=== PATIENT | female | born 1940 | race Caucasian/White ===

== ENCOUNTER 2016-11-18 19:15 | Inpatient (IN) | payer MEDICARE, BC ==
[2016-11-18 19:50] LABS: Glucose,Whole Blood 179 mg/dL (75-99)
--- NOTE | 2016-11-18 20:02 | ED ---
Neuro HPI - General Chief Complaint: Neuro Symptoms/Deficit Stated Complaint: Arm numbness/face Time Seen by Provider: 11/18/16 19:34 Source: patient, family Mode of arrival: EMS Limitations: no limitations - History of Present Illness Is the patient presenting with stroke symptoms?: Yes Initial Comments: 76-year-old female onset of tingling in the left arm about 6:15 this evening. She states that there is some weakness no loss of speech no visual changes no blurry vision no double vision no headache. No syncope. No nausea vomiting. Has a history diabetes no hypertension. 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 - Related Data Home Medications: Home Medications Medication Instructions Recorded Confirmed Aspirin EC [Ecotrin Low Dose] 81 mg PO DAILY 11/18/16 11/18/16 Gemfibrozil [Lopid] 600 mg PO AC-BID 11/18/16 11/18/16 Multivitamins, Thera [Multivitamin] 1 tab PO DAILY 11/18/16 11/18/16 glipiZIDE XL [Glucotrol Xl] 10 mg PO BID 11/18/16 11/18/16 metFORMIN HCL [metFORMIN HCL ER] 1,000 mg PO BID 11/18/16 11/18/16 Allergies/Adverse Reactions: Allergies Allergy/AdvReac Type Severity Reaction Status Date / Time cortisone AdvReac HIGH SUGAR Verified 11/18/16 19:49 LEVELS Review of Systems ROS Statement: Those systems with pertinent positive or pertinent negative responses have been documented in the HPI. ROS Other: All systems not noted in ROS Statement are negative. Constitutional: Denies: fever ENT: Denies: ear pain Respiratory: Denies: cough Cardiovascular: Denies: chest pain Gastrointestinal: Denies: abdominal pain, nausea, vomiting Genitourinary: Denies: urgency, frequency Skin: Denies: rash Neurological: Denies: headache Psychiatric: Denies: anxiety, depression General Exam Limitations: no limitations General appearance: alert, in no apparent distress Head exam: Present: atraumatic Eye exam: Present: PERRL, EOMI ENT exam: Present: normal oropharynx, mucous membranes moist, TM's normal bilaterally Neck exam: Present: normal inspection Respiratory exam: Present: normal lung sounds bilaterally Cardiovascular Exam: Present: regular rate, normal heart sounds GI/Abdominal exam: Present: soft. Absent: tenderness Neurological exam: Present: alert, oriented X3, CN II-XII intact (Good fine motor motion of the left hand very minimal weakness very minimal left wrist some mild weakness in the left leg but she also has had knee surgery no sensory deficit detected.) Psychiatric exam: Present: normal affect, normal mood Skin exam: Present: warm, dry Stroke MDM - Lab Data Result diagrams: 11/19/16 05:46 11/19/16 05:46 Lab Results 11/18/16 11/18/16 11/18/16 Range/Units 19:42 19:45 19:45 WBC 5.2 (3.8-10.6) k/uL RBC 4.66 (3.80-5.40) m/uL Hgb 13.9 (11.4-16.0) gm/dL Hct 40.0 (34.0-46.0) % MCV 85.9 (80.0-100.0) fL MCH 29.8 (25.0-35.0) pg MCHC 34.7 (31.0-37.0) g/dL RDW 12.9 (11.5-15.5) % Plt Count 283 (150-450) k/uL Neutrophils % 50 % Lymphocytes % 38 % Monocytes % 7 % Eosinophils % 1 % Basophils % 1 % Neutrophils # 2.6 (1.3-7.7) k/uL Lymphocytes # 1.9 (1.0-4.8) k/uL Monocytes # 0.3 (0-1.0) k/uL Eosinophils # 0.1 (0-0.7) k/uL Basophils # 0.0 (0-0.2) k/uL PT (9.0-12.0) sec INR (<1.1) APTT (22.0-30.0) sec Sodium (137-145) mmol/L Potassium (3.5-5.1) mmol/L Chloride (98-107) mmol/L Carbon Dioxide (22-30) mmol/L Anion Gap mmol/L BUN (7-17) mg/dL Creatinine (0.52-1.04) mg/dL Est GFR (MDRD) Af Amer (>60 ml/min/1.73 sqM) Est GFR (MDRD) Non-Af (>60 ml/min/1.73 sqM) Glucose (74-99) mg/dL POC Glucose (mg/dL) 179 H (75-99) mg/dL POC Glu Partition Setter ID Leann V[place] Calcium (8.4-10.2) mg/dL Total Bilirubin (0.2-1.3) mg/dL AST (14-36) U/L ALT (9-52) U/L Alkaline Phosphatase (38-126) U/L Total Creatine Kinase 24 L (30-135) U/L CK-MB (CK-2) 0.7 (0.0-2.4) ng/mL CK-MB (CK-2) Rel Index 2.9 Troponin I <0.012 (0.000-0.034) ng/mL Total Protein (6.3-8.2) g/dL Albumin (3.5-5.0) g/dL 11/18/16 11/18/16 Range/Units 19:45 19:45 WBC (3.8-10.6) k/uL RBC (3.80-5.40) m/uL Hgb (11.4-16.0) gm/dL Hct (34.0-46.0) % MCV (80.0-100.0) fL MCH (25.0-35.0) pg MCHC (31.0-37.0) g/dL RDW (11.5-15.5) % Plt Count (150-450) k/uL Neutrophils % % Lymphocytes % % Monocytes % % Eosinophils % % Basophils % % Neutrophils # (1.3-7.7) k/uL Lymphocytes # (1.0-4.8) k/uL Monocytes # (0-1.0) k/uL Eosinophils # (0-0.7) k/uL Basophils # (0-0.2) k/uL PT 10.5 (9.0-12.0) sec INR 1.0 (<1.1) APTT 24.1 (22.0-30.0) sec Sodium 141 (137-145) mmol/L Potassium 4.9 (3.5-5.1) mmol/L Chloride 103 (98-107) mmol/L Carbon Dioxide 24 (22-30) mmol/L Anion Gap 14 mmol/L BUN 16 (7-17) mg/dL Creatinine 0.74 (0.52-1.04) mg/dL Est GFR (MDRD) Af Amer >60 (>60 ml/min/1.73 sqM) Est GFR (MDRD) Non-Af >60 (>60 ml/min/1.73 sqM) Glucose 189 H (74-99) mg/dL POC Glucose (mg/dL) (75-99) mg/dL POC Glu Partition Setter ID Calcium 10.1 (8.4-10.2) mg/dL Total Bilirubin 0.6 (0.2-1.3) mg/dL AST 26 (14-36) U/L ALT 25 (9-52) U/L Alkaline Phosphatase 90 (38-126) U/L Total Creatine Kinase (30-135) U/L CK-MB (CK-2) (0.0-2.4) ng/mL CK-MB (CK-2) Rel Index Troponin I (0.000-0.034) ng/mL Total Protein 7.5 (6.3-8.2) g/dL Albumin 4.4 (3.5-5.0) g/dL - NIH Stroke Scale 1a. Level of Consciousness: (0) alert 1b. LOC Questions: (0) answers correctly 1c. LOC Commands: (0) performs tasks correctly 2. Best Gaze: (0) normal 3. Visual: (0) no visual loss 4. Facial Palsy: (0) normal symmetrical movement 5a. Motor Arm Left: (1) drift 5b. Motor Arm Right: (0) no drift 6a. Motor Leg Left: (1) drift 6b. Motor Leg Right: (0) no drift 7. Limb Ataxia: (0) absent 8. Sensory: (0) normal 9. Best Language: (0) no aphasia 10. Dysarthria: (0) normal 11. Extinction/Inattention: (0) no abnormality Past Medical History Past Medical History: Diabetes Mellitus Additional Past Medical History / Comment(s): Arthritis History of Any Multi-Drug Resistant Organisms: None Reported Past Surgical History: Appendectomy, Cholecystectomy Additional Past Surgical History / Comment(s): ovairan, back surgery, spinal, kidney surgery Past Psychological History: No Psychological Hx Reported Smoking Status: Never smoker Past Alcohol Use History: None Reported Past Drug Use History: None Reported - Past Family History Father Additional Family Medical History / Comment(s): father of aneurysm Mother Family Medical History: Cancer Additional Family Medical History / Comment(s): Mother of colon cancer Course Vital Signs 11/18/16 11/18/16 11/18/16 19:19 19:51 20:06 Temperature 99.2 F Pulse Rate 96 82 84 Respiratory 18 18 18 Rate Blood Pressure 183/77 157/85 147/76 O2 Sat by Pulse 99 95 96 Oximetry - Reevaluation(s) Reevaluation #1: 11/18/16 20:28 ECG 11/18/2016 1936 and treated rate 87 bpm, WA interval 184 ms, QRS duration 88 ms, QT interval 372 ms normal sinus rhythm possible left atrial enlargement borderline ECG Reevaluation #2: 11/18/16 21:23 Nursing spoke to the stroke specialist right after the computed tomography scan her scale was not high enough to consider tPA she has pretty good fine motor more movements and seems to be getting better her drift his last the weakness in her left leg is partially attributed to previous surgery. Aspirin was given. Patient will be admitted to Dr. Keane Reevaluation #3: 11/18/16 21:30 Chest x-ray cardiomegaly mild atelectasis age-related changes on the CT the brain Reevaluation #4: 11/18/16 21:[address] Keane, patient will be admitted for carotids and monitoring. Critical Care Time Critical Care Time: Yes Total Critical Care Time: 30 Disposition Clinical Impression: Cerebrovascular accident, Hypertension Disposition: ADMITTED IP TO THIS [facility] Condition: Fair Time of Disposition: 21:40 Decision Date: 11/18/16 Decision Time: 21:40
[2016-11-18 20:05] LABS: Basophils % (A) 1 %; CH 29.7; CHCM 34.8; Eosinophils # (A) 0.1 k/uL (0-0.7); Eosinophils % (A) 1 %; HDW 2.53; HGB 13.9 gm/dL (11.4-16.0); Luc # (Auto) 0.19; Luc % (Auto) 4; Lymphocytes # (A) 1.9 k/uL (1.0-4.8); Lymphocytes % (A) 38 %; MCH 29.8 pg (25.0-35.0); MCHC 34.7 g/dL (31.0-37.0); MCV 85.9 fL (80.0-100.0); Mean Platelet Volume 7.8; Monocytes # (A) 0.3 k/uL (0-1.0); Monocytes % (A) 7 %; Neutrophils # (A) 2.6 k/uL (1.3-7.7); Neutrophils % (A) 50 %; RBC 4.66 m/uL (3.80-5.40); RDW 12.9 % (11.5-15.5); WBC 5.2 k/uL (3.8-10.6); WBC (Perox) 5.05
--- NOTE | 2016-11-18 20:10 | CT ---
EXAMINATION TYPE: CT brain wo con for TPA DATE OF EXAM: 11/18/2016 8:00 PM COMPARISON: NONE HISTORY: 76-year-old female complains of left arm numbness. TECHNIQUE: Examination was done in axial plane without intravenous contrast. Coronal and sagittal r econstructions performed. CT DLP: 742.7 mGycm Automated exposure control for dose reduction was used. FINDINGS: There is no evidence of acute intracranial hemorrhage, acute ischemic changes, mass, mass-effect, or extra-axial fluid collection. There is no effacement of cerebral sulci or basal subarachnoid cister ns. There is no hydrocephalus. There is no midline shift. Weller-white matter distinction is preserv ed. There is mild generalized supratentorial volume loss and mild confluent periventricular and deep whit e matter hypodensities. Paranasal sinuses and mastoid air cells are well pneumatized. Orbits lobes are intact. IMPRESSION: No acute intracranial abnormality seen. Mild atrophy and changes of chronic small vessel ischemic dis ease.
[2016-11-18 20:15] LABS: ALT 25 U/L (9-52); AST 26 U/L (14-36); Alkaline Phosphatase 90 U/L (38-126); Anion Gap 14 mmol/L; Blood Urea Nitrogen 16 mg/dL (7-17); Calcium 10.1 mg/dL (8.4-10.2); Carbon Dioxide 24 mmol/L (22-30); Chloride 103 mmol/L (98-107); Glucose 189 mg/dL (74-99); Non-African American GFR(MDRD) >60 (>60 ml/min/1.73 sqM); Potassium 4.9 mmol/L (3.5-5.1); Sodium 141 mmol/L (137-145); Total Bilirubin 0.6 mg/dL (0.2-1.3); Total Protein 7.5 g/dL (6.3-8.2)
[2016-11-18 20:18] LABS: Partial Thromboplastin Time 24.1 sec (22.0-30.0); Prothrombin Time 10.5 sec (9.0-12.0)
--- NOTE | 2016-11-18 20:43 | XR ---
EXAMINATION TYPE: XR chest 2V DATE OF EXAM: 11/18/2016 8:30 PM COMPARISON: 07/25/2016 HISTORY: 76 year-old female altered mental status TECHNIQUE: Frontal and lateral views FINDINGS: The heart is borderline enlarged. Aorta and pulmonary vasculature within normal limits. Mild intersti tial prominence likely chronic senescent change. There is some focal patchy posterior basilar opacity on the lateral view. Plate and screw fixation along the visualized left humerus. Full-thickness rota tor cuff tear is suspected on both sides. IMPRESSION: 1. Borderline cardiomegaly. 2. Some patchy posterior basilar atelectasis or early infiltrate on the lateral view.
[2016-11-18 20:56] LABS: Creatine Kinase 24 U/L (30-135)
[2016-11-18] MEDS ORDERED: ASPIRIN 81 MG CHEW PO STA (20:58)
[2016-11-18] MEDS ORDERED: SODIUM CHLORIDE 0.9% 1,000 ML IV STA (20:58)
[2016-11-18 21:09] LABS: Creatine Kinase MB 0.7 ng/mL (0.0-2.4); Troponin I <0.012 ng/mL (0.000-0.034)
[2016-11-18] MEDS ORDERED: NALOXONE 0.4 MG/ML 1 ML VIAL IV PRN (21:41)
[2016-11-18] MEDS: SODIUM CHLORIDE 0.9% 1,000 ML IV SCH (22:44)
[2016-11-18] MEDS ORDERED: GEMFIBROZIL 600 MG TAB PO ONE (23:03)
[2016-11-18] MEDS ORDERED: glipiZIDE 10 MG TAB PO ONE (23:04)
[2016-11-18] MEDS ORDERED: metFORMIN 500 MG TAB PO ONE (23:04)
[2016-11-18 23:16] LABS: Glucose,Whole Blood 140 mg/dL (75-99)
--- NOTE | 2016-11-19 00:39 | US ---
EXAM: US Duplex Bilateral Extracranial Arteries. CLINICAL HISTORY: Reason: Pain TECHNIQUE: Real-time ultrasound scan of the bilateral carotid and vertebral arteries, 2-D gregory scale, with color Doppler flow and spectral waveform analysis. COMPARISON: No relevant prior studies available. FINDINGS: Right common carotid artery: Unremarkable. No occlusion or significant stenosis. Right internal carotid artery: Moderate intimal thickening/atherosclerotic plaquing in the proximal right internal carotid artery (carotid bulb) without significant elevation of peak systolic velocity to suggest hemodynamically significant stenosis. Right external carotid artery: Unremarkable. No occlusion or significant stenosis. Right vertebral artery: Antegrade flow in the right vertebral artery. Right ICA/CCA ratio: Unremarkable. Within normal limits. Left common carotid artery: Moderate focal irregular atherosclerotic plaquing in the mid left common carotid artery on a background of mild intimal thickening. No significant elevation of peak systolic velocity. No hemodynamically significant stenosis evident by ultrasound. Left internal carotid artery: Moderate intimal thickening/atherosclerotic plaquing in the proximal left internal carotid artery (carotid bulb) without significant elevation of peak systolic velocity to suggest hemodynamically significant stenosis. Left external carotid artery: Unremarkable. No occlusion or significant stenosis. Left vertebral artery: Antegrade flow in the left vertebral artery. Left ICA/CCA ratio: Unremarkable. Within normal limits. CAROTID STENOSIS REFERENCE USING SRU CRITERIA: Mild - <50% stenosis. ICA PSV is less than 125 cm/second and plaque or intimal thickening is visible. Moderate - 50-69% stenosis. ICA PSV is 125 to 230 cm/second and plaque is visible. Severe - 70-94% stenosis. ICA PSV is more than 230 cm/second and visible plaque with lumen narrowing is seen. Near occlusion - 95-99% stenosis. ICA PSV is variable and significant plaque with luminal narrowing is seen. Occluded - 100% stenosis. No flow identified. IMPRESSION: 1. Moderate focal irregular atherosclerotic plaquing in the mid left common carotid artery without hemodynamically significant stenosis evident by ultrasound. 2. Moderate atherosclerotic plaquing in the proximal internal carotid arteries bilaterally (carotid bulbs) without hemodynamically significant internal carotid artery stenosis evident by ultrasound. 3. Antegrade flow in the vertebral arteries. Critical Value Communications 11/19/16 00:42 Verify Receipt with Nurse Verified receipt with THELMA Cerrato @ [id number]
[2016-11-19 02:07] VITALS: RESP 16
[2016-11-19 03:08] LABS: Glucose,Whole Blood 141 mg/dL (75-99)
[2016-11-19 05:13] LABS: Appearance,Urine Clear (Clear); Bilirubin,Urine Negative (Negative); Glucose,Urine (UA) Trace (Negative); Ketones,Urine Negative (Negative); Leukocyte Esterase,Urine Small (Negative); Nitrite,Urine Negative (Negative); PH, Urine 5.5 (5.0-8.0); Particle Count 480; Protein,Urine Negative (Negative); RBC,Urine <1 /hpf (0-5); Specific Gravity,Urine 1.012 (1.001-1.035); Squamous Epithelial Cell,Urine <1 /hpf (0-4); UA Billing (MACRO vs. MICRO) MICRO; Urobilinogen,Urine <2.0 mg/dL (<2.0); WBC,Urine 2 /hpf (0-5)
[2016-11-19 05:53] LABS: Glucose,Whole Blood 117 mg/dL (75-99)
[2016-11-19 06:19] LABS: Basophils # (A) 0.1 k/uL (0-0.2); Basophils % (A) 2 %; CH 29.7; CHCM 33.9; Eosinophils # (A) 0.1 k/uL (0-0.7); Eosinophils % (A) 2 %; HCT 38.3 % (34.0-46.0); HDW 2.49; HGB 12.9 gm/dL (11.4-16.0); Luc # (Auto) 0.28; Luc % (Auto) 4; Lymphocytes # (A) 2.5 k/uL (1.0-4.8); Lymphocytes % (A) 39 %; MCH 29.7 pg (25.0-35.0); MCHC 33.7 g/dL (31.0-37.0); Mean Platelet Volume 7.9; Monocytes # (A) 0.4 k/uL (0-1.0); Monocytes % (A) 7 %; Neutrophils % (A) 46 %; RBC 4.35 m/uL (3.80-5.40); RDW 13.1 % (11.5-15.5); WBC 6.4 k/uL (3.8-10.6); WBC (Perox) 6.36
[2016-11-19 06:27] LABS: Anion Gap 12 mmol/L; Blood Urea Nitrogen 15 mg/dL (7-17); Calcium 9.5 mg/dL (8.4-10.2); Carbon Dioxide 24 mmol/L (22-30); Chloride 106 mmol/L (98-107); Glucose 115 mg/dL (74-99); Non-African American GFR(MDRD) >60 (>60 ml/min/1.73 sqM); Potassium 4.2 mmol/L (3.5-5.1); Sodium 142 mmol/L (137-145)
[2016-11-19] MEDS: GEMFIBROZIL 600 MG TAB PO SCH ×2 (07:22→16:36)
[2016-11-19] MEDS: glipiZIDE 10 MG TAB PO SCH ×2 (07:22→22:15)
[2016-11-19] MEDS: metFORMIN 500 MG TAB PO SCH ×2 (07:22→22:02)
[2016-11-19] MEDS: ASPIRIN 81 MG CHEW PO SCH (08:51)
[2016-11-19] MEDS: MULTIVITAMINS, THERA 1 EACH TAB PO SCH (08:51)
[2016-11-19 12:24] LABS: Glucose,Whole Blood 189 mg/dL (75-99)
[2016-11-19] MEDS ORDERED: RX INFO: IV CONTRAST WAS GIVEN 1 EACH MISC MISCELLANE PRN (15:55)
[2016-11-19] MEDS: ENOXAPARIN 40 MG/0.4 ML SYRINGE SQ SCH (16:36)
--- NOTE | 2016-11-19 17:06 | P.CNPUL ---
History of Present Illness Consult date: 11/19/16 Chief complaint: CVA History of present illness: This is a 76-year-old female patient who presented to the burst department because of an acute onset weakness and numbness in her left upper and left lower extremity. The patient had no facial weakness. No change in vision. No change in her speech. No headaches. No syncope. No nausea vomiting or abdominal pain. Symptoms started around 6:15 PM and the patient was in the burst department at around 1-1/2 hours following the onset of symptoms. The patient was seen in the emergency department and the patient had a CAT scan of the head that showed no acute intracranial abnormalities. She had mild atrophy and changes of chronic small vessel disease. Subsequently her symptoms improved and the numbness and the tingling resolved and the weakness also improved. Based on that the patient was admitted to the hospital under the diagnosis of TIA. The patient was admitted under the hospitalist group and I'm seeing this patient based on the affected the patient's primary care physician is Dr. Myers. She is doing well. She has no specific complaints. No atrial fibrillation. Carotid Dopplers will be done. Echocardiogram is pending. No previous history of CVA. No hypertension. She is known to have diabetes. She suffered from a bout of diarrhea approximately a week ago from which she recovered. She has been otherwise in a good state of health. Review of Systems Full review of system was done and the positive findings are almost above in history of present illness Past Medical History Past Medical History: Diabetes Mellitus Additional Past Medical History / Comment(s): Diabetes mellitus, Arthritis History of Any Multi-Drug Resistant Organisms: None Reported Past Surgical History: Appendectomy, Cholecystectomy Additional Past Surgical History / Comment(s): ovairan distal resection, left arm ORIF, cholecystectomy, appendectomy, multiple bilateral knee surgeries, adenoidectomy, tonsillectomy, carpal tunnel release, back surgery Past Anesthesia/Blood Transfusion Reactions: No Reported Reaction Past Psychological History: No Psychological Hx Reported Smoking Status: Never smoker Past Alcohol Use History: None Reported Past Drug Use History: None Reported - Past Family History Father Additional Family Medical History / Comment(s): father of aneurysm Mother Family Medical History: Cancer Additional Family Medical History / Comment(s): Mother of colon cancer Medications and Allergies Home Medications Medication Instructions Recorded Confirmed Type Aspirin EC [Ecotrin Low Dose] 81 mg PO DAILY 11/18/16 11/18/16 History Gemfibrozil [Lopid] 600 mg PO AC-BID 11/18/16 11/18/16 History Multivitamins, Thera [Multivitamin] 1 tab PO DAILY 11/18/16 11/18/16 History glipiZIDE XL [Glucotrol Xl] 10 mg PO BID 11/18/16 11/18/16 History metFORMIN HCL [metFORMIN HCL ER] 1,000 mg PO BID 11/18/16 11/18/16 History Allergies Allergy/AdvReac Type Severity Reaction Status Date / Time cortisone AdvReac HIGH SUGAR Verified 11/18/16 19:49 LEVELS Physical Exam Vitals: Vital Signs Temp Pulse Pulse Resp BP BP Pulse Ox 11/19/16 11:29 98.2 F 69 16 110/55 96 11/19/16 08:00 97.8 F 81 16 115/62 96 11/19/16 04:00 80 16 137/62 97 11/19/16 00:00 99.0 F 68 16 163/72 97 11/18/16 22:05 97.0 F L 81 18 173/77 98 Intake and Output 11/19/16 11/19/16 11/19/16 06:59 14:59 22:59 Intake Total 120 212 Output Total 200 Balance -80 212 Intake: IV 120 212 Sodium Chloride 0.9% 1, 120 212 000 ml @ 20 mls/hr IV . Q24H [facility] Rx#:[id number] Output: Urine 200 Other: Voiding Method Toilet Toilet Diaper # Voids 1 Weight 81.4 kg The patient appeared well nourished and normally developed. Vital signs as documented. Head exam is unremarkable. No scleral icterus or corneal arcus noted. Neck is without jugular venous distension, thyromegaly, or carotid bruits. Carotid upstrokes are brisk bilaterally. Lungs are clear to auscultation and percussion. Cardiac exam reveals the PMI to be normally sized and situated. Rhythm is regular. First and second heart sounds normal. No murmurs, rubs or gallops. Abdominal exam reveals normal bowel sounds, no masses , no organomegaly and no aortic enlargement. Extremities are nonedematous and both femoral and pedal pulses are normal. Neurologically, the patient is awake and alert and she is following commands and answering questions appropriately. No facial asymmetry. Left side is noted to be slightly weaker compared to the right however the patient tells me that this is unusual for her and she states that she is back to her baseline. Results - Laboratory Findings CBC and BMP: 11/19/16 05:46 11/19/16 05:46 PT/INR, D-dimer PT 10.5 sec (9.0-12.0) 11/18/16 19:45 INR 1.0 (<1.1) 11/18/16 19:45 Abnormal lab findings: Abnormal Labs 11/18/16 11/19/16 11/19/16 22:55 03:07 04:25 Glucose POC Glucose (mg/dL) 140 H 141 H Urine Glucose (UA) Trace H Ur Leukocyte Esterase Small H 11/19/16 11/19/16 11/19/16 05:46 05:46 11:50 Glucose 115 H POC Glucose (mg/dL) 117 H 189 H Urine Glucose (UA) Ur Leukocyte Esterase - Diagnostic Findings Chest x-ray: image reviewed Assessment and Plan Plan: Assessment 1 acute CVA versus TIA. The patient had numbness and tingling and weakness in the left side of the body which pretty much is improved and the patient seems to be back to her baseline. CAT scan of the brain has been negative. Workup is in progress 2 diabetes mellitus 3 osteoarthritis Plan Workup for CVA/TIA. This will include echocardiogram, Doppler of the carotids, repeat CAT scan of the brain within the next 24 hours, lipid profile, type control of risk factors including blood pressure and diabetes mellitus, neurology consultation, will continue to follow.
[2016-11-19 17:10] LABS: Glucose,Whole Blood 143 mg/dL (75-99)
--- NOTE | 2016-11-19 17:23 | HP ---
DATE OF ADMISSION: 11/18/2016 PRESENTING COMPLAINT: Left-sided numbness. HISTORY OF PRESENTING COMPLAINT: This is a pleasant 76 -year-old patient of Dr. Myers who chronic medical history includes diabetes mellitus, type II, osteoarthritis, hypercholesterolemia. The patient presented with suddenly left arm and left leg numbness, tingling, feeling heavy and also felt dizzy and no headache. No double vision. No change in speech. Has been close to 24 hours. Some improvement but still feeling a bit numb, admitted for the same. No prior history of stroke. REVIEW OF SYSTEMS: CONSTITUTIONAL: None. HEENT: None. RESPIRATORY: None. CARDIOVASCULAR: None. GASTROINTESTINAL: None. GENITOURINARY: None. MUSCULOSKELETAL: Pain in the joints. Dermatologic: None. HEMATOLOGIC: None. LYMPHATIC: None. PSYCHIATRY: None. NEUROLOGICAL: As above. PAST MEDICAL HISTORY: Diabetes type 2, osteoarthritis, increased cholesterol. PAST SURGICAL HISTORY: Appendectomy, cholecystectomy, back surgery, spinal surgery, kidney surgery. SOCIAL HISTORY: No smoking. No alcohol. Lives by herself. Is a . FAMILY HISTORY: Father of an aneurysm. Home medications: 1. Metformin 1000 mg b.i.d. 2. Glucotrol XL 10 mg b.i.d. 3. Multivitamin 1 tablet p.o. daily. 4. Lopid 600 mg p.o. b.i.d. 5. Aspirin 81 mg daily. ALLERGIES TO CORTISONE CAUSING HIGH SUGARS. On examination vital signs on presentation: Temperature 99.2, pulse 96, respiration 18, blood pressure 183/77, pulse ox 99% on room air. Repeat blood pressure was 157/85. GENERAL APPEARANCE: Average build, sitting up on a distress. EYES: Pupils equal. Conjunctivae normal. HEENT: Oral cavity normal. NECK: JVD not raised. Mass not palpable. RESPIRATORY: Effort normal. Lungs are clear. CARDIOVASCULAR: First and second sounds normal. No edema. ABDOMEN: Soft, nontender. Liver and spleen not palpable. LYMPHATIC: No lymph nodes palpable in neck or axillae. PSYCHIATRY: Alert and oriented x3. Mood and affect normal. NEUROLOGICAL: Pupils equal. Cranial appears grossly intact. Power on the left side is 4/5. Sensation is decreased. Cranial nerves grossly intact. INVESTIGATIONS: White count 5.2, hemoglobin 9.9. Potassium 4.9. BUN and creatinine are normal. CT scan of the brain nil acute. Carotid Doppler did not show any critical stenosis. ASSESSMENT: 1. Acute stroke in a right-handed patient, in the right middle cerebral artery, likely ischemic. 2. Diabetes mellitus Type 2 on oral hypoglycemics. 3. Primary osteoarthritis in multiple joints, bilateral. 4. Hypercholesterolemia. PLAN: Patient will continue on aspirin. Home medication are resumed. Consult PT, OT. Will order 2D echocardiogram and repeat a CT scan in 24 hours. Care was discussed with the patient. Will also obtain lipid profile.
[2016-11-19 20:37] LABS: Glucose,Whole Blood 205 mg/dL (75-99)
[2016-11-20 04:19] LABS: Glucose,Whole Blood 186 mg/dL (75-99)
[2016-11-20] MEDS: SODIUM CHLORIDE 0.9% 1,000 ML IV SCH (05:49)
[2016-11-20 06:43] LABS: Glucose,Whole Blood 103 mg/dL (75-99)
[2016-11-20] MEDS: GEMFIBROZIL 600 MG TAB PO SCH (08:16)
[2016-11-20] MEDS: ASPIRIN 81 MG CHEW PO SCH (08:16)
[2016-11-20] MEDS: ENOXAPARIN 40 MG/0.4 ML SYRINGE SQ SCH (08:16)
[2016-11-20] MEDS: glipiZIDE 10 MG TAB PO SCH (08:16)
[2016-11-20 09:15] LABS: Cholesterol 157 mg/dL (<200); HDL Cholesterol 43 mg/dL (40-60); Triglycerides 73 mg/dL (<150)
--- NOTE | 2016-11-20 10:42 | ECHOF ---
Referral Reason:cva-r/o thrombus MEASUREMENTS -------- HEIGHT: 165.1 cm WEIGHT: 82.1 kg BP: RVIDd: 3.7 cm (< 3.3) IVSd: 1.3 cm (0.6 - 1.1) LVIDd: 4.0 cm (3.9 - 5.3) LVPWd: 1.1 cm (0.6 - 1.1) IVSs: 1.2 cm LVIDs: 2.6 cm LVPWs: 1.3 cm LA Diam: 3.9 cm (2.7 - 3.8) LAESV Index (A-L): 42.35 ml/m Ao Diam: 2.9 cm (2.0 - 3.7) AV Cusp: 0.8 cm (1.5 - 2.6) LA Diam: 4.9 cm (2.7 - 3.8) MV EXCURSION: 13.189 mm (> 18.000) MV EF SLOPE: 17 mm/s (70 - 150) EPSS: 0.7 cm MV E Arsalan: 1.22 m/s MV DecT: 409 ms MV A Arsalan: 1.81 m/s MV E/A Ratio: 0.68 AV maxP.93 mmHg AV meanP.61 mmHg RAP: 5.00 mmHg RVSP: 21.93 mmHg FINDINGS -------- Sinus rhythm. This was a technically adequate study. There is mild concentric left ventricular hypertrophy. Overall left ventricular systolic function is low-normal with, an EF between 50 - 55 %. The right ventricle is normal in size. LA is severely dilated >40 ml/m2 The right atrial size is normal. There is mild aortic stenosis present. Peak/mean gradient across the Aortic Valve is 16.93mmHg / 7.61mmHg. The mitral valve leaflets are moderately thickened. Moderate mitral annular calcification present. The peak and mean MV gradients are 18.31mmHg 7.72mmHg as measured by doppler. MV is Stenotic with decrease opening Mild tricuspid regurgitation present. There is no evidence of pulmonary hypertension. The right ventricular systolic pressure, as measured by Doppler, is 21.93mmHg. Trace/mild (physiologic) pulmonic regurgitation. The aortic root size is normal. There is a small, generalized pericardial effusion present. CONCLUSIONS -------- 1. There is mild concentric left ventricular hypertrophy. 2. Mild tricuspid regurgitation present. 3. There is no evidence of pulmonary hypertension. 4. The right ventricular systolic pressure, as measured by Doppler, is 21.93mmHg. 5. Trace/mild (physiologic) pulmonic regurgitation. 6. The aortic root size is normal. 7. There is a small, generalized pericardial effusion present. 8. Overall left ventricular systolic function is low-normal with, an EF between 50 - 55 %. 9. LA is severely dilated >40 ml/m2 10. There is mild aortic stenosis present. 11. Peak/mean gradient across the Aortic Valve is 16.93mmHg / 7.61mmHg. 12. The mitral valve leaflets are moderately thickened. 13. Moderate mitral annular calcification present. 14. The peak and mean MV gradients are 18.31mmHg 7.72mmHg as measured by doppler. 15. MV is Stenotic with decrease opening JOURNAL ENTRY AUDIT CLERK: Jane Ramirez RDCS
[2016-11-20 11:33] LABS: Glucose,Whole Blood 153 mg/dL (75-99)
[2016-11-20] MEDS: MULTIVITAMINS, THERA 1 EACH TAB PO SCH (12:13)
--- NOTE | 2016-11-20 12:22 | CT ---
EXAMINATION TYPE: CT angio head neck DATE OF EXAM: 11/20/2016 7:45 AM COMPARISON: NONE HISTORY: Lt side weakness CT DLP: 229.5 mGycm Automated exposure control for dose reduction was used. TECHNIQUE: Performed with IV Contrast, patient injected with 65 mL of Omnipaque 350. . FINDINGS: CTA neck: Atheromatous plaque is at the bilateral carotid bifurcations. Significant flow-limiting lili nosis is not evident. Internal and external carotid arteries appear unremarkable. Common carotid crys scar appear unremarkable there is a normal three-vessel arch CTA [place]: Internal carotid arteries bifurcate normally into A1 and M1 segments. A2 segmen ts appear normal. The anterior communicating artery is patent. The right posterior communicating crys ry is patent. Left posterior communicating arteries not clearly evident. Vertebral basilar system ge[place] ears normal. Posterior cerebral vasculature is normal. Middle cerebral artery branches appear normal. No aneurysmal dilatation is evident. IMPRESSION: 1. NO SIGNIFICANT FLOW-LIMITING STENOSIS INTERNAL CAROTID ARTERIES. 2. NORMAL [place]
--- NOTE | 2016-11-20 16:09 | P.PN ---
Subjective Principal diagnosis: Acute TIA This is a 76-year-old female patient who presented to the burst department because of an acute onset weakness and numbness in her left upper and left lower extremity. The patient had no facial weakness. No change in vision. No change in her speech. No headaches. No syncope. No nausea vomiting or abdominal pain. Symptoms started around 6:15 PM and the patient was in the burst department at around 1-1/2 hours following the onset of symptoms. The patient was seen in the emergency department and the patient had a CAT scan of the head that showed no acute intracranial abnormalities. She had mild atrophy and changes of chronic small vessel disease. Subsequently her symptoms improved and the numbness and the tingling resolved and the weakness also improved. Based on that the patient was admitted to the hospital under the diagnosis of TIA. The patient was admitted under the hospitalist group and I'm seeing this patient based on the affected the patient's primary care physician is Dr. Myers. She is doing well. She has no specific complaints. No atrial fibrillation. Carotid Dopplers will be done. Echocardiogram is pending. No previous history of CVA. No hypertension. She is known to have diabetes. She suffered from a bout of diarrhea approximately a week ago from which she recovered. She has been otherwise in a good state of health. Patient was reevaluated today on 11/20/2015, seems to be doing very well, she has no active neurological symptoms at present. Echocardiogram report was reviewed. Relatively unremarkable. CT angiogram of the brain was also noted basically normal. Carotid Doppler showed no evidence of hemodynamically significant internal carotid disease. Objective - Vital Signs Vital signs: Vital Signs Temp 97.3 F L 11/20/16 07:00 Pulse 62 11/20/16 07:00 Resp 16 11/20/16 07:00 BP 127/63 11/20/16 07:00 Pulse Ox 97 11/20/16 07:00 Intake & Output 11/19/16 11/20/16 11/20/16 18:59 06:59 18:59 Intake Total 322 120 Output Total 450 Balance -128 120 Weight 82.5 kg Intake: IV 322 120 Sodium Chloride 0.9% 1, 322 120 000 ml @ 20 mls/hr IV . Q24H NING Rx#:[id number] Output: Urine 450 Other: Voiding Method Toilet Toilet Toilet Diaper Diaper Diaper # Voids 1 # Bowel Movements 0 - Exam Physical Exam: Revealed a 76-year-old in no distress HEENT:[Neck is supple.] [No neck masses.] [No thyromegaly.] [No JVD.] Chest: [Clear throughout, no crackles, no rhonchi, no wheezes.] Cardiac Exam: [Normal S1 and S2, no S3 gallop, no murmur.] Abdomen: [Soft, nontender, no megaly, no rebound, no guarding, normal bowel sounds.] Extremities: [No clubbing, no edema, no cyanosis.] Neurological Exam: [No focal neurologic deficit.] - Labs CBC & Chem 7: 11/19/16 05:46 11/19/16 05:46 Labs: Abnormal Lab Results - Last 24 Hours (Table) 11/19/16 11/19/16 11/20/16 Range/Units 16:50 20:31 06:42 POC Glucose (mg/dL) 143 H 205 H 103 H (75-99) mg/dL 11/20/16 Range/Units 11:32 POC Glucose (mg/dL) 153 H (75-99) mg/dL Assessment and Plan Plan: Impression: Acute TIA, symptoms have resolved, and workup is nondiagnostic. Multiple comorbidities including diabetes, osteoarthritis, Recommendation: Consider discharge planning if cleared by neurology on consultation. And outpatient follow-up. Patient is now on aspirin and Lovenox. Time with Patient: Less than 30
[2016-11-20 16:20] VITALS: BP 146/67; PULSE 68; TEMP 98.2
--- NOTE | 2016-11-21 08:19 | DS ---
DATE OF ADMISSION: 11/18/2016 DATE OF DISCHARGE: 11/20/2016 FINAL DIAGNOSES: 1. Acute stroke in right-handed patient in the right middle cerebral artery territory likely ischemic. 2. Diabetes mellitus type 2, on oral hypoglycemic. 3. Primary osteoarthritis multiple joints, bilateral. 4. Hypercholesterolemia. HOSPITAL COURSE: This very pleasant lady presented with left arm numbness, weakness, tingling, dizzy. Symptoms greatly improved by the time of discharge. There was some residual left. The patient's CT scan of the brain showed chronic changes. Carotid Doppler did not show any critical stenosis. CT angiogram brain did not show any critical stenosis. The 2-D echocardiogram showed preserved LV function. No thrombus was reported. Patient was seen by Dr. Myers who is also the patient's family doctor. ( ) discussed the care in detailed with the patient. On examination, mild left arm weakness, power 1/5 . Care was discussed with the patient and she is keen to return home and manage fine. DISCHARGE MEDICATIONS: 1. Lopid 600 mg p.o. b.i.d. 2. Multivitamin 1 tablet p.o. daily. 3. Glucotrol XL 10 mg p.o. b.i.d. 4. Metformin ER 1000 mg p.o. b.i.d. 5. Aspirin 81 mg b.i.d. The patient's LDL came back to be 99. Discharge planning more than 35 minutes. Care was also discussed with the patient's family doctor, Dr. Myers.
== END 2016-11-20 16:53 | disposition home health service (06) | DRG 66 ==
LOC: EC 19:15 → 6SEL 21:41 → 4MS4W 11-19 18:13
PROVIDERS: ADMIT Hospitalist; ATTEND Hospitalist
DX: I63.9 Cerebral infarction, unspecified (principal); E11.9 Type 2 diabetes mellitus without complications; I10 Essential (primary) hypertension; E78.00 Pure hypercholesterolemia, unspecified; I73.9 Peripheral vascular disease, unspecified; M19.91 Primary osteoarthritis, unspecified site; Z79.82 Long term (current) use of aspirin; Z79.84 Long term (current) use of oral hypoglycemic drugs; Z79.899 Other long term (current) drug therapy
CPT/HCPCS: 36415; 70450; 70496; 70498; 71020; 80048; 80053; 80061; 81001; 82550; 82553; 84484; 85025; 85610; 85730; 93005; 93306; 93880; 96360; 99291

== ENCOUNTER → 2017-03-09 | Outpatient (CLI) | payer MEDICARE, BC ==
[2017-03-09 08:51] LABS: Blood Urea Nitrogen 23 mg/dL (7-17); Non-African American GFR(MDRD) >60 (>60 ml/min/1.73 sqM)
--- NOTE | 2017-03-09 09:52 | CT ---
EXAMINATION TYPE: CT chest w con DATE OF EXAM: 03/09/2017 COMPARISON: NONE HISTORY: Lung Mass CT DLP: 359.8 mGycm Automated exposure control for dose reduction was used. CONTRAST: CT scan of the chest is performed with IV Contrast, patient injected with 100 mL of Omnipaque 300. FINDINGS: LUNGS: 4 mm left lower lobe pulmonary nodule at the lung base.. There is no pleural effusion or pne umothorax seen. The tracheobronchial tree is patent. Linear changes are most typical scar or atelect asis. MEDIASTINUM: The heart is enlarged. Small amount of pericardial fluid is seen. No pathologic adenopat hy. OTHER: 4 mm solid-appearing breast nodule on the right. Correlate with mammogram. Hypertrophic archer e of the spine with degenerative disc disease. Surgical change involving the left shoulder. IMPRESSION: 1. There is a 4 mm lower lobe pulmonary nodule. Six-month follow-up is recommended to confirm stabili ty. 2. There is a 4 mm right breast nodule. Recommend mammogram. 3. Cardiomegaly with small pericardial effusion.
== END | disposition home or self-care (01) ==
LOC: RADCTMAIN 08:01
PROVIDERS: ATTEND Internal Medicine
DX: R91.8 Other nonspecific abnormal finding of lung field (principal); N63 Unspecified lump in breast; Z88.8 Allergy status to other drugs, medicaments and biological substances; Z88.5 Allergy status to narcotic agent
CPT/HCPCS: 82565; 84520; 71260; 36415; Q9967

== ENCOUNTER → 2017-03-20 | Outpatient (CLI) | payer MEDICARE, BC ==
--- NOTE | 2017-03-21 07:09 | MM ---
Reason for exam: clinical finding. Last mammogram was performed 2 years and 6 months ago. History: Patient is postmenopausal. Benign stereotactic core biopsy of the right breast, September 04, 2003. Benign stereotactic core biopsy of the right breast, September 04, 2003. Physical Findings: Nurse did not find any significant physical abnormalities on exam. MG 3D Diag Mammo W/Cad CHRISTAL Bilateral CC and MLO view(s) were taken. ML, CC with magnification, and ML with magnification view(s) were taken of the right breast. Prior study comparison: September 28, 2014, bilateral MG screening mammo w CAD. June 13, 2013, bilateral digital screening mammo w/CAD. December 14, 2011, bilateral digital screening mammo w/CAD. There are scattered fibroglandular densities. Previous mammotome biopsy within the right breast x2. There is chronic nodularity in the right breast. New grouped calcifications upper outer quadrant of the right breast posterior to middle depth, one group seems more anterior. The posterior two groups can be sampled via a CC approach. These results were verbally communicated with the patient and result sheet given to the patient on 03/20/17. ASSESSMENT: Suspicious, BI-RAD 4 RECOMMENDATION: Surgical consultation and stereotactic core biopsy of the right breast. (x [address] Myers with mammographic findings and has scheduled an appointment for the patient for 03/30/17 at 11:[address] Fairchild. PRELIMINARY REPORT CALLED AND FAXED TO DR. FAIRCHILD ON 03/21/17 AT 300/TMP. [facility]
== END | disposition home or self-care (01) ==
LOC: RADMAMWWP 13:53
PROVIDERS: ATTEND Internal Medicine
DX: N63 Unspecified lump in breast (principal)
CPT/HCPCS: G0204; G0279

== ENCOUNTER → 2017-04-12 | Day surgery (SDC) | payer MEDICARE, BC ==
[2017-04-12 07:27] VITALS: RESP 16; TEMP 97.9; BMI 29.1
[2017-04-12 09:42] VITALS: BP 125/79; PULSE 76
--- NOTE | 2017-04-12 13:31 | MM ---
Stereotactic core biopsy of 2 sites right breast. HISTORY: Microcalcifications. The calcifications in question within the right breast at 2 sites were targeted by the undersigned. The examination was performed by the surgeon. Specimen radiographs demonstrates numerous calcificati ons within the specimens submitted. Post procedural mammogram demonstrates appropriate deployment of radiopaque clip marker. The patient tolerated the procedure well and left the department in stable condition. Pathology results are pending. IMPRESSION: Successful stereotactic core biopsy 2 sites right breast with pathology results pending.
--- NOTE | 2017-04-12 22:30 | PCN ---
Meka Mcguire is a 76-year-old white female who presented for breast examination. On breast examination, bilateral examination of the breasts did not reveal any dominant masses or nodules of concern in either breast or in the axillae. She underwent a mammogram on 03/20/17 which revealed chronic nodularity in the right breast, new grouped calcifications in the upper outer quadrant of the right breast posterior to the mid depth, one group slightly more anterior. It was felt that the two groups could be sampled via CC approach. No lesions of concern were noted in the left breast, and these mammograms were reviewed. The patient was taken to the stereotactic core unit, and in the right breast the area of microcalcifications which was posterolateral was approached initially. Using a CC superior approach, the area was targeted. The breast was prepped using Betadine. Lidocaine 1% was used to anesthetize the skin. An 8 gauge vacuum -assisted mammotome needle was used to obtain the specimens. Multiple specimens were obtained. Radiograph of the specimens revealed that the area of calcifications had been sampled, and following this a mammo roxane 3008 was placed. Pre-fire and post-fire films were obtained prior to obtaining the sample. Following this, the patient was re-positioned on the Lo-rad stereo table and the anteromedial group of calcifications was targeted. The skin was prepped using Betadine. Lidocaine 1% was used to anesthetize the area of skin. An 8 gauge mammotome vacuum-assisted device needle was utilized and driven to the correct targets. Pre-fire films were obtained as were post-fire films. Multiple core biopsies were obtained. Several scattered calcifications were noted in the specimen; however, the sampling was somewhat limited. The patient had had some minimal bleeding during the biopsy, and therefore after review of the specimen radiographs with Radiology, it was felt that adequate sampling had been performed. Additionally it was felt that the second area was largely reflective of the first area which had been sampled, and that secondary to the bleeding that we had encountered, we would be safest to terminate the procedure at this point. A mammo roxane [id number] was placed. Radiographs revealed that the markers were in the correct locations. Specimens were sent to Pathology and the patient is to follow up with Dr. Weiner within the week. Please note: At the termination of the procedure, no bleeding of concern was encountered. KELSEY
== END ==
LOC: RADMAMWWP 06:51
PROVIDERS: ATTEND Surgery
DX: D24.1 Benign neoplasm of right breast (principal); R92.8 Other abnormal and inconclusive findings on diagnostic imaging of breast; N60.31 Fibrosclerosis of right breast; N64.89 Other specified disorders of breast; N60.91 Unspecified benign mammary dysplasia of right breast
CPT/HCPCS: 88305; 19081; 19082; A4648; J2001

== ENCOUNTER → 2017-10-10 | Outpatient (CLI) | payer MEDICARE, BC ==
[2017-10-10 12:14] LABS: ALT 29 U/L (9-52); AST 24 U/L (14-36); Albumin 4.8 g/dL (3.5-5.0); Alkaline Phosphatase 92 U/L (38-126); Anion Gap 15 mmol/L; Blood Urea Nitrogen 25 mg/dL (7-17); Calcium 11.1 mg/dL (8.4-10.2); Carbon Dioxide 25 mmol/L (22-30); Chloride 104 mmol/L (98-107); Cholesterol 215 mg/dL (<200); Glucose 188 mg/dL (74-99); HDL Cholesterol 63 mg/dL (40-60); LDL Cholesterol,Calculated 138 mg/dL (0-99); Sodium 144 mmol/L (137-145); Total Bilirubin 0.5 mg/dL (0.2-1.3); Total Protein 8.1 g/dL (6.3-8.2); Triglycerides 70 mg/dL (<150)
[2017-10-10 12:29] LABS: T4, Free (Free Thyroxine) 1.62 ng/dL (0.78-2.19)
[2017-10-10 12:36] LABS: Basophils # (A) 0.1 k/uL (0-0.2); Basophils % (A) 1 %; Eosinophils # (A) 0.1 k/uL (0-0.7); Eosinophils % (A) 1 %; HCT 42.6 % (34.0-46.0); HGB 13.8 gm/dL (11.4-16.0); Lymphocytes # (A) 2.2 k/uL (1.0-4.8); Lymphocytes % (A) 30 %; MCH 28.6 pg (25.0-35.0); MCHC 32.4 g/dL (31.0-37.0); MCV 88.3 fL (80.0-100.0); Mean Platelet Volume 8.1; Monocytes # (A) 0.4 k/uL (0-1.0); Monocytes % (A) 6 %; Neutrophils # (A) 4.4 k/uL (1.3-7.7); Neutrophils % (A) 60 %; Platelet Count 333 k/uL (150-450); RBC 4.83 m/uL (3.80-5.40); RDW 14.4 % (11.5-15.5); WBC 7.3 k/uL (3.8-10.6)
[2017-10-10 18:45] LABS: Hemoglobin A1C 7.8 % (4.0-6.0)
== END | disposition home or self-care (01) ==
LOC: LABWHC1 11:09
PROVIDERS: ATTEND Internal Medicine
DX: E78.5 Hyperlipidemia, unspecified (principal); I10 Essential (primary) hypertension; E11.37X1 Type 2 diabetes mellitus with diabetic macular edema, resolved following treatment, right eye
CPT/HCPCS: 36415; 80053; 80061; 83036; 84439; 84443; 85025; 99214

== ENCOUNTER → 2018-01-22 | Outpatient (CLI) | payer MEDICARE, BC ==
[2018-01-22 17:22] LABS: Basophils % (A) 1 %; Eosinophils # (A) 0.1 k/uL (0-0.7); Eosinophils % (A) 2 %; HCT 38.3 % (34.0-46.0); HGB 12.7 gm/dL (11.4-16.0); Lymphocytes # (A) 1.4 k/uL (1.0-4.8); Lymphocytes % (A) 27 %; MCHC 33.2 g/dL (31.0-37.0); MCV 87.3 fL (80.0-100.0); Mean Platelet Volume 7.1; Monocytes # (A) 0.3 k/uL (0-1.0); Monocytes % (A) 6 %; Neutrophils # (A) 3.2 k/uL (1.3-7.7); Neutrophils % (A) 62 %; Platelet Count 289 k/uL (150-450); RBC 4.38 m/uL (3.80-5.40); RDW 13.2 % (11.5-15.5); WBC 5.2 k/uL (3.8-10.6)
[2018-01-22 17:35] LABS: ALT 18 U/L (9-52); AST 24 U/L (14-36); Albumin 4.5 g/dL (3.5-5.0); Alkaline Phosphatase 74 U/L (38-126); Anion Gap 16 mmol/L; Blood Urea Nitrogen 28 mg/dL (7-17); Carbon Dioxide 24 mmol/L (22-30); Chloride 102 mmol/L (98-107); Glucose 260 mg/dL (74-99); Potassium 4.7 mmol/L (3.5-5.1); Sodium 142 mmol/L (137-145); Total Bilirubin 0.5 mg/dL (0.2-1.3)
== END | disposition home or self-care (01) ==
LOC: LABWHC1 16:41
PROVIDERS: ATTEND Internal Medicine
DX: E11.9 Type 2 diabetes mellitus without complications (principal); I10 Essential (primary) hypertension; R19.4 Change in bowel habit
CPT/HCPCS: 36415; 80053; 85025

== ENCOUNTER → 2018-02-25 | Outpatient (CLI) | payer MEDICARE, BC ==
[2018-02-25 11:11] LABS: Albumin 4.5 g/dL (3.5-5.0); Calcium 10.9 mg/dL (8.4-10.2); Potassium 4.7 mmol/L (3.5-5.1); Total Bilirubin 0.4 mg/dL (0.2-1.3); Total Protein 7.4 g/dL (6.3-8.2)
[2018-02-25 19:54] LABS: Hemoglobin A1C 7.5 % (4.0-6.0)
== END | disposition home or self-care (01) ==
LOC: LABWHC1 10:00
PROVIDERS: ATTEND Internal Medicine Endocrinology, Diabetes & Metabolism
DX: E11.65 Type 2 diabetes mellitus with hyperglycemia (principal)
CPT/HCPCS: 36415; 80053; 80061; 82043; 82570; 83036; 84443

== ENCOUNTER 2018-03-06 17:56 | Observation (INO) | payer MEDICARE, BC ==
--- NOTE | 2018-03-06 18:15 | ED ---
General Adult HPI - General Chief complaint: Chest Pain Stated complaint: chest pain/pressure Time Seen by Provider: 03/06/18 18:03 Source: patient, RN notes reviewed, old records reviewed Mode of arrival: wheelchair Limitations: no limitations - History of Present Illness Initial comments: This is a 77-year-old female the ER for evaluation of chest pain. Patient has history of diabetes high cholesterol. Patient presents for anterior chest pain. No shortness of breath. Patient states she's had with anterior chest pain for quite some time is positive cardiac observation, patient states her anxiety states that she cannot have cannot wait any further to get a cardiac appointment. She feels that something may be wrong, she is concerned for heart concerned for her health. She admits to severe anterior chest pain heaviness. - Related Data Home Medications Medication Instructions Recorded Confirmed Gemfibrozil [Lopid] 600 mg PO AC-BID 11/18/16 03/06/18 Multivitamins, Thera [Multivitamin 1 tab PO DAILY 11/18/16 03/06/18 (formulary)] glipiZIDE XL [Glucotrol XL] 10 mg PO BID 11/18/16 03/06/18 metFORMIN HCL [metFORMIN HCL ER] 1,000 mg PO BID 11/18/16 03/06/18 Omeprazole 20 mg PO DAILY 03/06/18 03/06/18 sitaGLIPtin [Januvia] 50 mg PO Q48H 03/06/18 03/06/18 Previous Rx's Medication Instructions Recorded Aspirin EC [Ecotrin Low Dose] 81 mg PO BID #0 11/20/16 Allergies Allergy/AdvReac Type Severity Reaction Status Date / Time cortisone AdvReac HIGH SUGAR Verified 03/06/18 18:37 LEVELS Review of Systems ROS Statement: Those systems with pertinent positive or pertinent negative responses have been documented in the HPI. ROS Other: All systems not noted in ROS Statement are negative. Past Medical History Past Medical History: Diabetes Mellitus, Hyperlipidemia Additional Past Medical History / Comment(s): Diabetes mellitus, Arthritis History of Any Multi-Drug Resistant Organisms: None Reported Past Surgical History: Appendectomy, Cholecystectomy Additional Past Surgical History / Comment(s): ovairan distal resection, left arm ORIF, cholecystectomy, appendectomy, multiple bilateral knee surgeries, adenoidectomy, tonsillectomy, carpal tunnel release, back surgery Past Anesthesia/Blood Transfusion Reactions: Postoperative Nausea & Vomiting ( PONV) Past Psychological History: No Psychological Hx Reported Smoking Status: Never smoker Past Alcohol Use History: None Reported Past Drug Use History: None Reported - Past Family History Father Additional Family Medical History / Comment(s): father of aneurysm Mother Family Medical History: Cancer Additional Family Medical History / Comment(s): Mother of colon cancer General Exam Limitations: no limitations Course Vital Signs 03/06/18 03/06/18 03/06/18 17:59 18:33 19:02 Temperature 98.7 F Pulse Rate 91 67 Pulse Rate [ 75 Date Night Sitter ] Respiratory 16 18 Rate Blood Pressure 154/74 147/74 O2 Sat by Pulse 99 98 Oximetry - Reevaluation(s) Reevaluation #1: 03/06/18 19:09 Patient does have continued chest pain EKG Findings - EKG Comments: EKG Findings:: EKG shows normal sinus rhythm rate of 85, MI 188 QRS 102, QTc 447 Medical Decision Making - Medical Decision Making 77 female the ER for evaluation, positive chest pain. Concern for heart, concern for esophagus or esophageal cancer. Patient be admitted for cardiac observation. - Lab Data Result diagrams: 03/06/18 16:20 Lab Results 03/06/18 Range/Units 16:20 WBC 5.6 (3.8-10.6) k/uL RBC 4.34 (3.80-5.40) m/uL Hgb 12.6 (11.4-16.0) gm/dL Hct 37.9 (34.0-46.0) % MCV 87.3 (80.0-100.0) fL MCH 29.1 (25.0-35.0) pg MCHC 33.3 (31.0-37.0) g/dL RDW 13.4 (11.5-15.5) % Plt Count 307 (150-450) k/uL Neutrophils % 59 % Lymphocytes % 28 % Monocytes % 7 % Eosinophils % 2 % Basophils % 1 % Neutrophils # 3.3 (1.3-7.7) k/uL Lymphocytes # 1.6 (1.0-4.8) k/uL Monocytes # 0.4 (0-1.0) k/uL Eosinophils # 0.1 (0-0.7) k/uL Basophils # 0.0 (0-0.2) k/uL - Radiology Data Radiology results: report reviewed (Chest x-rays negative for acute disease), image reviewed Critical Care Time Critical Care Time: Yes Total Critical Care Time: 31 Disposition Clinical Impression: Chest pain Disposition: ADMITTED IP TO THIS HOSP Condition: Undetermined Instructions: Chest Pain (ED) Is patient prescribed a controlled substance at d/c from ED?: No Referrals: Amarilys Myers MD [Primary Care Provider] - 1-2 days
[2018-03-06 18:43] LABS: Basophils % (A) 1 %; Eosinophils # (A) 0.1 k/uL (0-0.7); Eosinophils % (A) 2 %; HCT 37.9 % (34.0-46.0); HGB 12.6 gm/dL (11.4-16.0); Lymphocytes # (A) 1.6 k/uL (1.0-4.8); Lymphocytes % (A) 28 %; MCH 29.1 pg (25.0-35.0); MCHC 33.3 g/dL (31.0-37.0); MCV 87.3 fL (80.0-100.0); Mean Platelet Volume 7.1; Monocytes # (A) 0.4 k/uL (0-1.0); Monocytes % (A) 7 %; Neutrophils # (A) 3.3 k/uL (1.3-7.7); Neutrophils % (A) 59 %; Platelet Count 307 k/uL (150-450); RBC 4.34 m/uL (3.80-5.40); RDW 13.4 % (11.5-15.5); WBC 5.6 k/uL (3.8-10.6)
[2018-03-06 18:56] LABS: ALT 28 U/L (9-52); AST 25 U/L (14-36); Albumin 4.5 g/dL (3.5-5.0); Alkaline Phosphatase 65 U/L (38-126); Anion Gap 12 mmol/L; Blood Urea Nitrogen 24 mg/dL (7-17); Calcium 10.2 mg/dL (8.4-10.2); Carbon Dioxide 25 mmol/L (22-30); Chloride 106 mmol/L (98-107); Glucose 123 mg/dL (74-99); Magnesium 1.8 mg/dL (1.6-2.3); Potassium 4.3 mmol/L (3.5-5.1); Sodium 143 mmol/L (137-145); Total Bilirubin 0.5 mg/dL (0.2-1.3); Total Protein 7.1 g/dL (6.3-8.2)
[2018-03-06 19:00] LABS: Creatine Kinase 42 U/L (30-135)
--- NOTE | 2018-03-06 19:02 | XR ---
EXAMINATION TYPE: XR chest 2V DATE OF EXAM: 03/06/2018 COMPARISON: 01/29/2018 HISTORY: Chest pressure TECHNIQUE: Frontal and lateral views of the chest are obtained. FINDINGS: Heart and mediastinum are normal. Lungs are clear. There is eventration of the left diaphr agm. There are chest leads. Costophrenic angles are clear. IMPRESSION: No active cardiopulmonary disease. No change. Normal heart.
[2018-03-06] MEDS ORDERED: HEPARIN SODIUM,PORCINE 5,000 UNIT/ML 1 ML VIAL IV ONE (19:09)
[2018-03-06] MEDS ORDERED: HEPARIN SODIUM,PORCINE 5,000 UNIT/ML 1 ML VIAL IV PRN (19:09)
[2018-03-06] MEDS ORDERED: NITROGLYCERIN SL TABS 0.4 MG TAB SUBLINGUAL PRN (19:09)
[2018-03-06] MEDS ORDERED: ASPIRIN 81 MG PO STA (19:09)
[2018-03-06 19:13] LABS: Creatine Kinase MB 0.9 ng/mL (0.0-2.4); Troponin I <0.012 ng/mL (0.000-0.034)
[2018-03-06 19:14] LABS: INR 1.1 (<1.2); Partial Thromboplastin Time 24.7 sec (22.0-30.0); Prothrombin Time 10.5 sec (9.0-12.0)
[2018-03-06] MEDS ORDERED: HEPARIN SODIUM,PORCINE/D5W PMX 25,000 UNIT in DEXTROSE/WATER 1 500ML.BAG IV SCH (19:15)
[2018-03-06] MEDS ORDERED: METOPROLOL TARTRATE 25 MG TAB PO SCH (21:00)
[2018-03-06 21:34] LABS: Glucose,Whole Blood 87 mg/dL (75-99)
[2018-03-06 22:53] LABS: Creatine Kinase 46 U/L (30-135)
[2018-03-06 23:05] LABS: Creatine Kinase MB 0.8 ng/mL (0.0-2.4); Troponin I <0.012 ng/mL (0.000-0.034)
[2018-03-07 03:18] LABS: Cholesterol 181 mg/dL (<200); HDL Cholesterol 54 mg/dL (40-60); LDL Cholesterol,Calculated 107 mg/dL (0-99); Triglycerides 98 mg/dL (<150)
[2018-03-07 03:22] LABS: Creatine Kinase 37 U/L (30-135)
[2018-03-07 03:35] LABS: Creatine Kinase MB 0.8 ng/mL (0.0-2.4); Troponin I <0.012 ng/mL (0.000-0.034)
[2018-03-07 07:44] LABS: Glucose,Whole Blood 148 mg/dL (75-99)
[2018-03-07] MEDS ORDERED: ASPIRIN 81 MG PO SCH ×2 (09:00→11:15)
[2018-03-07] MEDS ORDERED: ASPIRIN 325 MG TAB PO SCH (09:00)
[2018-03-07] MEDS ORDERED: ATORVASTATIN 80 MG TAB PO SCH (09:00)
[2018-03-07] MEDS ORDERED: REGADENOSON 0.4 MG/5 ML SYRINGE IV ONE (11:01)
[2018-03-07] MEDS ORDERED: AMINOPHYLLINE 500 MG/20 ML VIAL IV PRN (11:01)
[2018-03-07] MEDS ORDERED: PANTOPRAZOLE 40 MG TABLET PO SCH (11:15)
[2018-03-07] MEDS ORDERED: glipiZIDE 5 MG TAB PO SCH (11:15)
[2018-03-07] MEDS ORDERED: GEMFIBROZIL 600 MG TAB PO SCH (11:15)
[2018-03-07] MEDS ORDERED: glipiZIDE 10 MG TAB PO SCH (11:22)
[2018-03-07 11:36] LABS: Hemoglobin A1C 7.7 % (4.0-6.0)
--- NOTE | 2018-03-07 11:42 | P.CRDCN ---
History of Present Illness History of present illness: Mrs. Mcguire is a pleasant 77-year-old female past medical history significant for diabetes mellitus, dyslipidemia and prior history of CVA. She denies history of coronary artery disease and is never seen a complaint coordinator for any reason. We've been asked to see her in consultation for complaints of chest pain. She states for the previous 2 months she has felt a burning sensation in the midsternal region going from her throat to the epigastric area. She feels a full sensation in the throat at times and seems Associates frequently belching and continued a lymphocytic flavor in her mouth. The pain does not radiate to the arms or back. She denies associated shortness of breath , nausea, vomiting, diaphoresis, palpitations or dizziness. The symptoms have been intermittent over the previous 2 months and she's tried adjusting her diet to see if this helps at she doesn't seem to see any correlation. At the time of my exam she is currently chest pain-free. EKG reveals sinus mechanism with no acute ST or T-wave abnormalities. Chest x-ray is negative for an acute cardiopulmonary process. Laboratory data reviewed, hemoglobin 12.6, platelets 307, sodium 143, potassium 4.3, magnesium 1.8, creatinine 0.7, cardiac enzymes negative 3, LDL 107, HDL 54 , total cholesterol 181. Current daily medications include aspirin 81 mg twice a day, Lopid 600 mg twice a day, omeprazole 20 mg daily, Glucotrol, metformin and Januvia. Most recent echocardiogram reveals preserved left ventricular systolic function with ejection fraction 50-55%, mild concentric LVH, severely dilated left atrium , mild aortic stenosis with a mean gradient of 7.61 mmHg and moderate right atrial thickening with a mean gradient of 7.72 mmHg. Review of Systems At the time of my exam: CONSTITUTIONAL: Denies fever. Denies chills. EYES: Denies blurred vision. Denies vision changes. Denies eye pain. EARS, NOSE, MOUTH & THROAT: Denies headache. Denies sore throat. Denies ear pain. CARDIOVASCULAR: Denies chest pain. Denies shortness of breath. Denies orthopnea. Denies PND. Denies palpitations. RESPIRATORY: Denies cough. GASTROINTESTINAL: Denies abdominal pain. Denies diarrhea. Denies constipation. Denies nausea. Denies vomiting. MUSCULOSKELETAL: Denies myalgias. INTEGUMENTARY: Denies pruitis. Denies rash. NEUROLOGIC: Denies numbness. Denies tingling. Denies weakness. PSYCHIATRIC: Denies anxiety. Denies depression. ENDOCRINE: Denies fatigue. Denies weight change. Denies polydipsia. Denies polyurina. GENITOURINARY: Denies burning, hematuria or urgency with micturation. HEMATOLOGIC: Denies history of anemia. Denies bleeding. Past Medical History Past Medical History: Cancer, Diabetes Mellitus, GERD/Reflux, Hyperlipidemia Additional Past Medical History / Comment(s): rt side dominant, past cva affected lt arm-p stated no weakness left from that. past fall brole lt arm(sx) , Arthritis , 2 strokes lt eye, skin cancer near lt eye - pt stated its melanoma due for sx in march, hemorrhoids History of Any Multi-Drug Resistant Organisms: None Reported Past Surgical History: Adenoidectomy, Appendectomy, Back Surgery, Cholecystectomy, Tonsillectomy Additional Past Surgical History / Comment(s): ovairan distal resection, left arm ORIF-has plae/screws, cholecystectomy, appendectomy, multiple bilateral knee surgeries 5 on rt side and 5 on lt side., lt carpal tunnel release, back surgery, rt breast bx-neg,cataracts. Past Anesthesia/Blood Transfusion Reactions: Postoperative Nausea & Vomiting ( PONV) Smoking Status: Never smoker - Past Family History Father Additional Family Medical History / Comment(s): father of aneurysm Mother Family Medical History: Cancer Additional Family Medical History / Comment(s): Mother of colon cancer Medications and Allergies Home Medications Medication Instructions Recorded Confirmed Type Gemfibrozil [Lopid] 600 mg PO AC-BID 11/18/16 03/06/18 History Multivitamins, Thera [Multivitamin 1 tab PO DAILY 11/18/16 03/06/18 History (formulary)] glipiZIDE XL [Glucotrol XL] 10 mg PO BID 11/18/16 03/06/18 History metFORMIN HCL [metFORMIN HCL ER] 1,000 mg PO BID 11/18/16 03/06/18 History Aspirin EC [Ecotrin Low Dose] 81 mg PO BID #0 11/20/16 03/06/18 Rx Omeprazole 20 mg PO DAILY 03/06/18 03/06/18 History sitaGLIPtin [Januvia] 50 mg PO Q48H 03/06/18 03/06/18 History Allergies Allergy/AdvReac Type Severity Reaction Status Date / Time cortisone AdvReac HIGH SUGAR Verified 03/06/18 21:48 LEVELS Physical Exam Vitals: Vital Signs Temp Pulse Pulse Pulse Resp BP BP 03/07/18 07:40 97.4 F L 64 18 126/61 03/07/18 04:00 56 L 16 03/07/18 03:50 98.2 F 66 16 111/52 03/07/18 00:00 62 16 03/06/18 23:42 98.8 F 67 16 119/58 03/06/18 20:30 74 16 03/06/18 20:00 98.2 F 78 18 164/72 03/06/18 19:53 98.9 F 64 18 139/84 03/06/18 19:02 67 18 147/74 03/06/18 18:33 75 03/06/18 17:59 98.7 F 91 16 154/74 Pulse Ox 03/07/18 07:40 97 03/07/18 04:00 03/07/18 03:50 97 03/07/18 00:00 03/06/18 23:42 97 03/06/18 20:30 03/06/18 20:00 99 03/06/18 19:53 100 03/06/18 19:02 98 03/06/18 18:33 03/06/18 17:59 99 Intake and Output 03/06/18 03/07/18 03/07/18 22:59 06:59 14:59 Intake Total 619 495.71 Balance 619 495.71 Intake: IV 60 332 0.9 NS @ KVO 60 160 Heparin Sodium,Porcine/ 172 D5w Pmx 25,000 unit In Dextrose/Water 1 500ml. bag @ 12 UNITS/KG/HR 19. 26 mls/hr IV .Q24H NING Rx #:[id number] Intake, IV Titration 59 163.71 Amount Heparin Sodium,Porcine/ 59 163.71 D5w Pmx 25,000 unit In Dextrose/Water 1 500ml. bag @ 12 UNITS/KG/HR 19. 26 mls/hr IV .Q24H NING Rx #:[id number] Oral 500 Other: Voiding Method Toilet Toilet Toilet # Voids 2 1 Weight 81 kg Blood pressure 126/61 heart rate 64 afebrile maintaining oxygen saturation on room air GENERAL: This is a 77-year-old female in no apparent distress at the time of my examination. HEENT: Head is atraumatic, normocephalic. Pupils are equal, round. Sclerae anicteric. Conjunctivae are clear. Mucous membranes of the mouth are moist. Neck is supple. There is no jugular venous distention. No carotid bruit is heard. LUNGS: Clear to auscultation no wheezes, rales or rhonchi. No chest wall tenderness is noted on palpation or with deep breathing. HEART: Regular rate and rhythm with systolic murmur, no rubs or gallops. S1 and S2 heard. ABDOMEN: Soft, nontender. Bowel sounds are heard. No organomegaly noted. EXTREMITIES: No evidence of peripheral edema and no calf tenderness noted. VASCULAR: Radial and dorsalis pedis pulses palpated, no evidence of clubbing. NEUROLOGIC: Patient is awake, alert and oriented x3. Results 03/06/18 16:20 03/06/18 16:20 Cardiac Enzymes 03/06/18 03/06/18 03/06/18 Range/Units 16:20 16:20 21:53 AST 25 (14-36) U/L CK-MB (CK-2) 0.9 0.8 (0.0-2.4) ng/mL Troponin I <0.012 <0.012 (0.000-0.034) ng/mL 03/07/18 Range/Units 02:29 AST (14-36) U/L CK-MB (CK-2) 0.8 (0.0-2.4) ng/mL Troponin I <0.012 (0.000-0.034) ng/mL Coagulation 03/06/18 03/07/18 Range/Units 16:20 02:29 PT 10.5 (9.0-12.0) sec APTT 24.7 39.8 H (22.0-30.0) sec Lipids 03/07/18 Range/Units 02:29 Triglycerides 98 (<150) mg/dL Cholesterol 181 (<200) mg/dL HDL Cholesterol 54 (40-60) mg/dL CBC 03/06/18 Range/Units 16:20 WBC 5.6 (3.8-10.6) k/uL RBC 4.34 (3.80-5.40) m/uL Hgb 12.6 (11.4-16.0) gm/dL Hct 37.9 (34.0-46.0) % Plt Count 307 (150-450) k/uL Comprehensive Metabolic Panel 03/06/18 Range/Units 16:20 Sodium 143 (137-145) mmol/L Potassium 4.3 (3.5-5.1) mmol/L Chloride 106 (98-107) mmol/L Carbon Dioxide 25 (22-30) mmol/L BUN 24 H (7-17) mg/dL Creatinine 0.70 (0.52-1.04) mg/dL Glucose 123 H (74-99) mg/dL Calcium 10.2 (8.4-10.2) mg/dL AST 25 (14-36) U/L ALT 28 (9-52) U/L Alkaline Phosphatase 65 (38-126) U/L Total Protein 7.1 (6.3-8.2) g/dL Albumin 4.5 (3.5-5.0) g/dL Current Medications Generic Name Dose Route Start Last Admin Trade Name Freq PRN Reason Stop Dose Admin Aminophylline 100 mg 03/07/18 11:01 Aminophylline IV 04/06/18 11:02 ONCE PRN Patient Response Aspirin 81 mg 03/07/18 11:15 Aspirin PO BID COUNTS INCLUDE 234 BEDS AT THE [facility] Atorvastatin Calcium 80 mg 03/07/18 09:00 Lipitor PO DAILY COUNTS INCLUDE 234 BEDS AT THE [facility] Gemfibrozil 600 mg 03/07/18 11:15 Lopid PO AC-BID COUNTS INCLUDE 234 BEDS AT THE [facility] Glipizide 10 mg 03/07/18 11:22 Glucotrol PO BID COUNTS INCLUDE 234 BEDS AT THE [facility] Heparin Sodium (Porcine) 0 unit 03/06/18 19:09 Heparin IV Q6HR PRN Low PTT Protocol Linagliptin 5 mg 03/07/18 12:00 Tradjenta PO Q48H COUNTS INCLUDE 234 BEDS AT THE [facility] Metformin HCl 1,000 mg 03/07/18 11:15 Glucophage PO AC-BID COUNTS INCLUDE 234 BEDS AT THE [facility] Nitroglycerin 0.4 mg 03/06/18 19:09 Nitrostat SUBLINGUAL Q5M PRN Chest Pain Pantoprazole Sodium 40 mg 03/07/18 11:15 Protonix PO AC-BRKFST COUNTS INCLUDE 234 BEDS AT THE [facility] Intake and Output 03/06/18 03/07/1818 22:59 06:59 14:59 Intake Total 619 495.71 Balance 619 495.71 Intake: IV 60 332 0.9 NS @ KVO 60 160 Heparin Sodium,Porcine/ 172 D5w Pmx 25,000 unit In Dextrose/Water 1 500ml. bag @ 12 UNITS/KG/HR 19. 26 mls/hr IV .Q24H NING Rx #:[id number] Intake, IV Titration 59 163.71 Amount Heparin Sodium,Porcine/ 59 163.71 D5w Pmx 25,000 unit In Dextrose/Water 1 500ml. bag @ 12 UNITS/KG/HR 19. 26 mls/hr IV .Q24H NING Rx #:[id number] Oral 500 Other: Voiding Method Toilet Toilet Toilet # Voids 2 1 Weight 81 kg 03/06/18 16:20 03/06/18 16:20 Assessment and Plan Assessment: ASSESSMENT 1. Chest pain, atypical. An acute coronary event has been ruled out with no EKG evidence of ischemia and negative cardiac enzymes. 2. Dyslipidemia 3. Diabetes mellitus 4. History of CVA 5. Aortic stenosis, non-rheumatic 6. Mitral stenosis, non-rheumatic 7. Moderate atherosclerotic carotid artery disease PLAN Obtain 2-D echocardiogram and Doppler study to assess cardiac structure and function. Perform Lexiscan stress test to assess for stress-induced reversible cardiac ischemia. Cholesterol is not well controlled on lopid. Change to atorvastatin 40 mg daily. If stress test is negative she is stable from a cardiac perspective to follow up with Dr. Gabriel as an outpatient. Thank you kindly for this consultation. Nurse Practitioner note has been reviewed, I agree with a documented findings and plan of care. Patient was seen and examined.
[2018-03-07] MEDS ORDERED: LINAGLIPTIN 5 MG TABLET PO SCH (12:00)
[2018-03-07 14:05] LABS: Glucose,Whole Blood 136 mg/dL (75-99)
--- NOTE | 2018-03-07 14:08 | NM ---
EXAMINATION TYPE: NM stress lexiscan cardiolite DATE OF EXAM: 03/07/2018 COMPARISON: NONE HISTORY: Chest pain TECHNIQUE: After the intravenous administration of 10.3 mCi Tc 99m Sestamibi - Cardiolite resting SP ECT images acquired 55 minutes post injection. The patient received 0.4mg Lexiscan, 26.7 mCi Tc 99m Sestamibi - Stress images obtained [address] injection FINDINGS: Review of stress and rest SPECT images demonstrates no distinct perfusion abnormality. Gated analysi s shows normal wall motion with an estimated left ventricular ejection fraction of 79 %. TID is dilat ed at 0.81. IMPRESSION: 1. No scintigraphic evidence for reversible ischemia. 2. Estimated left ventricular ejection fraction of 79%.
--- NOTE | 2018-03-07 14:46 | P.STRESS ---
- Stress Test Note Stress Test Results/Findings: Exam Performed: NM stress lexiscan cardiolite Exam Date: 03/07/18 Reason for Exam: CHEST PAIN Height: 5 ft 5 in Weight: 80.739 kg Protocol: LEXISCAN Stage: NA Duration of Exercise: NA Resting Heart Rate: 62 Resting Blood Pressure: 149/76 Maximum Achieved Heart Rate: 88 Maximum Achieved Blood Pressure: 149/76 85% PMHR: NA 100% PMHR: NA METS: NA Technologist Comment: Stress Test Results/Findings: This is a 77-year-old female with history of diabetes, previous CVA and hypercholesterolemia who was admitted to the hospital with complaints of chest pain. Stress data: Baseline EKG showed sinus rhythm with normal VT interval and QRS duration. Blood pressure at rest is 149/76 with pulse rate of 72. EKGs taken during and after the Lexiscan infusion did not reveal any changes to suggest ischemia. Final impression: #1. Negative Lexiscan stress test #2. Report on the nectar images to be given by the radiologist.
[2018-03-07] MEDS: metFORMIN 500 MG TAB PO SCH ×2 (15:45→19:02)
--- NOTE | 2018-03-07 16:01 | ECHOF ---
Referral Reason:cp, murmur MEASUREMENTS -------- HEIGHT: 165.1 cm WEIGHT: 80.7 kg BP: RVIDd: 3.4 cm (< 3.3) IVSd: 1.1 cm (0.6 - 1.1) LVIDd: 3.2 cm (3.9 - 5.3) LVPWd: 1.4 cm (0.6 - 1.1) IVSs: 1.5 cm LVIDs: 1.5 cm LVPWs: 1.9 cm LAESV Index (A-L): 39.49 ml/m Ao Diam: 2.9 cm (2.0 - 3.7) AV Cusp: 1.5 cm (1.5 - 2.6) LA Diam: 3.7 cm (2.7 - 3.8) MV EXCURSION: 11.800 mm (> 18.000) MV EF SLOPE: 24 mm/s (70 - 150) EPSS: 0.3 cm MV E Arsalan: 1.78 m/s MV DecT: 453 ms MV A Arsalan: 1.60 m/s MV E/A Ratio: 1.11 AR PHT: 198 ms RAP: 5.00 mmHg RVSP: 41.26 mmHg FINDINGS -------- Sinus rhythm. This was a technically good study. The left ventricular size is normal. There is mild concentric left ventricular hypertrophy. Overa ll left ventricular systolic function is normal with, an EF between 55 - 60 %. There is paradoxical /dysynergic septal motion consistent with right ventricular volume overload and/or elevated right faheem tricular end-diastolic pressure. The right ventricle is mildly enlarged. LA is moderately dilated 34-39 ml/m2 The right atrium is normal in size. Aortic valve is trileaflet and is mildly thickened. Trace amount of aortic regurgitation. The mitral valve leaflets are mildly thickened. Mild mitral regurgitation is present. The peak a nd mean MV gradients are 18.60mmHg 8.85mmHg as measured by doppler. Moderate mitral stenosis. Mild tricuspid regurgitation present. There is mild pulmonary hypertension. The right ventricular systolic pressure, as measured by Doppler, is 41.26mmHg. Trace/mild (physiologic) pulmonic regurgitation. The aortic root size is normal. Normal inferior vena cava with normal inspiratory collapse consistent with estimated right atrial pre ssure of 5 mmHg. There is a small, generalized pericardial effusion present. CONCLUSIONS -------- 1. Sinus rhythm. 2. This was a technically good study. 3. The left ventricular size is normal. 4. There is mild concentric left ventricular hypertrophy. 5. Overall left ventricular systolic function is normal with, an EF between 55 - 60 %. 6. There is paradoxical/dysynergic septal motion consistent with right ventricular volume overload an d/or elevated right ventricular end-diastolic pressure. 7. The right ventricle is mildly enlarged. 8. LA is moderately dilated 34-39 ml/m2 9. The right atrium is normal in size. 10. Aortic valve is trileaflet and is mildly thickened. 11. Trace amount of aortic regurgitation. 12. The mitral valve leaflets are mildly thickened. 13. Mild mitral regurgitation is present. 14. The peak and mean MV gradients are 18.60mmHg 8.85mmHg as measured by doppler. 15. Moderate mitral stenosis. 16. Mild tricuspid regurgitation present. 17. There is mild pulmonary hypertension. 18. The right ventricular systolic pressure, as measured by Doppler, is 41.26mmHg. 19. Trace/mild (physiologic) pulmonic regurgitation. 20. The aortic root size is normal. 21. Normal inferior vena cava with normal inspiratory collapse consistent with estimated right atrial pressure of 5 mmHg. 22. There is a small, generalized pericardial effusion present. POWDER SHOVELER: Smita Kennedy RDCS
--- NOTE | 2018-03-07 16:42 | HP ---
HISTORY AND PHYSICAL DATE OF ADMISSION: 03/06/18. DATE OF SERVICE: 03/07/18. PRESENT COMPLAINT: Chest pressure. HISTORY OF PRESENTING COMPLAINT: A very pleasant 77-year-old patient who follows with Dr. Myers. Chronic stable medical conditions include diabetes, osteoarthritis, hyperlipidemia, and urine incontinence. The patient does get reflux symptoms and of late has been noting some more reflux symptoms have been coming on, sometimes with actually activity and she feels like a water brash in the throat and comes off and on, questionable if any shortness of breath. No dizziness. No lightheadedness. No perspiration. Denies any prior cardiac history. Because of concern that this was the heart, because she read an article that heartburn can be a manifestation of heart disease, she decided to come in and admitted for the same. The pressure does not radiate to the neck or arm. REVIEW OF SYSTEMS: CONSTITUTIONAL: None. HEENT: None. RESPIRATORY: None. CARDIOVASCULAR: As above. GASTROINTESTINAL: Severe heartburn. GENITOURINARY: Has got urinary incontinence, wears pads. MUSCULOSKELETAL: Arthritic pain in many joints. DERMATOLOGICAL, HEMATOLOGIC, LYMPHATICS: None. PSYCHIATRY: None. NEUROLOGICAL: None. PAST MEDICAL HISTORY: Diabetes, GERD, hyperlipidemia, stroke with no residual, arthritis, 2 strokes in the left eye, skin cancer in the left eye, melanoma, hemorrhoids. PAST SURGICAL HISTORY: Adenoidectomy, appendectomy, back surgery, cholecystectomy, tonsillectomy, left arm ORIF, cholecystectomy, multiple bilateral knee surgeries, 5 on the right side and 5 the left side. Left carpal tunnel release, back surgery, right breast biopsy negative. SOCIAL HISTORY: No smoking, no alcohol. Uses a cane, is a , lives by herself. FAMILY HISTORY: Father of an aneurysm. HOME MEDICATIONS: 1. Januvia 50 mg q.48 hours. 2. Metformin 1000 mg p.o. b.i.d. 3. Glucotrol XL 10 mg b.i.d. 4. Omeprazole 20 mg p.o. daily. 5. Multivitamin 1 tablet p.o. daily. 6. Lopid 600 mg p.o. a.c. b.i.d. 7. Aspirin 81 mg p.o. b.i.d. ALLERGIES: To CORTISONE not true, causes hyperglycemia. PHYSICAL EXAMINATION: VITAL SIGNS: On presentation; temperature 98.7, pulse 91, respirations 16, blood pressure 150/74, pulse ox 99% on room air. GENERAL APPEARANCE: Average build, lying in bed, comfortable. EYES: Pupils equal. Conjunctivae normal. HEENT: External appearance of nose and ears normal. Oral cavity normal. NECK: JVD not raised. Mass not palpable. RESPIRATORY: Effort normal, lungs are clear. CARDIOVASCULAR: First and second sounds are normal. No edema. ABDOMEN: Soft, nontender. Liver and spleen not palpable. LYMPHATIC: No lymph node palpable in neck or axillae. PSYCHIATRY: Alert and oriented x3. Mood and affect normal. NEUROLOGICAL: Pupils equal. Cranial nerves grossly intact. Power and sensation grossly intact. MUSCULOSKELETAL: Evidence of osteoarthritis especially in the hands. INVESTIGATIONS: White count 5.6, hemoglobin 12.6, potassium 4.3, BUN 24, creatinine 0.70, troponin x3 negative. Chest x-ray, nil acute. EKG: Normal sinus rhythm. 2D echo, EF 55-60%, moderate mitral stenosis. ASSESSMENT: 1. This is a patient who has got significant amount of heartburn with water brash, some chest pressure, most likely from esophageal spasm. Could be from underlying coronary artery disease with some risk factors present. Need to rule out the same. 2. Diabetes mellitus type 2 on oral hypoglycemic. 3. Primary osteoarthritis multiple joints bilateral. 4. Hyperlipidemia. 5. Significant gastroesophageal reflux disease. 6. Chronic urinary stress incontinence, wears pads. PLAN: Cardiology was consulted who ordered a stress test. Home medications resumed.Accu- Cheks will be followed. If stress test is negative, will put the patient on different PPIs. Will also do a D-dimer. Care was discussed with the patient. MMODL / IJN: [id number] /
[2018-03-07 17:17] LABS: Glucose,Whole Blood 240 mg/dL (75-99)
--- NOTE | 2018-03-07 18:42 | CT ---
EXAMINATION TYPE: CT angio chest DATE OF EXAM: 03/07/2018 6:13 PM COMPARISON: NONE HISTORY: Elevated blood work. No complaints at time of scan CT DLP: 362.7 mGycm Automated exposure control for dose reduction was used. CONTRAST: CTA scan of the thorax is performed with IV Contrast, patient injected with 75 mL of Isovue 370, pulm onary embolism protocol. There are 3-D post processed images.. FINDINGS: The lungs are clear of consolidation. There is no pleural effusion. There is mild linear density at t he left lung base. Thoracic aorta is atheromatous. There is normal contrast opacification of the pulm onary arteries. I see no filling defect. There is calcified tracheal cartilage. There is no evidence of thoracic aortic aneurysm or dissection. There is small pericardial effusion. The bony thorax appea rs intact. IMPRESSION: SMALL PERICARDIAL EFFUSION. NO EVIDENCE OF PULMONARY EMBOLISM. MILD ATHEROSCLEROTIC VASCULAR DISEASE. Minimal scarring or subsegmental atelectasis at the left lung base.
[2018-03-07 19:12] VITALS: BP 148/72; PULSE 67; RESP 15; TEMP 98.7
[2018-03-07] MEDS ORDERED: ATORVASTATIN 40 MG TAB PO SCH (21:00)
--- NOTE | 2018-03-08 07:18 | DS ---
DISCHARGE SUMMARY DATE OF ADMISSION: March 06, 2018 DATE OF DISCHARGE: March 07, 2018 FINAL DIAGNOSES: 1. Chest pain from severe gastroesophageal reflux disease with possible esophageal spasm. 2. Diabetes mellitus type 2 on oral hypoglycemic. 3. Primary osteoarthritis multiple joints bilateral. 4. Hyperlipidemia. 5. Significant gastroesophageal reflux disease. 6. Chronic urinary stress incontinence wears pads. HOSPITAL COURSE: This patient presented with uncontrolled GERD symptoms and some chest pressure. The patient did undergo a nuclear stress test that was negative. A 2D echocardiogram that was unremarkable and a chest CTA was ruled out. The patient will see Dr. Amrit Vincent as an outpatient for an EGD. The patient's Prilosec can be changed to Protonix. PHYSICAL EXAMINATION: LUNGS: Slightly decreased breath sounds. CARDIOVASCULAR: 1st and 2nd sounds normal consult. DISCHARGE MEDICATIONS: 1. Lopid 600 mg b.i.d. 2. Multivitamin 1 tablet p.o. daily. 3. Glucotrol XL 10 mg p.o. b.i.d. 4. Metformin 1000 mg p.o. b.i.d. 5. Aspirin 81 mg p.o. daily. 6. Januvia 50 mg p.o. every 48 hours. 7. Protonix 40 mg a day. FOLLOWUP: Follow up with Dr. Myers in 2-[address] Amrit Vincent in one week with a view to endoscopy, Dr. Gabriel on March 19, 2018. CONSULTATIONS: Dr. Gabriel. Copy to Dr. Myers. MMERNESTO / DEVINN: [id number] /
--- NOTE | 2018-03-13 10:56 | EST ---
Stress Test Results/Findings: Exam Performed: NM stress lexiscan cardiolite Exam Date: 03/07/18 Reason for Exam: CHEST PAIN Height: 5 ft 5 in Weight: 80.739 kg Protocol: LEXISCAN Stage: NA Duration of Exercise: NA Resting Heart Rate: 62 Resting Blood Pressure: 149/76 Maximum Achieved Heart Rate: 88 Maximum Achieved Blood Pressure: 149/76 85% PMHR: NA 100% PMHR: NA METS: NA Technologist Comment: Stress Test Results/Findings: This is a 77-year-old female with history of diabetes, previous CVA and hypercholesterolemia who was admitted to the hospital with complaints of chest pain. Stress data: Baseline EKG showed sinus rhythm with normal IL interval and QRS duration. Blood pressure at rest is 149/76 with pulse rate of 72. EKGs taken during and after the Lexiscan infusion did not reveal any changes to suggest ischemia. Final impression: #1. Negative Lexiscan stress test #2. Report on the nectar images to be given by the radiologist. KELSEY
== END 2018-03-07 19:55 | disposition home or self-care (01) ==
LOC: EC 17:56 → 3OBS 19:08
PROVIDERS: ADMIT Hospitalist; ATTEND Hospitalist
DX: K21.9 Gastro-esophageal reflux disease without esophagitis (principal); E11.9 Type 2 diabetes mellitus without complications; Z79.84 Long term (current) use of oral hypoglycemic drugs; E78.5 Hyperlipidemia, unspecified; N39.3 Stress incontinence (female) (male); I35.0 Nonrheumatic aortic (valve) stenosis; I34.2 Nonrheumatic mitral (valve) stenosis; I65.29 Occlusion and stenosis of unspecified carotid artery; M19.041 Primary osteoarthritis, right hand; M19.042 Primary osteoarthritis, left hand; Z86.73 Personal history of transient ischemic attack (TIA), and cerebral infarction without residual deficits; Z85.840 Personal history of malignant neoplasm of eye; Z85.820 Personal history of malignant melanoma of skin; Z90.49 Acquired absence of other specified parts of digestive tract; Z79.899 Other long term (current) drug therapy; Z79.82 Long term (current) use of aspirin; Z88.8 Allergy status to other drugs, medicaments and biological substances; Z80.0 Family history of malignant neoplasm of digestive organs
CPT/HCPCS: 99291; 96376 ×2; 96365 ×2; 96366 ×2; 36415; 93005; 93017; 93306; 85379; 83880; 80061; 80053; 82550 ×2; 82553 ×2; 83735; 84484 ×2; 85025; 85610; 85730 ×2; 83036; 71046; 71275; 78452; G0378 ×2; A9500; J1644 ×2; J2785; Q9967

== ENCOUNTER 2018-05-08 10:53 | Day surgery (SDC) | payer MEDICARE, BC ==
[2018-05-06 12:13] VITALS: BMI 28.9
[~2018-05-08 10:53] MED LIST: LACTATED RINGERS 1,000 ML IV SCH; LIDOCAINE 1% 20 ML VIAL (10MG/ML) FOR IV START INTRADERMA PRN
[2018-05-08 11:36] VITALS: TEMP 98
[2018-05-08 11:40] LABS: Glucose,Whole Blood 87 mg/dL (75-99)
[2018-05-08] MEDS ORDERED: PROPOFOL 10 MG/ML 20 ML VIAL IV ONE (12:21)
[2018-05-08] MEDS ORDERED: LIDOCAINE 1% INJ 10MG/ML (20 ML MDV) ONE (12:21)
--- NOTE | 2018-05-08 12:38 | P.PCN ---
Date of Procedure: 05/08/18 Procedure(s) Performed: Brief history: Patient is a pleasant 77-year-old white female, scheduled for an elective upper endoscopy as well as flexible sigmoid scope is part of evaluation of GERD and intermittent rectal bleeding for the last 2 months duration. She had a colonoscopy in September 2015 and was noted to have small internal hemorrhoids and mild rectal prolapse. Because of the persistent rectal bleeding she is scheduled for a sigmoid scope in today. Procedure performed: Esophagogastroduodenoscopy with biopsy Flexible sigmoidoscopy with biopsy Preoperative diagnosis: GERD Intermittent rectal bleeding Anesthesia: MAC Procedure: After informed consent was obtained from the patient was brought into the endoscopy unit and IV sedation was administered by anesthesia under continuous monitoring. Initially upper endoscopy was done. The Olympus GF 160 video endoscope was inserted inserted into the mouth and esophagus intubated without any difficulty and was gradually advanced into the stomach and duodenum and carefully examined. The bulb and second part of the duodenum appeared normal. The scope was then withdrawn into the stomach adequately insufflated with air and upon careful examination the antrum had mild gastritis and biopsies were done from this area. The body, cardia and fundus appeared normal. The scope was then withdrawn into the esophagus. The GE junction was located at 40 cm to the incisors. It appeared regular with no erythema erosions or ulcerations. Rest of the esophagus appeared normal. Patient tolerated the procedure well. At this time the patient continued to remain sedation. Initial digital rectal examination was normal. Olympus CF 160 video colonoscope was then inserted into the rectum and gradually advanced to the sigmoid colon and because of the poor prep the scope couldn't be advanced any further.Careful examination was performed as the scope was gradually being withdrawn. because of theigmoid colon and rectum appeared normal. Retroflexion was performed in the rectum andthere was a polypoid appearing mucosa just proximal to the dentate line consistent with rectal prolapse. The mucosa appeared very friable and oozing and biopsies were done from this area. Also small internal hemorrhoids were noted. Patient tolerated the procedure well. Impression: 1. Upper endoscopy revealed mild gastritis. No evidence of esophagitis or Lam's esophagus. 2. Flexible sigmoidoscopy revealed rectal prolapse with friable mucosa and small internal hemorrhoids Recommendations: Findings of this examination were discussed with the patient as well as her family. She was advised to follow with the biopsy results. She will continue with Protonix 40 mg daily and follow antireflux measures. She'll be seen in the office in 2 weeks.
[2018-05-08 12:59] LABS: Glucose,Whole Blood 87 mg/dL (75-99)
[2018-05-08 13:27] VITALS: BP 122/59; PULSE 76; RESP 20
== END 2018-05-08 13:59 | disposition home or self-care (01) ==
LOC: ORWHC2ENDO 10:53
PROVIDERS: ATTEND Internal Medicine Gastroenterology
DX: K29.70 Gastritis, unspecified, without bleeding (principal); K21.9 Gastro-esophageal reflux disease without esophagitis; K62.5 Hemorrhage of anus and rectum; K64.8 Other hemorrhoids; K62.3 Rectal prolapse; E11.9 Type 2 diabetes mellitus without complications; Z88.5 Allergy status to narcotic agent; Z79.82 Long term (current) use of aspirin; Z86.73 Personal history of transient ischemic attack (TIA), and cerebral infarction without residual deficits; Z79.84 Long term (current) use of oral hypoglycemic drugs; Z79.899 Other long term (current) drug therapy
CPT/HCPCS: 88305; 43239; 45331; J2001; J2704

== ENCOUNTER → 2018-07-24 | Outpatient (CLI) | payer MEDICARE, BC ==
[2018-07-24 18:59] LABS: Albumin 4.5 g/dL (3.80-4.90); Albumin/Globulin Ratio 2.14 (1.20-2.10); Anion Gap 8.3 mmol/L (4.00-12.00); Calcium 9.8 mg/dL (8.7-10.3); Carbon Dioxide 26.7 mmol/L (21.6-31.8); Globulin 2.1 g/dL (2.1-3.7); LDL Cholesterol,Calculated 105.2 mg/dL (0.0-131.0); Potassium 4.8 mmol/L (3.5-5.5); Total Bilirubin 0.3 mg/dL (0.3-1.2); Total Protein 6.6 g/dL (6.2-8.2); VLDL Calculation 12.8 mg/dL (5.00-40.00)
[2018-07-24 22:27] LABS: Hemoglobin A1C 8.2 % (4.0-6.0)
== END | disposition home or self-care (01) ==
LOC: LABWHC1 11:25
PROVIDERS: ATTEND Internal Medicine Endocrinology, Diabetes & Metabolism
DX: E83.52 Hypercalcemia (principal); E11.65 Type 2 diabetes mellitus with hyperglycemia
CPT/HCPCS: 36415; 80053; 80061; 82043; 82570; 83036; 83970

== ENCOUNTER 2019-01-27 10:21 | Emergency (ER) | payer MEDICARE, BC ==
[2019-01-27 10:29] VITALS: TEMP 98.4
[2019-01-27] MEDS ORDERED: HYDROcodone/APAP 5-325MG 1 EACH TAB PO STA (10:52)
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
--- NOTE | 2019-01-27 12:15 | XR ---
EXAMINATION TYPE: XR pelvis AP view DATE OF EXAM: 01/27/2019 CLINICAL HISTORY: Pain after fall injury. TECHNIQUE: A single AP view of the pelvis is obtained. COMPARISON: None. FINDINGS: There is no acute fracture/dislocation evident in the pelvis. The sacroiliac joints appea r symmetric and unremarkable. Frsw-jp-[id number] symmetric axial joint space loss both hips is present . Pubic symphysis is intact. Overlying horizontal sutures are noted. Bilateral pelvic phleboliths are present. IMPRESSION: There is no acute fracture or dislocation in the pelvis.
--- NOTE | 2019-01-27 12:17 | XR ---
EXAMINATION TYPE: XR lumbar spine 2 or 3V DATE OF EXAM: 01/27/2019 CLINICAL HISTORY: Pain after fall injury. TECHNIQUE: Frontal and lateral images of the lumbar spine are obtained. COMPARISON: None FINDINGS: There are 5 lumbar type vertebral bodies identified. There is levoconvex scoliosis centere d at L4 level on frontal view. There is straightening of spine on lateral view. Vertebral body height s are maintained. There is moderate to advanced disc space narrowing L2-L3 through the L5-S1 levels m ost prominent L3-L4 and L4-L5 levels where there is vacuum disc phenomenon and endplate sclerosis. Th ere is mild to moderate multilevel anterior and lateral spurring. Overlying vascular calcification is present. Facet arthropathy lower lumbar spine is seen. IMPRESSION: No acute fracture or dislocation is seen in the lumbar spine.
--- NOTE | 2019-01-27 12:24 | XR ---
EXAMINATION TYPE: XR ribs RT w pa chest xray DATE OF EXAM: 01/27/2019 CLINICAL HISTORY: Chest and right-sided rib pain after fall injury. TECHNIQUE: Single frontal view of the chest is obtained. A frontal and oblique images of the right-si ded ribs are acquired. COMPARISON: Chest x-ray March 06, 2018. CTA chest March 07, 2018. FINDINGS: There is eventration of portion of left hemidiaphragm redemonstrated. There is persistent l ateral left basilar linear scarring or atelectasis. There is no new suspicious focal air space opacit y, pleural effusion, or pneumothorax seen. The cardiac silhouette size remains within normal limits. Surgical change to left shoulder is partially imaged. High riding right humeral head suggests chroni c rotator cuff tear similar to prior. Dedicated images of the right-sided ribs show demineralization. There is no acute displaced rib fract ures seen bilaterally. Overlying soft tissue is unremarkable. IMPRESSION: 1. Chronic parenchymal changes without acute pulmonary process. 2. No acute displaced right-sided rib fractures are evident.
[2019-01-27 12:45] LABS: Appearance,Urine Clear (Clear); Bilirubin,Urine Negative (Negative); Blood,Urine Negative (Negative); Color,Urine Yellow; Glucose,Urine (UA) Trace (Negative); Ketones,Urine Negative (Negative); Leukocyte Esterase,Urine Small (Negative); Mucus,Urine Rare /hpf; Nitrite,Urine Negative (Negative); Protein,Urine Negative (Negative); RBC,Urine 1 /hpf (0-5); Specific Gravity,Urine 1.019 (1.001-1.035); Squamous Epithelial Cell,Urine 1 /hpf (0-4); Urobilinogen,Urine <2.0 mg/dL (<2.0); WBC,Urine 3 /hpf (0-5)
[2019-01-27 13:03] VITALS: BP 135/70; PULSE 97; RESP 19
== END 2019-01-27 13:03 | disposition home or self-care (01) ==
LOC: EC 10:21
DX: S20.211A Contusion of right front wall of thorax, initial encounter (principal); E11.9 Type 2 diabetes mellitus without complications; E78.5 Hyperlipidemia, unspecified; Z85.828 Personal history of other malignant neoplasm of skin; Z79.84 Long term (current) use of oral hypoglycemic drugs; Z79.899 Other long term (current) drug therapy; Z88.5 Allergy status to narcotic agent; Z88.8 Allergy status to other drugs, medicaments and biological substances; Z85.820 Personal history of malignant melanoma of skin; Z86.73 Personal history of transient ischemic attack (TIA), and cerebral infarction without residual deficits; W01.0XXA Fall on same level from slipping, tripping and stumbling without subsequent striking against object, initial encounter; Y92.008 Other place in unspecified non-institutional (private) residence as the place of occurrence of the external cause; Y93.01 Activity, walking, marching and hiking
CPT/HCPCS: 72100; 72170; 81001; 99284

== ENCOUNTER 2019-02-06 22:59 | Inpatient (IN) | payer MEDICARE, BC ==
[2019-02-06 23:44] LABS: Glucose,Whole Blood 256 mg/dL (75-99)
[2019-02-06] MEDS ORDERED: HYDROmorphone 0.5 MG/0.5 ML SYRINGE IVP STA (23:46)
[2019-02-06] MEDS ORDERED: ONDANSETRON 4 MG/2 ML VIAL IVP STA (23:46)
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
[2019-02-07 00:37] LABS: Basophils # (A) 0.1 k/uL (0-0.2); Basophils % (A) 1 %; Eosinophils # (A) 0.1 k/uL (0-0.7); Eosinophils % (A) 1 %; HCT 38.9 % (34.0-46.0); HGB 12.8 gm/dL (11.4-16.0); Lymphocytes # (A) 2.3 k/uL (1.0-4.8); Lymphocytes % (A) 27 %; MCH 28.7 pg (25.0-35.0); MCHC 32.8 g/dL (31.0-37.0); MCV 87.6 fL (80.0-100.0); Mean Platelet Volume 7.5; Monocytes # (A) 0.4 k/uL (0-1.0); Monocytes % (A) 5 %; Neutrophils # (A) 5.6 k/uL (1.3-7.7); Neutrophils % (A) 65 %; Platelet Count 296 k/uL (150-450); RBC 4.44 m/uL (3.80-5.40); RDW 13.8 % (11.5-15.5); WBC 8.7 k/uL (3.8-10.6)
[2019-02-07 00:50] LABS: Albumin 4.9 g/dL (3.5-5.0); Calcium 10.8 mg/dL (8.4-10.2); Potassium 4.5 mmol/L (3.5-5.1); Total Bilirubin 0.4 mg/dL (0.2-1.3); Total Protein 7.7 g/dL (6.3-8.2)
[2019-02-07] MEDS ORDERED: LABETALOL SYRINGE 5 MG/ML IVP STA (00:54)
[2019-02-07] MEDS ORDERED: SODIUM CHLORIDE 0.9% 1,000 ML IV ONE (01:15)
--- NOTE | 2019-02-07 01:51 | CT ---
EXAM: CT Chest Without And With Intravenous Contrast CLINICAL HISTORY: Pain, r/o dissection TECHNIQUE: Axial computed tomography images of the chest without and with intravenous contrast during the arterial phase of enhancement. CTDI is 0. 142, 0.142, 12.8, 4, 4 x 22, 9.6 mGy and DLP is 1153.6 mGy-cm. This CT exam was performed using one or more of the following dose reduction techniques: automated exposure control, adjustment of the mA and/or kV according to patient size, and/or use of iterative reconstruction technique. COMPARISON: 03/07/2018 FINDINGS: Artifacts: Motion. Limitations: Lung apices are excluded from the [id number]. Pulmonary arteries: No central pulmonary embolus. Aorta: Aortic atherosclerosis. No thoracic aortic aneurysm or dissection. Calcification of the coronary arteries and mitral and aortic annuli. Lungs: See above. Pleural space: Unremarkable. No significant effusion. No pneumothorax. Heart: Small pericardial effusion. Mediastinum: Small hiatal hernia. Bones/joints: No acute fracture. Soft tissues: Small fat-containing left Bochdalek hernia. Lymph nodes: Unremarkable. No enlarged lymph nodes. IMPRESSION: No thoracic aortic aneurysm or dissection. No central pulmonary embolus. Small pericardial effusion. No acute osseous abnormality. Degenerative changes of the spine. EXAM: CT Abdomen Without And With Intravenous Contrast CLINICAL HISTORY: Pain, r/o dissection TECHNIQUE: Axial computed tomography images of the abdomen without and with intravenous contrast during the arterial phase of enhancement. CTDI is 0. 142, 0.142, 12.8, 4, 4 x 22, 9.6 mGy and DLP is 1153.6 mGy-cm. This CT exam was performed using one or more of the following dose reduction techniques: automated exposure control, adjustment of the mA and/or kV according to patient size, and/or use of iterative reconstruction technique. COMPARISON: No relevant prior studies available. FINDINGS: Aorta: Aortic atherosclerosis. No abdominal aortic aneurysm. No dissection. Celiac trunk and mesenteric arteries: No acute findings. No occlusion or significant stenosis. Renal arteries: No acute findings. No occlusion or significant stenosis. Lung bases: Unremarkable. No mass. No consolidation. Liver: Unremarkable. No mass. Gallbladder and bile ducts: Gallbladder is absent. No ductal dilation. Pancreas: Unremarkable. No ductal dilation. Spleen: Unremarkable. Adrenals: Unremarkable. Kidneys and ureters: Unremarkable. No obstructing stones. No hydronephrosis. No solid mass. Stomach and bowel: Mildly dilated fluid-filled loops of small bowel are concerning for a small bowel obstruction. Focally narrowed fecalized segment of small bowel in the pelvis with mild mesenteric edema likely represents a transition point. Colonic diverticulosis without focal inflammatory change. Intraperitoneal space: No free fluid or free air. Bones/joints: No acute osseous abnormality. Scoliosis and degenerative changes of the spine. Soft tissues: Tiny fat-containing periumbilical hernia. Lymph nodes: Unremarkable. No enlarged lymph nodes. IMPRESSION: Small bowel obstruction with a transition point in the pelvis. No free fluid or free air.
[2019-02-07] MEDS ORDERED: NALOXONE 0.4 MG/ML 1 ML VIAL IV PRN (02:06)
[2019-02-07 02:13] LABS: Appearance,Urine Clear (Clear); Bilirubin,Urine Negative (Negative); Blood,Urine Negative (Negative); Color,Urine Light Yellow; Glucose,Urine (UA) 4+ (Negative); Ketones,Urine Negative (Negative); Leukocyte Esterase,Urine Negative (Negative); Nitrite,Urine Negative (Negative); Protein,Urine Negative (Negative); Specific Gravity,Urine 1.033 (1.001-1.035); Urobilinogen,Urine <2.0 mg/dL (<2.0)
[2019-02-07] MEDS ORDERED: HYDROmorphone 0.5 MG/0.5 ML SYRINGE IVP STA (02:20)
--- NOTE | 2019-02-07 03:23 | XR ---
EXAM: XR Chest, 1 View CLINICAL HISTORY: NG placement TECHNIQUE: Frontal view of the chest. COMPARISON: 01/27/2019 FINDINGS: Lungs: Stable bilateral pulmonary hyperinflation and interstitial prominence. No consolidation. Pleural space: Unremarkable. No pneumothorax. Heart: Stable cardiomediastinal silhouette. Mediastinum: See above. Bones/joints: No acute osseous abnormality. Tubes, lines and devices: Esophagogastric tube traverses the diaphragm and extends off the [id number]. IMPRESSION: Esophagogastric tube traverses the diaphragm and extends off the field- of-view.
[2019-02-07] MEDS: MORPHINE SULFATE 4 MG/ML SYRINGE IV PRN ×2 (04:28→09:50)
[2019-02-07] MEDS: SODIUM CHLORIDE 0.9% 1,000 ML IV SCH ×2 (04:44→19:53)
[2019-02-07 06:50] LABS: Glucose,Whole Blood 278 mg/dL (75-99)
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
[2019-02-07 11:13] LABS: Glucose,Whole Blood 243 mg/dL (75-99)
[2019-02-07] MEDS ORDERED: PANTOPRAZOLE 40 MG TABLET PO SCH (12:15)
[2019-02-07] MEDS: INSULIN ASPART (NovoLOG) 100 UNIT/ML VIAL SQ SCH ×3 (12:39→20:34)
[2019-02-07] MEDS: ASPIRIN 81 MG PO SCH (14:40)
[2019-02-07] MEDS: FENOFIBRATE 160 MG TAB PO SCH (14:40)
[2019-02-07] MEDS: metFORMIN 500 MG TAB PO SCH ×2 (14:41→20:27)
[2019-02-07] MEDS: glipiZIDE 10 MG TAB PO SCH ×2 (14:41→20:26)
[2019-02-07] MEDS: LINAGLIPTIN 5 MG TABLET PO SCH (14:41)
[2019-02-07] MEDS: MULTIVITAMINS, THERA 1 EACH TAB PO SCH (14:41)
--- NOTE | 2019-02-07 14:46 | XR ---
EXAMINATION TYPE: XR chest 1V portable DATE OF EXAM: 02/07/2019 COMPARISON: 02/07/2019 HISTORY: Enteric tube placement TECHNIQUE: Single frontal view of the chest is obtained. FINDINGS: Enteric tube extends beyond the gastroesophageal junction and coils within the expected as pect of the gastric fundus. The distal tip is oriented cranially and laterally. No focal consolidatio n, pleural effusion or pneumothorax is seen within the chest. Minimal left basilar linear subsegmenta l atelectasis is seen. Cardia mediastinal silhouette is mildly enlarged. Retrocardiac density appears decreased from the prior and may also represent atelectasis. Surgical fixation traverses an old frac ture deformity of the left humerus. IMPRESSION: Left basilar atelectasis appears somewhat improved from the prior. Enteric tube as descr ibed above.
[2019-02-07] MEDS: PANTOPRAZOLE 40 MG/10 ML VIAL IVP SCH (14:54)
[2019-02-07] MEDS: KETOROLAC 30 MG/ML 1 ML VIAL IVP PRN ×2 (14:56→20:31)
[2019-02-07 17:10] LABS: Glucose,Whole Blood 162 mg/dL (75-99)
[2019-02-07] MEDS: HYDROmorphone 0.5 MG/0.5 ML SYRINGE IVP PRN ×2 (17:17→23:19)
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
--- NOTE | 2019-02-07 20:08 | HP ---
HISTORY AND PHYSICAL ADDENDUM (CONTINUATION) TO HISTORY AND PHYSICAL: REVIEW OF SYSTEMS: CONSTITUTIONAL: None. HEENT: Decreased hearing. RESPIRATORY: None. CARDIOVASCULAR: None. GASTROINTESTINAL: As above. GENITOURINARY: None. MUSCULOSKELETAL: Arthritic pain in the joints. DERMATOLOGICAL: None. HEMATOLOGICAL: None. LYMPHATICS: None. PSYCHIATRY: Slightly forgetful. NEUROLOGICAL: None. PAST MEDICAL HISTORY: As above. HOME MEDICATIONS: 1. Lipitor 10 mg a day. 2. Januvia 50 mg every 48 hours. 3. Metformin 1000 mg p.o. b.i.d. 4. Glucotrol XL 10 mg b.i.d. 5. Protonix 40 mg p.o. daily. 6. Multivitamin 1 tablet p.o. daily. 7. Lopid 600 mg b.i.d. 8. Aspirin 81 mg p.o. daily. ALLERGIES: CODEINE and CORTISONE. PHYSICAL EXAMINATION: VITAL SIGNS ON PRESENTATION: Temperature 97.6, pulse 61, respiration 20, blood pressure 121/43, pulse 98% on room air. GENERAL APPEARANCE: Average build. Sitting up. Tired-appearing. EYES: Pupils equal. Conjunctivae normal. HEENT: External appearance of nose and ears normal. NG tube in place. Oral cavity dry. NECK: JVD not raised. Mass not palpable. RESPIRATORY: Effort normal. LUNGS: Fair air entry. CARDIOVASCULAR: First and second sounds normal. No edema. ABDOMEN: Soft. Minimal tenderness. Bowel sounds are hyperactive. Liver and spleen not palpable. LYMPHATIC: No lymph node palpable in neck or axillae. PSYCHIATRY: Alert and oriented x3. Mood and affect normal. NEUROLOGICAL: Pupils equal. Cranial nerves grossly intact. Power and sensation grossly intact. MUSCULOSKELETAL: Evidence of osteoarthritis, especially in the hands. INVESTIGATIONS: White count 8.7, hemoglobin 12.8, potassium 4.5, BUN 29, creatinine 0.81. Lactic acid 2.5. EKG tracing, personally reviewed by me, shows a poor baseline; otherwise appears to be sinus rhythm. Chest x-ray film, personally reviewed by me, shows a bit underpenetrated portable film; nothing unremarkable. ASSESSMENT: 1. Acute small-bowel obstruction with NG tube in place. 2. Diabetes mellitus, type 2, on oral hypoglycemic. 3. Hyperlipidemia. 4. Primary osteoarthritis. 5. Gastroesophageal reflux disease. PLAN: NG tube is in place. Accu-Cheks will be followed. Given IV fluids. Care was discussed with the patient. Questions were answered. MMODL / IJN: [id number] /
[2019-02-07] MEDS: ATORVASTATIN 10 MG TAB PO SCH (20:26)
[2019-02-07] MEDS: LACTATED RINGERS 1,000 ML IV SCH (20:33)
[2019-02-07 20:35] LABS: Glucose,Whole Blood 152 mg/dL (75-99)
[2019-02-08] MEDS: KETOROLAC 30 MG/ML 1 ML VIAL IVP PRN (02:31)
[2019-02-08] MEDS: LACTATED RINGERS 1,000 ML IV SCH ×3 (02:33→13:02)
[2019-02-08 04:25] LABS: Glucose,Whole Blood 146 mg/dL (75-99)
[2019-02-08] MEDS: HYDROmorphone 0.5 MG/0.5 ML SYRINGE IVP PRN ×4 (04:48→18:02)
[2019-02-08 07:01] LABS: Glucose,Whole Blood 160 mg/dL (75-99)
[2019-02-08] MEDS: FENOFIBRATE 160 MG TAB PO SCH (07:15)
[2019-02-08] MEDS: glipiZIDE 10 MG TAB PO SCH ×2 (07:15→20:40)
[2019-02-08] MEDS: metFORMIN 500 MG TAB PO SCH ×2 (07:15→20:40)
[2019-02-08] MEDS: ASPIRIN 81 MG PO SCH (07:15)
[2019-02-08] MEDS: PANTOPRAZOLE 40 MG/10 ML VIAL IVP SCH (07:24)
[2019-02-08] MEDS: INSULIN ASPART (NovoLOG) 100 UNIT/ML VIAL SQ SCH ×4 (07:25→20:41)
[2019-02-08 09:08] LABS: Basophils % (A) 0 %; Eosinophils # (A) 0.1 k/uL (0-0.7); Eosinophils % (A) 1 %; HCT 36.4 % (34.0-46.0); HGB 11.7 gm/dL (11.4-16.0); Lymphocytes % (A) 10 %; MCH 28.6 pg (25.0-35.0); MCHC 32.2 g/dL (31.0-37.0); Mean Platelet Volume 7.1; Monocytes # (A) 0.5 k/uL (0-1.0); Monocytes % (A) 5 %; Neutrophils # (A) 8.3 k/uL (1.3-7.7); Neutrophils % (A) 83 %; Platelet Count 275 k/uL (150-450); RBC 4.09 m/uL (3.80-5.40); RDW 13.7 % (11.5-15.5)
[2019-02-08 09:13] LABS: Anion Gap 8 mmol/L; Blood Urea Nitrogen 22 mg/dL (7-17); Calcium 9.8 mg/dL (8.4-10.2); Carbon Dioxide 25 mmol/L (22-30); Chloride 109 mmol/L (98-107); Glucose 149 mg/dL (74-99); Potassium 4.3 mmol/L (3.5-5.1); Sodium 142 mmol/L (137-145)
[2019-02-08] MEDS: MULTIVITAMINS, THERA 1 EACH TAB PO SCH (09:59)
[2019-02-08 11:46] LABS: Glucose,Whole Blood 161 mg/dL (75-99)
--- NOTE | 2019-02-08 14:42 | P.PN ---
Subjective Progress Note Date: 02/08/19 Principal diagnosis: Small bowel obstruction Patient feels better today. She did pass a small amount of flatus. Nasogastric tube remains in place. White blood cell count normal. She is afebrile with stable vitals. She was up in the chair earlier today. Objective - Vital Signs Vital signs: Vital Signs Temp 98.5 F 02/08/19 07:10 Pulse 79 02/08/19 07:10 Resp 14 02/08/19 07:10 BP 112/61 02/08/19 07:10 Pulse Ox 95 02/08/19 07:10 Intake & Output 02/07/19 02/08/19 02/08/19 18:59 06:59 18:59 Intake Total 700 300 875 Output Total 300 275 Balance 700 0 600 Intake: Intake, IV Titration 700 300 875 Amount Lactated Ringers 1,000 ml 875 @ 125 mls/hr IV .Q8H [facility] Rx#:[id number] Sodium Chloride 0.9% 1, 700 300 000 ml @ 100 mls/hr IV . Q10H [facility] Rx#:[id number] Output: Gastric Drainage 75 Urine 300 200 Other: Voiding Method Bedpan # Voids 2 1 - Exam Abdomen: Soft, mild distention, mild left-sided tenderness - Labs CBC & Chem 7: 02/08/19 07:48 02/08/19 07:48 Labs: Abnormal Lab Results - Last 24 Hours (Table) 02/07/19 02/07/19 02/08/19 Range/Units 17:08 20:33 04:23 Neutrophils # (1.3-7.7) k/uL Chloride (98-107) mmol/L BUN (7-17) mg/dL Glucose (74-99) mg/dL POC Glucose (mg/dL) 162 H 152 H 146 H (75-99) mg/dL 02/08/19 02/08/19 02/08/19 Range/Units 06:59 07:48 07:48 Neutrophils # 8.3 H (1.3-7.7) k/uL Chloride 109 H (98-107) mmol/L BUN 22 H (7-17) mg/dL Glucose 149 H (74-99) mg/dL POC Glucose (mg/dL) 160 H (75-99) mg/dL 02/08/19 Range/Units 11:45 Neutrophils # (1.3-7.7) k/uL Chloride (98-107) mmol/L BUN (7-17) mg/dL Glucose (74-99) mg/dL POC Glucose (mg/dL) 161 H (75-99) mg/dL Assessment and Plan (1) Small bowel obstruction Narrative/Plan: Keep nasogastric tube to suction. We'll check abdominal x-rays tomorrow. Recheck CBC tomorrow as well. Current Visit: Yes Status: Acute Code(s): K56.609 - UNSP INTESTNL OBST, UNSP TO PARTIAL VERSUS COMPLETE OBST SNOMED Code(s): 902061242
--- NOTE | 2019-02-08 15:39 | PN ---
PROGRESS NOTE DATE OF SERVICE: February 08, 2019. PRESENTING COMPLAINT: Small bowel obstruction. INTERVAL HISTORY: Patient admitted with small-bowel obstruction. Has NG tube in place. Has not passed any flatus. Still having some abdominal pain, less distended. No nausea or vomiting. REVIEW OF SYSTEMS: Done for constitutional, cardiovascular, GI, pulmonary; relevant findings as above. CURRENT MEDICATIONS: Reviewed. PHYSICAL EXAMINATION: VITAL SIGNS: Temperature 98.5, pulse 79, respirations 14, blood pressure 112/61, pulse ox 95% on room air. GENERAL APPEARANCE: Lying in bed, tired-appearing. EYES: Pupils equal. Conjunctivae normal. HEENT: External appearance of nose and ears normal. Oral cavity dry. NG tube in place. NECK: JVD not raised. Mass not palpable. RESPIRATORY: Effort normal. LUNGS: Fair air entry. CARDIOVASCULAR: 1st and 2nd sounds normal. No edema. ABDOMEN: Less distended. Some tenderness. Hyperactive bowel sounds. Liver and spleen not palpable. PSYCHIATRY: Alert and oriented x3. Mood and affect normal. INVESTIGATIONS: White count 10, potassium 4.3, BUN 22, creatinine 0.73. ASSESSMENT: 1. Acute small-bowel obstruction with NG tube in place. 2. Diabetes mellitus Type 2, on oral hypoglycemics. 3. Hyperlipidemia. 4. Primary osteoarthritis. 5. Gastroesophageal reflux disease. PLAN: Continue current medication and treatment plan. We will repeat abdominal x-ray in the morning. Follow up with surgery. MMODL / IJN: [id number] /
[2019-02-08 17:13] LABS: Glucose,Whole Blood 158 mg/dL (75-99)
[2019-02-08] MEDS: ATORVASTATIN 10 MG TAB PO SCH (20:40)
[2019-02-08 20:47] LABS: Glucose,Whole Blood 175 mg/dL (75-99)
[2019-02-08] MEDS: ONDANSETRON 4 MG/2 ML VIAL IVP PRN (23:06)
[2019-02-09] MEDS: HYDROmorphone 0.5 MG/0.5 ML SYRINGE IVP PRN ×5 (00:14→20:21)
[2019-02-09] MEDS: LACTATED RINGERS 1,000 ML IV SCH ×3 (03:02→14:50)
[2019-02-09 07:01] LABS: Glucose,Whole Blood 145 mg/dL (75-99)
[2019-02-09] MEDS: metFORMIN 500 MG TAB PO SCH ×2 (07:17→20:18)
[2019-02-09] MEDS: ASPIRIN 81 MG PO SCH (07:17)
[2019-02-09] MEDS: LINAGLIPTIN 5 MG TABLET PO SCH (07:17)
[2019-02-09] MEDS: INSULIN ASPART (NovoLOG) 100 UNIT/ML VIAL SQ SCH ×4 (07:17→20:18)
[2019-02-09] MEDS: glipiZIDE 10 MG TAB PO SCH ×2 (07:17→20:18)
[2019-02-09] MEDS: FENOFIBRATE 160 MG TAB PO SCH (07:17)
[2019-02-09] MEDS: MULTIVITAMINS, THERA 1 EACH TAB PO SCH (07:17)
--- NOTE | 2019-02-09 07:56 | XR ---
EXAMINATION TYPE: XR abdomen 2V , 3 VIEWS DATE OF EXAM ORDERED: 02/09/2019 HISTORY: Follow-up bowel obstruction. COMPARISON: None. FINDINGS: An NG tube is present and its tip is coiled in the stomach. The lung bases are clear. Within the abdomen, the abdominal gas pattern is within normal limits. There is no evidence of obstru ction or free air. Numerous air-fluid levels are present. There are phleboliths within the pelvis. Th ere are surgical sutures present in the pelvis. There are degenerative changes in the lumbar spine. IMPRESSION: FINDINGS MOST CONSISTENT WITH MILD ILEUS.
[2019-02-09 08:26] LABS: Basophils % (A) 0 %; Eosinophils # (A) 0.1 k/uL (0-0.7); Eosinophils % (A) 1 %; HGB 12.1 gm/dL (11.4-16.0); Lymphocytes % (A) 11 %; MCH 28.6 pg (25.0-35.0); MCHC 32.8 g/dL (31.0-37.0); MCV 87.2 fL (80.0-100.0); Mean Platelet Volume 7.6; Monocytes # (A) 0.6 k/uL (0-1.0); Monocytes % (A) 6 %; Neutrophils # (A) 7.9 k/uL (1.3-7.7); Neutrophils % (A) 81 %; Platelet Count 278 k/uL (150-450); RBC 4.25 m/uL (3.80-5.40); RDW 13.9 % (11.5-15.5); WBC 9.7 k/uL (3.8-10.6)
[2019-02-09 08:44] LABS: Anion Gap 8 mmol/L; Blood Urea Nitrogen 19 mg/dL (7-17); Calcium 9.2 mg/dL (8.4-10.2); Carbon Dioxide 27 mmol/L (22-30); Chloride 108 mmol/L (98-107); Glucose 139 mg/dL (74-99); Sodium 143 mmol/L (137-145)
[2019-02-09] MEDS: PANTOPRAZOLE 40 MG/10 ML VIAL IVP SCH (09:18)
[2019-02-09] MEDS: ONDANSETRON 4 MG/2 ML VIAL IVP PRN ×3 (09:21→20:21)
--- NOTE | 2019-02-09 09:37 | P.PN ---
Subjective Progress Note Date: 02/09/19 Principal diagnosis: Small bowel obstruction Patient doing well. X-rays today show mild ileus. She denies any flatus or bowel movement. Mild crampy pain. T-max 99.3. White blood cell count 9.7. Objective - Vital Signs Vital signs: Vital Signs Temp 99.2 F 02/09/19 07:02 Pulse 84 02/09/19 07:02 Resp 15 02/09/19 07:48 BP 135/67 02/09/19 07:02 Pulse Ox 91 L 02/09/19 07:02 Intake & Output 02/08/19 02/09/19 02/09/19 18:59 06:59 18:59 Intake Total 875 Output Total 275 Balance 600 Intake: Intake, IV Titration 875 Amount Lactated Ringers 1,000 ml 875 @ 125 mls/hr IV .Q8H [facility] Rx#:[id number] Output: Gastric Drainage 75 Urine 200 Other: Voiding Method Bedpan Bedpan # Voids 1 3 - Exam Abdomen: Soft, mild distention, mild tenderness, no rebound or guarding - Labs CBC & Chem 7: 02/09/19 07:34 02/09/19 07:34 Labs: Abnormal Lab Results - Last 24 Hours (Table) 02/08/19 02/08/19 02/08/19 Range/Units 11:45 17:01 20:35 Neutrophils # (1.3-7.7) k/uL Chloride (98-107) mmol/L BUN (7-17) mg/dL Glucose (74-99) mg/dL POC Glucose (mg/dL) 161 H 158 H 175 H (75-99) mg/dL 02/09/19 02/09/19 02/09/19 Range/Units 06:49 07:34 07:34 Neutrophils # 7.9 H (1.3-7.7) k/uL Chloride 108 H (98-107) mmol/L BUN 19 H (7-17) mg/dL Glucose 139 H (74-99) mg/dL POC Glucose (mg/dL) 145 H (75-99) mg/dL Assessment and Plan (1) Small bowel obstruction Narrative/Plan: Continue nasogastric tube suction. We'll order flatplate for tomorrow morning. Ambulate. Current Visit: Yes Status: Acute Code(s): K56.609 - UNSP INTESTNL OBST, UNSP TO PARTIAL VERSUS COMPLETE OBST SNOMED Code(s): 508889508
[2019-02-09 11:59] LABS: Glucose,Whole Blood 150 mg/dL (75-99)
[2019-02-09 17:02] LABS: Glucose,Whole Blood 151 mg/dL (75-99)
[2019-02-09] MEDS: ATORVASTATIN 10 MG TAB PO SCH (20:18)
[2019-02-09 20:28] LABS: Glucose,Whole Blood 132 mg/dL (75-99)
--- NOTE | 2019-02-09 22:20 | PN ---
PROGRESS NOTE DATE OF SERVICE: February 09, 2019. PRESENTING COMPLAINT: Small bowel obstruction. INTERVAL HISTORY: Patient admitted with small-bowel obstruction. NG tube in place. No flatus today. Still having some abdominal pain. Seen by surgery later today. Continue with NG tube. Slight nausea. REVIEW OF SYSTEMS: Done for constitutional, cardiovascular, GI, pulmonary and relevant findings as above. CURRENT MEDICATIONS: Reviewed and include IV fluids. PHYSICAL EXAMINATION: VITAL SIGNS: On examination, temperature 99.1, pulse 80, respiration 16, blood pressure 125/57, pulse ox 92 percent on room air. GENERAL APPEARANCE: Lying in bed, tired-appearing. EYES: Pupils equal. Conjunctivae normal. NECK: JVD not raised. Mass not palpable. ENT: NG tube in place. RESPIRATORY: Effort normal. LUNGS are clear. CARDIOVASCULAR: First and second sounds normal. No edema. ABDOMEN: Soft. Some tenderness. Liver and spleen not palpable. Bowel sounds are present. PSYCHIATRY: Alert and oriented times three. Mood and affect normal. INVESTIGATIONS: White count 9.7, hemoglobin 12.1, potassium 4.0, BUN 19, creatinine 0.66. Accu-Cheks are noted. Abdominal x-ray shows some ileus. ASSESSMENT: 1. Acute small-bowel obstruction NG tube in place, slow to respond. 2. Diabetes mellitus type 2 on oral hypoglycemics. 3. Hyperlipidemia. 4. Primary osteoarthritis. 5. Gastroesophageal reflux disease. PLAN: Continue current medication and treatment plan. Continue with IV fluids. Follow with surgery. Care was discussed with the patient. MMODL / IJN: [id number] /
[2019-02-10] MEDS: HYDROmorphone 0.5 MG/0.5 ML SYRINGE IVP PRN (01:59)
[2019-02-10] MEDS: LACTATED RINGERS 1,000 ML IV SCH ×4 (03:56→17:51)
[2019-02-10 07:29] LABS: Glucose,Whole Blood 132 mg/dL (75-99)
[2019-02-10 08:38] LABS: Anion Gap 11 mmol/L; Blood Urea Nitrogen 19 mg/dL (7-17); Calcium 9.3 mg/dL (8.4-10.2); Carbon Dioxide 25 mmol/L (22-30); Chloride 107 mmol/L (98-107); Glucose 125 mg/dL (74-99); Potassium 3.8 mmol/L (3.5-5.1); Sodium 143 mmol/L (137-145)
[2019-02-10] MEDS: INSULIN ASPART (NovoLOG) 100 UNIT/ML VIAL SQ SCH ×4 (08:48→20:52)
--- NOTE | 2019-02-10 08:53 | XR ---
EXAMINATION TYPE: XR abdomen 2V DATE OF EXAM: 02/10/2019 COMPARISON: 02/09/2019 INDICATION: Follow-up bowel obstruction TECHNIQUE: Single view abdomen frontal upright view. Additional supine views were obtained. FINDINGS: Small bowel gas is present through the abdomen. Colonic bowel gas is present which may be slightly in creased from comparison. In the upright projection there are dilated small bowel loops with air-fluid levels in the upper abdomen. Differential air-fluid levels are not identified. No free air is presen t. Nasogastric tube is in the left upper quadrant of the abdomen. Psoas margins are normal. No organomegaly is present. IMPRESSION: 1. Findings could be related to some partial small bowel obstruction. Dilatation of small bowel loops in the upper abdomen may be slightly greater than previous although there is increased colonic bowel gas as well. No clear progression towards improvement over worsening. CT abdomen pelvis could be per formed.
[2019-02-10] MEDS: metFORMIN 500 MG TAB PO SCH ×2 (09:04→20:52)
[2019-02-10] MEDS: ASPIRIN 81 MG PO SCH (09:04)
[2019-02-10] MEDS: FENOFIBRATE 160 MG TAB PO SCH (09:04)
[2019-02-10] MEDS: glipiZIDE 10 MG TAB PO SCH ×2 (09:04→20:52)
[2019-02-10] MEDS: PANTOPRAZOLE 40 MG/10 ML VIAL IVP SCH (09:14)
[2019-02-10] MEDS: IOPAMIDOL-300 CONTRAST 30 ML VIAL (ORAL USE) PO PRN ×2 (10:15→11:35)
[2019-02-10 11:58] LABS: Glucose,Whole Blood 129 mg/dL (75-99)
[2019-02-10] MEDS: MULTIVITAMINS, THERA 1 EACH TAB PO SCH (12:00)
--- NOTE | 2019-02-10 12:08 | P.PN ---
Progress Note - Text Progress Note Date: 02/10/19 The patient still has complaints of crampy abdominal pain. She had approximately 80 mL output through her NG tube last night. She states she feels miserable. On exam her vital signs are stable. Her abdomen is soft. There is mild tenderness throughout. There is no rebound or guarding. Small bowel obstruction. Patient will undergo repeat CAT scan with oral contrast to evaluate if the obstruction has resolved.
--- NOTE | 2019-02-10 13:34 | CT ---
EXAMINATION TYPE: CT abdomen pelvis wo con DATE OF EXAM: 02/10/2019 COMPARISON: 02/07/2019 CTA. INDICATION: small bowel obstruction DLP: 754.8 mGycm, Automated exposure control for dose reduction was used. CONTRAST: 0 mL of Isovue 300. Study performed with Oral Contrast TECHNIQUE: Axial images were obtained from above the diaphragm to the pubic rami in the axial plane a t 5 mm thick sections. Reconstructed images are reviewed on the computer in the coronal plane. FINDINGS: Limited CT sections are obtained the lung bases. Some mild infiltrate at the left base may be relate d atelectasis. Mild pneumonia is not entirely excluded atelectasis is favored given the interval marcum ge from 02/07/2019. Coronary artery calcification is noted. CT ABDOMEN: There is a small amount of ascites adjacent to the liver. Some minimal ascites is adjacen t to the spleen. Some fluid is within the paracolic gutter on the left and right. There is a small am ount of fluid within the pelvis. Liver and spleen without contrast appear normal without masses or cysts. Reflux into the distal esoph mayra is noted. There is dilated small bowel loops containing contrast. Contrast extends to the proximal ileum. Small bowel loops remain dilated and fluid-filled. A zone of transition appears to be within the mid pelvi s. Exact etiology is not identified. There are some inflammatory changes within the mesentery within the more anterior abdomen and an decompressed small bowel loops are present distally. Pancreas: Normal Adrenal glands: The adrenal glands are normal. Gallbladder: Not identified. Kidneys: No masses are evident. No hydronephrosis is present. No cysts are present. No renal stone s are evident. Aorta: Vascular calcification is within the aorta. No suspicious enlarged lymphadenopathy is evident . Inferior vena cava: Normal. CT PELVIS: There is soft tissue thickening along the left aspect of the distal rectum. This appears t o be approximately 2.3 cm in thickness. There is some thickening within the soft tissues adjacent to the anal rectal region. Underlying mass should be considered. Workup for rectal or anal cancer is rec ommended. This appears to be away from the suspected small bowel obstruction. Colonic obstruction is not identified. Appendix: Not identified. No suspicious inflammatory changes or dilated tubular structures are eviden t. Urinary bladder: Normal. Genitourinary structures: Uterus appears normal. Adnexal regions are unremarkable. Osseous structures: No suspicious lytic or sclerotic lesions. Sacroiliac joint degenerative changes a nd facet changes are present within the lower lumbar spine. IMPRESSIONS: 1. High-grade small bowel obstruction with a zone of transition within the mid pelvis. Distal small bowel loops are decompressed 2. Ascites. 3. Soft tissue thickening along the left aspect of the rectum. Evaluate for rectal or anal cancer. 4. Left basilar atelectasis and/or pneumonia. 5. Mild reflux distal esophagus A Red level critical message alert has been initiated for Jose Keane MD via the [employer] Critical Results System on 02/10/2019 1:30 PM. This message alert has been sent to Jose Keane MD via the preferences provided by the clinician for the receipt of Radiology Critical Findings. Message ID [id number].
[2019-02-10] MEDS: MORPHINE SULFATE 4 MG/ML SYRINGE IV PRN (14:06)
[2019-02-10] MEDS ORDERED: LIDOCAINE 1% 20 ML VIAL (10MG/ML) FOR IV START INTRADERMA ONE (16:35)
[2019-02-10 16:36] LABS: Glucose,Whole Blood 119 mg/dL (75-99)
[2019-02-10] MEDS ORDERED: ONDANSETRON 4 MG/2 ML VIAL IVP ONE ×2 (17:08→19:36)
[2019-02-10] MEDS ORDERED: DEXAMETHASONE SOD PHOS (MDV) 100 MG/10 ML VIAL IV ONE (17:09)
[2019-02-10] MEDS ORDERED: HEPARIN SODIUM,PORCINE 5,000 UNIT/ML 1 ML VIAL SQ ONE (17:11)
[2019-02-10] MEDS ORDERED: ceFAZolin 1,000 MG VIAL ONE (17:48)
[2019-02-10] MEDS ORDERED: NEOSTIGMINE 1 MG/ML 10 ML VIAL ONE (17:48)
[2019-02-10] MEDS ORDERED: fentaNYL (PF) 50 MCG/ML 2 ML AMP ONE (17:48)
[2019-02-10] MEDS ORDERED: PROPOFOL 10 MG/ML 20 ML VIAL IV ONE (17:48)
[2019-02-10] MEDS ORDERED: GLYCOPYRROLATE 0.2 MG/ML 2 ML VIAL ONE (17:48)
[2019-02-10] MEDS ORDERED: LIDOCAINE 1% INJ 10MG/ML (20 ML MDV) ONE (17:48)
[2019-02-10] MEDS ORDERED: ROCURONIUM BROMIDE 10 MG/ML 10 ML VIAL IV ONE (17:48)
[2019-02-10] MEDS ORDERED: SUCCINYLCHOLINE CHLORIDE 100 MG/5 ML SYR IV ONE (17:48)
[2019-02-10 17:52] LABS: Glucose,Whole Blood 107 mg/dL (75-99)
[2019-02-10] MEDS ORDERED: SODIUM CHLORIDE 0.9% 100 ML with ceFAZolin 2,000 MG IV ONE ×2 (18:10)
[2019-02-10] MEDS ORDERED: LACTATED RINGERS 1,000 ML IV ONE (18:50)
[2019-02-10] MEDS ORDERED: HYDROmorphone 1 MG/ML 1 ML SYRINGE IM PRN (18:57)
--- NOTE | 2019-02-10 19:01 | P.OP ---
Date of Procedure: 02/10/19 Preoperative Diagnosis: Small bowel obstruction Postoperative Diagnosis: Small bowel obstruction secondary to adhesions Procedure(s) Performed: Exploratory laparotomy Lysis of adhesions Partial omentectomy Small bowel resection Anesthesia: FRANSISCO Surgeon: Smooth Sanders Estimated Blood Loss (ml): 50 Pathology: other (Omentum, small bowel) Condition: stable Disposition: PACU Description of Procedure: Patient's placed on the operating table in the supine position. She received general anesthesia. Her head was prepped and draped usual sterile fashion. Patient had multiple laparotomy scars. The area was entered through midline. There were extensive adhesions. Approximate 20 minutes of operative time used to lyse adhesions down or the abdomen. The omentum was dissected off the abdominal wall. A portion of omentum was transected and sent to pathology. The small bowel was followed down the pelvis and in the right lower quadrant there was an adhesive band. This was lysed. The small bowel was then brought up into the wound. The small bowel to be be ischemic. Eighth small section of small bowel was resected. The bowel appeared to be ischemic. The area was transected proximally distally with a GI stapler and then using the Enseal device the mesentery the bowel was divided. A [id number] functional end-to-end staple anastomosis created between the proximal and distal small bowel. A 3-0 GI silk suture was used as a lock stitch. The window in the mesentery was closed with 3-0 GI silk suture. The abdomen was irrigated. There is no other obstruction seen. The fascia closed with looped #1 PDS suture. Skin was closed rowena. Sterile Prevenadressing was applied.. Patient top she will was sent to recovery in stable condition.
[2019-02-10 19:23] LABS: Glucose,Whole Blood 105 mg/dL (75-99)
[2019-02-10] MEDS ORDERED: HYDROmorphone 1 MG/ML 1 ML SYRINGE IVP ONE ×5 (19:36→20:15)
[2019-02-10] MEDS ORDERED: KETOROLAC 30 MG/ML 1 ML VIAL IVP ONE (19:50)
[2019-02-10 20:48] LABS: Glucose,Whole Blood 121 mg/dL (75-99)
[2019-02-10] MEDS: ATORVASTATIN 10 MG TAB PO SCH (20:52)
--- NOTE | 2019-02-11 00:02 | PN ---
PROGRESS NOTE DATE OF SERVICE: 02/10/2019. PRESENT COMPLAINT: Small bowel obstruction. INTERVAL HISTORY: I saw this patient earlier today, who presented with small bowel obstruction. Remains to have an NG tube in place. Continues to have abdominal pain. No flatus. CT scan results were called to me, still showing persistent small-bowel obstruction and questionable mass in the rectal area. I did speak to Natacha MONTOYA from Dr. Sanders's team, that the patient will probably need surgery and if not will also need a possible supplemental nutrition. Will let Dr. Sanders make that decision. REVIEW OF SYSTEMS: Done for constitutional, cardiovascular, GI, pulmonary; relevant findings as above. CURRENT MEDICATIONS: Reviewed, include IV fluids. PHYSICAL EXAMINATION: Temperature 98.3, pulse 89, respirations 16, blood pressure 132/76, pulse ox 96% on 2L. GENERAL APPEARANCE: Lying in bed, tired-appearing. EYES: Pupils equal. Conjunctivae normal. NECK: JVD unable to assess. Mass not palpable. ENT: NG tube in place. Oral cavity dry. NECK: JVD unable to assess. Mass not palpable. Respiratory effort normal. LUNGS: Clear. CARDIOVASCULAR: 1st and 2nd heart sounds normal. No edema. ABDOMEN: Tender. Liver and spleen not palpable. Bowel sounds are hyperactive. PSYCHIATRY: Alert and oriented x3. Mood and affect normal. INVESTIGATIONS: Accu-Cheks noted. Potassium 3.8, BUN 19, creatinine 0.68. CT scan of the abdomen, results showing small bowel obstruction, questionable mass in the rectal anal canal area. ASSESSMENT: 1. Acute small-bowel obstruction persisting, not improving/getting worse. 2. Diabetes mellitus type 2 on oral hypoglycemics. 3. Hyperlipidemia. 4. Primary osteoarthritis. 5. GERD. 6. Questionable rectal/anal mass. PLAN: Discussed with Natacha from General Surgery. She will convey to Dr. Sanders and he will decide about the patient going in for surgery or not. Supplemental nutrition to be started depending on what clinical course he takes. Continue current medication and treatment plan. Prognosis guarded. MMODL / IJN: [id number] /
[2019-02-11] MEDS: HYDROmorphone 0.5 MG/0.5 ML SYRINGE IVP PRN ×3 (02:25→14:40)
[2019-02-11] MEDS: LACTATED RINGERS 1,000 ML IV SCH ×3 (05:33→20:38)
[2019-02-11] MEDS: INSULIN ASPART (NovoLOG) 100 UNIT/ML VIAL SQ SCH ×3 (07:17→17:28)
[2019-02-11] MEDS: ASPIRIN 81 MG PO SCH (07:18)
[2019-02-11] MEDS: glipiZIDE 10 MG TAB PO SCH ×2 (07:19→20:46)
[2019-02-11] MEDS: FENOFIBRATE 160 MG TAB PO SCH (07:19)
[2019-02-11] MEDS: metFORMIN 500 MG TAB PO SCH ×2 (07:19→20:46)
[2019-02-11 07:32] LABS: Glucose,Whole Blood 89 mg/dL (75-99)
[2019-02-11] MEDS: PANTOPRAZOLE 40 MG/10 ML VIAL IVP SCH (07:33)
[2019-02-11 07:36] LABS: Basophils % (A) 0 %; Eosinophils % (A) 0 %; HCT 36.2 % (34.0-46.0); HGB 12.1 gm/dL (11.4-16.0); Lymphocytes # (A) 0.8 k/uL (1.0-4.8); Lymphocytes % (A) 9 %; MCH 29.4 pg (25.0-35.0); MCHC 33.6 g/dL (31.0-37.0); MCV 87.7 fL (80.0-100.0); Mean Platelet Volume 7.7; Monocytes # (A) 0.5 k/uL (0-1.0); Monocytes % (A) 5 %; Neutrophils # (A) 7.4 k/uL (1.3-7.7); Neutrophils % (A) 84 %; Platelet Count 240 k/uL (150-450); RBC 4.13 m/uL (3.80-5.40); RDW 13.8 % (11.5-15.5); WBC 8.8 k/uL (3.8-10.6)
[2019-02-11 07:56] LABS: Anion Gap 9 mmol/L; Blood Urea Nitrogen 18 mg/dL (7-17); Calcium 8.6 mg/dL (8.4-10.2); Carbon Dioxide 25 mmol/L (22-30); Chloride 107 mmol/L (98-107); Glucose 83 mg/dL (74-99); Potassium 3.5 mmol/L (3.5-5.1); Sodium 141 mmol/L (137-145)
[2019-02-11] MEDS ORDERED: Potassium Replacement Protocol 1 EACH MISC MISCELLANE PRN (09:24)
[2019-02-11] MEDS ORDERED: Magnesium Replacement Protocol 1 EACH MISC MISCELLANE PRN (10:24)
[2019-02-11] MEDS ORDERED: LACTATED RINGERS 1,000 ML IV ONE (10:30)
[2019-02-11] MEDS: diphenhydrAMINE 50 MG/ML 1 ML VIAL IVP PRN ×2 (11:26→21:12)
[2019-02-11] MEDS ORDERED: MVI, ADULT NO.4 WITH VIT K 10 ML, TRACE (CONC-1ML/DOSE) 1 ML in AMINO ACID 4.25%-D10W+L... IV ONE ×3 (12:00)
[2019-02-11] MEDS ORDERED: MVI, ADULT NO.4 WITH VIT K 10 ML, TRACE (CONC-1ML/DOSE) 1 ML in AMINO ACID 4.25%-D10W+L... IV SCH ×3 (12:00)
[2019-02-11 12:01] LABS: Glucose,Whole Blood 94 mg/dL (75-99)
--- NOTE | 2019-02-11 12:35 | P.PN ---
Subjective Progress Note Date: 02/11/19 CHIEF COMPLAINT: SBO HISTORY OF PRESENT ILLNESS: 78-year-old female who underwent exploratory laparotomy, lysis of adhesions, partial omentectomy, and small bowel resection on 02/10/2019. POD #1. Patient examined at the bedside. Pain is tolerable at this time. Denies passing flatus. Denies BM. NG to LIS. Tolerating ice chips. Temperature 100.2 this AM. BP 89/58. Heartrate 80s. WBC 8.8. Hemoglobin 12.1 PHYSICAL EXAM: VITAL SIGNS: Reviewed. GENERAL: Well-developed in no acute distress. HEENT: NG to LIS. No sclera icterus. Extraocular movements grossly intact. Moist buccal mucosa. Head is atraumatic, normocephalic. ABDOMEN: Soft. Dressing to midline incision clean dry intact. PREVENA system noted. Very hypoactive bowel sounds. NEUROLOGIC: Alert and oriented x2 . Cranial nerves II through XII grossly intact. ASSESSMENT: 1. Small bowel obstruction, status post exploratory laparotomy, lysis of adhesions, partial omentectomy, and small bowel resection PLAN: 1. Continue NG to LIS 2. Nothing by mouth except ice chips and popsicles. PPN has been ordered. 3. Continue IV fluids. 1 liter LR bolus due to hypotension 4. Reglan 10mg IV q6 hours 5. Incentive spirometry 6. Activity as tolerated. Consult PT/OT as nursing reports patient is a 2 person assist to get OOB Nurse practitioner note has been reviewed by physician. Signing provider agrees with the documented findings, assessment, and plan of care. Objective - Vital Signs Vital signs: Vital Signs Temp 100.2 F H 02/11/19 07:00 Pulse 89 02/11/19 07:00 Resp 15 02/11/19 07:00 BP 89/58 02/11/19 07:00 Pulse Ox 92 L 02/11/19 07:00 Intake & Output 02/10/19 02/11/19 02/11/19 18:59 06:59 18:59 Intake Total 2150 1000 250 Output Total 525 505 350 Balance 1625 495 -100 Weight 79.379 kg Intake: IV 1000 0 Intake, IV Titration 1000 Amount Lactated Ringers 1,000 ml 1000 @ 125 mls/hr IV .Q8H [facility] Rx#:[id number] Oral 1150 250 Output: Gastric Drainage 400 150 300 Drainage 50 Abdomen 50 Urine 100 355 Estimated Blood Loss 25 Other: Voiding Method Indwelling Catheter # Voids 3 - Labs CBC & Chem 7: 02/11/19 06:41 02/11/19 06:41 Labs: Abnormal Lab Results - Last 24 Hours (Table) 02/10/19 02/10/19 02/10/19 Range/Units 16:33 17:47 19:20 Lymphocytes # (1.0-4.8) k/uL BUN (7-17) mg/dL POC Glucose (mg/dL) 119 H 107 H 105 H (75-99) mg/dL 02/10/19 02/11/19 02/11/19 Range/Units 20:37 06:41 06:41 Lymphocytes # 0.8 L (1.0-4.8) k/uL BUN 18 H (7-17) mg/dL POC Glucose (mg/dL) 121 H (75-99) mg/dL
[2019-02-11] MEDS: LINAGLIPTIN 5 MG TABLET PO SCH (12:53)
[2019-02-11] MEDS: MULTIVITAMINS, THERA 1 EACH TAB PO SCH (12:54)
[2019-02-11] MEDS: POTASSIUM CHLORIDE 10 MEQ in WATER FOR INJECTION 1 100ML.BAG IVPB SCH ×4 (13:09→17:12)
[2019-02-11] MEDS: FAT EMULSION 20% 250 ML IV SCH (13:56)
[2019-02-11] MEDS: METOCLOPRAMIDE 5 MG/ML 2 ML VIAL IVP SCH ×2 (14:34→18:25)
[2019-02-11 17:09] LABS: Glucose,Whole Blood 129 mg/dL (75-99)
[2019-02-11] MEDS: MAGNESIUM SULFATE-D5W PMX 1 GM in DEXTROSE/WATER 1 100ML.BAG IVPB SCH ×2 (18:24→22:35)
[2019-02-11] MEDS: HEPARIN SODIUM,PORCINE 5,000 UNIT/ML 1 ML VIAL SQ SCH (18:25)
[2019-02-11] MEDS: ATORVASTATIN 10 MG TAB PO SCH (20:46)
[2019-02-11] MEDS ORDERED: MAGNESIUM SULFATE-D5W PMX 1 GM in DEXTROSE/WATER 1 100ML.BAG IVPB ONE (22:08)
[2019-02-12] MEDS: HEPARIN SODIUM,PORCINE 5,000 UNIT/ML 1 ML VIAL SQ SCH ×3 (00:13→18:28)
[2019-02-12] MEDS: METOCLOPRAMIDE 5 MG/ML 2 ML VIAL IVP SCH ×4 (00:15→19:30)
[2019-02-12] MEDS: HYDROmorphone 0.5 MG/0.5 ML SYRINGE IVP PRN ×2 (00:23→06:15)
[2019-02-12 00:44] LABS: Glucose,Whole Blood 214 mg/dL (75-99)
[2019-02-12] MEDS: INSULIN ASPART (NovoLOG) 100 UNIT/ML VIAL SQ SCH ×4 (01:08→18:34)
[2019-02-12] MEDS: POTASSIUM CHLORIDE 10 MEQ in WATER FOR INJECTION 1 100ML.BAG IVPB SCH ×4 (01:45→18:22)
[2019-02-12] MEDS: LACTATED RINGERS 1,000 ML IV SCH ×3 (03:30→21:32)
[2019-02-12] MEDS: diphenhydrAMINE 50 MG/ML 1 ML VIAL IVP PRN ×2 (04:55→13:14)
[2019-02-12 06:07] LABS: Glucose,Whole Blood 215 mg/dL (75-99)
--- NOTE | 2019-02-12 06:16 | PN ---
PROGRESS NOTE DATE OF SERVICE: 02/11/2019 PRESENTING COMPLAINT: Abdominal surgery. INTERVAL HISTORY: This patient with small-bowel obstruction did undergo bowel surgery for partial small- bowel resection and lysis of adhesions. The patient has an NG tube in place. Has got a wound VAC on the abdomen. flatus. NG tube remains in place. REVIEW OF SYSTEMS: Done for constitutional, cardiovascular, GI, pulmonary; relevant findings as above. CURRENT MEDICATIONS: Current medications are reviewed. PHYSICAL EXAMINATION: On examination, temperature 98.9, pulse 95, respiration 16, blood pressure 98/59, pulse ox 97% on 2 L. GENERAL APPEARANCE: Lying in bed, awake, tired. EYES: Pupils equal. Conjunctivae normal. NECK: JVD not raised. Mass not palpable. RESPIRATORY: Effort normal. LUNGS: Diminished breath sounds. HENT: NG tube in place. CARDIOVASCULAR: First and second sounds normal. No edema. ABDOMEN: Bowel sounds absent. Wound VAC in place. Liver and spleen not palpable. PSYCHIATRY: Alert and oriented x3. Mood and affect normal. INVESTIGATIONS: White count 8.8, hemoglobin 12.1, potassium 3.5. ASSESSMENT: 1. Small-bowel obstruction followed by partial small-bowel obstruction and surgery and lysis. 2. Diabetes mellitus type 2 on oral hypoglycemic. 3. Hyperlipidemia. 4. Primary osteoarthritis. 5. Gastroesophageal reflux disease. 6. Questionable rectal/anal mass. PLAN: Continue current medication and treatment plan. TPN lipids to be restarted if okay with Dr. Sanders. Discussed with the patient and family at the bedside. Hold off oral glycemics for right now. MMODL / IJN: [id number] /
[2019-02-12 07:08] LABS: Glucose,Whole Blood 223 mg/dL (75-99)
[2019-02-12] MEDS: 1: MVI, ADULT NO.4 WITH VIT K 10 ML, TRACE (CONC-1ML/DOSE) 1 ML in AMINO ACID 4.25%-D10W IV SCH ×6 (07:09→19:29)
[2019-02-12 07:38] LABS: Albumin 2.3 g/dL (3.5-5.0); Anion Gap 5 mmol/L; Blood Urea Nitrogen 19 mg/dL (7-17); Calcium 8.2 mg/dL (8.4-10.2); Carbon Dioxide 26 mmol/L (22-30); Chloride 106 mmol/L (98-107); Glucose 211 mg/dL (74-99); Magnesium 2.1 mg/dL (1.6-2.3); Phosphorus 1.7 mg/dL (2.5-4.5); Potassium 3.8 mmol/L (3.5-5.1); Sodium 137 mmol/L (137-145); Triglycerides 147 mg/dL (<150)
[2019-02-12] MEDS: HYDROmorphone 1 MG/ML 1 ML SYRINGE IVP PRN ×3 (10:16→18:28)
[2019-02-12] MEDS: PANTOPRAZOLE 40 MG/10 ML VIAL IVP SCH (10:16)
[2019-02-12 10:44] LABS: Glucose,Whole Blood 233 mg/dL (75-99)
--- NOTE | 2019-02-12 11:15 | P.PN ---
Subjective Progress Note Date: 02/12/19 CHIEF COMPLAINT: SBO HISTORY OF PRESENT ILLNESS: 78-year-old female who underwent exploratory laparotomy, lysis of adhesions, partial omentectomy, and small bowel resection on 02/10/2019. POD #2. Patient examined at the bedside. Pain is tolerable at this time. Denies passing flatus. Denies BM. NG to LIS. Tolerating ice chips. Vital signs stable. PHYSICAL EXAM: VITAL SIGNS: Reviewed. GENERAL: Well-developed in no acute distress. HEENT: NG to LIS. No sclera icterus. Extraocular movements grossly intact. Moist buccal mucosa. Head is atraumatic, normocephalic. ABDOMEN: Soft. Dressing to midline incision clean dry intact. PREVENA system noted. Hypoactive bowel sounds. NEUROLOGIC: Alert and oriented x2 . Cranial nerves II through XII grossly intact. ASSESSMENT: 1. Small bowel obstruction, status post exploratory laparotomy, lysis of adhesions, partial omentectomy, and small bowel resection PLAN: 1. Continue NG to LIS 2. Nothing by mouth except ice chips and popsicles. 3. Continue PPN 4. Continue Reglan 10mg IV q6 hours 5. Incentive spirometry 6. Activity as tolerated. PT/OT on consult 7. Await pathology results Nurse practitioner note has been reviewed by physician. Signing provider agrees with the documented findings, assessment, and plan of care. Objective - Vital Signs Vital signs: Vital Signs Temp 99.3 F 02/12/19 07:24 Pulse 86 02/12/19 10:36 Resp 16 02/12/19 07:40 BP 101/61 02/12/19 10:36 Pulse Ox 99 02/12/19 10:36 Intake & Output 02/11/19 02/12/19 02/12/19 18:59 06:59 18:59 Intake Total 2449 599.167 250 Output Total 550 700 Balance 1899 -100.833 250 Weight 79.379 kg Intake: Intake, IV Titration 1699 599.167 Amount Lactated Ringers 1,000 ml 500 @ 125 mls/hr IV .[facility]H [facility] Rx#:[id number] Lactated Ringers 1,000 ml 999 @ 999 mls/hr IV .Q1H1M [facility] Rx#:[id number] Mvi, Adult No.4 with Vit 599.167 K 10 ml Trace (Conc-1Ml/ Dose) 1 ml In Amino Acid 4.25%-D10w+Lytes*E* 1,000 ml @ 50 mls/hr IV . [id number] [facility] Rx#:[id number] Potassium Chloride 10 meq 200 In Water For Injection 1 100ml.bag @ 100 mls/hr IVPB Q1HR [facility] Rx#: [id number] Oral 750 250 Output: Gastric Drainage 500 Drainage 50 Abdomen 50 Urine 700 Other: Voiding Method Indwelling Catheter Indwelling Catheter Indwelling Catheter # Voids 2 - Labs CBC & Chem 7: 02/11/19 06:41 02/12/19 06:55 Labs: Abnormal Lab Results - Last 24 Hours (Table) 02/11/19 02/12/19 02/12/19 Range/Units 16:42 00:33 05:55 BUN (7-17) mg/dL Glucose (74-99) mg/dL POC Glucose (mg/dL) 129 H 214 H 215 H (75-99) mg/dL Calcium (8.4-10.2) mg/dL Phosphorus (2.5-4.5) mg/dL Albumin (3.5-5.0) g/dL 02/12/19 02/12/19 02/12/19 Range/Units 06:51 06:55 10:32 BUN 19 H (7-17) mg/dL Glucose 211 H (74-99) mg/dL POC Glucose (mg/dL) 223 H 233 H (75-99) mg/dL Calcium 8.2 L (8.4-10.2) mg/dL Phosphorus 1.7 L (2.5-4.5) mg/dL Albumin 2.3 L (3.5-5.0) g/dL
[2019-02-12 12:23] LABS: Glucose,Whole Blood 241 mg/dL (75-99)
[2019-02-12] MEDS: metFORMIN 500 MG TAB PO SCH ×2 (12:54→20:59)
[2019-02-12] MEDS: MULTIVITAMINS, THERA 1 EACH TAB PO SCH (12:57)
[2019-02-12] MEDS: FAT EMULSION 20% 250 ML IV SCH (13:01)
[2019-02-12] MEDS: POTASSIUM PHOSPHATE 10 MMOL in SODIUM CHLORIDE 0.9% 250 ML IV SCH ×2 (15:25→19:30)
[2019-02-12] MEDS: FENOFIBRATE 160 MG TAB PO SCH (15:49)
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
[2019-02-12] MEDS: ASPIRIN 300 MG SUPP RECTAL SCH ×2 (17:25→18:17)
[2019-02-12] MEDS: ASPIRIN 81 MG PO SCH (18:21)
[2019-02-12 18:32] LABS: Glucose,Whole Blood 232 mg/dL (75-99)
[2019-02-12] MEDS: ATORVASTATIN 10 MG TAB PO SCH (20:59)
[2019-02-12 23:58] LABS: Glucose,Whole Blood 243 mg/dL (75-99)
[2019-02-13] MEDS: INSULIN DETEMIR (LEVEMIR) 100 UNIT/ML SYR SQ SCH ×2 (00:16→20:58)
[2019-02-13] MEDS: HEPARIN SODIUM,PORCINE 5,000 UNIT/ML 1 ML VIAL SQ SCH ×4 (01:54→23:29)
[2019-02-13] MEDS: METOCLOPRAMIDE 5 MG/ML 2 ML VIAL IVP SCH ×5 (01:57→23:29)
[2019-02-13 02:03] LABS: Glucose,Whole Blood 237 mg/dL (75-99)
[2019-02-13] MEDS: INSULIN ASPART (NovoLOG) 100 UNIT/ML VIAL SQ SCH ×5 (02:14→23:31)
[2019-02-13 03:15] LABS: Glucose,Whole Blood 220 mg/dL (75-99)
[2019-02-13] MEDS: LACTATED RINGERS 1,000 ML IV SCH ×3 (04:46→22:55)
[2019-02-13 06:15] LABS: Glucose,Whole Blood 191 mg/dL (75-99)
[2019-02-13] MEDS: HYDROmorphone 1 MG/ML 1 ML SYRINGE IVP PRN ×3 (07:18→20:52)
[2019-02-13] MEDS: FENOFIBRATE 160 MG TAB PO SCH (07:36)
[2019-02-13] MEDS: metFORMIN 500 MG TAB PO SCH ×2 (07:36→20:51)
[2019-02-13] MEDS: PANTOPRAZOLE 40 MG/10 ML VIAL IVP SCH (07:41)
[2019-02-13 08:12] LABS: Anion Gap 3 mmol/L; Blood Urea Nitrogen 18 mg/dL (7-17); Calcium 8.1 mg/dL (8.4-10.2); Carbon Dioxide 29 mmol/L (22-30); Chloride 104 mmol/L (98-107); Glucose 192 mg/dL (74-99); Magnesium 1.9 mg/dL (1.6-2.3); Phosphorus 2.5 mg/dL (2.5-4.5); Potassium 3.8 mmol/L (3.5-5.1); Sodium 136 mmol/L (137-145)
[2019-02-13 08:17] LABS: Basophils % (A) 0 %; Eosinophils # (A) 0.3 k/uL (0-0.7); Eosinophils % (A) 4 %; HGB 10.4 gm/dL (11.4-16.0); Lymphocytes # (A) 0.9 k/uL (1.0-4.8); Lymphocytes % (A) 15 %; MCH 29.7 pg (25.0-35.0); MCHC 33.5 g/dL (31.0-37.0); MCV 88.5 fL (80.0-100.0); Mean Platelet Volume 8.2; Monocytes # (A) 0.3 k/uL (0-1.0); Monocytes % (A) 6 %; Neutrophils # (A) 4.4 k/uL (1.3-7.7); Neutrophils % (A) 73 %; Platelet Count 196 k/uL (150-450); RDW 13.4 % (11.5-15.5)
--- NOTE | 2019-02-13 08:33 | PN ---
PROGRESS NOTE DATE OF SERVICE: 02/12/2019 PRESENTING COMPLAINT: Double vision. INTERVAL HISTORY: The patient has small bowel obstruction, status post bowel surgery for partial small- bowel of resection. Remains to have an NG tube in place. Has not passed any flatus. Patient earlier today did complain of double vision and neurology consult was ordered. I also ordered neuro checks and rectal aspirin. The patient has not passed any flatus. NG tube remains in place. REVIEW OF SYSTEMS: Done for constitutional, cardiovascular, GI, pulmonary; relevant findings as above. Denies any headaches. No other new focal weakness. CURRENT MEDICATIONS: Current medications are reviewed that include TPN lipids. PHYSICAL EXAMINATION: On examination, temperature 99.3, pulse 89, respiration 16, blood pressure 109/65, pulse ox 95% on 3 L. GENERAL APPEARANCE: Lying in bed, tired appearing. EYES: Pupils equal. Conjunctivae normal. NECK: JVD unable to assess. Mass not palpable. RESPIRATORY: Effort normal. LUNGS: Decreased breath sounds. ENT: NG tube in place. CARDIOVASCULAR: First and second sounds normal. No edema. ABDOMEN: Tender. Wound VAC in place. Liver and spleen not palpable. PSYCHIATRY: Alert and oriented x3. Mood and affect normal. NEUROLOGICAL: Pupils equal. No facial asymmetry. Moving all 4 limbs. INVESTIGATIONS: Potassium 3.8. Accu-Cheks are noted. ASSESSMENT: 1. Small-bowel obstruction followed by partial small-bowel and lysis. 2. Diabetes mellitus type 2 on oral hypoglycemic. 3. Hyperlipidemia. 4. Primary osteoarthritis. 5. Gastroesophageal reflux disease. 6. Questionable rectal anal mass. 7. Possibly transient ischemic attack. PLAN: Consultation made to Neurology. Neuro checks were done. Patient's symptoms doing better. Rectal aspirin was added. Other medication and treatment plan is to continue. Because of hyperglycemia, will add the Levemir. MMODL / IJN: [id number] /
[2019-02-13] MEDS ORDERED: ASPIRIN 600 MG SUPP RECTAL SCH (09:00)
[2019-02-13] MEDS: 1: MVI, ADULT NO.4 WITH VIT K 10 ML, TRACE (CONC-1ML/DOSE) 1 ML in AMINO ACID 4.25%-D10W IV SCH ×9 (09:40→23:38)
--- NOTE | 2019-02-13 10:17 | ECHOF ---
Referral Reason:TIA MEASUREMENTS -------- HEIGHT: 165.1 cm WEIGHT: 79.4 kg BP: 134/67 RVIDd: 3.4 cm (< 3.3) IVSd: 1.2 cm (0.6 - 1.1) LVIDd: 3.2 cm (3.9 - 5.3) LVPWd: 1.4 cm (0.6 - 1.1) IVSs: 1.7 cm LVIDs: 2.3 cm LVPWs: 1.6 cm LA Diam: 3.8 cm (2.7 - 3.8) LAESV Index (A-L): 35.69 ml/m Ao Diam: 3.0 cm (2.0 - 3.7) AV Cusp: 1.3 cm (1.5 - 2.6) MV EXCURSION: 6.247 mm (> 18.000) MV EF SLOPE: 26 mm/s (70 - 150) EPSS: 1.0 cm MV E Arsalan: 2.03 m/s MV DecT: 485 ms MV A Arsalan: 2.43 m/s MV E/A Ratio: 0.83 AV maxP.69 mmHg AV meanP.83 mmHg RAP: 5.00 mmHg RVSP: 47.71 mmHg FINDINGS -------- Sinus rhythm. This was a technically adequate study. The left ventricular size is normal. There is moderate concentric left ventricular hypertrophy. O verall left ventricular systolic function is normal with, an EF between 60 - 65 %. The right ventricle is mildly enlarged. LA is moderately dilated 34-39 ml/m2 The right atrium is normal in size. Contrast study was performed with 2 iv injections of 8 ccs of agitated normal saline, at rest, and wi th cough. Interatrial and interventricular septum intact. There is mild aortic valve sclerosis. There is mild aortic stenosis present. Peak/mean gradient a cross the Aortic Valve is 18.69mmHg / 11.83mmHg. The mitral valve leaflets are severely thickened. Severe mitral annular calcification present. Mi ld mitral regurgitation is present. The peak and mean MV gradients are 22.60mmHg 11.05mmHg as guerrero ured by doppler. Arjswgqc-hl-ytsdow mitral stenosis. Mild tricuspid regurgitation present. There is mild to moderate pulmonary hypertension. The right ventricular systolic pressure, as measured by Doppler, is 47.71mmHg. Trace/mild (physiologic) pulmonic regurgitation. The aortic root size is normal. Normal inferior vena cava with normal inspiratory collapse consistent with estimated right atrial pre ssure of 5 mmHg. There is a moderate, generalized pericardial effusion present. CONCLUSIONS -------- 1. Sinus rhythm. 2. This was a technically adequate study. 3. The left ventricular size is normal. 4. There is moderate concentric left ventricular hypertrophy. 5. Overall left ventricular systolic function is normal with, an EF between 60 - 65 %. 6. The right ventricle is mildly enlarged. 7. LA is moderately dilated 34-39 ml/m2 8. The right atrium is normal in size. 9. Contrast study was performed with 2 iv injections of 8 ccs of agitated normal saline, at rest, and with cough. 10. Interatrial and interventricular septum intact. 11. There is mild aortic valve sclerosis. 12. There is mild aortic stenosis present. 13. Peak/mean gradient across the Aortic Valve is 18.69mmHg / 11.83mmHg. 14. The mitral valve leaflets are severely thickened. 15. Severe mitral annular calcification present. 16. Mild mitral regurgitation is present. 17. The peak and mean MV gradients are 22.60mmHg 11.05mmHg as measured by doppler. 18. Wichubpw-qe-oojbbd mitral stenosis. 19. Mild tricuspid regurgitation present. 20. There is mild to moderate pulmonary hypertension. 21. The right ventricular systolic pressure, as measured by Doppler, is 47.71mmHg. 22. Trace/mild (physiologic) pulmonic regurgitation. 23. The aortic root size is normal. 24. Normal inferior vena cava with normal inspiratory collapse consistent with estimated right atrial pressure of 5 mmHg. 25. There is a moderate, generalized pericardial effusion present. PILLAR WORKER: Jennifer Tomas RDCS
[2019-02-13 11:51] LABS: Glucose,Whole Blood 172 mg/dL (75-99)
[2019-02-13] MEDS: POTASSIUM CHLORIDE 10 MEQ in WATER FOR INJECTION 1 100ML.BAG IVPB SCH ×2 (12:09→13:49)
[2019-02-13] MEDS: FAT EMULSION 20% 250 ML IV SCH (12:09)
--- NOTE | 2019-02-13 12:09 | P.PN ---
Subjective Progress Note Date: 02/13/19 Patient says she had another episode of diplopia today lasting for a couple minutes. Overall she had 3 episodes of transient diplopia. No other focal neurological symptoms. Patient has been started on aspirin 300 mg rectally. NG tube is out. Objective - Vital Signs Vital signs: Vital Signs Temp 98.7 F 02/13/19 07:00 Pulse 79 02/13/19 07:00 Resp 16 02/13/19 07:00 BP 107/61 02/13/19 07:00 Pulse Ox 96 02/13/19 07:00 Intake & Output 02/12/19 02/13/19 02/13/19 18:59 06:59 18:59 Intake Total 850 1000 Output Total 700 500 Balance 150 500 Weight 78.5 kg Intake: IV 600 Amino Acid 4.25%-D10w+ 600 Lytes*E* 1,000 ml @ 75 mls/hr IV .BY DURATION NING Rx#:[id number] Intake, IV Titration 1000 Amount Amino Acid 4.25%-D10w+ 1000 Lytes*E* 1,000 ml @ 75 mls/hr IV .BY DURATION NING Rx#:[id number] Oral 250 Output: Urine 700 500 Other: Voiding Method Indwelling Catheter Indwelling Catheter Indwelling Catheter - Exam Mental status is normal. Speech and language functions, cranial nerves and strength normal. - Labs CBC & Chem 7: 02/13/19 07:24 02/13/19 07:24 Labs: Abnormal Lab Results - Last 24 Hours (Table) 02/12/19 02/12/19 02/12/19 Range/Units 12:03 18:21 23:46 RBC (3.80-5.40) m/uL Hgb (11.4-16.0) gm/dL Hct (34.0-46.0) % Lymphocytes # (1.0-4.8) k/uL Sodium (137-145) mmol/L BUN (7-17) mg/dL Creatinine (0.52-1.04) mg/dL Glucose (74-99) mg/dL POC Glucose (mg/dL) 241 H 232 H 243 H (75-99) mg/dL Calcium (8.4-10.2) mg/dL 02/13/19 02/13/19 02/13/19 Range/Units 01:50 03:02 06:03 RBC (3.80-5.40) m/uL Hgb (11.4-16.0) gm/dL Hct (34.0-46.0) % Lymphocytes # (1.0-4.8) k/uL Sodium (137-145) mmol/L BUN (7-17) mg/dL Creatinine (0.52-1.04) mg/dL Glucose (74-99) mg/dL POC Glucose (mg/dL) 237 H 220 H 191 H (75-99) mg/dL Calcium (8.4-10.2) mg/dL 02/13/19 02/13/19 02/13/19 Range/Units 07:24 07:24 11:49 RBC 3.50 L (3.80-5.40) m/uL Hgb 10.4 L (11.4-16.0) gm/dL Hct 31.0 L (34.0-46.0) % Lymphocytes # 0.9 L (1.0-4.8) k/uL Sodium 136 L (137-145) mmol/L BUN 18 H (7-17) mg/dL Creatinine 0.48 L (0.52-1.04) mg/dL Glucose 192 H (74-99) mg/dL POC Glucose (mg/dL) 172 H (75-99) mg/dL Calcium 8.1 L (8.4-10.2) mg/dL Assessment and Plan Assessment: * Recurrent episodes of diplopia lasting for a couple minutes. Patient had 3 such episodes. Exact cause uncertain, possible TIA. Rule out myasthenia. * History of CVA in the past. * Diabetes, not well controlled. * Small bowel obstruction, status post exploratory laparotomy, lysis of adhesions, partial omentectomy and small bowel resection. * Obesity Plan: * Patient currently on aspirin 300 mg rectally. If able to take by mouth, would switch to aspirin 325 mg daily, if no medical/surgical contraindications. * Patient had a normal CTA of head and neck performed late 2016. No need to repeat. * 2-D echo showed ejection fraction 60-65%. Left atrium moderately dilated. Moderate to severe mitral stenosis. Mild aortic stenosis. Bubble study showed no evidence of interatrial or interventricular septal defect. Consider cardiology, if diplopia keeps on recurring despite switching to oral aspirin. * We will check acetylcholine receptor antibodies also. * We will follow patient clinically.
--- NOTE | 2019-02-13 12:23 | P.PN ---
Subjective Progress Note Date: 02/13/19 CHIEF COMPLAINT: SBO HISTORY OF PRESENT ILLNESS: 78-year-old female who underwent exploratory laparotomy, lysis of adhesions, partial omentectomy, and small bowel resection on 02/10/2019. POD #3. Patient examined at the bedside. Patient states her pain is better controlled today. Continue to LIS with minimal output. Patient reports passing flatus this morning. Pathology negative for malignancy. PHYSICAL EXAM: VITAL SIGNS: Reviewed. GENERAL: Well-developed in no acute distress. HEENT: NG to LIS. No sclera icterus. Extraocular movements grossly intact. Moist buccal mucosa. Head is atraumatic, normocephalic. ABDOMEN: Soft. Dressing to midline incision clean dry intact. PREVENA system noted. Positive bowel sounds. NEUROLOGIC: Alert and oriented x2 . Cranial nerves II through XII grossly intact. ASSESSMENT: 1. Small bowel obstruction, status post exploratory laparotomy, lysis of adhesions, partial omentectomy, and small bowel resection PLAN: 1. Discontinue NG tube 2. Begin clear liquid diet 3. Continue PPN until PO intake improves 4. Incentive spirometry 5. Activity as tolerated. PT/OT on consult Nurse practitioner note has been reviewed by physician. Signing provider agrees with the documented findings, assessment, and plan of care. Objective - Vital Signs Vital signs: Vital Signs Temp 98.7 F 02/13/19 07:00 Pulse 79 02/13/19 07:00 Resp 16 02/13/19 07:00 BP 107/61 02/13/19 07:00 Pulse Ox 96 02/13/19 07:00 Intake & Output 02/12/19 02/13/19 02/13/19 18:59 06:59 18:59 Intake Total 850 1000 Output Total 700 500 Balance 150 500 Weight 78.5 kg Intake: IV 600 Amino Acid 4.25%-D10w+ 600 Lytes*E* 1,000 ml @ 75 mls/hr IV .BY DURATION NING Rx#:[id number] Intake, IV Titration 1000 Amount Amino Acid 4.25%-D10w+ 1000 Lytes*E* 1,000 ml @ 75 mls/hr IV .BY DURATION NING Rx#:[id number] Oral 250 Output: Urine 700 500 Other: Voiding Method Indwelling Catheter Indwelling Catheter Indwelling Catheter - Labs CBC & Chem 7: 02/13/19 07:24 02/13/19 07:24 Labs: Abnormal Lab Results - Last 24 Hours (Table) 02/12/19 02/12/19 02/12/19 Range/Units 12:03 18:21 23:46 RBC (3.80-5.40) m/uL Hgb (11.4-16.0) gm/dL Hct (34.0-46.0) % Lymphocytes # (1.0-4.8) k/uL Sodium (137-145) mmol/L BUN (7-17) mg/dL Creatinine (0.52-1.04) mg/dL Glucose (74-99) mg/dL POC Glucose (mg/dL) 241 H 232 H 243 H (75-99) mg/dL Calcium (8.4-10.2) mg/dL 02/13/19 02/13/19 02/13/19 Range/Units 01:50 03:02 06:03 RBC (3.80-5.40) m/uL Hgb (11.4-16.0) gm/dL Hct (34.0-46.0) % Lymphocytes # (1.0-4.8) k/uL Sodium (137-145) mmol/L BUN (7-17) mg/dL Creatinine (0.52-1.04) mg/dL Glucose (74-99) mg/dL POC Glucose (mg/dL) 237 H 220 H 191 H (75-99) mg/dL Calcium (8.4-10.2) mg/dL 02/13/19 02/13/19 02/13/19 Range/Units 07:24 07:24 11:49 RBC 3.50 L (3.80-5.40) m/uL Hgb 10.4 L (11.4-16.0) gm/dL Hct 31.0 L (34.0-46.0) % Lymphocytes # 0.9 L (1.0-4.8) k/uL Sodium 136 L (137-145) mmol/L BUN 18 H (7-17) mg/dL Creatinine 0.48 L (0.52-1.04) mg/dL Glucose 192 H (74-99) mg/dL POC Glucose (mg/dL) 172 H (75-99) mg/dL Calcium 8.1 L (8.4-10.2) mg/dL
[2019-02-13] MEDS: MULTIVITAMINS, THERA 1 EACH TAB PO SCH (12:35)
[2019-02-13] MEDS: LINAGLIPTIN 5 MG TABLET PO SCH (12:36)
[2019-02-13] MEDS: MAGNESIUM SULFATE-D5W PMX 1 GM in DEXTROSE/WATER 1 100ML.BAG IVPB SCH ×2 (13:49→14:54)
[2019-02-13 20:29] LABS: Glucose,Whole Blood 226 mg/dL (75-99)
[2019-02-13] MEDS: ATORVASTATIN 10 MG TAB PO SCH (20:51)
[2019-02-13 23:39] LABS: Glucose,Whole Blood 245 mg/dL (75-99)
[2019-02-14] MEDS: ONDANSETRON 4 MG/2 ML VIAL IVP PRN (01:35)
[2019-02-14] MEDS: HYDROmorphone 1 MG/ML 1 ML SYRINGE IVP PRN ×3 (02:28→20:32)
[2019-02-14] MEDS: LACTATED RINGERS 1,000 ML IV SCH ×2 (04:10→19:27)
[2019-02-14 05:51] LABS: Glucose,Whole Blood 204 mg/dL (75-99)
[2019-02-14] MEDS: INSULIN ASPART (NovoLOG) 100 UNIT/ML VIAL SQ SCH ×3 (05:59→17:48)
[2019-02-14] MEDS: METOCLOPRAMIDE 5 MG/ML 2 ML VIAL IVP SCH ×3 (06:16→16:54)
--- NOTE | 2019-02-14 06:36 | PN ---
PROGRESS NOTE DATE OF SERVICE: 02/13/2019 PRESENTING COMPLAINT: Tired. INTERVAL HISTORY: This patient presented with small bowel obstruction status post bowel surgery for partial small-bowel resection. NG tube was taken out this morning. Has passed some flatus. Has a abdominal wall wound VAC. Patient also has some double vision, felt to be more peripheral. Neurology is working up the same. Otherwise, patient overall looks much better. REVIEW OF SYSTEMS: Done for constitutional, cardiovascular, GI, pulmonary; relevant findings as above. CURRENT MEDICATIONS: Current medications are reviewed that include TPN lipids. PHYSICAL EXAMINATION: On examination, temperature 98.7, pulse 79, respiration 16, blood pressure 107/61, pulse ox 96% on 3 L. GENERAL APPEARANCE: Sitting up, looking better. EYES: Pupils equal. Conjunctivae normal. NECK: JVD unable to assess. Mass not palpable. RESPIRATORY: Effort normal. LUNGS: Decreased breath sounds. CARDIOVASCULAR: First and second sounds normal. No edema. ABDOMEN: Some tenderness. Bowel sounds are sluggish. Wound VAC in place. Liver and spleen not palpable. PSYCHIATRY: Alert and oriented x3. Mood and affect normal. NEUROLOGICAL: Cranial nerves intact. INVESTIGATIONS: White count 16, hemoglobin 10.4. Potassium 3.8. BUN 18, creatinine 0.48. Accu-Cheks are noted. A 2-D echocardiogram showed moderate concentric left ventricular hypertrophy EF 60% to 65% otherwise some moderate generalized pericardial effusion. ASSESSMENT: 1. Small-bowel obstruction followed by partial small-bowel resection secondary to adhesions intraabdominal. 2. Diabetes mellitus type 2 on oral hypoglycemic. 3. Hyperlipidemia. 4. Primary osteoarthritis. 5. Gastroesophageal reflux disease. 6. Questionable rectal anal mass. 7. Intermittent double vision, most likely this is peripheral cause for which patient will need an outpatient ophthalmological workup. In the meantime, Neurology, Dr. Galvan is completing a workup. PLAN: I spoke to Dr. Sanders. Dr. Sanders will accept the patient to his service as a primary. Otherwise patient is coming along fine. The patient is on TPN lipids. The patient started on clear liquids today. MMODL / IJN: [id number] /
[2019-02-14 07:10] LABS: Glucose,Whole Blood 180 mg/dL (75-99)
[2019-02-14 07:38] LABS: Basophils % (A) 0 %; Eosinophils # (A) 0.2 k/uL (0-0.7); Eosinophils % (A) 3 %; HCT 31.4 % (34.0-46.0); HGB 10.2 gm/dL (11.4-16.0); Lymphocytes # (A) 0.8 k/uL (1.0-4.8); Lymphocytes % (A) 12 %; MCH 28.1 pg (25.0-35.0); MCHC 32.3 g/dL (31.0-37.0); MCV 86.9 fL (80.0-100.0); Mean Platelet Volume 7.3; Monocytes # (A) 0.5 k/uL (0-1.0); Monocytes % (A) 7 %; Neutrophils # (A) 4.9 k/uL (1.3-7.7); Neutrophils % (A) 75 %; Platelet Count 229 k/uL (150-450); RBC 3.62 m/uL (3.80-5.40); RDW 13.3 % (11.5-15.5); WBC 6.5 k/uL (3.8-10.6)
[2019-02-14] MEDS: FENOFIBRATE 160 MG TAB PO SCH (08:01)
[2019-02-14] MEDS: ASPIRIN 81 MG PO SCH (08:01)
[2019-02-14] MEDS: metFORMIN 500 MG TAB PO SCH ×2 (08:01→20:31)
[2019-02-14] MEDS: PANTOPRAZOLE 40 MG/10 ML VIAL IVP SCH (08:02)
[2019-02-14 08:05] LABS: Albumin 2.4 g/dL (3.5-5.0); Anion Gap 5 mmol/L; Blood Urea Nitrogen 15 mg/dL (7-17); Calcium 8.2 mg/dL (8.4-10.2); Carbon Dioxide 30 mmol/L (22-30); Chloride 100 mmol/L (98-107); Glucose 159 mg/dL (74-99); Magnesium 1.9 mg/dL (1.6-2.3); Phosphorus 2.7 mg/dL (2.5-4.5); Potassium 3.9 mmol/L (3.5-5.1); Sodium 135 mmol/L (137-145)
[2019-02-14] MEDS: HEPARIN SODIUM,PORCINE 5,000 UNIT/ML 1 ML VIAL SQ SCH ×2 (08:05→16:54)
--- NOTE | 2019-02-14 10:00 | P.PN ---
Subjective Progress Note Date: 02/14/19 Patient says she had a couple more episodes of diplopia, lasted for just a few seconds. It happened when she was looking at the door and it happened for a few seconds. Overall she has had about 5 episodes of diplopia. No other focal neurological symptoms. Patient is on aspirin 81 mg daily. NG tube is out. Objective - Vital Signs Vital signs: Vital Signs Temp 99.9 F H 02/14/19 07:00 Pulse 95 02/14/19 07:00 Resp 12 02/14/19 07:00 BP 125/62 02/14/19 07:00 Pulse Ox 94 L 02/14/19 07:00 Intake & Output 02/13/19 02/14/19 02/14/19 18:59 06:59 18:59 Intake Total 1731 200 850 Output Total 1000 900 Balance 731 -700 850 Weight 78.5 kg 77.5 kg Intake: IV 150 750 Amino Acid 4.25%-D10w+ 150 750 Lytes*E* 1,000 ml @ 75 mls/hr IV .BY DURATION NING Rx#:[id number] Intake, IV Titration 1011 Amount Mvi, Adult No.4 with Vit 1011 K 10 ml Trace (Conc-1Ml/ Dose) 1 ml In Amino Acid 4.25%-D10w+Lytes*E* 1,000 ml @ 75 mls/hr IV .BY DURATION NING Rx#: [id number] Oral 720 50 100 Output: Urine 1000 900 Other: Voiding Method Indwelling Catheter # Voids 3 - Exam Mental status is normal. Speech and language functions, cranial nerves and stre ngth normal. Patient gets double vision on looking to the left side, and sometimes looking upwards. No nystagmus. It is an overlapping images. No obvious extraocular muscles weakness noted objectively. - Labs CBC & Chem 7: 02/14/19 06:55 02/14/19 06:55 Labs: Abnormal Lab Results - Last 24 Hours (Table) 02/13/19 02/13/19 02/13/19 Range/Units 11:49 20:27 23:27 RBC (3.80-5.40) m/uL Hgb (11.4-16.0) gm/dL Hct (34.0-46.0) % Lymphocytes # (1.0-4.8) k/uL Sodium (137-145) mmol/L Creatinine (0.52-1.04) mg/dL Glucose (74-99) mg/dL POC Glucose (mg/dL) 172 H 226 H 245 H (75-99) mg/dL Calcium (8.4-10.2) mg/dL Albumin (3.5-5.0) g/dL 02/14/19 02/14/19 02/14/19 Range/Units 05:49 06:55 06:55 RBC 3.62 L (3.80-5.40) m/uL Hgb 10.2 L (11.4-16.0) gm/dL Hct 31.4 L (34.0-46.0) % Lymphocytes # 0.8 L (1.0-4.8) k/uL Sodium 135 L (137-145) mmol/L Creatinine 0.45 L (0.52-1.04) mg/dL Glucose 159 H (74-99) mg/dL POC Glucose (mg/dL) 204 H (75-99) mg/dL Calcium 8.2 L (8.4-10.2) mg/dL Albumin 2.4 L (3.5-5.0) g/dL 02/14/19 Range/Units 06:56 RBC (3.80-5.40) m/uL Hgb (11.4-16.0) gm/dL Hct (34.0-46.0) % Lymphocytes # (1.0-4.8) k/uL Sodium (137-145) mmol/L Creatinine (0.52-1.04) mg/dL Glucose (74-99) mg/dL POC Glucose (mg/dL) 180 H (75-99) mg/dL Calcium (8.4-10.2) mg/dL Albumin (3.5-5.0) g/dL Assessment and Plan Assessment: * Recurrent episodes of diplopia lasting for a couple minutes. Patient had 5 such episodes. Events appear more peripheral in nature. TIAs appears unlikely, due to lack of other focal neurological symptoms. Rule out myasthenia gravis. * History of CVA in the past. * Diabetes, not well controlled. * Small bowel obstruction, status post exploratory laparotomy, lysis of adhesions, partial omentectomy and small bowel resection. * Obesity Plan: * Ophthalmology consult for fluctuating, intermittent diplopia. * Continue aspirin 81 mg daily. * Patient had a normal CTA of head and neck performed late 2016. No need to repeat. * 2-D echo showed ejection fraction 60-65%. Left atrium moderately dilated. Moderate to severe mitral stenosis. Mild aortic stenosis. Bubble study showed no evidence of interatrial or interventricular septal defect. No atrial fibrillation. * Await acetylcholine receptor antibodies also. * We will follow patient clinically.
--- NOTE | 2019-02-14 11:11 | P.PN ---
Progress Note - Text Progress Note Date: 02/14/19 The patient resting comfortably in her bed. She has had limited activity. She's had some flatus. On exam her vital signs are stable. Her abdomen soft. Incision site is clean dry tach. Status post lysis of adhesion. Patient bowel function has been slow to return. She'll continue on her liquid diet. She'll be observed closely.
[2019-02-14] MEDS ORDERED: POTASSIUM CHLORIDE 10 MEQ in WATER FOR INJECTION 1 100ML.BAG IVPB SCH (11:30)
[2019-02-14 11:42] LABS: Glucose,Whole Blood 179 mg/dL (75-99)
[2019-02-14] MEDS: 1: MVI, ADULT NO.4 WITH VIT K 10 ML, TRACE (CONC-1ML/DOSE) 1 ML in AMINO ACID 4.25%-D10W IV SCH ×3 (12:08)
[2019-02-14] MEDS: FAT EMULSION 20% 250 ML IV SCH (12:08)
[2019-02-14] MEDS: MULTIVITAMINS, THERA 1 EACH TAB PO SCH (12:09)
[2019-02-14] MEDS: MAGNESIUM SULFATE-D5W PMX 1 GM in DEXTROSE/WATER 1 100ML.BAG IVPB SCH ×2 (12:09→16:54)
[2019-02-14 17:45] LABS: Glucose,Whole Blood 170 mg/dL (75-99)
[2019-02-14] MEDS: ATORVASTATIN 10 MG TAB PO SCH (20:31)
[2019-02-14] MEDS: INSULIN DETEMIR (LEVEMIR) 100 UNIT/ML SYR SQ SCH (20:31)
--- NOTE | 2019-02-14 22:55 | PN ---
PROGRESS NOTE DATE OF SERVICE: 02/14/2019. PRESENTING COMPLAINT: Tired. INTERVAL HISTORY: Patient is status post small bowel obstruction, status post bowel surgery with partial small-bowel resection. The patient is on clear liquids. Has passed some more flatus. Also seen by Neurology for double vision, felt to be more of a peripheral issue. No other neurological symptoms. Otherwise, patient is feeling much better. Sitting up in a chair. REVIEW OF SYSTEMS: Done for constitutional, cardiovascular, GI, pulmonary; relevant findings as above. CURRENT MEDICATIONS: Current medications are reviewed. PHYSICAL EXAMINATION: Temperature 97.5, pulse 90, respirations 16, blood pressure 124/70, pulse ox 100 percent on 3 L. GENERAL APPEARANCE: Sitting up in a chair, comfortable. EYES: Pupils equal. Conjunctivae normal. NECK: JVD not raised. Mass not palpable. Respiratory effort normal. LUNGS: Decreased breath sounds. CARDIOVASCULAR: 1st and 2nd sounds normal. No edema. ABDOMEN: Minimal tenderness. Bowel sounds are present. Wound VAC in place. PSYCHIATRY: Alert, oriented x3. Mood and affect normal. NEUROLOGICAL: Cranial nerves intact. No other focal findings. INVESTIGATIONS: White count 6.5, hemoglobin 10.2, potassium 3.9. BUN and creatinine normal Accu-Cheks are noted. ASSESSMENT: 1. Small-bowel obstruction followed by partial small-bowel resection secondary to adhesions. 2. Diabetes mellitus type 2 on oral hypoglycemic. 3. Hyperlipidemia. 4. Primary osteoarthritis. 5. Gastroesophageal reflux disease. 6. Questionable rectal/anal mass. 7. Intermittent double vision, most likely peripheral. No clinical evidence of TIA otherwise. Doubt a central cause. Being worked up by Dr. Anthony. PLAN: Continue current medication and treatment plan. Supportive care. The patient has been getting TPN and lipids. Diet is being advanced per Surgery. MMODL / IJN: [id number] /
[2019-02-15] MEDS: INSULIN ASPART (NovoLOG) 100 UNIT/ML VIAL SQ SCH ×4 (00:29→18:04)
[2019-02-15 00:31] LABS: Glucose,Whole Blood 98 mg/dL (75-99)
[2019-02-15] MEDS: METOCLOPRAMIDE 5 MG/ML 2 ML VIAL IVP SCH ×4 (00:34→18:07)
[2019-02-15] MEDS: HEPARIN SODIUM,PORCINE 5,000 UNIT/ML 1 ML VIAL SQ SCH ×3 (00:34→18:07)
[2019-02-15] MEDS: LACTATED RINGERS 1,000 ML IV SCH ×3 (01:01→19:00)
[2019-02-15 03:46] LABS: Glucose,Whole Blood 104 mg/dL (75-99)
[2019-02-15] MEDS: HYDROmorphone 1 MG/ML 1 ML SYRINGE IVP PRN ×2 (04:46→21:03)
[2019-02-15 05:54] LABS: Glucose,Whole Blood 107 mg/dL (75-99)
[2019-02-15 07:00] LABS: Basophils % (A) 0 %; Eosinophils # (A) 0.2 k/uL (0-0.7); Eosinophils % (A) 3 %; HCT 30.8 % (34.0-46.0); Lymphocytes # (A) 1.1 k/uL (1.0-4.8); Lymphocytes % (A) 17 %; MCH 28.5 pg (25.0-35.0); MCHC 32.6 g/dL (31.0-37.0); MCV 87.3 fL (80.0-100.0); Mean Platelet Volume 8.4; Monocytes # (A) 0.5 k/uL (0-1.0); Monocytes % (A) 7 %; Neutrophils # (A) 4.9 k/uL (1.3-7.7); Neutrophils % (A) 72 %; Platelet Count 227 k/uL (150-450); RBC 3.53 m/uL (3.80-5.40); RDW 14.2 % (11.5-15.5); WBC 6.8 k/uL (3.8-10.6)
[2019-02-15 07:13] LABS: Anion Gap 3 mmol/L; Blood Urea Nitrogen 10 mg/dL (7-17); Calcium 8.2 mg/dL (8.4-10.2); Carbon Dioxide 31 mmol/L (22-30); Chloride 101 mmol/L (98-107); Glucose 104 mg/dL (74-99); Magnesium 1.9 mg/dL (1.6-2.3); Phosphorus 2.8 mg/dL (2.5-4.5); Sodium 135 mmol/L (137-145)
[2019-02-15] MEDS: PANTOPRAZOLE 40 MG/10 ML VIAL IVP SCH (07:24)
[2019-02-15] MEDS: metFORMIN 500 MG TAB PO SCH ×2 (07:24→21:03)
[2019-02-15] MEDS: ASPIRIN 81 MG PO SCH (07:24)
[2019-02-15] MEDS: FENOFIBRATE 160 MG TAB PO SCH (07:24)
[2019-02-15] MEDS: MULTIVITAMINS, THERA 1 EACH TAB PO SCH (07:24)
--- NOTE | 2019-02-15 11:27 | P.PN ---
Progress Note - Text Progress Note Date: 02/15/19 The patient feels better. She's had several bowel movements. On exam her vital signs are stable. Her abdomen soft. Incision site is clean dry intact. Patient will have her [place] cath removed today. We will advance her diet.
[2019-02-15] MEDS: diphenhydrAMINE 50 MG/ML 1 ML VIAL IVP PRN (11:39)
[2019-02-15] MEDS: LINAGLIPTIN 5 MG TABLET PO SCH (11:40)
[2019-02-15] MEDS: FAT EMULSION 20% 250 ML IV SCH (11:40)
[2019-02-15 11:59] LABS: Glucose,Whole Blood 101 mg/dL (75-99)
[2019-02-15] MEDS: 1: MVI, ADULT NO.4 WITH VIT K 10 ML, TRACE (CONC-1ML/DOSE) 1 ML in AMINO ACID 4.25%-D10W IV SCH ×3 (14:49)
[2019-02-15 18:26] LABS: Glucose,Whole Blood 145 mg/dL (75-99)
--- NOTE | 2019-02-15 19:26 | P.PN ---
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 abd looks soft , pt is on clear diet and she is making small bowel movement. she does not look in distress , pt had low grade fever yesterday , however she is with no leukocytosis and not on antibiotic. pt is on tachypneic , we will order chest xray . she is for one more day of TPN as per surgery team . glucose is controlled , , wiseman catheter was discontinued by pr imray team we will order bladder scan . Review of Systems, except what is mentioned above CONSTITUTIONAL: negative. RESPIRATORY: Negative. CARDIOVASCULAR: Negative. GASTROINTESTINAL: Negative. GENITOURINARY: Negative. INTEGUMENT/BREAST: Negative. MUSCULOSKELETAL: Negative. NEUROLOGICAL: Negative. medications: tylenol 650 mg, aspirin 8 mg, lipitor 10 mg, dilaudid 0.5 mg, levemir 14 Units, novolog insulin sliding scale, ringer lactate on 125 ml/hr, linoglipitin 5mg, metformin 1000 mg, reglan 10 mg, multivitamin tab , and pronotix 40 mg Objective - Vital Signs Vital signs: Vital Signs Temp 98.4 F 02/15/19 14:41 Pulse 78 02/15/19 14:41 Resp 16 02/15/19 14:41 BP 133/79 02/15/19 14:41 Pulse Ox 99 02/15/19 14:41 Intake & Output 02/14/19 02/15/19 02/15/19 18:59 06:59 18:59 Intake Total 950 1000 100 Output Total 700 1900 800 Balance 250 -900 -700 Weight 77.5 kg Intake: IV 750 Amino Acid 4.25%-D10w+ 750 Lytes*E* 1,000 ml @ 75 mls/hr IV .BY DURATION NING Rx#:[id number] Intake, IV Titration 100 1000 Amount Amino Acid 4.25%-D10w+ 1000 Lytes*E* 1,000 ml @ 75 mls/hr IV .BY DURATION NING Rx#:[id number] Magnesium Sulfate-D5w Pmx 100 1 gm In Dextrose/Water 1 100ml.bag @ 100 mls/hr IVPB Q1H [facility] Rx#: [id number] Oral 100 100 Output: Urine 700 1900 800 Uretheral (Wiseman) 800 Other: Voiding Method Indwelling Catheter Indwelling Catheter Indwelling Catheter # Voids 2 # Bowel Movements 1 - Exam GENERAL: The patient is alert and oriented x3, not in any acute distress. Well developed, well nourished. HEENT: Pupils are round and equally reacting to light. EOMI. No scleral icterus. No conjunctival pallor. Normocephalic, atraumatic. No pharyngeal erythema. No th yromegaly. CARDIOVASCULAR: S1 and S2 present. No murmurs, rubs, or gallops. PULMONARY: Chest is clear to auscultation, no wheezing or crackles. -ABDOMEN: Soft, nontender,wound is healing wound vac is in place. MUSCULOSKELETAL: No joint swelling or deformity. EXTREMITIES: No cyanosis, clubbing, or pedal edema. NEUROLOGICAL: Gross neurological examination did not reveal any focal deficits. SKIN: No rashes. - Labs CBC & Chem 7: 02/15/19 06:19 02/15/19 06:19 Labs: Abnormal Lab Results - Last 24 Hours (Table) 02/15/19 02/15/19 02/15/19 Range/Units 03:44 05:52 06:19 RBC (3.80-5.40) m/uL Hgb (11.4-16.0) gm/dL Hct (34.0-46.0) % Sodium 135 L (137-145) mmol/L Carbon Dioxide 31 H (22-30) mmol/L Creatinine 0.47 L (0.52-1.04) mg/dL Glucose 104 H (74-99) mg/dL POC Glucose (mg/dL) 104 H 107 H (75-99) mg/dL Calcium 8.2 L (8.4-10.2) mg/dL 02/15/19 02/15/19 02/15/19 Range/Units 06:19 11:33 17:55 RBC 3.53 L (3.80-5.40) m/uL Hgb 10.0 L (11.4-16.0) gm/dL Hct 30.8 L (34.0-46.0) % Sodium (137-145) mmol/L Carbon Dioxide (22-30) mmol/L Creatinine (0.52-1.04) mg/dL Glucose (74-99) mg/dL POC Glucose (mg/dL) 101 H 145 H (75-99) mg/dL Calcium (8.4-10.2) mg/dL Assessment and Plan Assessment: small bowel obstruction secondary to adhesion , she is status post exploratory laparatomy and lysis adhesion , and partial omentectomy low grade fever , could be reactive. rule out infection Diabetes Mellitus Hyperlipidemia Plan: this is a pleasant 78 yo F who presents with bowel obstruction ,s/p exploratory laboratory and lysis adhesion , she is tolerating diet well and passing bowel movement , we will do cxr for pt with tachypnea and low grade fever. continue with pain management and DVT Px as per surgical team. Labs and medication were reviewed.. Continue same treatment. Continue with symptomatic treatment. Resume home medication. Monitor lytes and vitals. DVT and GI prophylaxis. Further recommendations of the clinical course of the patient prognosis is guarded
--- NOTE | 2019-02-15 19:32 | XR ---
EXAMINATION TYPE: XR chest 1V DATE OF EXAM: 02/15/2019 COMPARISON: Prior chest x-ray 02/07/2019 HISTORY: Fever TECHNIQUE: Single frontal view of the chest is obtained. FINDINGS: Retrocardiac density is present, the left hemidiaphragm is obscured. Patient is rotated. H eart size is likely stable. Postop change noted to the left femur. Patchy basilar density also presen t on the right. No pneumothorax. Arthropathy noted in the right shoulder. IMPRESSION: Probable basilar atelectasis, correlate to exclude pneumonia. Rotated exam. Recommend fo llow-up PA and lateral chest x-ray.
[2019-02-15 20:00] LABS: Glucose,Whole Blood 177 mg/dL (75-99)
[2019-02-15] MEDS: ATORVASTATIN 10 MG TAB PO SCH (21:03)
[2019-02-15] MEDS: INSULIN DETEMIR (LEVEMIR) 100 UNIT/ML SYR SQ SCH (21:04)
[2019-02-15 23:58] LABS: Glucose,Whole Blood 189 mg/dL (75-99)
[2019-02-16] MEDS: INSULIN ASPART (NovoLOG) 100 UNIT/ML VIAL SQ SCH ×5 (00:14→23:58)
[2019-02-16] MEDS: HEPARIN SODIUM,PORCINE 5,000 UNIT/ML 1 ML VIAL SQ SCH ×4 (00:14→23:52)
[2019-02-16] MEDS: METOCLOPRAMIDE 5 MG/ML 2 ML VIAL IVP SCH ×5 (00:15→23:52)
[2019-02-16] MEDS: 1: MVI, ADULT NO.4 WITH VIT K 10 ML, TRACE (CONC-1ML/DOSE) 1 ML in AMINO ACID 4.25%-D10W IV SCH ×6 (00:47→17:22)
[2019-02-16] MEDS: LACTATED RINGERS 1,000 ML IV SCH ×3 (02:58→17:23)
[2019-02-16] MEDS: HYDROmorphone 1 MG/ML 1 ML SYRINGE IVP PRN ×3 (05:21→21:14)
[2019-02-16 05:27] LABS: Glucose,Whole Blood 92 mg/dL (75-99)
[2019-02-16 06:47] LABS: Basophils % (A) 0 %; Eosinophils # (A) 0.2 k/uL (0-0.7); Eosinophils % (A) 3 %; HCT 31.3 % (34.0-46.0); HGB 10.1 gm/dL (11.4-16.0); Lymphocytes # (A) 1.2 k/uL (1.0-4.8); Lymphocytes % (A) 17 %; MCH 28.3 pg (25.0-35.0); MCHC 32.1 g/dL (31.0-37.0); MCV 88.3 fL (80.0-100.0); Mean Platelet Volume 7.9; Monocytes # (A) 0.6 k/uL (0-1.0); Monocytes % (A) 9 %; Neutrophils # (A) 4.6 k/uL (1.3-7.7); Neutrophils % (A) 69 %; Platelet Count 263 k/uL (150-450); RBC 3.55 m/uL (3.80-5.40); RDW 13.7 % (11.5-15.5); WBC 6.7 k/uL (3.8-10.6)
[2019-02-16 07:01] LABS: Anion Gap 2 mmol/L; Blood Urea Nitrogen 12 mg/dL (7-17); Calcium 8.1 mg/dL (8.4-10.2); Carbon Dioxide 34 mmol/L (22-30); Chloride 102 mmol/L (98-107); Glucose 98 mg/dL (74-99); Magnesium 1.8 mg/dL (1.6-2.3); Phosphorus 3.1 mg/dL (2.5-4.5); Sodium 138 mmol/L (137-145)
[2019-02-16] MEDS: FENOFIBRATE 160 MG TAB PO SCH (07:16)
[2019-02-16] MEDS: PANTOPRAZOLE 40 MG/10 ML VIAL IVP SCH (07:16)
[2019-02-16] MEDS: ASPIRIN 81 MG PO SCH (07:17)
[2019-02-16] MEDS: metFORMIN 500 MG TAB PO SCH ×2 (07:17→20:14)
[2019-02-16] MEDS: MAGNESIUM SULFATE-D5W PMX 1 GM in DEXTROSE/WATER 1 100ML.BAG IVPB SCH ×2 (09:03→10:38)
--- NOTE | 2019-02-16 10:08 | P.PN ---
Progress Note - Text Progress Note Date: 02/16/19 The patient's resting comfortably in her bed. She has had some flatus. On exam her vital signs are stable. Her abdomen soft. Incision site is clean dry tach. Status post small bowel resection for small bowel obstruction. Patient's TPN will stop today. We will advance her diet slowly.
[2019-02-16 12:00] LABS: Glucose,Whole Blood 149 mg/dL (75-99)
[2019-02-16] MEDS: FAT EMULSION 20% 250 ML IV SCH (12:10)
[2019-02-16] MEDS: MULTIVITAMINS, THERA 1 EACH TAB PO SCH (12:24)
[2019-02-16 18:10] LABS: Glucose,Whole Blood 152 mg/dL (75-99)
--- NOTE | 2019-02-16 18:12 | P.PN ---
Subjective Progress Note Date: 02/16/19 Patient says the frequency of diplopia is improving. She had only one episode yesterday, but none today. Denies any new focal symptoms. Patient at present appears sick, complaining abdominal pain. Patient is on aspirin 81 mg daily. Objective - Vital Signs Vital signs: Vital Signs Temp 97.8 F 02/16/19 13:54 Pulse 99 02/16/19 13:54 Resp 12 02/16/19 13:54 BP 119/68 02/16/19 13:54 Pulse Ox 91 L 02/16/19 13:54 Intake & Output 02/15/19 02/16/19 02/16/19 18:59 06:59 18:59 Intake Total 100 850 200 Output Total 800 Balance -700 850 200 Weight 78.2 kg Intake: IV 750 Amino Acid 4.25%-D10w+ 750 Lytes*E* 1,000 ml @ 75 mls/hr IV .BY DURATION NING Rx#:[id number] Oral 100 100 200 Output: Urine 800 Uretheral ([place]) 800 Other: Voiding Method Indwelling Catheter Indwelling Catheter # Voids 2 1 3 - Exam Mental status is normal. Speech and language functions, cranial nerves and strength normal. Patient not feeling well, did not want to be examined. - Labs CBC & Chem 7: 02/16/19 06:04 02/16/19 06:04 Labs: Abnormal Lab Results - Last 24 Hours (Table) 02/15/19 02/15/19 02/15/19 Range/Units 17:55 19:58 23:47 RBC (3.80-5.40) m/uL Hgb (11.4-16.0) gm/dL Hct (34.0-46.0) % Carbon Dioxide (22-30) mmol/L Creatinine (0.52-1.04) mg/dL POC Glucose (mg/dL) 145 H 177 H 189 H (75-99) mg/dL Calcium (8.4-10.2) mg/dL 02/16/19 02/16/19 02/16/19 Range/Units 06:04 06:04 11:59 RBC 3.55 L (3.80-5.40) m/uL Hgb 10.1 L (11.4-16.0) gm/dL Hct 31.3 L (34.0-46.0) % Carbon Dioxide 34 H (22-30) mmol/L Creatinine 0.49 L (0.52-1.04) mg/dL POC Glucose (mg/dL) 149 H (75-99) mg/dL Calcium 8.1 L (8.4-10.2) mg/dL Assessment and Plan Assessment: * Recurrent episodes of diplopia lasting for a couple minutes. Patient had 6-7 such episodes. Events appear more peripheral in nature. TIAs appears unlikely, due to lack of other focal neurological symptoms. Acetylcholine receptor antibodies negative, therefore myasthenia gravis appears less likely. * History of CVA in the past. * Diabetes, not well controlled. * Small bowel obstruction, status post exploratory laparotomy, lysis of adhesions, partial omentectomy and small bowel resection. * Obesity Plan: * Ophthalmology consult for fluctuating, intermittent diplopia. * Continue aspirin 81 mg daily and statins. * Patient had a normal CTA of head and neck performed late 2016. No need to repeat. * 2-D echo showed ejection fraction 60-65%. Left atrium moderately dilated. Moderate to severe mitral stenosis. Mild aortic stenosis. Bubble study showed no evidence of interatrial or interventricular septal defect. No atrial fibrillation. * Acetylcholine Receptor antibodies negative. * We will follow patient clinically.
[2019-02-16 20:02] LABS: Glucose,Whole Blood 192 mg/dL (75-99)
[2019-02-16] MEDS: ATORVASTATIN 10 MG TAB PO SCH (20:14)
[2019-02-16] MEDS: INSULIN DETEMIR (LEVEMIR) 100 UNIT/ML SYR SQ SCH (20:14)
[2019-02-16 23:52] LABS: Glucose,Whole Blood 132 mg/dL (75-99)
--- NOTE | 2019-02-17 00:20 | P.PN ---
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 abd looks soft , pt is on clear diet and she is making small bowel movement. she does not look in distress , pt had low grade fever yesterday , however she is with no leukocytosis and not on antibiotic. pt is on tachypneic , we will order chest xray . she is for one more day of TPN as per surgery team . glucose is controlled , , wiseman catheter was discontinued by pr imray team we will order bladder scan . 02/16/2019 she is status post exploratory laparatomy and lysis adhesion for SBP, post op day #7 pt is feeling a little better , her abd pain is controlled, she has some resp symptoms and dyspnea , suspicious for aspiration , pt was started on antibiotic and ordered swallow evaluation, however her breathing feels better today , vitals looks stable and her blood pressure is improved, pt is on TPN and started diet , we will dc iv fluids and keep monitoring for now . Echo: moderate to sever mitral stenosis, repeat chest xray tomorrow , and check bladder scan . neurology team input is noted , they recommend ophthalmology evaluation. Review of Systems, except what is mentioned above CONSTITUTIONAL: negative. RESPIRATORY: Negative. CARDIOVASCULAR: Negative. GASTROINTESTINAL: Negative. GENITOURINARY: Negative. INTEGUMENT/BREAST: Negative. MUSCULOSKELETAL: Negative. NEUROLOGICAL: Negative. medications: tylenol 650 mg, aspirin 8 mg, lipitor 10 mg, dilaudid 0.5 mg, levemir 14 Units, novolog insulin sliding scale, linoglipitin 5mg, metformin 1000 mg, reglan 10 mg, multivitamin tab , and pronotix 40 mg Objective - Vital Signs Vital signs: Vital Signs Temp 98.6 F 02/16/19 21:09 Pulse 98 02/16/19 21:09 Resp 17 02/16/19 21:09 BP 125/74 02/16/19 21:09 Pulse Ox 97 02/16/19 21:09 Intake & Output 05/26/19 05/26/19 05/27/19 06:59 18:59 06:59 Intake Total 850 200 Balance 850 200 Weight 78.2 kg Intake: IV 750 Amino Acid 4.25%-D10w+ 750 Lytes*E* 1,000 ml @ 75 mls/hr IV .BY DURATION NING Rx#:[id number] Oral 100 200 Other: Voiding Method Indwelling Catheter # Voids 1 3 2 - Exam GENERAL: The patient is alert and oriented x3, not in any acute distress. Well developed, well nourished. HEENT: Pupils are round and equally reacting to light. EOMI. No scleral icterus. No conjunctival pallor. Normocephalic, atraumatic. No pharyngeal erythema. No thyromegaly. CARDIOVASCULAR: S1 and S2 present. No murmurs, rubs, or gallops. PULMONARY: Chest is clear to auscultation, no wheezing or crackles. -ABDOMEN: Soft, nontender,wound is healing wound vac is in place. MUSCULOSKELETAL: No joint swelling or deformity. EXTREMITIES: No cyanosis, clubbing, or pedal edema. NEUROLOGICAL: Gross neurological examination did not reveal any focal deficits. SKIN: No rashes. - Labs CBC & Chem 7: 02/16/19 06:04 02/16/19 06:04 Labs: Abnormal Lab Results - Last 24 Hours (Table) 02/16/19 02/16/19 02/16/19 Range/Units 06:04 06:04 11:59 RBC 3.55 L (3.80-5.40) m/uL Hgb 10.1 L (11.4-16.0) gm/dL Hct 31.3 L (34.0-46.0) % Carbon Dioxide 34 H (22-30) mmol/L Creatinine 0.49 L (0.52-1.04) mg/dL POC Glucose (mg/dL) 149 H (75-99) mg/dL Calcium 8.1 L (8.4-10.2) mg/dL 02/16/19 02/16/19 02/16/19 Range/Units 17:44 20:01 23:37 RBC (3.80-5.40) m/uL Hgb (11.4-16.0) gm/dL Hct (34.0-46.0) % Carbon Dioxide (22-30) mmol/L Creatinine (0.52-1.04) mg/dL POC Glucose (mg/dL) 152 H 192 H 132 H (75-99) mg/dL Calcium (8.4-10.2) mg/dL Assessment and Plan Assessment: small bowel obstruction secondary to adhesion , she is status post exploratory laparatomy and lysis adhesion , and partial omentectomy low grade fever , could be reactive. rule out infection diplopia Diabetes Mellitus Hyperlipidemia Plan: this is a pleasant 78 yo F who presents with bowel obstruction ,s/p exploratory laboratory and lysis adhesion , she is tolerating diet well and passing bowel movement , we will do cxr for pt with tachypnea and low grade fever. continue with pain management and DVT Px as per surgical team. Labs and medication were reviewed.. Continue same treatment. Continue with symptomatic treatment. Resume home medication. Monitor lytes and vitals. DVT and GI prophylaxis. Further recommendations of the clinical course of the patient prognosis is guarded
[2019-02-17] MEDS: 1: MVI, ADULT NO.4 WITH VIT K 10 ML, TRACE (CONC-1ML/DOSE) 1 ML in AMINO ACID 4.25%-D10W IV SCH ×6 (00:47→20:15)
[2019-02-17 05:21] LABS: Glucose,Whole Blood 58 mg/dL (75-99)
[2019-02-17] MEDS: METOCLOPRAMIDE 5 MG/ML 2 ML VIAL IVP SCH ×4 (05:41→23:24)
[2019-02-17] MEDS: INSULIN ASPART (NovoLOG) 100 UNIT/ML VIAL SQ SCH ×3 (05:42→17:32)
[2019-02-17 06:05] LABS: Glucose,Whole Blood 46 mg/dL (75-99)
[2019-02-17 06:05] LABS: Glucose,Whole Blood 51 mg/dL (75-99)
[2019-02-17] MEDS ORDERED: DEXTROSE 50% SYRINGE 50 ML IVP ONE (06:11)
[2019-02-17 06:20] LABS: Glucose,Whole Blood 49 mg/dL (75-99)
[2019-02-17 06:36] LABS: Glucose,Whole Blood 86 mg/dL (75-99)
[2019-02-17] MEDS: metFORMIN 500 MG TAB PO SCH (06:52)
[2019-02-17 06:59] LABS: Glucose,Whole Blood 85 mg/dL (75-99)
[2019-02-17] MEDS: PANTOPRAZOLE 40 MG/10 ML VIAL IVP SCH (07:07)
[2019-02-17] MEDS: FENOFIBRATE 160 MG TAB PO SCH (07:08)
[2019-02-17] MEDS: ASPIRIN 81 MG PO SCH (07:08)
[2019-02-17] MEDS: HEPARIN SODIUM,PORCINE 5,000 UNIT/ML 1 ML VIAL SQ SCH ×3 (07:08→23:24)
[2019-02-17 07:48] LABS: Anion Gap 4 mmol/L; Blood Urea Nitrogen 8 mg/dL (7-17); Calcium 8.7 mg/dL (8.4-10.2); Carbon Dioxide 36 mmol/L (22-30); Chloride 100 mmol/L (98-107); Glucose 97 mg/dL (74-99); Phosphorus 3.2 mg/dL (2.5-4.5); Potassium 4.1 mmol/L (3.5-5.1); Sodium 140 mmol/L (137-145)
--- NOTE | 2019-02-17 10:20 | XR ---
EXAMINATION TYPE: XR chest 1V DATE OF EXAM: 02/17/2019 COMPARISON: 02/15/2019 INDICATION: Follow-up small bowel obstruction TECHNIQUE: Single frontal view of the chest is obtained. FINDINGS: The heart size is upper limits of normal. The pulmonary vasculature is normal. There is improved aeration of the left base. Old left shoulder repair is evident. Chronic Rotator cuff tears present on the right. IMPRESSION: 1. Improving left lower lobe infiltrate.
--- NOTE | 2019-02-17 10:38 | P.PN ---
Progress Note - Text Progress Note Date: 02/17/19 The patient is sitting at the edge of the bed with physical therapy. She has some incisional pain. She's had some flatus and small bowel movement. On exam her vital signs are stable. Her abdomen soft. Status post small bowel resection for small bowel obstruction. Patient will have her diet advanced.
[2019-02-17 11:56] LABS: Glucose,Whole Blood 121 mg/dL (75-99)
[2019-02-17] MEDS: LINAGLIPTIN 5 MG TABLET PO SCH (12:27)
[2019-02-17] MEDS: MULTIVITAMINS, THERA 1 EACH TAB PO SCH (12:27)
[2019-02-17] MEDS: HYDROmorphone 1 MG/ML 1 ML SYRINGE IVP PRN (13:51)
[2019-02-17] MEDS: ONDANSETRON 4 MG/2 ML VIAL IVP PRN (13:52)
[2019-02-17 14:28] VITALS: BMI 28.6
--- NOTE | 2019-02-17 15:14 | P.PN ---
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 abd looks soft , pt is on clear diet and she is making small bowel movement. she does not look in distress , pt had low grade fever yesterday , however she is with no leukocytosis and not on antibiotic. pt is on tachypneic , we will order chest xray . she is for one more day of TPN as per surgery team . glucose is controlled , , wiseman catheter was discontinued by pr imray team we will order bladder scan . 02/16/2019 she is status post exploratory laparatomy and lysis adhesion for SBP, post op day #7 pt is feeling a little better , her abd pain is controlled, she has some resp symptoms and dyspnea , suspicious for aspiration , pt was started on antibiotic and ordered swallow evaluation, however her breathing feels better today , vitals looks stable and her blood pressure is improved, pt is on TPN and started diet , we will dc iv fluids and keep monitoring for now . Echo: moderate to sever mitral stenosis, repeat chest xray tomorrow , and check bladder scan . neurology team input is noted , they recommend ophthalmology evaluation. 02/17/2019 patient today he is alert awake with no chest pain or dyspnea however she still feeling nausea with with. Her sugar was on the low side even after we lowered the dose of metformin. We are going to discontinue metformin for now. Patient is hemodynamically stable. She rates her abdominal pain as 5-6/10 which is little better compared to yesterday. She has little bit bowel movement yesterday, patient with no breathing problems however she says she can't be off as well. Patient is on TPN. BMP is unremarkable. Repeat chest x-ray: Showing improving left lower lobe infiltrate, we will continue with ceftriaxone currently. I think the patient is improving gradually. Discussed with the staff to check her bladder scan. Review of Systems, except what is mentioned above CONSTITUTIONAL: negative. RESPIRATORY: Negative. CARDIOVASCULAR: Negative. GASTROINTESTINAL: Negative. GENITOURINARY: Negative. INTEGUMENT/BREAST: Negative. MUSCULOSKELETAL: Negative. NEUROLOGICAL: Negative. medications: tylenol 650 mg, aspirin 8 mg, lipitor 10 mg, dilaudid 0.5 mg, levemir 14 Units, novolog insulin sliding scale, linoglipitin 5mg, metformin 1000 mg, reglan 10 mg, multivitamin tab , and pronotix 40 mg Objective - Vital Signs Vital signs: Vital Signs Temp 98.3 F 02/17/19 07:00 Pulse 102 H 02/17/19 07:00 Resp 18 02/17/19 07:00 BP 120/71 02/17/19 07:00 Pulse Ox 99 02/17/19 07:00 Intake & Output 02/16/19 02/17/19 02/17/19 18:59 06:59 18:59 Intake Total 200 300 360 Balance 200 300 360 Weight 78 kg 78 kg Intake: Intake, IV Titration 200 Amount Sodium Chloride 0.9% 100 200 ml @ 0 mls/hr IV .STK-MED ONE with ceFAZolin 2,000 mg Rx#:[id number] Oral 200 100 360 Other: Voiding Method Indwelling Catheter Indwelling Catheter # Voids 3 1 3 - Exam GENERAL: The patient is alert and oriented x3, not in any acute distress. Well developed, well nourished. HEENT: Pupils are round and equally reacting to light. EOMI. No scleral icterus. No conjunctival pallor. Normocephalic, atraumatic. No pharyngeal erythema. No thyromegaly. CARDIOVASCULAR: S1 and S2 present. No murmurs, rubs, or gallops. PULMONARY: Chest is clear to auscultation, no wheezing or crackles. -ABDOMEN: Soft, nontender,wound is healing wound vac is in place. MUSCULOSKELETAL: No joint swelling or deformity. EXTREMITIES: No cyanosis, clubbing, or pedal edema. NEUROLOGICAL: Gross neurological examination did not reveal any focal deficits. SKIN: No rashes. - Labs CBC & Chem 7: 02/16/19 06:04 02/17/19 06:50 Labs: Abnormal Lab Results - Last 24 Hours (Table) 02/16/19 02/16/19 02/16/19 Range/Units 17:44 20:01 23:37 Carbon Dioxide (22-30) mmol/L POC Glucose (mg/dL) 152 H 192 H 132 H (75-99) mg/dL 02/17/19 02/17/19 02/17/19 Range/Units 05:19 05:36 05:52 Carbon Dioxide (22-30) mmol/L POC Glucose (mg/dL) 58 L 51 L 46 L (75-99) mg/dL 02/17/19 02/17/19 02/17/19 Range/Units 06:09 06:50 11:40 Carbon Dioxide 36 H (22-30) mmol/L POC Glucose (mg/dL) 49 L 121 H (75-99) mg/dL Assessment and Plan Assessment: small bowel obstruction secondary to adhesion , she is status post exploratory laparatomy and lysis adhesion , and partial omentectomy low grade fever , could be reactive. rule out infection diplopia Diabetes Mellitus Hyperlipidemia Plan: this is a pleasant 78 yo F who presents with bowel obstruction ,s/p exploratory laboratory and lysis adhesion , she is tolerating diet well and passing bowel movement , we will do cxr for pt with tachypnea and low grade fever. continue with pain management and DVT Px as per surgical team. Labs and medication were reviewed.. Continue same treatment. Continue with symptomatic treatment. Resume home medication. Monitor lytes and vitals. DVT and GI prophylaxis. Further recommendations of the clinical course of the patient prognosis is guarded
--- NOTE | 2019-02-17 16:56 | P.PN ---
Subjective Progress Note Date: 02/17/19 Patient says the frequency of diplopia is improving. She has not had any episodes of diplopia since yesterday. Patient laying in the recliner appears somewhat sick. Patient is on aspirin 81 mg daily. Objective - Vital Signs Vital signs: Vital Signs Temp 98.6 F 02/17/19 15:43 Pulse 94 02/17/19 15:43 Resp 15 02/17/19 15:43 BP 122/71 02/17/19 15:43 Pulse Ox 94 L 02/17/19 15:43 Intake & Output 02/16/19 02/17/19 02/17/19 18:59 06:59 18:59 Intake Total 200 300 360 Balance 200 300 360 Weight 78 kg 78 kg Intake: Intake, IV Titration 200 Amount Sodium Chloride 0.9% 100 200 ml @ 0 mls/hr IV .STK-MED ONE with ceFAZolin 2,000 mg Rx#:[id number] Oral 200 100 360 Other: Voiding Method Indwelling Catheter Indwelling Catheter # Voids 3 1 3 - Exam Mental status is normal. Speech and language functions, cranial nerves and strength normal. - Labs CBC & Chem 7: 02/16/19 06:04 02/17/19 06:50 Labs: Abnormal Lab Results - Last 24 Hours (Table) 02/16/19 02/16/19 02/16/19 Range/Units 17:44 20:01 23:37 Carbon Dioxide (22-30) mmol/L POC Glucose (mg/dL) 152 H 192 H 132 H (75-99) mg/dL 02/17/19 02/17/19 02/17/19 Range/Units 05: 05:36 05:52 Carbon Dioxide (22-30) mmol/L POC Glucose (mg/dL) 58 L 51 L 46 L (75-99) mg/dL 02/17/19 02/17/19 02/17/19 Range/Units 06:09 06:50 11:40 Carbon Dioxide 36 H (22-30) mmol/L POC Glucose (mg/dL) 49 L 121 H (75-99) mg/dL Assessment and Plan Assessment: * Recurrent episodes of diplopia lasting for a couple minutes. Patient had 6-7 such episodes. Events appear more peripheral in nature. TIAs appears unlikely, due to lack of other focal neurological symptoms. However the constantino nts have decreased since being started on aspirin. Acetylcholine receptor antibodies negative, therefore myasthenia gravis appears less likely. * History of CVA in the past. * Diabetes, not well controlled. * Small bowel obstruction, status post exploratory laparotomy, lysis of adhesions, partial omentectomy and small bowel resection. * Obesity Plan: * Await Ophthalmology consult for fluctuating, intermittent diplopia. * Continue aspirin 81 mg daily and statins. * Patient had a normal CTA of head and neck performed late 2016. No need to repeat. * 2-D echo showed ejection fraction 60-65%. Left atrium moderately dilated. Moderate to severe mitral stenosis. Mild aortic stenosis. Bubble study showed no evidence of interatrial or interventricular septal defect. No atrial fibrillation. * Acetylcholine Receptor antibodies negative. * We will follow patient clinically.
[2019-02-17 17:16] LABS: Glucose,Whole Blood 168 mg/dL (75-99)
[2019-02-17 20:15] LABS: Glucose,Whole Blood 214 mg/dL (75-99)
[2019-02-17] MEDS: INSULIN DETEMIR (LEVEMIR) 100 UNIT/ML SYR SQ SCH (20:38)
[2019-02-17] MEDS: ATORVASTATIN 10 MG TAB PO SCH (20:38)
[2019-02-17 23:28] LABS: Glucose,Whole Blood 193 mg/dL (75-99)
[2019-02-18] MEDS: INSULIN ASPART (NovoLOG) 100 UNIT/ML VIAL SQ SCH ×5 (00:39→20:35)
[2019-02-18 00:48] LABS: Glucose,Whole Blood 149 mg/dL (75-99)
[2019-02-18] MEDS: METOCLOPRAMIDE 5 MG/ML 2 ML VIAL IVP SCH ×4 (05:39→22:58)
[2019-02-18 05:41] LABS: Glucose,Whole Blood 109 mg/dL (75-99)
[2019-02-18 08:12] LABS: Anion Gap 4 mmol/L; Blood Urea Nitrogen 6 mg/dL (7-17); Calcium 8.5 mg/dL (8.4-10.2); Carbon Dioxide 31 mmol/L (22-30); Chloride 104 mmol/L (98-107); Glucose 68 mg/dL (74-99); Magnesium 1.9 mg/dL (1.6-2.3); Potassium 4.4 mmol/L (3.5-5.1); Sodium 139 mmol/L (137-145)
[2019-02-18 08:21] LABS: Basophils % (A) 0 %; Eosinophils # (A) 0.2 k/uL (0-0.7); Eosinophils % (A) 3 %; HCT 33.6 % (34.0-46.0); HGB 10.8 gm/dL (11.4-16.0); Lymphocytes # (A) 1.8 k/uL (1.0-4.8); Lymphocytes % (A) 20 %; MCH 28.8 pg (25.0-35.0); MCHC 32.3 g/dL (31.0-37.0); MCV 89.4 fL (80.0-100.0); Mean Platelet Volume 7.7; Monocytes # (A) 0.6 k/uL (0-1.0); Monocytes % (A) 6 %; Neutrophils # (A) 6.3 k/uL (1.3-7.7); Neutrophils % (A) 69 %; Platelet Count 389 k/uL (150-450); RBC 3.75 m/uL (3.80-5.40); RDW 13.8 % (11.5-15.5); WBC 9.1 k/uL (3.8-10.6)
[2019-02-18] MEDS ORDERED: ACETAMINOPHEN TAB 325 MG TAB PO PRN (09:08)
[2019-02-18] MEDS ORDERED: ARTIFICIAL TEARS-HYPROMELLOSE DROPS 15 ML BTL BOTH EYES PRN (09:53)
--- NOTE | 2019-02-18 11:46 | P.PN ---
Subjective Progress Note Date: 02/18/19 CHIEF COMPLAINT: SBO HISTORY OF PRESENT ILLNESS: 78-year-old female who underwent exploratory laparotomy, lysis of adhesions, partial omentectomy, and small bowel resection on 02/10/2019. Patient examined at the bedside. Pain tolerable. Tolerating diet. Denies nausea or vomiting. Passing flatus and having BMs. PHYSICAL EXAM: VITAL SIGNS: Reviewed. GENERAL: Well-developed in no acute distress. HEENT: NG to LIS. No sclera icterus. Extraocular movements grossly intact. Moist buccal mucosa. Head is atraumatic, normocephalic. ABDOMEN: Soft. Nondistended. PREVENA system noted. Positive bowel sounds. NEUROLOGIC: Alert and oriented. Cranial nerves II through XII grossly intact. ASSESSMENT: 1. Small bowel obstruction, status post exploratory laparotomy, lysis of adhesions, partial omentectomy, and small bowel resection PLAN: 1. Continue current diet 2. Activity as tolerated. PT/OT 3. Incentive spirometry 4. Optifoam dressing ordered. Will DC Prevena today 5. Possible discharge this afternoon to [facility] Nurse practitioner note has been reviewed by physician. Signing provider agrees with the documented findings, assessment, and plan of care. Objective - Vital Signs Vital signs: Vital Signs Temp 97.8 F 02/18/19 07:00 Pulse 98 02/18/19 07:00 Resp 16 02/18/19 07:00 BP 152/64 02/18/19 07:00 Pulse Ox 90 L 02/18/19 07:00 Intake & Output 02/17/19 02/18/19 02/18/19 18:59 06:59 18:59 Intake Total 540 440 480 Output Total 23 Balance 540 440 457 Weight 78 kg 76 kg Intake: Oral 540 440 480 Output: Post Void Residual 23 Other: Voiding Method Indwelling Catheter # Voids 3 1 # Bowel Movements 1 - Labs CBC & Chem 7: 02/18/19 07:08 02/18/19 07:08 Labs: Abnormal Lab Results - Last 24 Hours (Table) 02/17/19 02/17/19 02/17/19 Range/Units 11:40 17:13 20:03 RBC (3.80-5.40) m/uL Hgb (11.4-16.0) gm/dL Hct (34.0-46.0) % Carbon Dioxide (22-30) mmol/L BUN (7-17) mg/dL Glucose (74-99) mg/dL POC Glucose (mg/dL) 121 H 168 H 214 H (75-99) mg/dL 02/17/19 02/18/19 02/18/19 Range/Units 23:17 00:36 05:29 RBC (3.80-5.40) m/uL Hgb (11.4-16.0) gm/dL Hct (34.0-46.0) % Carbon Dioxide (22-30) mmol/L BUN (7-17) mg/dL Glucose (74-99) mg/dL POC Glucose (mg/dL) 193 H 149 H 109 H (75-99) mg/dL 02/18/19 02/18/19 Range/Units 07:08 07:08 RBC 3.75 L (3.80-5.40) m/uL Hgb 10.8 L (11.4-16.0) gm/dL Hct 33.6 L (34.0-46.0) % Carbon Dioxide 31 H (22-30) mmol/L BUN 6 L (7-17) mg/dL Glucose 68 L (74-99) mg/dL POC Glucose (mg/dL) (75-99) mg/dL
[2019-02-18] MEDS: HEPARIN SODIUM,PORCINE 5,000 UNIT/ML 1 ML VIAL SQ SCH ×3 (12:08→22:58)
[2019-02-18] MEDS: 1: MVI, ADULT NO.4 WITH VIT K 10 ML, TRACE (CONC-1ML/DOSE) 1 ML in AMINO ACID 4.25%-D10W IV SCH ×3 (12:09)
[2019-02-18] MEDS: ASPIRIN 81 MG PO SCH (12:09)
[2019-02-18] MEDS: FENOFIBRATE 160 MG TAB PO SCH (12:09)
[2019-02-18] MEDS: PANTOPRAZOLE 40 MG/10 ML VIAL IVP SCH (12:24)
[2019-02-18] MEDS: MULTIVITAMINS, THERA 1 EACH TAB PO SCH (12:24)
--- NOTE | 2019-02-18 13:21 | P.DS ---
Providers Date of admission: 02/07/19 02:06 Expected date of discharge: 02/18/19 Attending physician: Smooth Sanders Consults: 02/12/19 10:42 Consult Physician Routine Consulting Provider: Marina Galvan Consult Reason/Comments: double vision Do you want consulting provider notified?: Yes 02/14/19 10:33 Consult Physician Routine Consulting Provider: Jose Keane Consult Reason/Comments: Medical Management Do you want consulting provider notified?: Already Contacted 02/16/19 18:12 Consult Physician Routine Consulting Provider: Harlan Garcia Consult Reason/Comments: Recurrent episodes of diplopia, negative acetylcholine receptor antibodies Do you want consulting provider notified?: Yes Primary care physician: [facility] Hospital Course: 78-year-old female who presented to the ER with a chief complaint of abdominal pain. patient was found to have small bowel obstruction. Patient underwent exploratory laparotomy, lysis of adhesions, partial omentectomy, and small bowel resection on 02/10/2019. Patient is doing well postoperatively and is stable for discharge to [facility]. Please see EMR for further hospital course details. Discharge Diagnosis: 1. Small bowel obstruction, status post exploratory laparotomy, lysis of adhesions, partial omentectomy, and small bowel resection Nurse practitioner note has been reviewed by physician. Signing provider agrees with the documented findings, assessment, and plan of care. Patient Condition at Discharge: Stable Plan - Discharge Summary Discharge Rx Participant: No New Discharge Prescriptions: New Cefuroxime Axetil [Ceftin] 500 mg PO BID #10 tab No Action glipiZIDE XL [Glucotrol XL] 10 mg PO BID Multivitamins, Thera [Multivitamin (formulary)] 1 tab PO DAILY Gemfibrozil [Lopid] 600 mg PO AC-BID sitaGLIPtin [Januvia] 50 mg PO Q48H Pantoprazole Sodium [Protonix] 40 mg PO DAILY #30 tablet. Atorvastatin [Lipitor] 10 mg PO DAILY metFORMIN HCL 1,000 mg PO BID Aspirin EC [Ecotrin Low Dose] 81 mg PO DAILY Discharge Medication List Gemfibrozil [Lopid] 600 mg PO AC-BID 11/18/16 [History] Multivitamins, Thera [Multivitamin (formulary)] 1 tab PO DAILY 11/18/16 [History] glipiZIDE XL [Glucotrol XL] 10 mg PO BID 11/18/16 [History] sitaGLIPtin [Januvia] 50 mg PO Q48H 03/06/18 [History] Pantoprazole Sodium [Protonix] 40 mg PO DAILY #30 tablet. 03/07/18 [Rx] Atorvastatin [Lipitor] 10 mg PO DAILY 05/06/18 [History] metFORMIN HCL 1,000 mg PO BID 01/27/19 [History] Aspirin EC [Ecotrin Low Dose] 81 mg PO DAILY 02/07/19 [History] Cefuroxime Axetil [Ceftin] 500 mg PO BID #10 tab 02/18/19 [Rx] Follow up Appointment(s)/Referral(s): Amarilys Myers MD [Primary Care Provider] - 1-2 days Smooth Sanders MD [STAFF PHYSICIAN] - 1 Week Activity/Diet/Wound Care/Special Instructions: Medicine team to complete med rec for ECF Tylenol PRN for pain No lifting over 10 pounds You may shower. No soaking or tub baths Activity as tolerated
--- NOTE | 2019-02-18 16:18 | P.PN ---
Subjective it consultant hospitalist covering for this is a pleasant 78 yo F with past medical history of hyperlipideima , Diabetes Mellitus, and melanoma, presents with signs and symptoms of small bowel obstruction secondary to adhesion , she is status post exploratory laparatomy and lysis adhesion , and partial omentectomy , her wound is clean and healing , wound vac is in place. abd looks soft , pt is on clear diet and she is making small bowel movement. she does not look in distress , pt had low grade fever yesterday , however she is with no leukocytosis and not on antibiotic. pt is on tachypneic , we will order chest xray . she is for one more day of TPN as per surgery team . glucose is controlled , , wiseman catheter was discontinued by pr imray team we will order bladder scan . 02/16/2019 she is status post exploratory laparatomy and lysis adhesion for SBP, post op day #7 pt is feeling a little better , her abd pain is controlled, she has some resp symptoms and dyspnea , suspicious for aspiration , pt was started on antibiotic and ordered swallow evaluation, however her breathing feels better today , vitals looks stable and her blood pressure is improved, pt is on TPN and started diet , we will dc iv fluids and keep monitoring for now . Echo: moderate to sever mitral stenosis, repeat chest xray tomorrow , and check bladder scan . neurology team input is noted , they recommend ophthalmology evaluation. 02/17/2019 patient today he is alert awake with no chest pain or dyspnea however she still feeling nausea with with. Her sugar was on the low side even after we lowered the dose of metformin. We are going to discontinue metformin for now. Patient is hemodynamically stable. She rates her abdominal pain as 5-6/10 which is little better compared to yesterday. She has little bit bowel movement yesterday, patient with no breathing problems however she says she can't be off as well. Patient is on TPN. BMP is unremarkable. Repeat chest x-ray: Showing improving left lower lobe infiltrate, we will continue with ceftriaxone currently. I think the patient is improving gradually. Discussed with the staff to check her bladder scan. pt is awake and alert ,she is improving generally , she is having regular diet , tolerating that well , no nausea or vomiting, she still has tolerated residual pain at the surgical site witch is expected, but improving, she states she has two loose bowel movements. she has bladder scan which showed about 23 ml of urine , pt is able to void, pt passed swallow evaluation today, pt states she feels better , no cough or dyspnea , no chest pain , repeat chest xray showed improving aeration, her sugar was low and levemir dose was lowered from 14 down to 4 at HS, was informed about the consult and he is coming to see her today as per staff. labs and vitals are stable. d/w staff Review of Systems, except what is mentioned above CONSTITUTIONAL: negative. RESPIRATORY: Negative. CARDIOVASCULAR: Negative. GASTROINTESTINAL: Negative. GENITOURINARY: Negative. INTEGUMENT/BREAST: Negative. MUSCULOSKELETAL: Negative. NEUROLOGICAL: Negative. medications: tylenol 650 mg, aspirin 8 mg, lipitor 10 mg, dilaudid 0.5 mg, levemir 14 Units, novolog insulin sliding scale, linoglipitin 5mg, metformin 1000 mg, reglan 10 mg, multivitamin tab , and pronotix 40 mg Objective - Vital Signs Vital signs: Vital Signs Temp 98.2 F 02/18/19 15:00 Pulse 104 H 02/18/19 15:00 Resp 16 02/18/19 15:00 BP 155/74 02/18/19 15:00 Pulse Ox 93 L 02/18/19 15:00 Intake & Output 02/17/19 02/18/19 02/18/19 18:59 06:59 18:59 Intake Total 540 440 720 Output Total 23 Balance 540 440 697 Weight 78 kg 76 kg Intake: Oral 540 440 720 Output: Post Void Residual 23 Other: Voiding Method Indwelling Catheter # Voids 3 1 # Bowel Movements 1 - Exam GENERAL: The patient is alert and oriented x3, not in any acute distress. Well developed, well nourished. HEENT: Pupils are round and equally reacting to light. EOMI. No scleral icterus. No conjunctival pallor. Normocephalic, atraumatic. No pharyngeal erythema. No thyromegaly. CARDIOVASCULAR: S1 and S2 present. No murmurs, rubs, or gallops. PULMONARY: Chest is clear to auscultation, no wheezing or crackles. -ABDOMEN: Soft, nontender,wound is healing wound vac is in place. MUSCULOSKELETAL: No joint swelling or deformity. EXTREMITIES: No cyanosis, clubbing, or pedal edema. NEUROLOGICAL: Gross neurological examination did not reveal any focal deficits. SKIN: No rashes. - Labs CBC & Chem 7: 02/18/19 07:08 02/18/19 07:08 Labs: Abnormal Lab Results - Last 24 Hours (Table) 02/17/19 02/17/19 02/17/19 Range/Units 17:13 20:03 23:17 RBC (3.80-5.40) m/uL Hgb (11.4-16.0) gm/dL Hct (34.0-46.0) % Carbon Dioxide (22-30) mmol/L BUN (7-17) mg/dL Glucose (74-99) mg/dL POC Glucose (mg/dL) 168 H 214 H 193 H (75-99) mg/dL 02/18/19 02/18/19 02/18/19 Range/Units 00:36 05:29 07:08 RBC (3.80-5.40) m/uL Hgb (11.4-16.0) gm/dL Hct (34.0-46.0) % Carbon Dioxide 31 H (22-30) mmol/L BUN 6 L (7-17) mg/dL Glucose 68 L (74-99) mg/dL POC Glucose (mg/dL) 149 H 109 H (75-99) mg/dL 02/18/19 Range/Units 07:08 RBC 3.75 L (3.80-5.40) m/uL Hgb 10.8 L (11.4-16.0) gm/dL Hct 33.6 L (34.0-46.0) % Carbon Dioxide (22-30) mmol/L BUN (7-17) mg/dL Glucose (74-99) mg/dL POC Glucose (mg/dL) (75-99) mg/dL Assessment and Plan Assessment: small bowel obstruction secondary to adhesion , she is status post exploratory laparatomy and lysis adhesion , and partial omentectomy low grade fever , could be reactive. rule out infection diplopia Diabetes Mellitus Hyperlipidemia Plan: this is a pleasant 78 yo F who presents with bowel obstruction ,s/p exploratory laboratory and lysis adhesion , she is tolerating diet well and passing bowel movement , we will do cxr for pt with tachypnea and low grade fever. continue with pain management and DVT Px as per surgical team. Labs and medication were reviewed.. Continue same treatment. Continue with symptomatic treatment. Resume home medication. Monitor lytes and vitals. DVT and GI prophylaxis. Further recommendations of the clinical course of the patient prognosis is guarded
[2019-02-18 16:53] LABS: Glucose,Whole Blood 253 mg/dL (75-99)
--- NOTE | 2019-02-18 19:24 | P.PN ---
Subjective Progress Note Date: 02/18/19 Patient says she has not had any episodes of diplopia for last 48 hours. Patient laying in the recliner appears better than yesterday. Patient complains of light bothering her eyes, and some eye pain. Patient does have history of melanoma in her left eye. Patient is on aspirin 81 mg daily. Objective - Vital Signs Vital signs: Vital Signs Temp 98.2 F 02/18/19 15:00 Pulse 104 H 02/18/19 15:00 Resp 16 02/18/19 15:00 BP 155/74 02/18/19 15:00 Pulse Ox 93 L 02/18/19 15:00 Intake & Output 02/18/19 02/18/19 02/19/19 06:59 18:59 06:59 Intake Total 440 960 Output Total 25 Balance 440 935 Weight 76 kg Intake: Oral 440 960 Output: Post Void Residual 23 Stool 2 Other: # Voids 1 15 # Bowel Movements 1 - Exam Mental status is normal. Speech and language functions, cranial nerves and strength normal. He shouldn't get slight double vision intermittent, only with right far lateral vision, within 1 image was on top of another. However when rechecked, it was gone. Otherwise patient does not have any double vision. - Labs CBC & Chem 7: 02/18/19 07:08 02/18/19 07:08 Labs: Abnormal Lab Results - Last 24 Hours (Table) 02/17/19 02/17/19 02/18/19 Range/Units 20:03 23:17 00:36 RBC (3.80-5.40) m/uL Hgb (11.4-16.0) gm/dL Hct (34.0-46.0) % Carbon Dioxide (22-30) mmol/L BUN (7-17) mg/dL Glucose (74-99) mg/dL POC Glucose (mg/dL) 214 H 193 H 149 H (75-99) mg/dL 02/18/19 02/18/19 02/18/19 Range/Units 05:29 07:08 07:08 RBC 3.75 L (3.80-5.40) m/uL Hgb 10.8 L (11.4-16.0) gm/dL Hct 33.6 L (34.0-46.0) % Carbon Dioxide 31 H (22-30) mmol/L BUN 6 L (7-17) mg/dL Glucose 68 L (74-99) mg/dL POC Glucose (mg/dL) 109 H (75-99) mg/dL 02/18/19 Range/Units 16:31 RBC (3.80-5.40) m/uL Hgb (11.4-16.0) gm/dL Hct (34.0-46.0) % Carbon Dioxide (22-30) mmol/L BUN (7-17) mg/dL Glucose (74-99) mg/dL POC Glucose (mg/dL) 253 H (75-99) mg/dL Assessment and Plan Assessment: * Recurrent episodes of diplopia lasting for a couple minutes. Patient had 6-7 such episodes. Events appear more peripheral in nature. TIAs appears unlikely, due to lack of other focal neurological symptoms. However the events have decreased since being started on aspirin. Acetylcholine receptor antibodies negative, therefore myasthenia gravis appears less likely. * History of CVA in the past. * Diabetes, not well controlled. * Small bowel obstruction, status post exploratory laparotomy, lysis of adhesions, partial omentectomy and small bowel resection. * Obesity Plan: * Await Ophthalmology consult for fluctuating, intermittent diplopia. This can be performed as an outpatient. * Continue aspirin 81 mg daily and statins. * Patient had a normal CTA of head and neck performed late 2016. No need to repeat. * 2-D echo showed ejection fraction 60-65%. Left atrium moderately dilated. Moderate to severe mitral stenosis. Mild aortic stenosis. Bubble study showed no evidence of interatrial or interventricular septal defect. No atrial fibrillation. * Acetylcholine Receptor antibodies negative. * Patient neurologically clear for discharge. * Will sign off.
[2019-02-18 20:11] LABS: Glucose,Whole Blood 259 mg/dL (75-99)
[2019-02-18] MEDS ORDERED: INSULIN DETEMIR (LEVEMIR) 100 UNIT/ML SYR SQ SCH (21:00)
[2019-02-18] MEDS: ATORVASTATIN 10 MG TAB PO SCH (21:07)
[2019-02-18] MEDS: MAGNESIUM SULFATE-D5W PMX 1 GM in DEXTROSE/WATER 1 100ML.BAG IVPB SCH ×2 (21:09→22:58)
[2019-02-19] MEDS: diphenhydrAMINE 50 MG/ML 1 ML VIAL IVP PRN (01:47)
[2019-02-19] MEDS: METOCLOPRAMIDE 5 MG/ML 2 ML VIAL IVP SCH ×2 (06:07→11:57)
[2019-02-19 07:04] LABS: Glucose,Whole Blood 121 mg/dL (75-99)
[2019-02-19] MEDS: INSULIN ASPART (NovoLOG) 100 UNIT/ML VIAL SQ SCH ×2 (07:09→11:58)
[2019-02-19] MEDS: HEPARIN SODIUM,PORCINE 5,000 UNIT/ML 1 ML VIAL SQ SCH (07:30)
[2019-02-19] MEDS ORDERED: PANTOPRAZOLE 40 MG TABLET PO SCH (07:30)
[2019-02-19] MEDS: FENOFIBRATE 160 MG TAB PO SCH (07:30)
[2019-02-19] MEDS: ASPIRIN 81 MG PO SCH (07:30)
[2019-02-19] MEDS ORDERED: metFORMIN 500 MG TAB PO SCH (07:30)
[2019-02-19 09:10] VITALS: BP 130/75; PULSE 90; RESP 16; TEMP 98.8
[2019-02-19 09:47] LABS: Magnesium 2.2 mg/dL (1.6-2.3); Potassium 4.1 mmol/L (3.5-5.1)
[2019-02-19] MEDS: MULTIVITAMINS, THERA 1 EACH TAB PO SCH (11:57)
[2019-02-19] MEDS: LINAGLIPTIN 5 MG TABLET PO SCH (11:57)
[2019-02-19 12:01] LABS: Glucose,Whole Blood 190 mg/dL (75-99)
--- NOTE | 2019-02-19 14:17 | P.PN ---
Subjective consumer insights intern hospitalist covering for this is a pleasant 78 yo F with past medical history of hyperlipideima , Diabetes Mellitus, and melanoma, presents with signs and symptoms of small bowel obstruction secondary to adhesion , she is status post exploratory laparatomy and lysis adhesion , and partial omentectomy , her wound is clean and healing , wound vac is in place. abd looks soft , pt is on clear diet and she is making small bowel movement. she does not look in distress , pt had low grade fever yesterday , however she is with no leukocytosis and not on antibiotic. pt is on tachypneic , we will order chest xray . she is for one more day of TPN as per surgery team . glucose is controlled , , wiseman catheter was discontinued by pr imray team we will order bladder scan . 02/16/2019 she is status post exploratory laparatomy and lysis adhesion for SBP, post op day #7 pt is feeling a little better , her abd pain is controlled, she has some resp symptoms and dyspnea , suspicious for aspiration , pt was started on antibiotic and ordered swallow evaluation, however her breathing feels better today , vitals looks stable and her blood pressure is improved, pt is on TPN and started diet , we will dc iv fluids and keep monitoring for now . Echo: moderate to sever mitral stenosis, repeat chest xray tomorrow , and check bladder scan . neurology team input is noted , they recommend ophthalmology evaluation. 02/17/2019 patient today he is alert awake with no chest pain or dyspnea however she still feeling nausea with with. Her sugar was on the low side even after we lowered the dose of metformin. We are going to discontinue metformin for now. Patient is hemodynamically stable. She rates her abdominal pain as 5-6/10 which is little better compared to yesterday. She has little bit bowel movement yesterday, patient with no breathing problems however she says she can't be off as well. Patient is on TPN. BMP is unremarkable. Repeat chest x-ray: Showing improving left lower lobe infiltrate, we will continue with ceftriaxone currently. I think the patient is improving gradually. Discussed with the staff to check her bladder scan. 02/18/2019 pt is awake and alert ,she is improving generally , she is having regular diet , tolerating that well , no nausea or vomiting, she still has tolerated residual pain at the surgical site witch is expected, but improving, she states she has two loose bowel movements. she has bladder scan which showed about 23 ml of urine , pt is able to void, pt passed swallow evaluation today, pt states she feels better , no cough or dyspnea , no chest pain , repeat chest xray showed improving aeration, her sugar was low and levemir dose was lowered from 14 down to 4 at HS, was informed about the consult and he is coming to see her today as per staff. labs and vitals are stable. d/w staff 02/19/2019 Patient is awake and alert, she is tolerating diet well although she is a small amounts. Her abdominal pain is expected from her surgery and is adequately controlled as per patient. She had loose bowel movement yesterday, however it was becoming more formed through the day yesterday. She doesn't have bowel movement since yesterday. No nausea vomiting. Her dyspnea is improved and she is breathing quietly. She is saturating 98% on 3 L oxygen via nasal cannula. She is hemodynamically stable. Her cough is improving. No chest pain. Her pneumonia is improving and she can switch to oral antibiotics to finish the course of her therapy. Her sugar is controlled and her medications adjusted. Objective - Vital Signs Vital signs: Vital Signs Temp 98.8 F 02/19/19 07:07 Pulse 90 02/19/19 08:00 Resp 16 02/19/19 08:00 BP 130/75 02/19/19 07:07 Pulse Ox 98 02/19/19 07:07 Intake & Output 02/18/19 02/19/19 02/19/19 18:59 06:59 18:59 Intake Total 960 Output Total 25 Balance 935 Weight 88 kg Intake: Oral 960 Output: Post Void Residual 23 Stool 2 Other: Voiding Method Toilet Bedside Commode # Voids 15 3 - Exam GENERAL: The patient is alert and oriented x3, not in any acute distress. Well developed, well nourished. HEENT: Pupils are round and equally reacting to light. EOMI. No scleral icterus. No conjunctival pallor. Normocephalic, atraumatic. No pharyngeal erythema. No thyromegaly. CARDIOVASCULAR: S1 and S2 present. No murmurs, rubs, or gallops. PULMONARY: Chest is clear to auscultation, no wheezing or crackles. -ABDOMEN: Soft, nontender,wound is healing wound vac is in place. MUSCULOSKELETAL: No joint swelling or deformity. EXTREMITIES: No cyanosis, clubbing, or pedal edema. NEUROLOGICAL: Gross neurological examination did not reveal any focal deficits. SKIN: No rashes. - Labs CBC & Chem 7: 02/18/19 07:08 02/19/19 07:57 Labs: Abnormal Lab Results - Last 24 Hours (Table) 02/18/19 02/18/19 02/19/19 Range/Units 16:31 19:59 06:53 POC Glucose (mg/dL) 253 H 259 H 121 H (75-99) mg/dL 02/19/19 Range/Units 11:50 POC Glucose (mg/dL) 190 H (75-99) mg/dL Assessment and Plan Assessment: small bowel obstruction secondary to adhesion , she is status post exploratory laparatomy and lysis adhesion , and partial omentectomy low grade fever , could be reactive. rule out infection diplopia Diabetes Mellitus Hyperlipidemia Plan: this is a pleasant 78 yo F who presents with bowel obstruction ,s/p exploratory laboratory and lysis adhesion , she is tolerating diet well and passing bowel movement , her pneumonia is improving. Her sugar is controlled and continue with diabetic therapy. Labs and medication were reviewed.. Continue same treatment. Continue with symptomatic treatment. Continue with home medication. Monitor lytes and vitals. DVT and GI prophylaxis. Patient is medically stable for discharge. However patient needs follow-up as an outpatient prognosis is guarded
--- NOTE | 2019-02-19 23:23 | CONS ---
CONSULTATION OPHTHALMOLOGY CONSULT: DATE OF SERVICE: 02/18/2019 CHIEF COMPLAINT: Diplopia. HISTORY OF PRESENT ILLNESS: Ms. Mcguire is an 78-year-old female who was admitted for a small-bowel obstruction and recently had bowel surgery during her inpatient stay at the hospital. Postoperatively the patient noted 2 episodes of transient diplopia which resolved spontaneously within a few minutes. She denies headache or any other symptoms at the time of the diplopia. She has not had any previous symptoms of diplopia prior to this. She reports that since the initial incidents, there have not been any repeat events. REVIEW OF SYSTEMS: The patient reports mild abdominal pain secondary to her surgery. She also reports constipation. She denies headaches, other neurologic symptoms, chest pain. Review of systems is otherwise negative. MEDICAL HISTORY: Significant for diabetes. ALLERGIES: CORTISONE. MEDICATIONS: 1. Metformin. 2. Fish oil. 3. Glipizide. 4. Glucosamine. 5. Calcium. 6. Vitamin D. OCULAR HISTORY: History of branch retinal artery occlusion and pseudophakia. SOCIAL HISTORY: The patient denies alcohol or tobacco use. FAMILY HISTORY: Not applicable. OPHTHALMIC EXAMINATION: Patient's visual acuity is 20/50 in the right eye and 20/50 in the left eye with near card. The pupils are equal, round and reactive to light and accommodation. There is no APD. Intraocular pressure is 18. Extraocular movements are full. Cover testing reveals no deviation. The patient is . No diplopia is induced during cover testing. Anterior examination is within normal limits. The patient has an intraocular lens in both eyes. There is evidence of history of branch retinal artery occlusion. However, the retina also shows mild nonproliferative diabetic changes. The optic nerve is normal. The disc is sharp. ASSESSMENT AND PLAN: 1. Diplopia. Patient's symptoms could not be elicited on exam today. The patient had episodes of diplopia postoperatively. This may be due to analgesic effect. The patient may have a small phoria that was exhibited due to the inhibition at the postoperative window. There are no signs of a cranial nerve palsy or a stroke at this time. There are no signs of permanent strabismus or other concerning neurologic signs. This can be observed and followed up as an outpatient. She may require additional blood work to evaluate for thyroid disease, or myasthenia gravis in the future if the symptoms return. 2. Nonproliferative diabetic retinopathy. This can be re-evaluated as an outpatient. 3. Branch retinal artery occlusion. This has been evaluated and treated in the past. The patient has received the appropriate workup, and this does not require any further evaluation at this time. Thank you for allowing me to participate in this patient's care. ALENA / SHARAD: [id number] /
== END 2019-02-19 15:42 | DRG 329 ==
LOC: EC 22:59 → 4SSUR 02-07 02:06
PROVIDERS: ADMIT Surgery; ATTEND Surgery
PROC: 0DB80ZZ Excision of Small Intestine, Open Approach (ICD-10-PCS; 2019-02-10)
PROC: 0DBU0ZZ Excision of Omentum, Open Approach (ICD-10-PCS; 2019-02-10)
PROC: 0DN80ZZ Release Small Intestine, Open Approach (ICD-10-PCS; principal; 2019-02-10 09:15)
DX: K56.51 Intestinal adhesions [bands], with partial obstruction (principal); J18.9 Pneumonia, unspecified organism; G45.9 Transient cerebral ischemic attack, unspecified; H34.239 Retinal artery branch occlusion, unspecified eye; E11.3299 Type 2 diabetes mellitus with mild nonproliferative diabetic retinopathy without macular edema, unspecified eye; E66.9 Obesity, unspecified; E78.5 Hyperlipidemia, unspecified; I05.0 Rheumatic mitral stenosis; K21.9 Gastro-esophageal reflux disease without esophagitis; K56.7 Ileus, unspecified; M18.0 Bilateral primary osteoarthritis of first carpometacarpal joints; Z79.82 Long term (current) use of aspirin; Z79.84 Long term (current) use of oral hypoglycemic drugs; Z79.899 Other long term (current) drug therapy; Z79.1 Long term (current) use of non-steroidal anti-inflammatories (NSAID); Z80.0 Family history of malignant neoplasm of digestive organs; Z83.3 Family history of diabetes mellitus; Z85.820 Personal history of malignant melanoma of skin; Z86.010 Personal history of colon polyps; Z86.73 Personal history of transient ischemic attack (TIA), and cerebral infarction without residual deficits; Z98.1 Arthrodesis status; Z68.32 Body mass index [BMI] 32.0-32.9, adult; Z98.42 Cataract extraction status, left eye; Z98.41 Cataract extraction status, right eye; Z60.2 Problems related to living alone; Z88.5 Allergy status to narcotic agent; Z88.8 Allergy status to other drugs, medicaments and biological substances; Z90.49 Acquired absence of other specified parts of digestive tract
CPT/HCPCS: 36415; 71045; 71275; 74019; 74174; 74176; 80048; 80053; 81003; 82040; 82150; 82330; 83519; 83605; 83690; 83735; 84100; 84132; 84478; 84484; 85025; 88305; 88307; 93005; 93306; 96374; 96375; 99285

== ENCOUNTER → 2019-09-19 | Outpatient (CLI) | payer MEDICARE, BC ==
[2019-09-19 10:26] LABS: Basophils % (A) 0 %; Eosinophils # (A) 0.1 k/uL (0-0.7); Eosinophils % (A) 2 %; HCT 39.8 % (34.0-46.0); Lymphocytes # (A) 2.2 k/uL (1.0-4.8); Lymphocytes % (A) 38 %; MCH 29.1 pg (25.0-35.0); MCHC 32.7 g/dL (31.0-37.0); MCV 88.9 fL (80.0-100.0); Mean Platelet Volume 7.8; Monocytes # (A) 0.3 k/uL (0-1.0); Monocytes % (A) 5 %; Neutrophils # (A) 3.1 k/uL (1.3-7.7); Neutrophils % (A) 52 %; Platelet Count 339 k/uL (150-450); RBC 4.48 m/uL (3.80-5.40); RDW 13.1 % (11.5-15.5); WBC 5.9 k/uL (3.8-10.6)
[2019-09-19 16:13] LABS: African American GFR (CKD) 80.1 (60.0-200.0); Albumin 4.9 g/dL (3.80-4.90); Albumin/Globulin Ratio 2.23 (1.60-3.17); Anion Gap 9.6 mmol/L (4.00-12.00); BUN/Creat Ratio 28.75 Ratio (12.00-20.00); Calcium 10.3 mg/dL (8.7-10.3); Carbon Dioxide 24.4 mmol/L (21.6-31.8); Chol/HDL Ratio 3.34; Globulin 2.2 g/dL (1.6-3.3); LDL Cholesterol,Calculated 82.2 mg/dL (0.0-131.0); Non-African American GFR(CKD) 69.1 (60.0-200.0); Potassium 4.9 mmol/L (3.5-5.5); Total Bilirubin 0.3 mg/dL (0.2-1.2); Total Protein 7.1 g/dL (6.2-8.2); VLDL Calculation 20.8 mg/dL (5.00-40.00)
[2019-09-19 16:21] LABS: T4, Free (Free Thyroxine) 1.1 ng/dL (0.80-1.80)
[2019-09-19 17:02] LABS: Hemoglobin A1C 8.2 % (4.0-6.0)
== END | disposition home or self-care (01) ==
LOC: LABWHC1 09:33
PROVIDERS: ATTEND Internal Medicine
DX: Z00.00 Encounter for general adult medical examination without abnormal findings (principal); E78.5 Hyperlipidemia, unspecified; I10 Essential (primary) hypertension; E11.9 Type 2 diabetes mellitus without complications
CPT/HCPCS: 36415; 80053; 80061; 83036; 84439; 84443; 85025

== ENCOUNTER → 2020-06-08 | Outpatient (CLI) | payer MEDICARE, BC ==
[2020-06-08 12:44] LABS: Basophils % (A) 1 %; Eosinophils # (A) 0.1 k/uL (0-0.7); Eosinophils % (A) 2 %; HCT 40.3 % (34.0-46.0); HGB 12.6 gm/dL (11.4-16.0); Lymphocytes # (A) 2.4 k/uL (1.0-4.8); Lymphocytes % (A) 32 %; MCH 28.1 pg (25.0-35.0); MCHC 31.3 g/dL (31.0-37.0); MCV 89.7 fL (80.0-100.0); Mean Platelet Volume 7.8; Monocytes # (A) 0.5 k/uL (0-1.0); Monocytes % (A) 6 %; Neutrophils # (A) 4.3 k/uL (1.3-7.7); Neutrophils % (A) 58 %; Platelet Count 288 k/uL (150-450); RDW 12.8 % (11.5-15.5); WBC 7.4 k/uL (3.8-10.6)
[2020-06-08 18:57] LABS: African American GFR (CKD) 69.5 (60.0-200.0); Albumin 4.7 g/dL (3.80-4.90); Albumin/Globulin Ratio 2.47 (1.60-3.17); Anion Gap 10.6 mmol/L (4.00-12.00); BUN/Creat Ratio 24.44 Ratio (12.00-20.00); Calcium 9.9 mg/dL (8.7-10.3); Carbon Dioxide 24.4 mmol/L (21.6-31.8); Chol/HDL Ratio 3.45; Globulin 1.9 g/dL (1.6-3.3); LDL Cholesterol,Calculated 103.6 mg/dL (0.0-131.0); Potassium 4.6 mmol/L (3.5-5.5); Total Bilirubin 0.4 mg/dL (0.2-1.2); Total Protein 6.6 g/dL (6.2-8.2); VLDL Calculation 16.4 mg/dL (5.00-40.00)
[2020-06-08 19:06] LABS: T4, Free (Free Thyroxine) 1.2 ng/dL (0.80-1.80)
[2020-06-08 19:58] LABS: Hemoglobin A1C 10.7 % (4.0-6.0)
== END | disposition home or self-care (01) ==
LOC: LABWHC1 10:38
PROVIDERS: ATTEND Internal Medicine
DX: E78.5 Hyperlipidemia, unspecified (principal); E11.37X1 Type 2 diabetes mellitus with diabetic macular edema, resolved following treatment, right eye; E11.40 Type 2 diabetes mellitus with diabetic neuropathy, unspecified
CPT/HCPCS: 36415; 80053; 80061; 83036; 84439; 84443; 85025

== ENCOUNTER 2020-08-21 11:47 | Inpatient (IN) | payer MEDICARE, BC ==
[2020-08-21] MEDS ORDERED: SODIUM CHLORIDE 0.9% 500 ML 500 ML IV STA (12:08)
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
[2020-08-21 12:52] LABS: Basophils # (A) 0.1 k/uL (0-0.2); Basophils % (A) 1 %; Eosinophils # (A) 0.1 k/uL (0-0.7); Eosinophils % (A) 1 %; HCT 37.1 % (34.0-46.0); HGB 12.3 gm/dL (11.4-16.0); Lymphocytes % (A) 25 %; MCH 29.7 pg (25.0-35.0); MCHC 33.2 g/dL (31.0-37.0); MCV 89.4 fL (80.0-100.0); Mean Platelet Volume 8.5; Monocytes # (A) 0.4 k/uL (0-1.0); Monocytes % (A) 6 %; Neutrophils # (A) 5.1 k/uL (1.3-7.7); Neutrophils % (A) 65 %; Platelet Count 279 k/uL (150-450); RBC 4.16 m/uL (3.80-5.40); RDW 13.5 % (11.5-15.5); WBC 7.8 k/uL (3.8-10.6)
[2020-08-21] MEDS ORDERED: NALOXONE 0.4 MG/ML 1 ML VIAL IV PRN (12:59)
[2020-08-21] MEDS ORDERED: ACETAMINOPHEN TAB 325 MG TAB PO PRN (12:59)
[2020-08-21 13:00] LABS: Calcium 9.6 mg/dL (8.4-10.2); Magnesium 1.5 mg/dL (1.6-2.3); Potassium 4.5 mmol/L (3.5-5.1); Total Bilirubin 0.6 mg/dL (0.2-1.3); Total Protein 6.8 g/dL (6.3-8.2)
[2020-08-21 13:06] LABS: Prothrombin Time 10.3 sec (9.0-12.0)
--- NOTE | 2020-08-21 13:16 | CT ---
EXAMINATION TYPE: CT brain wo con DATE OF EXAM: 08/21/2020 HISTORY: Fall, head trauma with headache and dizziness. CT DLP: 1080.4 mGycm. Automated Exposure Control for Dose Reduction was Utilized. TECHNIQUE: CT scan of the head is performed without contrast. COMPARISON: CT brain November 18, 2016. FINDINGS: There is no acute intracranial hemorrhage or midline shift identified. There is diffuse v entricular and sulcal prominence consistent with diffuse age-related cerebral atrophy. There is low- attenuation in the periventricular white matter consistent with chronic small vessel ischemic change. The globes are intact and the visualized sinuses are clear. The calvarium is intact. IMPRESSION: No acute intracranial hemorrhage or midline shift. There is mild to moderate diffuse ag e-related cerebral atrophy and moderate chronic small vessel ischemic change redemonstrated. No sign ificant change from prior.
[2020-08-21] MEDS ORDERED: SODIUM CHLORIDE 0.9% 500 ML 500 ML IV ONE (13:18)
--- NOTE | 2020-08-21 13:18 | XR ---
EXAMINATION TYPE: XR chest 1V portable DATE OF EXAM: 08/21/2020 COMPARISON: Chest x-ray February 17, 2019 HISTORY: Fall with dizziness and weakness. TECHNIQUE: Single frontal view of the chest is obtained. FINDINGS: There is chronic parenchyma changes without suspicious new focal air space opacity, pleura l effusion, or pneumothorax seen. The cardiac silhouette size remains enlarged. The osseous struct ures remain demineralized. Surgical changes left proximal humerus is partially imaged. IMPRESSION: Chronic changes and cardiomegaly without acute pulmonary process.
[2020-08-21] MEDS ORDERED: LIDOCAINE 1% INJ 10MG/ML (20 ML MDV) ONE (13:20)
--- NOTE | 2020-08-21 13:20 | XR ---
EXAMINATION TYPE: XR pelvis AP view DATE OF EXAM: 08/21/2020 CLINICAL HISTORY: Fall injury with pain. TECHNIQUE: A single AP view of the pelvis is obtained. COMPARISON: Pelvic x-ray January 27, 2019. CT February 10, 2019. FINDINGS: Exam suboptimal due to patient's large body habitus. There is no acute displaced fracture c learly evident in the pelvis. The sacroiliac joints appear symmetric and are thought within normal l imits. Moderate narrowing of both hip joints is felt to be demonstrated. Pubic symphysis is intact. O verlying deep subcutaneous horizontal sutures redemonstrated. IMPRESSION: There is no acute displaced fracture in the pelvis.
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
[2020-08-21] MEDS ORDERED: MIDAZOLAM 2 MG/2 ML VIAL IV ONE (13:27)
[2020-08-21] MEDS ORDERED: LIDOCAINE 1% INJ 10MG/ML (20 ML MDV) SQ ONE (13:28)
[2020-08-21] MEDS ORDERED: fentaNYL (PF) 50 MCG/ML 2 ML AMP ONE (13:28)
[2020-08-21] MEDS ORDERED: fentaNYL (PF) 50 MCG/ML 2 ML AMP IV ONE (13:30)
--- NOTE | 2020-08-21 13:43 | P.PCN ---
Date of Procedure: 08/21/20 Preoperative Diagnosis: Complete AV dissociation Postoperative Diagnosis: the same Procedure(s) Performed: Temporary pacemaker implantation under fluoroscopy Operative Findings: This 79-year-old female is admitted to the hospital with complete AV dissociation. A she had syncope and also head injury. She is advised to have temporary pacemaker with a plan for permanent pacemaker within 24 hours. Patient was brought to the lab in a fasting state. Patient was prepped and draped in the usual fashion. She was given IV Versed half milligrams and fentanyl 25 g sedation. The right groin is infiltrated with lidocaine and righ t femoral vein was entered using Seldinger technique and a 6-Russian sheath was left in place. A 5-Russian balloontipped temporary pacemaker wire was advanced under fluoroscopy and was placed in the right ventricular apical region. Patient tolerated the procedure well. Minimal patient threshold was less than a half millivolt. The pacemaker is set at output of 3 amp and a rate of 60. Patient tolerated the procedure well. Final impression: #1. Successful implantation of temporary pacemaker. Plan: Permanent pacemaker implantation in the morning
[2020-08-21] MEDS ORDERED: SODIUM CHLORIDE 0.9% 1,000 ML IV SCH (13:45)
[2020-08-21] MEDS ORDERED: ceFAZolin 1,000 MG in SODIUM CHLORIDE 0.9% IRRIGATIO 250 ML IRRIGATION ONE (14:15)
[2020-08-21 14:36] LABS: Glucose,Whole Blood 206 mg/dL (75-99)
[2020-08-21] MEDS: SODIUM CHLORIDE 0.9% 1,000 ML IV SCH ×2 (14:50→14:52)
[2020-08-21] MEDS ORDERED: ALPRAZolam 0.25 MG TAB PO PRN (17:01)
[2020-08-21 18:31] LABS: Glucose,Whole Blood 149 mg/dL (75-99)
[2020-08-21] MEDS: INSULIN ASPART (NovoLOG) 100 UNIT/ML VIAL SQ SCH ×2 (19:18→20:16)
[2020-08-21] MEDS: metFORMIN 500 MG TAB PO SCH (20:01)
[2020-08-21] MEDS: glipiZIDE 10 MG TAB PO SCH (20:01)
--- NOTE | 2020-08-21 20:08 | HP ---
HISTORY AND PHYSICAL DATE OF SERVICE: 08/21/2020 CHIEF COMPLAINT: Dizziness. HISTORY OF PRESENT ILLNESS: This is an 79-year-old woman with a past medical history of multiple medical problems including diabetes, GERD, hypertension, DJD, being followed by Dr. Myers in the outpatient setting. The patient apparently had a fall a few days ago. The patient had syncope also during that time. The patient did not seek any medical assistance, but subsequently yesterday patient was feeling dizzy and the patient subsequently began falling and the patient came to [facility] and found to have a complete AV dissociation with complete heart block. from cardiology saw the patient. A temporary venous pacemaker was inserted. Patient is pacing well at this time. Patient monitored in the ICU. There is no history of fever, rigors or chills. No headache or loss of consciousness. Patient apparently was quarantining and no evidence of any contact with COVID-19 infection at this time. PAST MEDICAL HISTORY: History of diabetes mellitus, GERD, hyperlipidemia, history of DJD, history of stroke, history of melanoma, history of appendectomy, history of adenoidectomy, history of back surgery, DJD. MEDICATIONS: Prior to admission include home medications of metformin 1000 mg p.o. b.i.d., Glucotrol 10 mg p.o. b.i.d., Lopid 600 mg p.o. b.i.d., Lipitor 10 mg p.o. daily. ALLERGIES: CODEINE AND CORTISONE. FAMILY HISTORY: History of cancer in father who of aneurysm. SOCIAL HISTORY: No history of smoking. No alcohol intake. REVIEW OF SYSTEMS: ENT: No diminished vision or hearing. CARDIOVASCULAR: No angina or palpitations. RESPIRATORY: As mentioned earlier. GI: As mentioned earlier. : No dysuria. NERVOUS SYSTEM: No numbness or weakness. ALLERGY/IMMUNOLOGY: No asthma or hayfever. MUSCULOSKELETAL: As mentioned earlier. HEMATOLOGY: No history of anemia. ENDOCRINE: Diabetes mellitus. CONSTITUTIONAL: As mentioned earlier. DERMATOLOGY: Negative. RHEUMATOLOGY: Negative. PSYCHIATRY: As mentioned earlier. PHYSICAL EXAMINATION: GENERAL: Patient is alert and oriented times three. VITAL SIGNS: Pulse 60, blood pressure 126/59, respirations 17, temperature 98.7, pulse ox 94% on room air HEENT: Conjunctivae normal. Oral mucosa moist. NECK: No jugular venous distention. No carotid bruits. No lymph node enlargement. RESPIRATORY: Breath sounds diminished at the bases. A few scattered rhonchi, no crackles. HEART: S1 and S2, muffled. ABDOMEN: Soft, no tenderness. No masses palpable. EXTREMITIES: No edema, no swelling. NERVOUS: Higher functions as mentioned earlier. Moves all four limbs. No focal motor or sensory deficits. LYMPHATICS: No lymph nodes palpable in the neck or axillae. SKIN: No rashes. JOINTS: No active deforming arthropathy. LABS: CBC within normal. Magnesium 1.5, glucose 283, CO2 is 20. ASSESSMENT: 1. Complete heart block with AV dissociation status post transvenous pacemaker. 2. Hypomagnesemia. 3. Diabetes mellitus type 2. 4. Gastroesophageal reflux disease. 5. Hyperlipidemia. 6. History of degenerative joint disease. 7. History of stroke, left side. 8. History of melanoma. 9. History of colonic polyps. 10.History of appendectomy. 11.Back surgery. 12.FULL CODE. RECOMMENDATIONS AND DISCUSSION: In this 79-year-old woman who presented with multiple complex medical issues, we will monitor the patient closely. Continue the current medications and continue symptomatic treatment. Continue with the transvenous pacemaker which is paced rhythm. Follow closely with Cardiology. Magnesium supplementation. Otherwise I would also recommend follow closely with Dr. Myers. COVID-19 also will be tested. Otherwise, follow up labs will be ordered. DVT prophylaxis. Resume the home medications. Avoid beta blockers. Prognosis guarded because of multiple complex medical issues. Further recommendations to follow. MMODL / IJN: [id number] /
[2020-08-21 20:14] LABS: Glucose,Whole Blood 135 mg/dL (75-99)
[2020-08-21] MEDS: HEPARIN SODIUM,PORCINE 5,000 UNIT/ML 1 ML VIAL SQ SCH (21:27)
[2020-08-21] MEDS: FENOFIBRATE 160 MG TAB PO SCH (21:28)
[2020-08-22 03:24] LABS: Glucose,Whole Blood 96 mg/dL (75-99)
[2020-08-22 04:11] LABS: Basophils # (A) 0.1 k/uL (0-0.2); Basophils % (A) 1 %; Eosinophils # (A) 0.1 k/uL (0-0.7); Eosinophils % (A) 1 %; HCT 36.3 % (34.0-46.0); HGB 12.5 gm/dL (11.4-16.0); Lymphocytes # (A) 2.6 k/uL (1.0-4.8); Lymphocytes % (A) 35 %; MCH 30.4 pg (25.0-35.0); MCHC 34.5 g/dL (31.0-37.0); MCV 88.3 fL (80.0-100.0); Mean Platelet Volume 7.9; Monocytes # (A) 0.4 k/uL (0-1.0); Monocytes % (A) 5 %; Neutrophils # (A) 4.1 k/uL (1.3-7.7); Neutrophils % (A) 56 %; Platelet Count 260 k/uL (150-450); RBC 4.11 m/uL (3.80-5.40); RDW 13.5 % (11.5-15.5); WBC 7.4 k/uL (3.8-10.6)
[2020-08-22 04:22] LABS: Calcium 9.5 mg/dL (8.4-10.2); Potassium 4.5 mmol/L (3.5-5.1)
[2020-08-22 07:20] LABS: Glucose,Whole Blood 116 mg/dL (75-99)
[2020-08-22] MEDS ORDERED: ceFAZolin 1,000 MG in SODIUM CHLORIDE 0.9% IRRIGATIO 250 ML IRRIGATION ONE (07:30)
[2020-08-22] MEDS ORDERED: IV FLUID CONTINUATION 250 ML IV ONE (07:45)
[2020-08-22] MEDS ORDERED: IV FLUID CONTINUATION 700 ML IV ONE (07:45)
[2020-08-22] MEDS ORDERED: IOPAMIDOL-250 50ML BTL IV ONE (08:01)
[2020-08-22] MEDS ORDERED: LIDOCAINE 1% INJ 10MG/ML (20 ML MDV) ONE (08:03)
[2020-08-22] MEDS ORDERED: fentaNYL (PF) 50 MCG/ML 2 ML AMP ONE (08:03)
[2020-08-22] MEDS ORDERED: MIDAZOLAM 2 MG/2 ML VIAL IVP ONE (08:18)
[2020-08-22] MEDS: fentaNYL (PF) 50 MCG/ML 2 ML AMP IVP ONE ×2 (08:18→09:10)
[2020-08-22] MEDS ORDERED: LIDOCAINE 1% INJ 10MG/ML (20 ML MDV) SQ ONE ×2 (08:23→08:28)
[2020-08-22] MEDS ORDERED: ACETAMINOPHEN TAB 325 MG TAB PO PRN (09:06)
--- NOTE | 2020-08-22 09:16 | P.PCN ---
Date of Procedure: 08/22/20 Preoperative Diagnosis: Complete AV dissociation, syncope Postoperative Diagnosis: The same Procedure(s) Performed: Axillary venography, dual-chamber permanent pacemaker implantation Description of Procedure: HISTORY: This is a 79-year-old female with history of diabetes was admitted to the hospital with complete A-V dissociation an episode of fall and syncope. Patient had distant heart rate of 40. Patient had a temporary pacemaker. Yesterday. She is advised to have permanent pacemaker. CONSENT:I have discussed the risks, benefits and alternative therapies for the above-mentioned procedure and for both sedation/analgesia as well as necessary blood product administration, if indicated, as they pertain to this patient. The patient has indicated understanding and acceptance of the risks and procedures discussed. PROCEDURE: Patient was brought to the lab in a fasting state. Patient was prepped and draped in the usual fashion. Patient was given IV sedation with fentanyl and Versed. The skin below the left clavicle was infiltrated with lidocaine. An incision was made parallel to deltopectoral groove was deepened until the pectoral fascia was exposed. A pocket was created by blunt dissection and cautery. Axillary venography was performed to delineate the course of the axillary vein. 2 sticks were performed into extrathoracic portion of the axillary vein and 2 sheaths were advanced over the guidewires and left in subclavian vein. Conscious Sedation: Versed 1mg Fentanyl 50 g Duration 42minutes LEADS: ATRIAL: This is manufactured by [employer]. Model number is 5076-45 and the serial number is [id number] VENTRICULAR: This is manufactured by [employer]. Model number is 5076-52. The serial number is [id number] THE DEVICE: This is manufactured by [employer]. Model number is [id number] and the serial number is [id number] The ventricular lead is maneuvered l with help of a straight and curved stylets into the left ventricle apical region. Satisfactory position was obtained and threshold measurements were made. The atrial lead was then maneuvered into the right atrial appendage. And thresholds were obtained. THRESHOLDS: ATRIUM: The minimal pacing threshold was 0.7 at pulse width of 0.5. The impedance is 744. P-wave: 2.5-3 VENTRICLE: The minimal pacing threshold was 0.8 V at a pulse width of 0.5. The impedance was 1168. R-wave: 7.6 The leads and pulse generator remained in the pocket after it was washed with antibiotics. Pocket was closed in the usual fashion. The fascia was closed with 2-0 Prolene ,the subcutaneous tissue was closed with 3-0 Prolene and the skin was closed with 4-0 Prolene. PROGRAMMING: MODE: DDD RATE: 60 to 130 OUTPUT: Atrium : 3.5 V Ventricle O: 3.5 V FINAL IMPRESSION: #1. Axillary venography #2. Successful implantation of dual- chamber pacemaker COMPLICATIONS: None PLAN: Continue monitoring on the telemetry unit. Prophylactic antibiotics and chest x-ray in the morning.
[2020-08-22] MEDS: SODIUM CHLORIDE 0.9% 1,000 ML IV SCH ×3 (09:47→16:50)
[2020-08-22] MEDS: PANTOPRAZOLE 40 MG TABLET PO SCH (09:48)
[2020-08-22] MEDS: INSULIN ASPART (NovoLOG) 100 UNIT/ML VIAL SQ SCH ×4 (09:48→21:16)
[2020-08-22] MEDS: metFORMIN 500 MG TAB PO SCH ×2 (10:02→21:17)
[2020-08-22] MEDS: ATORVASTATIN 10 MG TAB PO SCH (10:02)
[2020-08-22] MEDS: HEPARIN SODIUM,PORCINE 5,000 UNIT/ML 1 ML VIAL SQ SCH ×2 (10:02→21:16)
[2020-08-22] MEDS: glipiZIDE 10 MG TAB PO SCH ×2 (10:12→21:17)
[2020-08-22 12:10] LABS: Glucose,Whole Blood 123 mg/dL (75-99)
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
[2020-08-22] MEDS ORDERED: Potassium Replacement Protocol 1 EACH MISC MISCELLANE PRN (14:48)
[2020-08-22] MEDS ORDERED: Magnesium Replacement Protocol 1 EACH MISC MISCELLANE PRN (14:48)
--- NOTE | 2020-08-22 15:50 | PN ---
PROGRESS NOTE DATE OF SERVICE: 08/22/2020 This 79-year-old woman was admitted with complete AV dissociation and AV block, underwent temporary pacemaker. Because of the persistent difficulties, the patient also underwent a permanent pacemaker implantation by cardiology. Patient monitored in ICU. Past medical history reviewed. REVIEW OF SYSTEMS: CARDIOVASCULAR SYSTEM: No angina. Respiration as mentioned earlier. GI as mentioned earlier. : No dysuria. NERVOUS SYSTEM: No numbness or weakness. MEDICATIONS: Current medications reviewed and include: Tylenol. Xanax. Lipitor. Lofibra, Heparin, NovoLog. Glucophage. Protonix. PHYSICAL EXAM: Patient is alert, oriented times three. Pulse is 65. Blood pressure 104/54, respiration 16, temperature normal, pulse ox 92% on room air. HEENT: Conjunctivae normal. NECK: No JVD. CARDIOVASCULAR: S1, S2 muffled. RESPIRATORY: Breath sounds diminished in the bases. No rhonchi. No crackles. ABDOMEN: Soft, nontender. No mass palpable. LEGS: No edema. No swelling. NERVOUS SYSTEM: No focal deficits. LABS: CBC within normal limits and BUN is 20. Glucose 116, 123. ASSESSMENT: 1. Complete heart block with complete AV dissociation, status post permanent pacemaker. 2. Status post transvenous pacemaker earlier. 3. Hypomagnesemia. 4. Diabetes type 2. 5. Gastroesophageal reflux disease. 6. Hyperlipidemia. 7. History of degenerative joint disease. 8. History of stroke, left-sided. 9. History of melanoma. 10.History of colon polyps. 11.History of appendectomy. 12.History of back surgery. 13.FULL CODE. RECOMMENDATIONS AND DISCUSSION: Recommend to continue current medications, management and symptomatic treatment. Otherwise, at this time, I recommend continue with the current medication. Continue the pacemaker. Monitor blood sugars closely. Magnesium will be rechecked. Guarded prognosis. Further recommendations to follow. MMODL / IJN: [id number] /
[2020-08-22 16:42] LABS: Glucose,Whole Blood 226 mg/dL (75-99)
[2020-08-22 20:47] LABS: Glucose,Whole Blood 209 mg/dL (75-99)
[2020-08-22] MEDS: FENOFIBRATE 160 MG TAB PO SCH (21:17)
[2020-08-23 03:35] LABS: Glucose,Whole Blood 71 mg/dL (75-99)
[2020-08-23 05:45] LABS: Glucose,Whole Blood 136 mg/dL (75-99)
[2020-08-23] MEDS: INSULIN ASPART (NovoLOG) 100 UNIT/ML VIAL SQ SCH ×4 (06:33→20:33)
[2020-08-23] MEDS: PANTOPRAZOLE 40 MG TABLET PO SCH (06:44)
--- NOTE | 2020-08-23 08:30 | XR ---
EXAMINATION TYPE: XR chest 2V DATE OF EXAM: 08/23/2020 COMPARISON: 08/21/2020 INDICATION: Lead placement check TECHNIQUE: Frontal and lateral views of the chest are obtained. FINDINGS: The heart size is normal. The pulmonary vasculature is normal. There is a focal rounded density at the left diaphragm. Additionally, Some linear opacity is present may represents atelectasis. He's maker is placed over the left chest and 2 leads are present. IMPRESSION: 1. No pneumothorax post pacemaker placement. 2. Rounded density at the left diaphragm. Some mild atelectasis may be present peripherally. Follow-u p chest x-ray recommended.
[2020-08-23] MEDS: HEPARIN SODIUM,PORCINE 5,000 UNIT/ML 1 ML VIAL SQ SCH ×2 (09:27→20:33)
[2020-08-23] MEDS: metFORMIN 500 MG TAB PO SCH ×2 (09:27→20:32)
[2020-08-23] MEDS: ATORVASTATIN 10 MG TAB PO SCH (09:27)
[2020-08-23] MEDS: glipiZIDE 10 MG TAB PO SCH ×2 (09:27→20:33)
[2020-08-23 10:04] LABS: Basophils % (A) 1 %; Eosinophils # (A) 0.1 k/uL (0-0.7); Eosinophils % (A) 1 %; HGB 11.7 gm/dL (11.4-16.0); Lymphocytes # (A) 1.7 k/uL (1.0-4.8); Lymphocytes % (A) 29 %; MCH 29.6 pg (25.0-35.0); MCHC 33.3 g/dL (31.0-37.0); MCV 88.8 fL (80.0-100.0); Mean Platelet Volume 7.6; Monocytes # (A) 0.3 k/uL (0-1.0); Monocytes % (A) 6 %; Neutrophils # (A) 3.5 k/uL (1.3-7.7); Neutrophils % (A) 61 %; Platelet Count 207 k/uL (150-450); RBC 3.95 m/uL (3.80-5.40); RDW 13.5 % (11.5-15.5); WBC 5.8 k/uL (3.8-10.6)
[2020-08-23 10:14] LABS: Calcium 9.1 mg/dL (8.4-10.2); Magnesium 1.4 mg/dL (1.6-2.3); Potassium 4.3 mmol/L (3.5-5.1)
--- NOTE | 2020-08-23 10:18 | ECHOF ---
Referral Reason:Compared heart block, dizziness and aortic stenosi MEASUREMENTS -------- HEIGHT: 165.1 cm WEIGHT: 79.4 kg BP: 132/60 RVIDd: 2.8 cm (< 3.3) IVSd: 1.3 cm (0.6 - 1.1) LVIDd: 3.8 cm (3.9 - 5.3) LVPWd: 1.4 cm (0.6 - 1.1) IVSs: 1.6 cm LVIDs: 1.1 cm LVPWs: 2.4 cm Ao Diam: 1.6 cm (2.0 - 3.7) AV Cusp: 1.0 cm (1.5 - 2.6) LA Diam: 4.3 cm (2.7 - 3.8) MV EXCURSION: 7.636 mm (> 18.000) MV EF SLOPE: 29 mm/s (70 - 150) EPSS: 0.6 cm MV E Arsalan: 2.27 m/s MV DecT: 510 ms MV A Arsalan: 2.49 m/s MV E/A Ratio: 0.91 AV maxP.32 mmHg AV meanP.01 mmHg RAP: 5.00 mmHg RVSP: 16.42 mmHg FINDINGS -------- Paced rhythm. This was a technically difficult study with suboptimal views. The left ventricular size is normal. There is moderate concentric left ventricular hypertrophy. O verall left ventricular systolic function is normal with, an EF between 55 - 60 %. Left ventricular fillimg pressure cannot be estimated due to paced rhythm. The right ventricle is normal in size. The left atrium is mildly dilated. The right atrial size is normal. Lumason used Aortic valve is trileaflet and is mildly thickened. There is mild aortic stenosis present. Peak/m barb gradient across the Aortic Valve is 18.32mmHg / 13.01mmHg. The mitral valve leaflets are severely thickened. Mild mitral annular calcification present. Mild mitral regurgitation is present. The peak and mean MV gradients are 25.90mmHg 10.76mmHg as measur ed by doppler. Dknofjvl-jp-lqiupk mitral stenosis. The tricuspid valve appears structurally normal. Mild tricuspid regurgitation present. Right vent ricular systolic pressure is normal at < 35 mmHg. Trace/mild (physiologic) pulmonic regurgitation. The aortic root size is normal. IVC Not well visulized. There is a moderate, generalized pericardial effusion present. CONCLUSIONS -------- 1. Paced rhythm. 2. There is moderate concentric left ventricular hypertrophy. 3. Overall left ventricular systolic function is normal with, an EF between 55 - 60 %. 4. Left ventricular fillimg pressure cannot be estimated due to paced rhythm. 5. The left atrium is mildly dilated. 6. Aortic valve is trileaflet and is mildly thickened. 7. There is mild aortic stenosis present. 8. Peak/mean gradient across the Aortic Valve is 18.32mmHg / 13.01mmHg. 9. The mitral valve leaflets are severely thickened. 10. Mild mitral annular calcification present. 11. Mild mitral regurgitation is present. 12. The peak and mean MV gradients are 25.90mmHg 10.76mmHg as measured by doppler. 13. Vteflfqe-td-nauzjf mitral stenosis. 14. Mild tricuspid regurgitation present. 15. Trace/mild (physiologic) pulmonic regurgitation. 16. There is a moderate, generalized pericardial effusion present. PARTS PRODUCT ANALYST: Smita Kennedy RDCS
--- NOTE | 2020-08-23 10:50 | P.PN ---
Subjective Progress Note Date: 08/23/20 This is a pleasant 79-year-old female with history of diabetes, hypertension, GERD, hyperlipidemia, osteoarthritis, presented to the hospital with dizziness, was found to have a high degree AV block and underwent implantation of a permanent pacemaker by Dr. Gabriel yesterday. Patient was seen and examined this morning, she states that she still felt mildly lightheaded but better than she had before her pacemaker was put in place. Chest x-ray this morning did not reveal evidence of a pneumothorax. Her device was interrogated and is functioning appropriately. Blood pressure this morning 128/60 with a heart rate in the 70s, 95% on room air. White blood cell count 5.8, hemoglobin 11.7, platelet count 207. Sodium 136, potassium 4.3, BUN 15, creatinine 0.7, magnesium 1.4. Objective - Vital Signs Vital signs: Vital Signs Temp 97.9 F 08/23/20 09:24 Pulse 76 08/23/20 09:24 Resp 16 08/23/20 09:24 BP 128/62 08/23/20 09:24 Pulse Ox 95 08/23/20 09:24 Intake & Output 08/22/20 08/23/20 08/23/20 18:59 06:59 18:59 Intake Total 425 660 370 Output Total 125 300 Balance 300 360 370 Weight 79.7 kg Intake: IV 325 160 Sodium Chloride 0.9% 1, 160 000 ml @ 20 mls/hr IV . Q24H NING Rx#:[id number] Sodium Chloride 0.9% 1, 150 000 ml @ 50 mls/hr IV . Q20H NING Rx#:[id number] Intake, IV Titration 100 Amount ceFAZolin 2 gm In Sodium 100 Chloride 0.9% 50 ml @ 100 mls/hr IVPB Q6H NING Rx#: [id number] Oral 100 400 370 Output: Urine 125 300 Other: Voiding Method Bedside Commode Bedside Commode # Voids 1 1 1 # Bowel Movements 1 - Exam PHYSICAL EXAMINATION: GENERAL: 79-year-old female in no acute distress at the time of my examination HEENT: Head is atraumatic, normocephalic. Pupils equal, round. Sclera a nicteric. Conjunctiva are clear. Mucous membranes of the mouth are moist. Neck is supple. There is no elevated jugular venous pressure. No carotid bruit is heard. HEART EXAMINATION: Heart S1, S2 normal. No murmur or gallop heard. CHEST EXAMINATION: Lungs are clear to auscultation and precussion. No chest wall tenderness is noted on palpation or with deep breathing. Site of pacemaker implantation dressing is dry and intact ABDOMEN: Soft, nontender. Bowel sounds are heard. No organomegaly noted. EXTREMITIES: 2+ peripheral pulses with no evidence of peripheral edema and no calf tenderness noted. NEUROLOGIC patient is awake, alert and oriented 3. . - Labs CBC & Chem 7: 08/23/20 08:55 08/23/20 08:55 Labs: Abnormal Lab Results - Last 24 Hours (Table) 08/22/20 08/22/20 08/22/20 Range/Units 03:42 12:09 16:41 Sodium (137-145) mmol/L Glucose (74-99) mg/dL POC Glucose (mg/dL) 123 H 226 H (75-99) mg/dL Magnesium 1.5 L (1.6-2.3) mg/dL 08/22/20 08/23/20 08/23/20 Range/Units 20:45 03:30 05:43 Sodium (137-145) mmol/L Glucose (74-99) mg/dL POC Glucose (mg/dL) 209 H 71 L 136 H (75-99) mg/dL Magnesium (1.6-2.3) mg/dL 08/23/20 Range/Units 08:55 Sodium 136 L (137-145) mmol/L Glucose 233 H (74-99) mg/dL POC Glucose (mg/dL) (75-99) mg/dL Magnesium 1.4 L (1.6-2.3) mg/dL Assessment and Plan Plan: Assessment and plan #1 Complete heart block with AV dissociation status post temporary pacemaker implantation on presentation, and status post permanent pacemaker implantation #2 Type 2 diabetes #3 GERD without esophagitis #4 Dyslipidemia #5 Degenerative joint disease #6 History of melanoma. #7 History of previous CVA. Plan We will check a set of orthostatics on the patient this morning, from our perspective she may be able to be discharged home today. We'll make a follow-up appointment in the office with the device clinic and Dr. merle Martines. DNP note has been reviewed, I agree with a documented findings and plan of care. Patient was seen and examined.
[2020-08-23 11:55] LABS: Glucose,Whole Blood 269 mg/dL (75-99)
[2020-08-23] MEDS: MAGNESIUM SULFATE-D5W PMX 1 GM in DEXTROSE/WATER 1 100ML.BAG IVPB SCH ×3 (12:25→15:58)
[2020-08-23] MEDS: MECLIZINE 12.5 MG TAB PO SCH ×3 (12:53→22:26)
[2020-08-23] MEDS: SODIUM CHLORIDE 0.9% 1,000 ML IV SCH (16:04)
[2020-08-23 16:53] LABS: Glucose,Whole Blood 237 mg/dL (75-99)
--- NOTE | 2020-08-23 19:00 | PN ---
PROGRESS NOTE PULMONARY/CRITICAL CARE PROGRESS NOTE: DATE OF SERVICE: August 23, 2020. This is an 79-year-old female who was admitted back on August 21. The patient was admitted with a diagnosis of complete heart block. She apparently came to the emergency room with a history of diabetes, hypertension, DJD, and she felt dizzy for a couple days prior to arriving. She did have a syncopal episode. For that reason, she went to the ER to be evaluated. She had complete AV block and was seen by Cardiology. A temporary pacemaker was inserted. A permanent pacemaker was placed yesterday. The patient is doing much better. She has no particular complaints. PHYSICAL EXAMINATION: VITAL SIGNS: Current vital signs are reviewed. Temperature is 97.9, heart rate 84, respiratory rate 16, blood pressure 123/61, mean 81, room-air saturation 96%. Appears in no acute distress. HEENT: Examination is grossly unremarkable. NECK: Supple. Full range of motion. No adenopathy. Neck veins are flat. CARDIOVASCULAR: Examination reveals regular rhythm and rate. Heart rate mid 80s. S1, S2 normal. No S3, S4, or murmur. LUNGS: Reveal clear breath sounds. No wheezes, rhonchi, or crackles. ABDOMEN: Soft. Bowel sounds are heard. EXTREMITIES: Intact. No cyanosis, clubbing, or edema. SKIN: Without rash. NEUROLOGIC: Examination is nonfocal. LABS: Reviewed. White count 5.8, hemoglobin 11.7, hematocrit 35.0, platelet count 207,000. Sodium 136, potassium 4.3, chloride 106, CO2 23, anion gap is 7, BUN and creatinine were 15 and 0.75. Microbiology is negative. Chest x-ray from today shows no pneumothorax post pacemaker placement. There is some areas of atelectasis at the base of the left diaphragm. CURRENT MEDICATIONS: Reviewed. Currently, the patient is on Tylenol, Xanax, Lipitor, low-fiber, glipizide, subcu heparin, insulin, magnesium replacement, Antivert, metformin, Narcan, Protonix, potassium replacement, and saline IV. ASSESSMENT: 1. Postoperative day #1 status post permanent pacemaker insertion for complete/third- degree AV block. 2. Syncope, lightheadedness and dizziness secondary to third-degree heart block. 3. Diabetes mellitus. 4. Gastroesophageal reflux disease without esophagitis. 5. Hyperlipidemia. 6. History of degenerative joint disease. 7. History of melanoma. 8. History of previous cerebrovascular accident. PLAN: The patient is doing well. We will continue to follow. Possible discharge in next 24 to 48 hours. No additional recommendations are made. She denies any chest pain or chest discomfort. Post pacemaker chest x-ray shows no pneumothorax. We will continue to follow. ALENA / SHARAD: [id number] /
[2020-08-23 20:07] LABS: Glucose,Whole Blood 309 mg/dL (75-99)
[2020-08-23] MEDS: FENOFIBRATE 160 MG TAB PO SCH (20:32)
--- NOTE | 2020-08-23 23:24 | P.PN ---
Subjective Progress Note Date: 08/23/20 This is an 79 year old female who was recently admitted with AV heart block and is being closely monitored. Patient underwent permanent pacemaker placement yesterday with cardiology. Patient was found to have a magnesium of 1.4 today and will replace per protocol. Patient continues to be quite weak requiring assistance and PT/OT consulted to evaluate the patient for possible ECF placement. Will repeat am labs and monitor patient closely. Review of systems: Constitutional: No reports of fatigue, fever, or chills Cardiovascular: No reports of chest pain or palpitations Respiratory: No reports of shortness of breath or cough GI: No reports of nausea, vomiting, or diarrhea : No reports of dysuria or retention Neurovascular: reports some weakness with no reports of numbness All medications have been reviewed Active Medications Acetaminophen (Acetaminophen Tab 325 Mg Tab) 650 mg PO Q4HR PRN PRN Reason: Fever and/or Mild Pain Last Admin: 08/23/20 02:34 Dose: 650 mg Documented by: Acetaminophen (Acetaminophen Tab 325 Mg Tab) 650 mg PO Q6HR PRN PRN Reason: Mild Pain Alprazolam (Alprazolam 0.25 Mg Tab) 0.25 mg PO TID PRN PRN Reason: Anxiety Atorvastatin Calcium (Atorvastatin 10 Mg Tab) 10 mg PO DAILY [facility] Last Admin: 08/23/20 09:27 Dose: 10 mg Documented by: Fenofibrate (Fenofibrate 160 Mg Tab) 160 mg PO HS [facility] Last Admin: 08/22/20 21:17 Dose: 160 mg Documented by: Glipizide (Glipizide 10 Mg Tab) 10 mg PO BID [facility] Last Admin: 08/23/20 09:27 Dose: 10 mg Documented by: Heparin Sodium (Porcine) (Heparin Sodium,Porcine 5,000 Unit/Ml 1 Ml Vial) 5,000 unit SQ Q12HR [facility] Last Admin: 08/23/20 09:27 Dose: 5,000 unit Documented by: Sodium Chloride (Saline 0.9%) 1,000 mls @ 20 mls/hr IV .Q24H [facility] Last Admin: 08/22/20 16:50 Dose: 20 mls/hr Documented by: Insulin Aspart (Insulin Aspart (Novolog) 100 Unit/Ml Vial) 0 unit SQ ACHS NING; Protocol Last Admin: 08/23/20 12:25 Dose: 2 unit Documented by: Meclizine HCl (Meclizine 12.5 Mg Tab) 12.5 mg PO TID [facility] Last Admin: 08/23/20 12:53 Dose: 12.5 mg Documented by: Metformin HCl (Metformin 500 Mg Tab) 1,000 mg PO BID [facility] Last Admin: 08/23/20 09:27 Dose: 1,000 mg Documented by: Miscellaneous Information (Magnesium Replacement Protocol 1 Each Misc) 1 each MISCELLANE DAILY PRN; Protocol PRN Reason: Per Protocol Miscellaneous Information (Potassium Replacement Protocol 1 Each Misc) 1 each MISCELLANE DAILY PRN; Protocol PRN Reason: Per Protocol Naloxone HCl (Naloxone 0.4 Mg/Ml 1 Ml Vial) 0.2 mg IV Q2M PRN PRN Reason: Opioid Reversal Pantoprazole Sodium (Pantoprazole 40 Mg Tablet) 40 mg PO AC-BRKFST [facility] Last Admin: 08/23/20 06:44 Dose: 40 mg Documented by: Sodium Chloride (Sodium Chloride 0.9% Flush 10 Ml Syringe) 10 ml IV Q12HR [facility] Last Admin: 08/23/20 09:27 Dose: Not Given Documented by: Sodium Chloride (Sodium Chloride 0.9% Flush 10 Ml Syringe) 10 ml IV Q12HR [facility] Last Admin: 08/23/20 09:27 Dose: Not Given Documented by: Objective - Vital Signs Vital signs: Vital Signs Temp 97.9 F 08/23/20 09:24 Pulse 73 08/23/20 12:00 Resp 16 08/23/20 12:00 BP 139/63 08/23/20 12:00 Pulse Ox 96 08/23/20 12:00 Intake & Output 08/22/20 08/23/20 08/23/20 18:59 06:59 18:59 Intake Total 425 660 610 Output Total 125 300 Balance 300 360 610 Weight 79.7 kg Intake: IV 325 160 Sodium Chloride 0.9% 1, 160 000 ml @ 20 mls/hr IV . Q24H [facility] Rx#:[id number] Sodium Chloride 0.9% 1, 150 000 ml @ 50 mls/hr IV . Q20H [facility] Rx#:[id number] Intake, IV Titration 100 Amount ceFAZolin 2 gm In Sodium 100 Chloride 0.9% 50 ml @ 100 mls/hr IVPB Q6H [facility] Rx#: [id number] Oral 100 400 610 Output: Urine 125 300 Other: Voiding Method Bedside Commode Bedside Commode # Voids 1 1 1 # Bowel Movements 1 - Exam Gen: This is a 79-year-old female awake, alert and oriented times 3. Temp is 97.9F, pulse is 76, respirations are 16, blood pressure is 128/62, oxygen saturation is 95% on room air HEENT: Head is atraumatic, normocephalic. Pupils equal, round. Sclerae is anicteric. NECK: Supple. No JVD. No lymphadenopathy. No thyromegaly. LUNGS: breath sounds diminished at the bases with no rhonchi or crackles noted. No wheezes . No intercostal retractions. HEART: S1, S2 are muffled ABDOMEN: Soft. Bowel sounds are present. No masses. No tenderness. EXTREMITIES: No pedal edema. No calf tenderness. NEUROLOGICAL: Patient is awake, alert and oriented x3. Cranial nerves 2 through 12 are grossly intact. - Labs CBC & Chem 7: 08/23/20 08:55 08/23/20 08:55 Labs: Abnormal Lab Results - Last 24 Hours (Table) 08/22/20 08/22/20 08/22/20 Range/Units 03:42 16:41 20:45 Sodium (137-145) mmol/L Glucose (74-99) mg/dL POC Glucose (mg/dL) 226 H 209 H (75-99) mg/dL Magnesium 1.5 L (1.6-2.3) mg/dL 08/23/20 08/23/20 08/23/20 Range/Units 03:30 05:43 08:55 Sodium 136 L (137-145) mmol/L Glucose 233 H (74-99) mg/dL POC Glucose (mg/dL) 71 L 136 H (75-99) mg/dL Magnesium 1.4 L (1.6-2.3) mg/dL 08/23/20 Range/Units 11:30 Sodium (137-145) mmol/L Glucose (74-99) mg/dL POC Glucose (mg/dL) 269 H (75-99) mg/dL Magnesium (1.6-2.3) mg/dL Assessment and Plan Assessment: 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 Replace magnesium per protocol and will repeat am labs. PT/OT to evaluate the patient for possible ecf placement as patient continues to be weak. Case management and social work to follow with possible discharge planning needs. Patient states that her granddaughter will be staying with her and she is making arrangements for someone to stay with her once discharged. Patient does not want to go to ECF. Prognosis is guarded. Further recommendations to follow. Possible discharge in 24 hours.
[2020-08-24 01:17] LABS: Glucose,Whole Blood 156 mg/dL (75-99)
[2020-08-24 04:22] LABS: Glucose,Whole Blood 177 mg/dL (75-99)
[2020-08-24 06:15] LABS: Glucose,Whole Blood 157 mg/dL (75-99)
[2020-08-24] MEDS: PANTOPRAZOLE 40 MG TABLET PO SCH (06:22)
[2020-08-24] MEDS: INSULIN ASPART (NovoLOG) 100 UNIT/ML VIAL SQ SCH ×2 (06:22→12:29)
[2020-08-24 07:59] LABS: Basophils % (A) 1 %; Eosinophils # (A) 0.1 k/uL (0-0.7); Eosinophils % (A) 2 %; HGB 11.7 gm/dL (11.4-16.0); Lymphocytes # (A) 2.3 k/uL (1.0-4.8); Lymphocytes % (A) 34 %; MCH 29.6 pg (25.0-35.0); MCHC 33.5 g/dL (31.0-37.0); MCV 88.2 fL (80.0-100.0); Mean Platelet Volume 7.7; Monocytes # (A) 0.4 k/uL (0-1.0); Monocytes % (A) 5 %; Neutrophils # (A) 3.9 k/uL (1.3-7.7); Neutrophils % (A) 56 %; Platelet Count 217 k/uL (150-450); RBC 3.96 m/uL (3.80-5.40); RDW 13.4 % (11.5-15.5); WBC 6.9 k/uL (3.8-10.6)
[2020-08-24 08:09] LABS: Calcium 9.2 mg/dL (8.4-10.2); Magnesium 1.8 mg/dL (1.6-2.3); Potassium 4.2 mmol/L (3.5-5.1)
[2020-08-24 09:09] VITALS: RESP 16
[2020-08-24] MEDS: ATORVASTATIN 10 MG TAB PO SCH (09:10)
[2020-08-24] MEDS: HEPARIN SODIUM,PORCINE 5,000 UNIT/ML 1 ML VIAL SQ SCH (09:10)
[2020-08-24] MEDS: glipiZIDE 10 MG TAB PO SCH (09:10)
[2020-08-24] MEDS: metFORMIN 500 MG TAB PO SCH (09:11)
[2020-08-24] MEDS: MECLIZINE 12.5 MG TAB PO SCH (09:11)
[2020-08-24 11:46] LABS: Glucose,Whole Blood 182 mg/dL (75-99)
[2020-08-24 12:02] VITALS: BP 123/61; PULSE 77; TEMP 97.9
--- NOTE | 2020-08-24 12:30 | P.PN ---
Subjective This is a pleasant 79-year-old female past medical history significant for diabetes mellitus and dyslipidemia who presents to the hospital with dizziness and was found to have a high degree AV block. She underwent successful permanent pacemaker implantation. She has seen and examined resting comfortably in bed in no acute distress. She continues to complain of ongoing weakness. She denies chest pain, dizziness or palpitations. Orthostatic vital signs were obtained and unremarkable. She is going back and forth with the idea of inpatient rehab however is concerned given the pandemic. She does have a granddaughter who can come over tomorrow but can only stay with her for a couple of days. Blood pressure 130/60 heart rate 71 afebrile maintaining oxygen saturation on room air. Laboratory data reviewed, CBC unremarkable, sodium 136, potassium 4.2, creatinine 0.84 and magnesium 1.8. Currently maintained on atorvastatin 10 mg daily and fenofibrate 160 mg at bedtime. GENERAL: Well-appearing, well-nourished and in no acute distress. NECK: Supple without JVD or thyromegaly. LUNGS: Breath sounds clear to auscultation bilaterally. Respiration equal and unlabored. No wheezes, rales or rhonchi. HEART: Regular rate and rhythm without murmurs, rubs or gallops. S1 and S2 heard. Left anterior chest wall pacemaker insertion site is clean, dry and intact with dressing in place. No oozing or bleeding noted. EXTREMITIES: Normal range of motion, no edema. No clubbing or cyanosis. Peripheral pulses intact. ASSESSMENT Complete heart block with A-V dissociation status post permanent pacemaker implantation Diabetes mellitus Dyslipidemia PLAN Stable for discharge from a cardiac perspective. Follow-up in the office of Dr. Gabriel in one week. Nurse Practitioner note has been reviewed, I agree with a documented findings and plan of care. Patient was seen and examined. Objective - Vital Signs Vital signs: Vital Signs Temp 98.2 F 08/24/20 08:59 Pulse 71 08/24/20 08:59 Resp 16 08/24/20 08:59 BP 121/59 08/24/20 08:59 Pulse Ox 98 08/24/20 08:59 Intake & Output 08/23/20 08/24/20 08/24/20 18:59 06:59 18:59 Intake Total 850 300 120 Balance 850 300 120 Weight 80.1 kg Intake: Intake, IV Titration 300 Amount Magnesium Sulfate-D5w Pmx 300 1 gm In Dextrose/Water 1 100ml.bag @ 100 mls/hr IVPB Q1H [facility] Rx#: [id number] Oral 850 120 Other: Voiding Method Bedside Commode Bedside Commode # Voids 1 1 1 - Labs CBC & Chem 7: 08/24/20 06:58 08/24/20 06:58 Labs: Abnormal Lab Results - Last 24 Hours (Table) 08/23/20 08/23/20 08/23/20 Range/Units 11:30 16:29 20:05 Sodium (137-145) mmol/L BUN (7-17) mg/dL Glucose (74-99) mg/dL POC Glucose (mg/dL) 269 H 237 H 309 H (75-99) mg/dL 08/24/20 08/24/20 08/24/20 Range/Units 01:16 04:19 06:13 Sodium (137-145) mmol/L BUN (7-17) mg/dL Glucose (74-99) mg/dL POC Glucose (mg/dL) 156 H 177 H 157 H (75-99) mg/dL 08/24/20 Range/Units 06:58 Sodium 136 L (137-145) mmol/L BUN 19 H (7-17) mg/dL Glucose 146 H (74-99) mg/dL POC Glucose (mg/dL) (75-99) mg/dL
--- NOTE | 2020-08-24 18:13 | PN ---
PROGRESS NOTE PULMONARY/CRITICAL CARE PROGRESS NOTE: DATE OF SERVICE: 08/24/2020 This is a patient who we saw in followup yesterday. She is an 79-year-old female who was admitted back on August 21. She apparently came in with complete heart block. A couple days ago, she had a pacemaker implanted. She is being considered for possible discharge from the hospital. She did have a syncopal episode. She does suffer from diabetes, hypertension, and DJD. Currently, she is doing well. She is not on any supplemental oxygen. Followup chest x-ray after pacemaker did not show pneumothorax. PHYSICAL EXAMINATION: VITAL SIGNS: Current vital signs include a temperature of 97.9, heart rate 77, respiratory rate 16, blood pressure 123/61, room-air saturation 95%. Appears in no acute distress. HEENT: Examination is grossly unremarkable. NECK: Supple. Full range of motion. No adenopathy. Neck veins are flat. CARDIOVASCULAR: Examination reveals regular rhythm and rate. S1, S2 normal. No S3, S4, or murmur. LUNGS: Reveal mostly clear breath sounds. No wheezes, rhonchi, or crackles. ABDOMEN: Soft. Bowel sounds are heard. EXTREMITIES are intact. No cyanosis, clubbing, or edema. SKIN: Without rash. NEUROLOGIC: Examination is nonfocal. CBC today is normal. Sodium 136, potassium 4.2, chloride 105, CO2 26, anion gap is 5. BUN and creatinine were 19 and 0.84. No recent chest x-ray to report. Medications are reviewed. ASSESSMENT: 1. Postoperative day #2 status post permanent pacemaker insertion for complete/third- degree heart block. 2. Syncope, lightheadedness, dizziness, secondary to complete heart block. 3. Diabetes mellitus. 4. Gastroesophageal reflux disease without esophagitis. 5. Hyperlipidemia. 6. History of degenerative joint disease. 7. History of melanoma. 8. Prior history of cerebrovascular accident. PLAN: Currently, the patient is doing well. We will continue to follow. The patient is being considered for possible discharge today. No additional recommendations are made. Respiratory status is stable. Chest x-ray status post pacemaker insertion is without pneumothorax. MMODL / IJN: [id number] /
--- NOTE | 2020-08-24 19:13 | PN ---
PROGRESS NOTE PULMONARY/CRITICAL CARE PROGRESS NOTE: DATE OF SERVICE: 08/24/2020 This is a patient who we initially saw in the emergency room. She was actually seen yesterday. The patient was admitted for diagnosis of shortness of breath with hypoxemic respiratory failure secondary to underlying atrial fibrillation with RVR, fluid overload, bilateral effusions, and interstitial edema. In addition, we thought there was a possibility of underlying pneumonia involving the right mid lung and right lower lobe. The patient does have a history of COPD from previous tobacco use, skin cancer, hypertension, chronic back pain, and a history of lung cancer with metastasis. The patient was recently in the hospital between August 11 on August 15 at which time she had a right-sided pleural effusion drained by my partner. Cytology was negative. PHYSICAL EXAMINATION: VITAL SIGNS: Currently, temperature 97.6, heart rate 86, respiratory rate 18, blood pressure 124/73, mean 90, 3 L saturation 95%. She appears in no acute distress. HEENT: Examination is grossly unremarkable. NECK: Supple. Full range of motion. No adenopathy. Neck veins are flat. CARDIOVASCULAR: Examination reveals a regular rhythm and rate. Heart sounds are distant. Heart rate 86 beats per minute. No murmur. LUNGS: Reveal diffuse crackles. Breath sounds equal. No rhonchi or wheezes. ABDOMEN: Soft. EXTREMITIES are intact. No edema. SKIN: Without rash. NEUROLOGIC: Examination is nonfocal. LABS: Include a white count 29.6, hemoglobin 12.6, hematocrit 38.7, platelet count 403,000. Sodium 138, potassium 3.4, chloride 102, CO2 28, anion gap is 8. BUN and creatinine were 40 and 1.41. Microbiology is currently negative. The most recent chest x-ray on August 24 shows findings consistent with fluid overload. CURRENT MEDICATIONS: Include Eliquis, Zithromax, Symbicort, Pepcid, Lasix, gabapentin, insulin, DuoNeb, magnesium replacement, Solu-Medrol, metoprolol, Singulair, Zosyn, potassium replacement, promethazine with codeine cough syrup, and Aldactone. ASSESSMENT: 1. Shortness of breath with hypoxemic respiratory failure related to underlying atrial fibrillation with RVR, fluid overload/interstitial edema, and bilateral pleural effusions. 2. Possible pneumonia involving the right mid lung and right lower lobe. 3. History of chronic obstructive pulmonary disease from previous heavy tobacco use. 4. History of skin cancer. 5. Hypertension by history. 6. Chronic back pain. 7. History of atrial fibrillation, status post ablation. 8. History of lung cancer with metastasis. 9. General medical debility. 10.Recent admission to the hospital between August 11 and August 15 and at that time, thoracentesis for right-sided pleural effusion. PLAN: The recent thoracentesis was negative cytologically. Currently, she is doing reasonably well. She is very frail. No additional recommendations are made. Medications are appropriate. We will continue to follow. Long-term prognosis remains poor though. MMODL / IJN: [id number] /
--- NOTE | 2020-08-24 22:44 | P.DS ---
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 Patient will continue with visiting nurses home care. Patient will follow-up with Dr. Myers in the outpatient setting upon discharge. Patient also instructed to follow up with Dr. gabriel cardiology in the outpatient setting. Total time taken is greater than 35 minutes. History of present illness This is an 79-year-old female who was recently admitted with AV block and was being closely monitored. cardiology following closely and patient underwent permanent pacemaker placement of the left chest wall. patient was having continued syncopal events prior to placement of the pacer. Patient continues to be weak and was evaluated by PT/OT and recommended ROSALBA for some PT therapy although patient is refusing at this time given current pandemic and her fear of catching Covid and not recovering. Patient granddaughter is coming to stay with her to assist with ADL's and patient will also continue with visiting nurses. Currently no reports of chest pain, shortness of breath, or palpitations. Patient is afebrile. No reports of nausea or vomiting and patient is tolerating diet. Patient will be discharged home today. Guarded prognosis On exam vital signs are stable. Temp is 97.9F, pulse is 77, respirations are 16, blood pressure is 123/61, oxygen saturation is 95% on room air. Cardio S1, S2 are muffled. Respiratory system shows diminished breath sounds at the bases with no wheezing or rhonchi noted. Abdomen is soft and non-tender. Nervous system shows no focal deficits. Please refer to medication reconciliation sheet for a list of medications. Patient Condition at Discharge: Stable Plan - Discharge Summary Discharge Rx Participant: Yes New Discharge Prescriptions: New Meclizine [Antivert] 12.5 mg PO TID #21 tab Pantoprazole [Protonix] 40 mg PO AC-BRKFST 30 Days #30 tablet. Acetaminophen Tab [Tylenol] 650 mg PO Q6HR PRN tab PRN Reason: Mild Pain Continue gemfibroziL [Lopid] 600 mg PO BID Atorvastatin [Lipitor] 10 mg PO DAILY metFORMIN HCL 1,000 mg PO BID glipiZIDE XL [Glucotrol XL] 10 mg PO BID Discharge Medication List gemfibroziL [Lopid] 600 mg PO BID 11/18/16 [History] Atorvastatin [Lipitor] 10 mg PO DAILY 05/06/18 [History] metFORMIN HCL 1,000 mg PO BID 01/27/19 [History] glipiZIDE XL [Glucotrol XL] 10 mg PO BID 08/21/20 [History] Acetaminophen Tab [Tylenol] 650 mg PO Q6HR PRN tab 08/24/20 [Rx] Meclizine [Antivert] 12.5 mg PO TID #21 tab 08/24/20 [Rx] Pantoprazole [Protonix] 40 mg PO AC-BRKFST 30 Days #30 tablet. 08/24/20 [Rx] Follow up Appointment(s)/Referral(s): Amarilys Myers MD [Primary Care Provider] - 09/15/20 9:30 am (Sunday) April Gabriel MD [STAFF PHYSICIAN] - 09/01/20 10:00 am (Sunday) MOHSEN Visiting Nurse, [NON-STAFF] - Patient Instructions/Handouts: Heart Block (DC), Pacemaker (DC) Activity/Diet/Wound Care/Special Instructions: Activity Limited until follow-up Follow-up with primary care provider upon discharge Continue with home care Follow-up with Dr. Gabriel in one week Continue current diet Discharge Disposition: HOME WITH HOME HEALTH SERVICES
--- NOTE | 2020-08-26 06:57 | CDI ---
Documentation Clarification Form Date: 08/26/2020 From: Jhansirani. Mcnair Phone: If you have a question about this query, please contact Smita Browning Blind Stitch Machine Operator at [phone] between 8am and 5pm. Admit Date: 08/21/2020 Discharge Date: 08/24/2020 Patient Name: Meka Mcguire (F 79 Yrs) Visit Number: [id number] ATTENTION: The Clinical Documentation Specialists (CDI) and [facility] Coding Staff appreciate your assistance in clarifying documentation. Please respond to the clarification below the line at the bottom and electronically sign. The CDI & [facility] Coding staff will review the response and follow-up if needed. Please note: Queries are made part of the Legal Health Record. If you have any questions, please contact the author of this message via ITS. Dear Melvin Rae MD The patient was admitted for diagnosis of shortness of breath with hypoxemic respiratory failure secondary to underlying atrial fibrillation with RVR, fluid overload, bilateral effusions, and interstitial edema was doceumnted in the progress notes. History/Risk Factors: HTN, AFIB, AV block. Tobacco use: hx of tobacco use. Clinical Indicators: SOB, Hypoxemia. Vital signs:Current vital signs include a temperature of 97.9, heart rate 77, respiratory rate 16, blood pressure 123/61, room-air saturation 95%. Lung/Breathing assessment: ABG/CBG: NO ABG valves. Treatment: no sepcific treatment. In your professional opinion, can you please clarify the presence of Respiratory failure, if known? * Hypoxic Respiratory Failure POA and treated during this admission. * Hypoxic Respiratory Failure ruled out. * Other Diagnosis, please specify * Unable to determine Specificity: If known, further specify (if known): * Acute. * Chronic. * Acute on chronic. (Last Query Form Revision: May 2019) Hypoxic Respiratory Failure POA and treated during this admission.Acute. MTDD
--- NOTE | 2020-08-26 07:23 | CDI ---
Documentation Clarification Form Date: 08/26/2020 From: Jhansirani. Mcnair Phone: If you have a question about this query, please contact Smita Browning Independent Living Specialist at [phone] between 8am and 5pm. Admit Date: 08/21/2020 Discharge Date: 08/24/2020 Patient Name: Meka Mcguire (F 79 Yrs) Visit Number: [id number] ATTENTION: The Clinical Documentation Specialists (CDI) and [facility] Coding Staff appreciate your assistance in clarifying documentation. Please respond to the clarification below the line at the bottom and electronically sign. The CDI & [facility] Coding staff will review the response and follow-up if needed. Please note: Queries are made part of the Legal Health Record. If you have any questions, please contact the author of this message via ITS. Dear Melvin Rae MD In the progress notes alone possibility of underlying pneumonia involving the right mid lung and right lower lobe was documented. History/Risk Factors: HTN, AFIB, AV block. Clinical Indicators: SOB, Hypoxemia. Vital signs:Current vital signs include a temperature of 97.9, heart rate 77, respiratory rate 16, blood pressure 123/61, room-air saturation 95%. WBC/Left shift: 6.9L,5.8L,7.4L Treatment: No specific treatment. In order to capture the severity of condition, please clarify the Presence of Pneumonia, if known? * Pneumonia POA and treated during this admission. * Pneumonia Ruled out. * Other, please specify * Unable to determine (Last Revision: December 2017) Pneumonia POA and treated during this admission. ANAISD
== END 2020-08-24 14:46 | disposition home health service (06) | DRG 242 ==
LOC: EC 11:47 → 2SICU 13:00 → 3SCARD 08-22 23:51
PROVIDERS: ADMIT Hospitalist; ATTEND Hospitalist
PROC: 0JH606Z Insertion of Pacemaker, Dual Chamber into Chest Subcutaneous Tissue and Fascia, Open Approach (ICD-10-PCS; principal; 2020-08-22 08:00)
PROC: 02HK3JZ Insertion of Pacemaker Lead into Right Ventricle, Percutaneous Approach (ICD-10-PCS; principal; 2020-08-22 08:00)
PROC: 02H63JZ Insertion of Pacemaker Lead into Right Atrium, Percutaneous Approach (ICD-10-PCS; principal; 2020-08-22 08:00)
DX: I44.2 Atrioventricular block, complete (principal); J96.01 Acute respiratory failure with hypoxia; J18.9 Pneumonia, unspecified organism; Z20.828 Contact with and (suspected) exposure to other viral communicable diseases; E11.9 Type 2 diabetes mellitus without complications; E78.5 Hyperlipidemia, unspecified; R00.1 Bradycardia, unspecified; K21.9 Gastro-esophageal reflux disease without esophagitis; M19.90 Unspecified osteoarthritis, unspecified site; S09.90XA Unspecified injury of head, initial encounter; W19.XXXA Unspecified fall, initial encounter; I45.89 Other specified conduction disorders; E83.42 Hypomagnesemia; I10 Essential (primary) hypertension; R26.9 Unspecified abnormalities of gait and mobility; E87.70 Fluid overload, unspecified; G89.29 Other chronic pain; M54.9 Dorsalgia, unspecified; R53.81 Other malaise; I48.91 Unspecified atrial fibrillation; Z85.118 Personal history of other malignant neoplasm of bronchus and lung; Z79.82 Long term (current) use of aspirin; Z79.899 Other long term (current) drug therapy; Z79.4 Long term (current) use of insulin; Z88.5 Allergy status to narcotic agent; Z88.8 Allergy status to other drugs, medicaments and biological substances; I25.2 Old myocardial infarction; Z86.73 Personal history of transient ischemic attack (TIA), and cerebral infarction without residual deficits; Z85.820 Personal history of malignant melanoma of skin; Z90.49 Acquired absence of other specified parts of digestive tract; Z90.89 Acquired absence of other organs; Z98.890 Other specified postprocedural states; Z98.41 Cataract extraction status, right eye; Z98.42 Cataract extraction status, left eye; Z98.1 Arthrodesis status; Z87.19 Personal history of other diseases of the digestive system; Z80.0 Family history of malignant neoplasm of digestive organs; Z87.891 Personal history of nicotine dependence
CPT/HCPCS: 33208; 33210; 36415; 70450; 71045; 71046; 72170; 80048; 80053; 82330; 83735; 84443; 84484; 85025; 85610; 85730; 93005; 93306; 96360; 99285

== ENCOUNTER → 2020-10-27 | Outpatient (CLI) | payer MEDICARE, BC ==
--- NOTE | 2020-10-27 21:52 | XR ---
EXAMINATION TYPE: XR ribs RT DATE OF EXAM: 10/27/2020 COMPARISON: Chest x-ray August 23, 2020 HISTORY: Right-sided rib pain after falling injury 2 days ago. TECHNIQUE: A frontal and oblique images of the right-sided ribs are obtained. FINDINGS: Osseous structures redemonstrated demineralized which is noted to lower radiographic sensit ivity. No acute displaced right-sided rib fractures are clearly seen. Visualized right lung is clear. There is partial visualization of pacemaker wires. There is advanced degenerative change right gleno humeral joint with high riding humeral head consistent with chronic rotator cuff tear redemonstrated. IMPRESSION: As above.
== END | disposition home or self-care (01) ==
LOC: RADXRMAIN 15:57
PROVIDERS: ATTEND Internal Medicine Cardiovascular Disease
DX: R07.81 Pleurodynia (principal)

== ENCOUNTER 2021-03-29 02:30 | Inpatient (IN) | payer MEDICARE, BC ==
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
[2021-03-29] MEDS ORDERED: SODIUM CHLORIDE 0.9% 1,000 ML IV STA (03:14)
[2021-03-29] MEDS ORDERED: SODIUM CHLORIDE 0.9% 500 ML 500 ML IV STA (03:14)
--- NOTE | 2021-03-29 03:15 | XR ---
EXAMINATION TYPE: XR Hip LT and AP Pelvis DATE OF EXAM: 03/29/2021 COMPARISON: 08/21/2020 HISTORY: Fall. Pain. TECHNIQUE: Single view FINDINGS: There is acute nondisplaced intertrochanteric fracture left femur. There is no dislocation. The pelvic ring is intact. The hip joint spaces are fairly normal. Sacroiliac joints are intact. IMPRESSION: Acute intertrochanteric fracture left femur.
--- NOTE | 2021-03-29 03:17 | XR ---
EXAMINATION TYPE: XR chest 1V DATE OF EXAM: 03/29/2021 COMPARISON: 01/18/2021 HISTORY: Short of breath TECHNIQUE: Single view FINDINGS: There is no heart failure nor confluent pneumonic infiltrate. Costophrenic angles are clear . There are no hilar masses. There is left axillary pacemaker. Bony thorax appears intact IMPRESSION: No active cardiopulmonary disease. No change.
[2021-03-29 03:47] LABS: Basophils # (A) 0.1 k/uL (0-0.2); Basophils % (A) 0 %; Eosinophils # (A) 0.2 k/uL (0-0.7); Eosinophils % (A) 1 %; HCT 39.9 % (34.0-46.0); HGB 13.6 gm/dL (11.4-16.0); Lymphocytes # (A) 1.2 k/uL (1.0-4.8); Lymphocytes % (A) 8 %; MCH 29.8 pg (25.0-35.0); MCV 87.5 fL (80.0-100.0); Mean Platelet Volume 7.9; Monocytes # (A) 0.5 k/uL (0-1.0); Monocytes % (A) 3 %; Neutrophils # (A) 13.1 k/uL (1.3-7.7); Neutrophils % (A) 87 %; Platelet Count 220 k/uL (150-450); RBC 4.56 m/uL (3.80-5.40); RDW 13.4 % (11.5-15.5); WBC 15.2 k/uL (3.8-10.6)
[2021-03-29] MEDS ORDERED: NALOXONE 0.4 MG/ML 1 ML VIAL IV PRN (03:47)
[2021-03-29 03:55] LABS: Appearance,Urine Clear (Clear); Bilirubin,Urine Negative (Negative); Blood,Urine Negative (Negative); Color,Urine Light Yellow; Glucose,Urine (UA) 4+ (Negative); Ketones,Urine Negative (Negative); Leukocyte Esterase,Urine Negative (Negative); Nitrite,Urine Negative (Negative); PH, Urine 5.5 (5.0-8.0); Protein,Urine Negative (Negative); Specific Gravity,Urine 1.028 (1.001-1.035); Urobilinogen,Urine <2.0 mg/dL (<2.0)
[2021-03-29 03:59] LABS: ALT 16 U/L (4-34); AST 28 U/L (14-36); African American GFR (CKD) >90 (>60 ml/min/1.73 sqM); Albumin 4.4 g/dL (3.5-5.0); Alkaline Phosphatase 131 U/L (38-126); Anion Gap 11 mmol/L; Blood Urea Nitrogen 14 mg/dL (7-17); Carbon Dioxide 24 mmol/L (22-30); Chloride 103 mmol/L (98-107); Creatine Kinase 45 U/L (30-135); Glucose 392 mg/dL (74-99); Magnesium 1.6 mg/dL (1.6-2.3); Non-African American GFR(CKD) 83 (>60 ml/min/1.73 sqM); Phosphorus 3.7 mg/dL (2.5-4.5); Sodium 138 mmol/L (137-145); Total Bilirubin 0.5 mg/dL (0.2-1.3)
[2021-03-29 04:00] LABS: Partial Thromboplastin Time 22.2 sec (22.0-30.0); Prothrombin Time 10.6 sec (9.0-12.0)
[2021-03-29] MEDS: MORPHINE SULFATE 4 MG/ML SYRINGE IV PRN (04:32)
[2021-03-29 05:14] LABS: Glucose,Whole Blood 267 mg/dL (75-99)
[2021-03-29 08:06] LABS: Glucose,Whole Blood 224 mg/dL (75-99)
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
[2021-03-29] MEDS: INSULIN ASPART (NovoLOG) 100 UNIT/ML VIAL SQ SCH ×4 (08:43→21:45)
[2021-03-29] MEDS: PANTOPRAZOLE 40 MG/10 ML VIAL IV SCH (08:44)
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
[2021-03-29 11:53] LABS: Glucose,Whole Blood 141 mg/dL (75-99)
[2021-03-29] MEDS ORDERED: ONDANSETRON 4 MG/2 ML VIAL ONE (13:51)
[2021-03-29] MEDS ORDERED: ONDANSETRON 4 MG/2 ML VIAL IVP ONE (13:55)
[2021-03-29] MEDS ORDERED: LACTATED RINGERS 1,000 ML IV ONE (13:55)
[2021-03-29] MEDS ORDERED: DEXAMETHASONE SOD PHOSPHATE 4 MG/ML 1 ML VIAL IV ONE (13:55)
[2021-03-29] MEDS ORDERED: LIDOCAINE 1% INJ 10MG/ML (20 ML MDV) ONE (13:57)
[2021-03-29] MEDS ORDERED: fentaNYL (PF) 50 MCG/ML 2 ML AMP ONE (13:57)
[2021-03-29] MEDS ORDERED: SUCCINYLCHOLINE CHLORIDE 100 MG/5 ML SYR IV ONE (13:57)
[2021-03-29] MEDS ORDERED: ETOMIDATE 2 MG/ML 10 ML VIAL ONE (13:57)
[2021-03-29] MEDS ORDERED: ceFAZolin 1,000 MG in SODIUM CHLORIDE 0.9% 1,000 ML IRRIGATION ONE (14:38)
[2021-03-29] MEDS ORDERED: MAGNESIUM HYDROXIDE 2,400 MG/10 ML CUP PO PRN (15:36)
[2021-03-29] MEDS ORDERED: traMADol 50 MG TAB PO PRN (15:36)
[2021-03-29] MEDS ORDERED: ONDANSETRON 4 MG/2 ML VIAL IVP PRN (15:36)
[2021-03-29] MEDS ORDERED: ACETAMINOPHEN TAB 325 MG TAB PO PRN (15:36)
[2021-03-29] MEDS ORDERED: HYDROcodone/APAP 5-325MG 1 EACH TAB PO PRN (15:36)
--- NOTE | 2021-03-29 15:39 | FL ---
EXAMINATION TYPE: FL guidance operating room, XR Hip Limited LT DATE OF EXAM: 03/29/2021 CLINICAL HISTORY: Left hip fracture. TECHNIQUE: Fluoroscopy. Intraoperative limited views left hip. COMPARISON: Pelvic and left hip x-ray earlier today. FINDINGS: Fluoroscopic guidance was provided during left hip open reduction internal fixation proced ure performed by Dr. Noble. A total of 1 minute 18 seconds of fluoroscopic time was utilized during the procedure and 4 spot images are acquired. Images acquired show intramedullary tremayne with femoral neck fixating screw in distal small bowel or tra nsverse fixating screw through the intertrochanteric fracture left proximal femur. Satisfactory align ment is noted on intraoperative images obtained. IMPRESSION: As Above.
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
--- NOTE | 2021-03-29 15:43 | P.OP ---
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 Upon evaluation she was noted have a displaced left 2 part intertrochanteric femur fracture. A discussion of the risks and benefits of operative intervention was made with the patient and her family. Specific risks of surgery to include infection, neurovascular injury, development of blood clots, possible development of nonunion/malunion, possible hardware failure and need for subsequent procedures was discussed along with anesthesia risks. Informed consent was obtained. Operative Findings: As below Description of Procedure: The patient was brought to the operating room, and after induction of general anesthesia was positioned supine on the Maxine table. The fracture was reduced with longitudinal traction and internal rotation left lower extremity. This was verified with fluoroscopy on the AP and lateral views. The left lower extremity was prepped and draped in normal fashion. An 8 cm incision was then made just proximal the greater trochanter. Skin and subcu tissues were divided sharply. Electrocautery was used for hemostasis. The gluteus marcelina fascia was split in line with the skin incision. Blunt dissection was then made down to the tip of the greater trochanter. A starting awl inserted in the tip of the greater trochanter. A tip guidewire was inserted down the canal. The canal was reamed up to 13 mm. The proximal portion of the proximal femur to the level of the lesser trochanter was reamed with a 15.5 mm reamer. A 130 degree short gamma nail was then gently inserted over the guidewire. This was taken to the appropriate depth. The guidewire was removed. A threaded guidepin was placed into the centercenter position of the femoral head and neck with the aid of fluoroscopy to within 5 mm of the articular surface. A triple reamer was used to depth of 95 mm. A 95 mm compression screw was inserted with good purchase. Again this was done with the aid of fluoroscopy. The 5 mm x 35 mm static locking screw was inserted with the alignment guide. Again there was good purchase. Final fluoroscopic views to include AP and lateral views of the hip and proximal femur showed adequate reduction of fracture and placement of the implant. A derotation screw was inserted in the proximal nail. The wounds were irrigated normal saline. The fascia was closed with running 0 Vicryl suture. Subcutaneous tissues were reapproximated with interrupted 2-0 Vicryl sutures. Skin was reapproximated with rowena. A sterile dressing was applied. The patient was then awoken from general anesthesia and transferred to recovery room in stable condition. Blood loss was estimated at 30 mL. No complications were incurred. Sponge and needle counts were correct at the end the case. Matthew CAR assisted during the major components the case to include positioning, exposure, nail insertion, and closure.
[2021-03-29 16:17] LABS: Glucose,Whole Blood 182 mg/dL (75-99)
[2021-03-29 17:10] LABS: Glucose,Whole Blood 222 mg/dL (75-99)
[2021-03-29 21:00] LABS: Glucose,Whole Blood 265 mg/dL (75-99)
[2021-03-29] MEDS: SENNOSIDES-DOCUSATE SODIUM 1 EACH TAB PO SCH (21:43)
[2021-03-29] MEDS: ATORVASTATIN 10 MG TAB PO SCH (21:43)
[2021-03-29] MEDS: HYDROcodone/APAP 7.5-325MG 1 EACH TAB PO PRN (21:44)
[2021-03-29] MEDS: METOPROLOL TARTRATE 25 MG TAB PO SCH (21:45)
[2021-03-30] MEDS: diphenhydrAMINE 50 MG/ML 1 ML VIAL IVP PRN ×3 (04:00→16:45)
[2021-03-30] MEDS: MORPHINE SULFATE 4 MG/ML SYRINGE IV PRN (04:28)
[2021-03-30 07:18] LABS: Glucose,Whole Blood 135 mg/dL (75-99)
[2021-03-30] MEDS: ENOXAPARIN 40 MG/0.4 ML SYRINGE SQ SCH (08:14)
[2021-03-30] MEDS: INSULIN ASPART (NovoLOG) 100 UNIT/ML VIAL SQ SCH ×5 (08:15→21:08)
[2021-03-30] MEDS: METOPROLOL TARTRATE 25 MG TAB PO SCH ×2 (08:15→21:08)
[2021-03-30] MEDS: PANTOPRAZOLE 40 MG/10 ML VIAL IV SCH (08:15)
[2021-03-30 08:37] LABS: ALT 12 U/L (4-34); AST 30 U/L (14-36); African American GFR (CKD) >90 (>60 ml/min/1.73 sqM); Albumin 3.6 g/dL (3.5-5.0); Albumin/Globulin Ratio 1.4; Alkaline Phosphatase 78 U/L (38-126); Anion Gap 8 mmol/L; Blood Urea Nitrogen 12 mg/dL (7-17); Carbon Dioxide 26 mmol/L (22-30); Chloride 106 mmol/L (98-107); Globulin 2.6 g/dL; Glucose 164 mg/dL (74-99); Magnesium 1.6 mg/dL (1.6-2.3); Non-African American GFR(CKD) 81 (>60 ml/min/1.73 sqM); Phosphorus 3.2 mg/dL (2.5-4.5); Potassium 4.1 mmol/L (3.5-5.1); Sodium 140 mmol/L (137-145); Total Bilirubin 0.4 mg/dL (0.2-1.3); Total Protein 6.2 g/dL (6.3-8.2)
--- NOTE | 2021-03-30 10:39 | P.PN ---
Subjective Progress Note Date: 03/30/21 80-year-old female patient, came into the hospital yesterday after a fall as the patient tripped on a carpet and she fell on the left side and she sustained a fracture to her left femur. X-ray shows some minimally displaced left intertrochanteric femur fracture post fall. She has had difficulties with ba huan over the years and she has had previous history of falls. The patient had multiple orthopedic surgeries including bilateral knee replacements, and cervical spine surgery and left upper extremity ORIF with insertion of plate and screws. At this point in time, I'm seeing this patient to make sure she is medically cleared for her surgery. The patient was taken to the operating room this afternoon. A cardiology consultation has been also obtained regarding a cardiac clearance as the patient is known to have a third-degree AV block and the patient has a permanent pacemaker in place. Her current cardiac rhythm and EKG is paced. No reported history of coronary artery disease. No angina. No palpitation.. The patient is resting comfortably in bed. No history of any DVT. Nausea pulmonary embolism. She is known to have diabetes mellitus and hypertension and hyperlipidemia. She has also had a previous stroke affecting her vision on the left. 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 She is currently on room air oxygen. No respiratory difficulties. No cough or sputum production or chest tightness or wheezing. Her chest x-ray essentially clear. Pacemaker is in place. No syncope. No cardiac arrhythmias of been noted. On 03/30/2021 patient is seen in follow-up on medical surgical floor, she is status post open reduction and internal fixation of the left intertrochanteric femur fracture. He is postoperative day #1. Patient is awake and alert, oriented 3, she is currently on 3 L of oxygen and the pulse ox of 98%, she has had no fever or chills, vital signs have been stable overnight. Her pain is controlled with a combination of oral [place] as well as the morphine for breakthrough pain. Working on incentive spirometer. No acute events overnight, today's labs have been reviewed, electrolytes and renal profile are unremarkable. Intact is on Lovenox 40 mg daily for DVT prophylaxis, she has high lateral lower extremities SCDs, ulcerating oral diet, no nausea vomiting or diarrhea. Objective - Vital Signs Vital signs: Vital Signs Temp 98.4 F 03/30/21 07:20 Pulse 90 03/30/21 07:20 Resp 18 03/30/21 07:20 BP 109/63 03/30/21 07:20 Pulse Ox 98 03/30/21 07:20 Intake & Output 03/29/21 03/30/21 03/30/21 18:59 06:59 18:59 Intake Total 551 Output Total 180 900 Balance 371 -900 Intake: IV 551 Output: Urine 150 900 Estimated Blood Loss 30 Other: Voiding Method Indwelling Catheter - Exam GENERAL EXAM: Alert, pleasant, 80-year-old white female, resting comfortably in bed, currently on 3 L of oxygen comfortable in no apparent distress. HEAD: Normocephalic/atraumatic. EYES: Normal reaction of pupils, equal size. Conjunctiva pink, sclera white. NOSE: Clear with pink turbinates. THROAT: No erythema or exudates. NECK: No masses, no JVD, no thyroid enlargement, no adenopathy. CHEST: No chest wall deformity. Symmetrical expansion. LUNGS: Equal air entry with no crackles, wheeze, rhonchi or dullness. CVS: Regular rate and rhythm, normal S1 and S2, no gallops, no murmurs, no rubs ABDOMEN: Soft, nontender. No hepatosplenomegaly, normal bowel sounds, no guarding or rigidity. EXTREMITIES: No clubbing, mild non-pitting edema in left leg, no cyanosis, 2+ pulses and upper and lower extremities. MUSCULOSKELETAL: Muscle strength and tone normal. Left Hip incision is clean dry and intact, covered with surgical dressing SPINE: No scoliosis or deformity SKIN: No rashes CENTRAL NERVOUS SYSTEM: Alert and oriented -3. No focal deficits, tone is normal in all 4 extremities. PSYCHIATRIC: Alert and oriented -3. Appropriate affect. Intact judgment and insight. - Labs CBC & Chem 7: 03/29/21 03:37 03/30/21 07:34 Labs: Abnormal Lab Results - Last 24 Hours (Table) 03/29/21 03/29/21 03/29/21 Range/Units 11:52 16:15 17:09 Glucose (74-99) mg/dL POC Glucose (mg/dL) 141 H 182 H 222 H (75-99) mg/dL Total Protein (6.3-8.2) g/dL 03/29/21 03/30/21 03/30/21 Range/Units 20:59 06:52 07:34 Glucose 164 H (74-99) mg/dL POC Glucose (mg/dL) 265 H 135 H (75-99) mg/dL Total Protein 6.2 L (6.3-8.2) g/dL Assessment and Plan Plan: Assessment 1 displaced left intertrochanteric femur fracture post fall, status post open reduction and internal fixation of the left intratrochanteric femur fracture, stop day #1 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 5 hypertension 6 hyperlipidemia 7 history of third-degree AV block and the patient is a permanent pacemaker in place 8 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 9 osteoarthritis 10 previous history of polyps in the colon 11 moderate to severe mitral stenosis with a preserved LV function based on a previous echocardiogram from July 2020 12 moderate concentric LVH/hypertensive heart disease based on echocardiogram from July 2020 Plan: Encourage deep breathing and coughing and incentive spirometry use Wean FiO2 to keep O2 sat at or above 92-94% Physical therapy evaluation and treatment Maintain pain control Follow-up chest x-ray tomorrow I performed a history & physical examination of the patient and discussed their management with my nurse practitioner, Carlie Luna. I reviewed the nurse practitioner's note and agree with the documented findings and plan of care. Lung sounds are positive for diminished breath sounds. The findings and the impression was discussed with the patient. I attest to the documentation by the nurse practitioner. Time with Patient: Less than 30
--- NOTE | 2021-03-30 11:06 | P.PN ---
Subjective Progress Note Date: 03/30/21 Principal diagnosis: Status post IM nail left intertrochanteric femur fracture Patient was evaluated at bedside, she is resting in her hospital chair. She was able to get to the hospital chair with the aid of physical therapy and the nursing staff. She does have some discomfort in the left lower extremity. She has no other orthopedic complaints this time. She denies any s shortness of breath at this time. She denies any fever or chills. Objective - Vital Signs Vital signs: Vital Signs Temp 98.4 F 03/30/21 07:20 Pulse 90 03/30/21 07:20 Resp 18 03/30/21 07:20 BP 109/63 03/30/21 07:20 Pulse Ox 98 03/30/21 07:20 Intake & Output 03/29/21 03/30/21 03/30/21 18:59 06:59 18:59 Intake Total 551 Output Total 180 900 Balance 371 -900 Intake: IV 551 Output: Urine 150 900 Estimated Blood Loss 30 Other: Voiding Method Indwelling Catheter - Exam Left lower extremity: Incision is clean, dry, and intact. The rowena are good condition. There is minimal soft tissue swelling and ecchymosis surrounding the medial and lateral aspects of the incision. Calf is soft, no tenderness with palpation. Plantar flexion, dorsiflexion, EHL, FHL are intact. Sensory exam to light touch throughout the extremity is intact, dorsal pedis pulses 2+. - Labs CBC & Chem 7: 03/29/21 03:37 03/30/21 07:34 Labs: Abnormal Lab Results - Last 24 Hours (Table) 03/29/21 03/29/21 03/29/21 Range/Units 11:52 16:15 17:09 Glucose (74-99) mg/dL POC Glucose (mg/dL) 141 H 182 H 222 H (75-99) mg/dL Total Protein (6.3-8.2) g/dL 03/29/21 03/30/21 03/30/21 Range/Units 20:59 06:52 07:34 Glucose 164 H (74-99) mg/dL POC Glucose (mg/dL) 265 H 135 H (75-99) mg/dL Total Protein 6.2 L (6.3-8.2) g/dL Assessment and Plan Assessment: Postoperative day #1 status post IM nail left intertrochanteric femur fracture Plan: Pain control, continue use of current medication DVT prophylaxis, continue subcu medication Dressing changes every 2 days, cover incisions while showering Ice the lower extremity often Weight-bear as tolerated with walker PT/OT evaluation Other medical specialty recommendations Awaiting CBC results Discharge planning: Patient will need subacute rehab placement, hopeful discharge in the next day or 2 Time with Patient: Less than 30
[2021-03-30 11:36] LABS: Glucose,Whole Blood 268 mg/dL (75-99)
[2021-03-30 12:07] LABS: Basophils # (A) 0.03 X 10*3/uL (0.00-0.10); Basophils % (A) 0.3 %; Eosinophils % (A) 0.9 %; HCT 37.7 % (37.2-46.3); HGB 11.8 g/dL (12.0-15.0); Lymphocytes # (A) 1.98 X 10*3/uL (0.90-5.00); Lymphocytes % (A) 18.7 %; MCH 28.8 pg (27.0-32.0); MCHC 31.3 g/dL (32.0-37.0); Mean Platelet Volume 11.4 fL (9.5-12.2); Monocytes # (A) 0.71 X 10*3/uL (0.20-1.00); Monocytes % (A) 6.7 %; Neutrophils # (A) 7.72 X 10*3/uL (1.80-7.70); Neutrophils % (A) 73.1 %; Platelet Count 208 X 10*3/uL (140-440); RDW 13.7 % (11.5-14.5); WBC 10.57 X 10*3/uL (4.50-10.00)
--- NOTE | 2021-03-30 14:55 | P.PN ---
Subjective This is a pleasant 80-year-old female past medical history significant for hyperlipidemia, type 2 diabetes, dyslipidemia, complete heart block status post permanent dual chamber pacemaker placement 07/2020. She follows in the office with [facility] We have been asked to see in consultation for cardiac clearance. She presented to [facility] early this morning falling and injuring her left hip. Patient states that she was ambulating in her home with her walker. While walking, patient tripped over a piece of carpet causing her to fall onto her left side. She was unable to get up off the floor weight-bear after the incident. She was able to crawl over the telephone and contact EMS. Patient found to have minimally displaced left intertrochanteric femur fracture. Orthopedics saw the patient and patient plans to go for surgical intervention,an intramedullary nail femur with Ortho 03/29/2021 Patient is postop day 1 of IM nail left intertrochanteric femur fracture. Patient seen and examined at bedside, no acute distress. She denies chest pain, shortness of breath, fever, chills, lightheadedness, dizziness. Blood pressure 102/62, heart rate 82, afebrile, maintaining oxygen saturations on 2 L nasal cannula. Laboratory data reviewed. GENERAL: Well-appearing, well-nourished and in no acute distress. NECK: Supple without JVD or thyromegaly. LUNGS: Breath sounds clear to auscultation bilaterally. Respiration equal and unlabored. No wheezes, rales or rhonchi. HEART: Regular rate and rhythm without murmurs, rubs or gallops. S1 and S2 heard. EXTREMITIES: Normal range of motion, no edema. No clubbing or cyanosis. Peripheral pulses intact. Left lower extremity- incision clean dry intact rowena present ASSESSMENT Postoperative day #1 status post IM nail left intertrochanteric femur fracture Hyperlipidemia Type 2 Diabetes Complete Heart Block s/p dual chamber permanent pacemaker 07/2020 PLAN From cardiology respective recommend continuing patient's atorvastatin and metoprolol tartrate 25 mg twice a day No further recommendations at this time. We'll follow the patient as needed. Please return with any questions or concerns. Patient follow-up in the outpatient office with Dr. Gabriel Nurse Practitioner note has been reviewed, I agree with a documented findings and plan of care. Patient was seen and examined. Objective - Vital Signs Vital signs: Vital Signs Temp 98.2 F 03/30/21 14:00 Pulse 81 03/30/21 14:00 Resp 16 03/30/21 14:00 BP 102/62 03/30/21 14:00 Pulse Ox 97 03/30/21 14:00 Intake & Output 03/29/21 03/30/21 03/30/21 18:59 06:59 18:59 Intake Total 551 Output Total 180 900 Balance 371 -900 Intake: IV 551 Output: Urine 150 900 Estimated Blood Loss 30 Other: Voiding Method Indwelling Catheter - Labs CBC & Chem 7: 03/30/21 07:34 03/30/21 07:34 Labs: Abnormal Lab Results - Last 24 Hours (Table) 03/29/21 03/29/21 03/29/21 Range/Units 16:15 17:09 20:59 WBC (4.50-10.00) X 10*3/uL Hgb (12.0-15.0) g/dL MCHC (32.0-37.0) g/dL Neutrophils # (1.80-7.70) X 10*3/uL Glucose (74-99) mg/dL POC Glucose (mg/dL) 182 H 222 H 265 H (75-99) mg/dL Total Protein (6.3-8.2) g/dL 03/30/21 03/30/21 03/30/21 Range/Units 06:52 07:34 07:34 WBC 10.57 H (4.50-10.00) X 10*3/uL Hgb 11.8 L (12.0-15.0) g/dL MCHC 31.3 L (32.0-37.0) g/dL Neutrophils # 7.72 H (1.80-7.70) X 10*3/uL Glucose 164 H (74-99) mg/dL POC Glucose (mg/dL) 135 H (75-99) mg/dL Total Protein 6.2 L (6.3-8.2) g/dL 03/30/21 Range/Units 11:34 WBC (4.50-10.00) X 10*3/uL Hgb (12.0-15.0) g/dL MCHC (32.0-37.0) g/dL Neutrophils # (1.80-7.70) X 10*3/uL Glucose (74-99) mg/dL POC Glucose (mg/dL) 268 H (75-99) mg/dL Total Protein (6.3-8.2) g/dL
[2021-03-30 16:19] LABS: Basophils # (A) 0.04 X 10*3/uL (0.00-0.10); Basophils % (A) 0.4 %; Eosinophils # (A) 0.09 X 10*3/uL (0.04-0.35); Eosinophils % (A) 0.9 %; HCT 38.4 % (37.2-46.3); MCH 29.2 pg (27.0-32.0); MCHC 31.3 g/dL (32.0-37.0); MCV 93.4 fL (80.0-97.0); Mean Platelet Volume 11.2 fL (9.5-12.2); Monocytes # (A) 0.67 X 10*3/uL (0.20-1.00); Monocytes % (A) 6.4 %; Neutrophils # (A) 7.67 X 10*3/uL (1.80-7.70); Neutrophils % (A) 72.8 %; Platelet Count 203 X 10*3/uL (140-440); RBC 4.11 X 10*6/uL (4.10-5.20); WBC 10.52 X 10*3/uL (4.50-10.00)
[2021-03-30 16:26] LABS: Glucose,Whole Blood 297 mg/dL (75-99)
[2021-03-30 20:29] LABS: Glucose,Whole Blood 365 mg/dL (75-99)
[2021-03-30] MEDS: ATORVASTATIN 10 MG TAB PO SCH (21:08)
[2021-03-30] MEDS: SENNOSIDES-DOCUSATE SODIUM 1 EACH TAB PO SCH (21:08)
[2021-03-31] MEDS: HYDROcodone/APAP 7.5-325MG 1 EACH TAB PO PRN ×2 (04:10→22:28)
[2021-03-31 07:14] LABS: Glucose,Whole Blood 304 mg/dL (75-99)
[2021-03-31] MEDS: ENOXAPARIN 40 MG/0.4 ML SYRINGE SQ SCH (07:20)
[2021-03-31] MEDS: METOPROLOL TARTRATE 25 MG TAB PO SCH ×2 (07:21→20:56)
[2021-03-31] MEDS: INSULIN ASPART (NovoLOG) 100 UNIT/ML VIAL SQ SCH ×4 (07:21→20:55)
[2021-03-31] MEDS: PANTOPRAZOLE 40 MG TABLET PO SCH (07:21)
--- NOTE | 2021-03-31 08:24 | XR ---
EXAMINATION TYPE: XR chest 1V portable DATE OF EXAM: 03/31/2021 Comparison: 03/29/2021 , CT 03/07/2018 Clinical History: 80-year-old female post-op hypoxic respiratory failure Findings: Partially visualized plate and screw fixation proximal left humerus. Left anterior chest wall pacemak er generator with right atrial and right ventricular leads. Heart remains borderline in size. Mild in terstitial and vascular prominence remains. Focal retrocardiac opacity persists. Possible trace left effusion. Additional focal lobulated density from the left hemidiaphragm is also unchanged and seems to correspond to a focal herniation through the diaphragm. Chronic full-thickness rotator cuff tear o n the right. Impression: 1. Stable mild diffuse interstitial prominence, possible mild pulmonary vascular congestion. 2. Continued retrocardiac atelectasis and/or consolidation and trace left effusion. 3. Stable lobulated opacity from the left hemidiaphragm. Based on prior 2018 CT, this seems to corres pond to a focal fat-containing Bochdalek hernia.
--- NOTE | 2021-03-31 10:00 | P.PN ---
Subjective Progress Note Date: 03/31/21 Principal diagnosis: Status post IM nail left intertrochanteric femur fracture Patient was evaluated at bedside, she is resting in her hospital chair. She has no other orthopedic complaints this time. She denies any s shortness of breath at this time. She denies any fever or chills. Objective - Vital Signs Vital signs: Vital Signs Temp 97.9 F 03/31/21 08:00 Pulse 89 03/31/21 08:00 Resp 18 03/31/21 08:00 BP 119/76 03/31/21 08:00 Pulse Ox 96 03/31/21 08:00 Intake & Output 03/30/21 03/31/21 03/31/21 18:59 06:59 18:59 Output Total 800 Balance -800 Output: Urine 800 Other: Voiding Method Indwelling Catheter Indwelling Catheter - Exam Left lower extremity: Incision is clean, dry, and intact. The rowena are good condition. There is minimal soft tissue swelling and ecchymosis surrounding the medial and lateral aspects of the incision. Calf is soft, no tenderness with palpation. Plantar flexion, dorsiflexion, EHL, FHL are intact. Sensory exam to light touch throughout the extremity is intact, dorsal pedis pulses 2+. - Labs CBC & Chem 7: 03/30/21 07:34 03/30/21 07:34 Labs: Abnormal Lab Results - Last 24 Hours (Table) 03/30/21 03/30/21 03/30/21 Range/Units 07:34 07:34 11:34 WBC 10.57 H 10.52 H (4.50-10.00) X 10*3/uL Hgb 11.8 L (12.0-15.0) g/dL MCHC 31.3 L 31.3 L (32.0-37.0) g/dL Immature Gran # 0.05 H (0.00-0.04) X 10*3/uL Neutrophils # 7.72 H (1.80-7.70) X 10*3/uL POC Glucose (mg/dL) 268 H (75-99) mg/dL 03/30/21 03/30/21 03/31/21 Range/Units 16:22 20:27 07:08 WBC (4.50-10.00) X 10*3/uL Hgb (12.0-15.0) g/dL MCHC (32.0-37.0) g/dL Immature Gran # (0.00-0.04) X 10*3/uL Neutrophils # (1.80-7.70) X 10*3/uL POC Glucose (mg/dL) 297 H 365 H 304 H (75-99) mg/dL Assessment and Plan Assessment: Postoperative day #2 status post IM nail left intertrochanteric femur fracture Plan: Pain control, continue use of current medication DVT prophylaxis, continue subcu medication Dressing changes every 2 days, cover incisions while showering Ice the lower extremity often Weight-bear as tolerated with walker PT/OT evaluation Other medical specialty recommendations Awaiting CBC results Discharge planning: Plan for discharge to rehab 04/01/2021 Time with Patient: Less than 30
[2021-03-31 11:40] LABS: Glucose,Whole Blood 313 mg/dL (75-99)
[2021-03-31] MEDS: metFORMIN 500 MG TAB PO SCH ×2 (11:49→20:56)
[2021-03-31] MEDS: glipiZIDE 10 MG TAB PO SCH ×2 (11:49→20:55)
[2021-03-31] MEDS: OXYBUTYNIN XL 5 MG TAB.ER.24 PO SCH (11:49)
--- NOTE | 2021-03-31 12:30 | P.PN ---
Subjective Progress Note Date: 03/31/21 80-year-old female patient, came into the hospital yesterday after a fall as the patient tripped on a carpet and she fell on the left side and she sustained a fracture to her left femur. X-ray shows some minimally displaced left intertrochanteric femur fracture post fall. She has had difficulties with ba huan over the years and she has had previous history of falls. The patient had multiple orthopedic surgeries including bilateral knee replacements, and cervical spine surgery and left upper extremity ORIF with insertion of plate and screws. At this point in time, I'm seeing this patient to make sure she is medically cleared for her surgery. The patient was taken to the operating room this afternoon. A cardiology consultation has been also obtained regarding a cardiac clearance as the patient is known to have a third-degree AV block and the patient has a permanent pacemaker in place. Her current cardiac rhythm and EKG is paced. No reported history of coronary artery disease. No angina. No palpitation.. The patient is resting comfortably in bed. No history of any DVT. Nausea pulmonary embolism. She is known to have diabetes mellitus and hypertension and hyperlipidemia. She has also had a previous stroke affecting her vision on the left. 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 She is currently on room air oxygen. No respiratory difficulties. No cough or sputum production or chest tightness or wheezing. Her chest x-ray essentially clear. Pacemaker is in place. No syncope. No cardiac arrhythmias of been noted. On 03/30/2021 patient is seen in follow-up on medical surgical floor, she is status post open reduction and internal fixation of the left intertrochanteric femur fracture. He is postoperative day #1. Patient is awake and alert, oriented 3, she is currently on 3 L of oxygen and the pulse ox of 98%, she has had no fever or chills, vital signs have been stable overnight. Her pain is controlled with a combination of oral [place] as well as the morphine for breakthrough pain. Working on incentive spirometer. No acute events overnight, today's labs have been reviewed, electrolytes and renal profile are unremarkable. Intact is on Lovenox 40 mg daily for DVT prophylaxis, she has high lateral lower extremities SCDs, ulcerating oral diet, no nausea vomiting or diarrhea. On 03/31/2001 patient seen in follow-up on medical surgical floor. She is up in the recliner today, she states she feels slightly congested in the chest today, she does have a cough which is occasional, no phlegm production, lung sounds are mostly diminished. She remains on 2 L of oxygen, her pulse ox is 96%, she said no fever or chills, she still has no incentive spirometer at the bedside. We spoke to nursing and requested again that incentive spirometer be provided with the patient. No phlegm production, no hemoptysis, no chest discomfort. Today's chest x-ray shows stable mild diffuse interstitial prominence possibly related to mild pulmonary vessel congestion. And continued retrocardiac atelectasis and/or consolidation and trace left pleural effusion. Stable lobulated opacity in the left hemidiaphragm and this was compared to previous CT from 2018 Objective - Vital Signs Vital signs: Vital Signs Temp 97.9 F 03/31/21 08:00 Pulse 89 03/31/21 08:00 Resp 18 03/31/21 08:00 BP 119/76 03/31/21 08:00 Pulse Ox 95 03/31/21 10:51 Intake & Output 03/30/21 03/31/21 03/31/21 18:59 06:59 18:59 Output Total 800 Balance -800 Output: Urine 800 Other: Voiding Method Indwelling Catheter Indwelling Catheter - Exam GENERAL EXAM: Alert, pleasant, 80-year-old white female, resting comfortably in a recliner, currently on 2 L of oxygen comfortable in no apparent distress. HEAD: Normocephalic/atraumatic. EYES: Normal reaction of pupils, equal size. Conjunctiva pink, sclera white. NOSE: Clear with pink turbinates. THROAT: No erythema or exudates. NECK: No masses, no JVD, no thyroid enlargement, no adenopathy. CHEST: No chest wall deformity. Symmetrical expansion. LUNGS: Equal air entry with no crackles, wheeze, rhonchi or dullness. CVS: Regular rate and rhythm, normal S1 and S2, no gallops, no murmurs, no rubs ABDOMEN: Soft, nontender. No hepatosplenomegaly, normal bowel sounds, no guarding or rigidity. EXTREMITIES: No clubbing, mild non-pitting edema in left leg, no cyanosis, 2+ pulses and upper and lower extremities. MUSCULOSKELETAL: Muscle strength and tone normal. Left Hip incision is clean dry and intact, covered with surgical dressing SPINE: No scoliosis or deformity SKIN: No rashes CENTRAL NERVOUS SYSTEM: Alert and oriented -3. No focal deficits, tone is normal in all 4 extremities. PSYCHIATRIC: Alert and oriented -3. Appropriate affect. Intact judgment and insight. - Labs CBC & Chem 7: 03/30/21 07:34 03/30/21 07:34 Labs: Abnormal Lab Results - Last 24 Hours (Table) 03/30/21 03/30/21 03/30/21 Range/Units 07:34 16:22 20:27 WBC 10.52 H (4.50-10.00) X 10*3/uL MCHC 31.3 L (32.0-37.0) g/dL Immature Gran # 0.05 H (0.00-0.04) X 10*3/uL POC Glucose (mg/dL) 297 H 365 H (75-99) mg/dL 03/31/21 03/31/21 Range/Units 07:08 11:39 WBC (4.50-10.00) X 10*3/uL MCHC (32.0-37.0) g/dL Immature Gran # (0.00-0.04) X 10*3/uL POC Glucose (mg/dL) 304 H 313 H (75-99) mg/dL Assessment and Plan Plan: Assessment 1 displaced left intertrochanteric femur fracture post fall, status post open reduction and internal fixation of the left intratrochanteric femur fracture, stop day #1 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 5 hypertension 6 hyperlipidemia 7 history of third-degree AV block and the patient is a permanent pacemaker in place 8 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 9 osteoarthritis 10 previous history of polyps in the colon 11 moderate to severe mitral stenosis with a preserved LV function based on a previous echocardiogram from July 2020 12 moderate concentric LVH/hypertensive heart disease based on echocardiogram from July 2020 Plan: Provide incentive spirometer Encourage deep breathing and coughing Weaning FiO2 to keep O2 sats at or above 90% Today chest x-ray has been reviewed showing mild pulmonary vascular congestion, which is stable GI and DVT prophylaxis Continue to follow I performed a history & physical examination of the patient and discussed their management with my nurse practitioner, Carlie Luna. I reviewed the nurse practitioner's note and agree with the documented findings and plan of care. Lung sounds are positive for diminished breath sounds. The findings and the impression was discussed with the patient. I attest to the documentation by the nurse practitioner. Time with Patient: Less than 30
[2021-03-31 17:05] LABS: Glucose,Whole Blood 271 mg/dL (75-99)
[2021-03-31 20:16] LABS: Glucose,Whole Blood 292 mg/dL (75-99)
[2021-03-31] MEDS: ATORVASTATIN 10 MG TAB PO SCH (20:55)
[2021-03-31] MEDS: SENNOSIDES-DOCUSATE SODIUM 1 EACH TAB PO SCH (20:56)
[2021-04-01 07:17] LABS: Glucose,Whole Blood 256 mg/dL (75-99)
[2021-04-01 07:24] VITALS: RESP 16
[2021-04-01] MEDS: INSULIN ASPART (NovoLOG) 100 UNIT/ML VIAL SQ SCH ×2 (08:20→11:55)
[2021-04-01] MEDS: OXYBUTYNIN XL 5 MG TAB.ER.24 PO SCH (08:20)
[2021-04-01] MEDS: HYDROcodone/APAP 7.5-325MG 1 EACH TAB PO PRN ×2 (08:20→14:14)
[2021-04-01] MEDS: METOPROLOL TARTRATE 25 MG TAB PO SCH (08:20)
[2021-04-01] MEDS: glipiZIDE 10 MG TAB PO SCH (08:20)
[2021-04-01] MEDS: PANTOPRAZOLE 40 MG TABLET PO SCH (08:21)
[2021-04-01] MEDS: metFORMIN 500 MG TAB PO SCH (08:21)
[2021-04-01] MEDS: ENOXAPARIN 40 MG/0.4 ML SYRINGE SQ SCH (08:21)
[2021-04-01] MEDS: diphenhydrAMINE 50 MG/ML 1 ML VIAL IVP PRN (09:59)
[2021-04-01 11:37] LABS: Glucose,Whole Blood 365 mg/dL (75-99)
--- NOTE | 2021-04-01 11:45 | P.DS ---
Providers Date of admission: 03/29/21 03:47 Expected date of discharge: 04/01/21 Attending physician: Ahser Noble Consults: 03/29/21 03:47 Consult Physician Routine Consulting Provider: Amarilys Myers Consult Reason/Comments: medMgmnt Do you want consulting provider notified?: Yes 03/29/21 08:06 Consult Physician Routine Consulting Provider: April Gabriel Consult Reason/Comments: cardiac clearance Do you want consulting provider notified?: Yes Primary care physician: Amarilys Myers Hospital Course: Date of admission: 03/29/2021 Date of discharge: 04/01/2021 Admission diagnosis: Left hip intertrochanteric fracture Discharge diagnosis: Same Attending physician: Dr. Noble Surgical procedures: Left hip IM nail Brief history: Patient is a 80-year-old female with a history of left hip fracture status post fall. At this point patient has failed conservative treatment measures and has opted to proceed with a elective left hip IM nail. Hospital course: Details of patient's surgery can be found in operative report. Patient tolerated the procedure well and was subsequently transported to orthopedic floor. Patient's orthopeidc and medical care was provided daily. Patient had daily laboratory tests performed for evaluation of overall blood counts. Patient had daily physical therapy to include strengthening range of motion as well as education with walker ambulation. Patient was treated with Lovenox for their postoperative DVT prophylaxis during their inpatient stay. Patient was noted to have a relatively uneventful postoperative course. Patient reported satisfactory pain control with oral pain medications by postoperative day 3. Patient showed satisfactory progress with physical therapy. Patient moved steadily through the program and had no difficulty meeting the goals by postoperative day 3. Given patient's otherwise satisfactory course and having met physical therapy goals, plan is to discharge patient to [facility] rehab on postoperative day 3. Discharge condition/disposition: Patient will be discharged to [facility] rehab in stable condition. Discharge medications: Instructions are given on resumption of patient's normal daily medications per primary care recommendation, in addition patient will be prescribed Closplint 7.5 mg/325 mg; senna; Eliquis 2.5 mg BID x 2 weeks. Discharge instructions: 1. Wound care and infection precautions, keep incision dry and covered while showering, no lotions, creams, moisturizers. No soaking, tubs, pools, hottubs. Do not scrub over the incision. 2. Weight-bear as tolerated with walker / cane until follow-up. 3. Ice and elevate when necessary. Do not exceed 20 minutes per hour with ice pack. 4. Utilize compression sleeve until seen at first follow up appointment. 5. Visiting nursing care. 6. Home physical therapy. 7. Pain meds and anticoagulants per prescription. 8. Pain medication has potential to cause constipation. Increase oral fluid and fiber intake. Contact primary care provider if you have not had a bowel movement within 48 hours after discharge 9. No anti-inflammatory medication until discussed at first post operative visit, this including Motrin, Aleve, Mobic, Diclofenac. 10. Follow up in office at 2 weeks postop with Matthew Navarro PA-C / Lukas Lopez PA-C 11. Follow up with your primary care doctor 7-10 days after discharge. 12. Contact [facility] with any questions, . Assessment: Left hip IT fracture status post fall Procedures: Left hip IM nail Patient Condition at Discharge: Good Plan - Discharge Summary Discharge Rx Participant: No New Discharge Prescriptions: New Apixaban [Eliquis] 2.5 mg PO BID #60 tab Sennosides [Senna] 8.6 mg PO DAILY #20 tablet HYDROcodone/APAP 7.5-325MG [Closplint 7.5] 1 each PO Q6HR PRN #28 tab PRN Reason: Pain No Action gemfibroziL [Lopid] 600 mg PO BID Atorvastatin [Lipitor] 10 mg PO HS metFORMIN HCL 1,000 mg PO BID glipiZIDE XL [Glucotrol XL] 10 mg PO BID Oxybutynin Xl [Ditropan Xl] 5 mg PO DAILY Metoprolol Tartrate [Lopressor] 25 mg PO BID Discharge Medication List gemfibroziL [Lopid] 600 mg PO BID 11/18/16 [History] Atorvastatin [Lipitor] 10 mg PO HS 05/06/18 [History] metFORMIN HCL 1,000 mg PO BID 01/27/19 [History] glipiZIDE XL [Glucotrol XL] 10 mg PO BID 08/21/20 [History] Metoprolol Tartrate [Lopressor] 25 mg PO BID 03/29/21 [History] Oxybutynin Xl [Ditropan Xl] 5 mg PO DAILY 03/29/21 [History] Apixaban [Eliquis] 2.5 mg PO BID #60 tab 04/01/21 [Rx] HYDROcodone/APAP 7.5-325MG [Closplint 7.5] 1 each PO Q6HR PRN #28 tab 04/01/21 [Rx] Sennosides [Senna] 8.6 mg PO DAILY #20 tablet 04/01/21 [Rx] Follow up Appointment(s)/Referral(s): Amarilys Myers MD [Primary Care Provider] - 1-2 days Romero Navarro PAC [PHYSICIAN [employer]IC] - 2 Weeks April Gabriel MD [STAFF PHYSICIAN] - 2 Weeks Activity/Diet/Wound Care/Special Instructions: Orthopedic Discharge Instructions: 1. Wound care and infection precautions, keep incision dry and covered while showering, no lotions, creams, moisturizers. No soaking, pools, hot tubs. Do not scrub over incision. 2. Weight-bear as tolerated with walker / cane until follow-up. 3. Ice and elevate when necessary. Do not exceed 20 minutes per hour with ice pack. 4. Utilize compression sleeve until seen at first follow up appointment. 5. Pain meds and anticoagulants per prescription. 6. Pain medication has potential to cause constipation. Increase oral fluid and fiber intake. Contact primary care provider if you have not had a bowel movement within 48 hours after discharge. 7. No anti-inflammatory medication until discussed at first post operative visit, this including Motrin, Aleve, Mobic, Diclofenac. 8. Follow up in office at 2 weeks postop with Matthew Navarro PA-C/Lukas Lopez PA-C 9. Follow up with your primary care doctor 7-10 days after discharge. 10. Contact [facility] with any questions, . Discharge Disposition: TRANSFER TO SNF/ECF
--- NOTE | 2021-04-01 12:18 | P.PN ---
Subjective Progress Note Date: 04/01/21 Principal diagnosis: Status post IM nail left intertrochanteric femur fracture Patient was evaluated at bedside, she is resting in her hospital chair. She has no other orthopedic complaints this time. She denies any s shortness of breath at this time. She denies any fever or chills. Objective - Vital Signs Vital signs: Vital Signs Temp 99.1 F 04/01/21 07:24 Pulse 86 04/01/21 07:24 Resp 16 04/01/21 07:24 BP 128/77 04/01/21 07:24 Pulse Ox 97 04/01/21 07:24 Intake & Output 03/31/21 04/01/21 04/01/21 18:59 06:59 18:59 Output Total 1200 550 Balance -1200 -550 Output: Urine 1200 550 Other: Voiding Method Indwelling Catheter Indwelling Catheter - Exam Left lower extremity: Incision is clean, dry, and intact. The rowena are good condition. There is minimal soft tissue swelling and ecchymosis surrounding the medial and lateral aspects of the incision. Calf is soft, no tenderness with palpation. Plantar flexion, dorsiflexion, EHL, FHL are intact. Sensory exam to light touch throughout the extremity is intact, dorsal pedis pulses 2+. - Labs CBC & Chem 7: 03/30/21 07:34 03/30/21 07:34 Labs: Abnormal Lab Results - Last 24 Hours (Table) 03/31/21 03/31/21 04/01/21 Range/Units 17:01 20:14 06:53 POC Glucose (mg/dL) 271 H 292 H 256 H (75-99) mg/dL 04/01/21 Range/Units 11:29 POC Glucose (mg/dL) 365 H (75-99) mg/dL Assessment and Plan Assessment: Postoperative day #3 status post IM nail left intertrochanteric femur fracture Plan: Pain control, continue use of current medication DVT prophylaxis, heparin 5000 untis q12 hour for 3 weeks Dressing changes every 2 days, cover incisions while showering Ice the lower extremity often Weight-bear as tolerated with walker PT/OT evaluation Other medical specialty recommendations Awaiting CBC results Discharge planning: Plan for discharge to rehab today Time with Patient: Less than 30
--- NOTE | 2021-04-01 12:28 | P.PN ---
Subjective Progress Note Date: 04/01/21 80-year-old female patient, came into the hospital yesterday after a fall as the patient tripped on a carpet and she fell on the left side and she sustained a fracture to her left femur. X-ray shows some minimally displaced left intertrochanteric femur fracture post fall. She has had difficulties with ba huan over the years and she has had previous history of falls. The patient had multiple orthopedic surgeries including bilateral knee replacements, and cervical spine surgery and left upper extremity ORIF with insertion of plate and screws. At this point in time, I'm seeing this patient to make sure she is medically cleared for her surgery. The patient was taken to the operating room this afternoon. A cardiology consultation has been also obtained regarding a cardiac clearance as the patient is known to have a third-degree AV block and the patient has a permanent pacemaker in place. Her current cardiac rhythm and EKG is paced. No reported history of coronary artery disease. No angina. No palpitation.. The patient is resting comfortably in bed. No history of any DVT. Nausea pulmonary embolism. She is known to have diabetes mellitus and hypertension and hyperlipidemia. She has also had a previous stroke affecting her vision on the left. 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 She is currently on room air oxygen. No respiratory difficulties. No cough or sputum production or chest tightness or wheezing. Her chest x-ray essentially clear. Pacemaker is in place. No syncope. No cardiac arrhythmias of been noted. On 03/30/2021 patient is seen in follow-up on medical surgical floor, she is status post open reduction and internal fixation of the left intertrochanteric femur fracture. He is postoperative day #1. Patient is awake and alert, oriented 3, she is currently on 3 L of oxygen and the pulse ox of 98%, she has had no fever or chills, vital signs have been stable overnight. Her pain is controlled with a combination of oral [place] as well as the morphine for breakthrough pain. Working on incentive spirometer. No acute events overnight, today's labs have been reviewed, electrolytes and renal profile are unremarkable. Intact is on Lovenox 40 mg daily for DVT prophylaxis, she has high lateral lower extremities SCDs, ulcerating oral diet, no nausea vomiting or diarrhea. On 03/31/2001 patient seen in follow-up on medical surgical floor. She is up in the recliner today, she states she feels slightly congested in the chest today, she does have a cough which is occasional, no phlegm production, lung sounds are mostly diminished. She remains on 2 L of oxygen, her pulse ox is 96%, she said no fever or chills, she still has no incentive spirometer at the bedside. We spoke to nursing and requested again that incentive spirometer be provided with the patient. No phlegm production, no hemoptysis, no chest discomfort. Today's chest x-ray shows stable mild diffuse interstitial prominence possibly related to mild pulmonary vessel congestion. And continued retrocardiac atelectasis and/or consolidation and trace left pleural effusion. Stable lobulated opacity in the left hemidiaphragm and this was compared to previous CT from 2018 On 04/01/2021 patient seen in follow-up on medical surgical floor. She is up in the recliner today, in no acute distress, she is on 2 L of oxygen pulse ox is 97%. Patient is working on the incentive spirometer, she is in no acute distress. Yesterday chest x-ray showed mild diffuse interstitial prominence. Lung sounds reveal diminished breath sounds at the bases, no wheezing. No new labs today. Patient has had a stable vitals, no fever or chills. Completed chest discomfort, no wheezing no phlegm production. He is receiving oral medications for pain control in her left hip. Objective - Vital Signs Vital signs: Vital Signs Temp 99.1 F 04/01/21 07:24 Pulse 86 04/01/21 07:24 Resp 16 04/01/21 07:24 BP 128/77 04/01/21 07:24 Pulse Ox 97 04/01/21 07:24 Intake & Output 03/31/21 04/01/21 04/01/21 18:59 06:59 18:59 Output Total 1200 550 Balance -1200 -550 Output: Urine 1200 550 Other: Voiding Method Indwelling Catheter Indwelling Catheter - Exam GENERAL EXAM: Alert, pleasant, 80-year-old white female, resting comfortably in a recliner, currently on 2 L of oxygen with a pulse ox of 97% comfortable in no apparent distress. HEAD: Normocephalic/atraumatic. EYES: Normal reaction of pupils, equal size. Conjunctiva pink, sclera white. NOSE: Clear with pink turbinates. THROAT: No erythema or exudates. NECK: No masses, no JVD, no thyroid enlargement, no adenopathy. CHEST: No chest wall deformity. Symmetrical expansion. LUNGS: Equal air entry with no crackles, wheeze, rhonchi or dullness. CVS: Regular rate and rhythm, normal S1 and S2, no gallops, no murmurs, no rubs ABDOMEN: Soft, nontender. No hepatosplenomegaly, normal bowel sounds, no guarding or rigidity. EXTREMITIES: No clubbing, mild non-pitting edema in left leg, no cyanosis, 2+ pulses and upper and lower extremities. MUSCULOSKELETAL: Muscle strength and tone normal. Left Hip incision is clean dry and intact, covered with surgical dressing SPINE: No scoliosis or deformity SKIN: No rashes CENTRAL NERVOUS SYSTEM: Alert and oriented -3. No focal deficits, tone is normal in all 4 extremities. PSYCHIATRIC: Alert and oriented -3. Appropriate affect. Intact judgment and insight. - Labs CBC & Chem 7: 03/30/21 07:34 03/30/21 07:34 Labs: Abnormal Lab Results - Last 24 Hours (Table) 03/31/21 03/31/21 04/01/21 Range/Units 17:01 20:14 06:53 POC Glucose (mg/dL) 271 H 292 H 256 H (75-99) mg/dL 04/01/21 Range/Units 11:29 POC Glucose (mg/dL) 365 H (75-99) mg/dL Assessment and Plan Plan: Assessment 1 displaced left intertrochanteric femur fracture post fall, status post open reduction and internal fixation of the left intratrochanteric femur fracture, stop day #2 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 5 hypertension 6 hyperlipidemia 7 history of third-degree AV block and the patient is a permanent pacemaker in place 8 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 9 osteoarthritis 10 previous history of polyps in the colon 11 moderate to severe mitral stenosis with a preserved LV function based on a previous echocardiogram from July 2020 12 moderate concentric LVH/hypertensive heart disease based on echocardiogram f rom July 2020 Plan: Continue encouraging deep breathing and coughing Encourage incentive spirometry use No acute events overnight Patient is going to ECF today Stable for discharge to ECF from pulmonary perspective I performed a history & physical examination of the patient and discussed their management with my nurse practitioner, Carlie Luna. I reviewed the nurse practitioner's note and agree with the documented findings and plan of care. Lung sounds are positive for diminished breath sounds. The findings and the impression was discussed with the patient. I attest to the documentation by the nurse practitioner. Time with Patient: Less than 30
[2021-04-01 14:29] VITALS: BP 127/59; PULSE 85; TEMP 98.1
== END 2021-04-01 15:19 | DRG 481 ==
LOC: EC 02:30 → 4SSUR 03:47
PROVIDERS: ADMIT Orthopaedic Surgery; ATTEND Orthopaedic Surgery
PROC: 0QS706Z Reposition Left Upper Femur with Intramedullary Internal Fixation Device, Open Approach (ICD-10-PCS; principal; 2021-03-29 11:55)
DX: S72.142A Displaced intertrochanteric fracture of left femur, initial encounter for closed fracture (principal); K62.5 Hemorrhage of anus and rectum; I44.2 Atrioventricular block, complete; W01.0XXA Fall on same level from slipping, tripping and stumbling without subsequent striking against object, initial encounter; Z79.84 Long term (current) use of oral hypoglycemic drugs; E11.42 Type 2 diabetes mellitus with diabetic polyneuropathy; E78.5 Hyperlipidemia, unspecified; M19.90 Unspecified osteoarthritis, unspecified site; Z85.820 Personal history of malignant melanoma of skin; Z86.010 Personal history of colon polyps; Z98.1 Arthrodesis status; Z95.0 Presence of cardiac pacemaker; Z80.0 Family history of malignant neoplasm of digestive organs; Z96.653 Presence of artificial knee joint, bilateral; I11.9 Hypertensive heart disease without heart failure; I05.0 Rheumatic mitral stenosis; R29.6 Repeated falls; I69.312 Visuospatial deficit and spatial neglect following cerebral infarction; Z79.899 Other long term (current) drug therapy; Z91.81 History of falling; Y92.019 Unspecified place in single-family (private) house as the place of occurrence of the external cause
CPT/HCPCS: 36415; 71045; 73501; 73502; 80053; 81003; 82550; 83605; 83735; 84100; 84484; 85025; 85610; 85730; 93005; 94760; 99285

== ENCOUNTER 2021-05-12 12:51 | Inpatient (IN) | payer MEDICARE, BC ==
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
[2021-05-12 15:21] LABS: Basophils % (A) 0 %; Eosinophils # (A) 0.1 k/uL (0-0.7); Eosinophils % (A) 1 %; HCT 39.1 % (34.0-46.0); HGB 12.7 gm/dL (11.4-16.0); Hypochromasia Slight; Lymphocytes # (A) 1.4 k/uL (1.0-4.8); Lymphocytes % (A) 19 %; MCH 29.4 pg (25.0-35.0); MCHC 32.5 g/dL (31.0-37.0); MCV 90.4 fL (80.0-100.0); Mean Platelet Volume 7.5; Monocytes # (A) 0.4 k/uL (0-1.0); Monocytes % (A) 5 %; Neutrophils # (A) 5.1 k/uL (1.3-7.7); Neutrophils % (A) 72 %; Platelet Count 359 k/uL (150-450); RBC 4.32 m/uL (3.80-5.40); RDW 14.7 % (11.5-15.5); WBC 7.1 k/uL (3.8-10.6)
[2021-05-12 15:31] LABS: ALT 8 U/L (4-34); AST 25 U/L (14-36); African American GFR (CKD) >90 (>60 ml/min/1.73 sqM); Albumin 4.1 g/dL (3.5-5.0); Alkaline Phosphatase 178 U/L (38-126); Anion Gap 11 mmol/L; Blood Urea Nitrogen 14 mg/dL (7-17); C Reactive Protein 4.7 mg/dL (<1.0); Calcium 9.8 mg/dL (8.4-10.2); Carbon Dioxide 21 mmol/L (22-30); Chloride 103 mmol/L (98-107); Glucose 160 mg/dL (74-99); LDH 528 U/L (313-618); Magnesium 1.7 mg/dL (1.6-2.3); Non-African American GFR(CKD) 85 (>60 ml/min/1.73 sqM); Potassium 4.6 mmol/L (3.5-5.1); Sodium 135 mmol/L (137-145); Total Bilirubin 0.3 mg/dL (0.2-1.3); Total Protein 6.9 g/dL (6.3-8.2)
[2021-05-12 15:37] LABS: Partial Thromboplastin Time 21.9 sec (22.0-30.0); Prothrombin Time 10.7 sec (9.0-12.0)
--- NOTE | 2021-05-12 15:43 | XR ---
EXAMINATION TYPE: XR chest 1V portable DATE OF EXAM: 05/12/2021 Comparison: 03/31/2021 Clinical History: 80-year-old female cough and shortness of breath, Suspected COVID-19 pneumonia Findings: Heart upper limits of normal in size. Mild interstitial prominence is unchanged. Focal retrocardiac/l eft basilar opacity redemonstrated. When correlated with patient's 02/10/2019 CT, findings compatible with a fat containing Bochdalek hernia. However, there is a new focal patchy medial left basilar opac ity projecting behind the heart. Left anterior chest wall pacemaker generator with right atrial and r ight ventricular leads. Plate and screw fixation proximal left humerus. Chronic full-thickness rotato r cuff tear on the right likely with underlying rotator cuff arthropathy. 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 New adjacent focal density medi al left base. Infiltrate is possible. Follow-up after treatment to ensure clearance and exclude a new pulmonary nodule.
[2021-05-12] MEDS ORDERED: SODIUM CHLORIDE 0.9% 50 ML IVPB ONE (16:45)
[2021-05-12] MEDS ORDERED: CASIRIVIMAB (REGN10933) (EUA) 600 MG, IMDEVIMAB (REGN10987) (EUA) 600 MG in SODIUM CHLO... IVPB ONE (17:00)
[2021-05-12] MEDS ORDERED: NALOXONE 0.4 MG/ML 1 ML VIAL IV PRN (18:43)
[2021-05-12] MEDS ORDERED: ACETAMINOPHEN TAB 325 MG TAB PO PRN (18:49)
[2021-05-12 21:24] LABS: Ferritin 125.8 ng/mL (10.0-291.0)
[2021-05-13 01:45] LABS: Glucose,Whole Blood 104 mg/dL (75-99)
[2021-05-13 07:18] LABS: Glucose,Whole Blood 173 mg/dL (75-99)
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
[2021-05-13] MEDS ORDERED: ARTIFICIAL TEARS-HYPROMELLOSE DROPS 15 ML BTL BOTH EYES PRN (18:31)
[2021-05-13] MEDS ORDERED: CALCIUM CARBONATE 500 MG CHEWABLE PO PRN (18:31)
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
[2021-05-13 20:48] LABS: Glucose,Whole Blood 331 mg/dL (75-99)
[2021-05-13] MEDS: ACETAMINOPHEN TAB 325 MG TAB PO SCH (22:35)
[2021-05-13] MEDS: metFORMIN 500 MG TAB PO SCH (22:35)
[2021-05-13] MEDS: glipiZIDE 10 MG TAB PO SCH (22:35)
[2021-05-13] MEDS: DOCUSATE 100 MG CAP PO SCH (22:35)
[2021-05-13] MEDS: METOPROLOL TARTRATE 25 MG TAB PO SCH (22:35)
[2021-05-13] MEDS: ENOXAPARIN 30 MG/0.3 ML SYRINGE SQ SCH (22:36)
[2021-05-13] MEDS: SENNOSIDES 8.6 MG TAB PO SCH (22:36)
[2021-05-13] MEDS: ATORVASTATIN 10 MG TAB PO SCH (22:37)
[2021-05-13] MEDS: NON FORMULARY DRUG (Mirabegron [Myrbetriq] 25 MG Tab.Er.24h) PO SCH (22:45)
[2021-05-14 07:07] LABS: Glucose,Whole Blood 235 mg/dL (75-99)
[2021-05-14] MEDS: ASPIRIN 81 MG PO SCH (08:47)
[2021-05-14] MEDS: ACETAMINOPHEN TAB 325 MG TAB PO SCH ×2 (08:47→22:35)
[2021-05-14] MEDS: ENOXAPARIN 30 MG/0.3 ML SYRINGE SQ SCH (08:47)
[2021-05-14] MEDS: metFORMIN 500 MG TAB PO SCH ×2 (08:48→22:35)
[2021-05-14] MEDS: METOPROLOL TARTRATE 25 MG TAB PO SCH ×2 (08:48→22:35)
[2021-05-14] MEDS: polyethylene glycoL 3350 17 GM POWD.PACK PO SCH (08:48)
[2021-05-14] MEDS: glipiZIDE 10 MG TAB PO SCH ×2 (08:48→22:36)
[2021-05-14] MEDS: FENOFIBRATE 160 MG TAB PO SCH (08:49)
[2021-05-14 11:23] LABS: Glucose,Whole Blood 324 mg/dL (75-99)
[2021-05-14] MEDS: HYDROcodone/APAP 7.5-325MG 1 EACH TAB PO PRN ×2 (12:04→17:24)
[2021-05-14 16:43] LABS: Glucose,Whole Blood 244 mg/dL (75-99)
[2021-05-14] MEDS: DOCUSATE 100 MG CAP PO SCH (17:23)
[2021-05-14] MEDS: SENNOSIDES 8.6 MG TAB PO SCH (17:23)
--- NOTE | 2021-05-14 18:54 | P.PN ---
Subjective Progress Note Date: 05/14/21 Principal diagnosis: COVID 19 infection as the patient tested positive by PCR 80-year-old female patient, [facility] resident, who [facility] as the patient tested positive for COVID 19 noted the patient was vaccinated the [facility]. She was complaining of some symptoms of URI and congestion and sore throat. Otherwise, no significant respiratory distress. No fever. She is on room air oxygen with a pulse ox of 95-96%. Chest x-ray is essentially clear. No evidence of any pneumonias. Hemodynamically stable. No altered mentation. Patient also received monoclonal antibodies in the emergency department. She doesn't stable without any major side effects. The pro-calcitonin level is at 0.07. LDH level is at 528. CRP level is at 4.7. Normal renal function. Normal electrolytes. White cell count is at 7.0 and a hemoglobin of 12.7. Objective - Vital Signs Vital signs: Vital Signs Temp 98.2 F 05/14/21 02:41 Pulse 78 05/14/21 02:41 Resp 17 05/14/21 02:41 BP 110/54 05/14/21 02:41 Pulse Ox 93 L 05/14/21 02:41 Intake & Output 05/13/21 05/14/21 05/14/21 18:59 06:59 18:59 Other: # Voids 3 - Exam Gen. appearance, comfortable no acute distress, resting comfortably in bed, laying down flat Head exam was generally normal. There was no scleral icterus or corneal arcus. Mucous membranes were moist. Neck was supple and without jugular venous distension, thyromegaly, or carotid bruits. Carotids were easily palpable bilaterally. There was no adenopathy. Lungs were clear to auscultation and percussion, and with normal diaphragmatic excursion. No wheezes or rales were noted. Cardiac exam revealed the PMI to be normally situated and sized. The rhythm was regular and no extrasystoles were noted during several minutes of auscultation. The first and second heart sounds were normal and physiologic splitting of the second heart sound was noted. There were no murmurs, rubs, clicks, or gallops. Patient is a pacemaker pocket over the left anterior chest area Abdominal exam revealed normal bowel sounds. The abdomen was soft, non-tender, and without masses, organomegaly, or appreciable enlargement of the abdominal aorta. Extremities reveal scars of previous knee surgeries bilaterally. No obvious deformities. No cyanosis. No clubbing. Left lower extremity has intact pulses in lower extremities bilaterally. Examination of the skin revealed no evidence of significant rashes, suspicious appearing nevi or other concerning lesions. Neurologically, the patient is awake and alert and the patient does not have any focal neurological deficit. Cranial nerves are essentially intact. - Labs CBC & Chem 7: 05/12/21 15:09 05/12/21 15:09 Labs: Abnormal Lab Results - Last 24 Hours (Table) 05/13/21 05/14/21 Range/Units 20:46 07:05 POC Glucose (mg/dL) 331 H 235 H (75-99) mg/dL Assessment and Plan Assessment: 1. COVID-19 infection; patient tested positive by PCR - Treated by monoclonal antibodies in ED; remains stable and asymptomatic - Lab review reveals mild elevation of LDH and CRP - Pulmonary is on board 2. Diabetes mellitus type 2/diabetic neuropathy; continue home dose of glipizide 10 mg twice a day 3. Hypertension; Lopressor 25 mg twice a day 4. Hyperlipidemia; Lipitor 10 mg by mouth daily at bedtime; Lopid 600 mg twice a day 5. History of CVA/left vision impairment; continue with aspirin and statin t herapy 6. Urinary retention; continue mirabegron 25 mg daily DVT prophylaxis SCDs/subcu heparin CODE STATUS; Full code
[2021-05-14] MEDS: NON FORMULARY DRUG (Mirabegron [Myrbetriq] 25 MG Tab.Er.24h) PO SCH (22:31)
[2021-05-14] MEDS: ATORVASTATIN 10 MG TAB PO SCH (22:35)
[2021-05-15 07:08] LABS: Glucose,Whole Blood 212 mg/dL (75-99)
[2021-05-15 07:22] LABS: Glucose,Whole Blood 198 mg/dL (75-99)
[2021-05-15] MEDS: ASPIRIN 81 MG PO SCH (08:07)
[2021-05-15] MEDS: FENOFIBRATE 160 MG TAB PO SCH (08:07)
[2021-05-15] MEDS: METOPROLOL TARTRATE 25 MG TAB PO SCH ×2 (08:07→20:49)
[2021-05-15] MEDS: HYDROcodone/APAP 7.5-325MG 1 EACH TAB PO PRN (08:07)
[2021-05-15] MEDS: metFORMIN 500 MG TAB PO SCH ×2 (08:07→20:48)
[2021-05-15] MEDS: polyethylene glycoL 3350 17 GM POWD.PACK PO SCH (08:07)
[2021-05-15] MEDS: glipiZIDE 10 MG TAB PO SCH ×2 (08:08→20:49)
[2021-05-15] MEDS: ENOXAPARIN 30 MG/0.3 ML SYRINGE SQ SCH (08:08)
[2021-05-15] MEDS: ACETAMINOPHEN TAB 325 MG TAB PO SCH ×2 (09:30→20:48)
[2021-05-15 11:41] LABS: Glucose,Whole Blood 300 mg/dL (75-99)
[2021-05-15 16:35] LABS: Glucose,Whole Blood 236 mg/dL (75-99)
--- NOTE | 2021-05-15 17:59 | P.PN ---
Subjective Progress Note Date: 05/15/21 Principal diagnosis: COVID 19 infection as the patient tested positive by PCR 80-year-old female patient, [facility] resident, who got chest with hospital from the [facility] as the patient tested positive for COVID 19 noted the patient was vaccinated the [facility]. She was complaining of some symptoms of URI and congestion and sore throat. Otherwise, no significant respiratory distress. No fever. She is on room air oxygen with a pulse ox of 95-96%. Chest x-ray is essentially clear. No evidence of any pneumonias. Hemodynamically stable. No altered mentation. Patient also received monoclonal antibodies in the emergency department. She doesn't stable without any major side effects. The pro-calcitonin level is at 0.07. LDH level is at 528. CRP level is at 4.7. Normal renal function. Normal electrolytes. White cell count is at 7.0 and a hemoglobin of 12.7. 05/15/2021 Patient is seen and evaluated and discussed with nursing staff; somewhat anxious for discharge planning Vital signs temperature 97.9, pulse 76, respiration 18 and blood pressure of 120/69, O2 saturation 96% on room air Patient remains clinically stable; has been evaluated by pulmonary service and no treatment is recommended at this time; patient didn't receive monoclonal antibodies in ED Of late case management to make discharge planning for patient to be transferred back to rehab Objective - Vital Signs Vital signs: Vital Signs Temp 97.9 F 05/15/21 08:00 Pulse 78 05/15/21 08:00 Resp 18 05/15/21 08:00 BP 137/74 05/15/21 08:00 Pulse Ox 96 05/15/21 08:00 Intake & Output 05/14/21 05/15/21 05/15/21 18:59 06:59 18:59 Intake Total 1080 Balance 1080 Intake: Oral 1080 Other: # Voids 3 6 # Bowel Movements 1 - Exam Gen. appearance, comfortable no acute distress, resting comfortably in bed, laying down flat Head exam was generally normal. There was no scleral icterus or corneal arcus. Mucous membranes were moist. Neck was supple and without jugular venous distension, thyromegaly, or carotid bruits. Carotids were easily palpable bilaterally. There was no adenopathy. Lungs were clear to auscultation and percussion, and with normal diaphragmatic excursion. No wheezes or rales were noted. Cardiac exam revealed the PMI to be normally situated and sized. The rhythm was regular and no extrasystoles were noted during several minutes of auscultation. The first and second heart sounds were normal and physiologic splitting of the second heart sound was noted. There were no murmurs, rubs, clicks, or gallops. Patient is a pacemaker pocket over the left anterior chest area Abdominal exam revealed normal bowel sounds. The abdomen was soft, non-tender, and without masses, organomegaly, or appreciable enlargement of the abdominal aorta. Extremities reveal scars of previous knee surgeries bilaterally. No obvious deformities. No cyanosis. No clubbing. Left lower extremity has intact pulses in lower extremities bilaterally. Examination of the skin revealed no evidence of significant rashes, suspicious appearing nevi or other concerning lesions. Neurologically, the patient is awake and alert and the patient does not have any focal neurological deficit. Cranial nerves are essentially intact. - Labs CBC & Chem 7: 05/12/21 15:09 05/12/21 15:09 Labs: Abnormal Lab Results - Last 24 Hours (Table) 05/14/21 05/14/21 05/15/21 Range/Units 11:21 16:42 07:05 POC Glucose (mg/dL) 324 H 244 H 212 H (75-99) mg/dL 05/15/21 Range/Units 07:21 POC Glucose (mg/dL) 198 H (75-99) mg/dL Assessment and Plan Assessment: 1. COVID-19 infection; patient tested positive by PCR - Treated by monoclonal antibodies in ED; remains stable and asymptomatic - Lab review reveals mild elevation of LDH and CRP - Pulmonary is on board 2. Diabetes mellitus type 2/diabetic neuropathy; continue home dose of glipizide 10 mg twice a day 3. Hypertension; Lopressor 25 mg twice a day 4. Hyperlipidemia; Lipitor 10 mg by mouth daily at bedtime; Lopid 600 mg twice a day 5. History of CVA/left vision impairment; continue with aspirin and statin therapy 6. Urinary retention; continue mirabegron 25 mg daily DVT prophylaxis SCDs/subcu heparin CODE STATUS; Full code
[2021-05-15] MEDS: ATORVASTATIN 10 MG TAB PO SCH (20:49)
[2021-05-15] MEDS: DOCUSATE 100 MG CAP PO SCH (20:49)
[2021-05-15] MEDS: SENNOSIDES 8.6 MG TAB PO SCH (20:49)
[2021-05-15] MEDS: NON FORMULARY DRUG (Mirabegron [Myrbetriq] 25 MG Tab.Er.24h) PO SCH (20:50)
[2021-05-15 20:52] LABS: Glucose,Whole Blood 287 mg/dL (75-99)
[2021-05-16] MEDS: HYDROcodone/APAP 7.5-325MG 1 EACH TAB PO PRN (05:00)
[2021-05-16 07:39] LABS: Glucose,Whole Blood 200 mg/dL (75-99)
[2021-05-16] MEDS: ACETAMINOPHEN TAB 325 MG TAB PO SCH (08:53)
[2021-05-16] MEDS: ASPIRIN 81 MG PO SCH (08:57)
[2021-05-16] MEDS: FENOFIBRATE 160 MG TAB PO SCH (08:57)
[2021-05-16] MEDS: metFORMIN 500 MG TAB PO SCH (08:57)
[2021-05-16] MEDS: polyethylene glycoL 3350 17 GM POWD.PACK PO SCH (08:58)
[2021-05-16] MEDS: glipiZIDE 10 MG TAB PO SCH (08:58)
[2021-05-16] MEDS ORDERED: ENOXAPARIN 40 MG/0.4 ML SYRINGE SQ SCH (09:00)
[2021-05-16] MEDS: METOPROLOL TARTRATE 25 MG TAB PO SCH (09:02)
[2021-05-16 10:37] VITALS: BP 126/78; PULSE 66; RESP 16; TEMP 97.4
[2021-05-16 12:06] LABS: Glucose,Whole Blood 340 mg/dL (75-99)
--- NOTE | 2021-05-16 16:14 | P.DS ---
Providers Date of admission: 05/12/21 18:33 Expected date of discharge: 05/16/21 Attending physician: Mauro Carpio MD Consults: 05/13/21 12:52 Consult Physician Routine Consulting Provider: Judith Owens Consult Reason/Comments: COVID 19/ poss PNA Do you want consulting provider notified?: Yes Primary care physician: Amarilys Louis [facility] Course: Discharge diagnosis 1. COVID-19 infection; patient tested positive by PCR - Treated by monoclonal antibodies in ED; remains stable and asymptomatic - Lab review reveals mild elevation of LDH and CRP - Patient was seen in pulmonary. Currently at 96% on room air. 2. Diabetes mellitus type 2/diabetic neuropathy; continue home dose of metformin, glipizide 10 mg twice a day 3. Hypertension; Lopressor 25 mg twice a day 4. Hyperlipidemia; Lipitor 10 mg by mouth daily at bedtime; Lopid 600 mg twice a day 5. History of CVA/left vision impairment; continue with aspirin and statin therapy 6. Urinary retention; continue mirabegron 25 mg daily DVT prophylaxis SCDs/subcu heparin Hospital course. 80-year-old female patient, [facility], [facility] as the patient tested positive for COVID 19 noted the patient was [facility]. She was complaining of some symptoms of URI and congestion and sore throat. Otherwise, no significant respiratory distress. No fever. She is on room air oxygen with a pulse ox of 95-96%. Chest x-ray is essentially clear. No evidence of any pneumonias. Hemodynamically stable. No altered mentation. Patient also received monoclonal antibodies in the emergency department. She doesn't stable without any major side effects. The pro-calcitonin level is at 0.07. LDH level is at 528. CRP level is at 4.7. Normal renal function. Normal electrolytes. White cell count is at 7.0 and a hemoglobin of 12.7. 05/15/2021 Patient is seen and evaluated and discussed with nursing staff; somewhat anxious for discharge planning Vital signs temperature 97.9, pulse 76, respiration 18 and blood pressure of 120/69, O2 saturation 96% on room air Patient remains clinically stable; has been evaluated by pulmonary service and no treatment is recommended at this time; patient didn't receive monoclonal antibodies in ED Of late case management to make discharge planning for patient to be transferred back to rehab 05/16/2021 Patient is currently resting in the bed comfortably. No complaints of chest pain or shortness of breath. Anxious to be discharged. Saturating at 96% on room air. Hemodynamically stable. Patient has been afebrile. Patient is being continued on insulin sliding scale for elevated blood sugar. Continue metformin. GLIPIZIDE. DISCHARGE MEDICATIONS A CONSULTATION WAS DONE. PATIENT IS BEING DISCHARGED TO REHAB TODAY. - Exam Gen. appearance, comfortable no acute distress, resting comfortably in bed, laying down flat Head exam was generally normal. There was no scleral icterus or corneal arcus. Mucous membranes were moist. Neck was supple and without jugular venous distension, thyromegaly, or carotid bruits. Carotids were easily palpable bilaterally. There was no adenopathy. Lungs were clear to auscultation and percussion, and with normal diaphragmatic excursion. No wheezes or rales were noted. Cardiac exam revealed the PMI to be normally situated and sized. The rhythm was regular and no extrasystoles were noted during several minutes of auscultation. The first and second heart sounds were normal and physiologic splitting of the s econd heart sound was noted. There were no murmurs, rubs, clicks, or gallops. Patient is a pacemaker pocket over the left anterior chest area Abdominal exam revealed normal bowel sounds. The abdomen was soft, non-tender, and without masses, organomegaly, or appreciable enlargement of the abdominal aorta. Extremities reveal scars of previous knee surgeries bilaterally. No obvious deformities. No cyanosis. No clubbing. Left lower extremity has intact pulses in lower extremities bilaterally. Examination of the skin revealed no evidence of significant rashes, suspicious appearing nevi or other concerning lesions. Neurologically, the patient is awake and alert and the patient does not have any focal neurological deficit. Cranial nerves are essentially intact. Vital Signs 05/16/21 05/16/21 09:03 10:37 Temperature 97.4 F L Pulse Rate [ 66 Pulse Oximetery ] Respiratory 16 Rate Blood Pressure 126/78 [Left Arm] O2 Sat by Pulse 95 96 Oximetry Total time taken greater than 35 minutes including 18 minutes for counseling and coordination of care. Patient Condition at Discharge: Good Plan - Discharge Summary Discharge Rx Participant: No New Discharge Prescriptions: Continue RX: gemfibroziL [Lopid] 600 mg PO BID@0900,2100 RX: Atorvastatin [Lipitor] 10 mg PO HS@2099 RX: metFORMIN HCL [Glucophage] 1,000 mg PO BID@899,2099 RX: glipiZIDE XL [Glucotrol XL] 10 mg PO BID@899,2099 RX: Acetaminophen [Tylenol 8 Hour] 650 mg PO Q8H PRN PRN Reason: GENERAL DISCOMFORT RX: Insulin Lispro [Humalog [place] Kwikpen] See Protocol SQ TID@0800,1200,1700 RX: Acetaminophen [Tylenol 8 Hour] 650 mg PO BID@899,2099 RX: Sennosides [Senna] 8.6 mg PO HS@2099 RX: Mirabegron [Myrbetriq] 25 mg PO HS@2099 RX: Metoprolol Tartrate [Lopressor] 25 mg PO BID@899,2099 RX: HYDROcodone/APAP 7.5-325MG [[place] 7.5-325] 1 each PO Q6HR PRN #28 tab PRN Reason: Pain RX: Calcium Carbonate [Tums] 1,000 mg PO Q6H PRN PRN Reason: UPSET STOMACH RX: Artificial Tears-Hypromellose [Artificial Tear Drops] 1 drop BOTH EYES Q4H PRN PRN Reason: DRY EYES RX: polyethylene glycoL 3350 [Miralax] 17 gm PO DAILY@899 RX: Docusate [Colace] 100 mg PO HS@2099 RX: Aspirin [[place] Aspirin EC] 81 mg PO DAILY@0900 Discharge Medication List RX: gemfibroziL [Lopid] 600 mg PO BID@899,209911/18/16 [History] RX: Atorvastatin [Lipitor] 10 mg PO HS@209905/06/18 [History] RX: metFORMIN HCL [Glucophage] 1,000 mg PO BID@00,209901/27/19 [History] RX: glipiZIDE XL [Glucotrol XL] 10 mg PO BID@899,209908/21/20 [History] RX: Metoprolol Tartrate [Lopressor] 25 mg PO BID@0900,209903/29/21 [History] RX: HYDROcodone/APAP 7.5-325MG [[place] 7.5-325] 1 each PO Q6HR PRN #28 tab 04/01/21 [Rx] RX: Acetaminophen [Tylenol 8 Hour] 650 mg PO BID@0900,2100 05/12/21 [History] RX: Acetaminophen [Tylenol 8 Hour] 650 mg PO Q8H PRN 05/12/21 [History] RX: Artificial Tears-Hypromellose [Artificial Tear Drops] 1 drop BOTH EYES Q4H PRN 05/12/21 [History] RX: Aspirin [[place] Aspirin EC] 81 mg PO DAILY@0905/12/21 [History] RX: Calcium Carbonate [Tums] 1,000 mg PO Q6H PRN 05/12/21 [History] RX: Docusate [Colace] 100 mg PO HS@209905/12/21 [History] RX: Insulin Lispro [Humalog [place] Kwikpen] See Protocol SQ TID@0800,1200,1700 05/12/21 [History] RX: Mirabegron [Myrbetriq] 25 mg PO HS@209905/12/21 [History] RX: Sennosides [Senna] 8.6 mg PO HS@209905/12/21 [History] RX: polyethylene glycoL 3350 [Miralax] 17 gm PO DAILY@0905/12/21 [History] Follow up Appointment(s)/Referral(s): Amarilys Myers MD [Primary Care Provider] - 1-2 days Discharge Disposition: TRANSFER TO SNF/F
[2021-05-16 17:15] LABS: Glucose,Whole Blood 310 mg/dL (75-99)
== END 2021-05-16 18:47 | DRG 178 ==
LOC: EC 12:51 → 4SSUR 18:33
PROVIDERS: ADMIT Internal Medicine; ATTEND Internal Medicine
PROC: XW033H6 Introduction of Other New Technology Monoclonal Antibody into Peripheral Vein, Percutaneous Approach, New Technology Group 6 (ICD-10-PCS; principal; 2021-05-12)
DX: U07.1 COVID-19 (principal); I44.2 Atrioventricular block, complete; S72.002D Fracture of unspecified part of neck of left femur, subsequent encounter for closed fracture with routine healing; Z79.84 Long term (current) use of oral hypoglycemic drugs; Z79.82 Long term (current) use of aspirin; E11.42 Type 2 diabetes mellitus with diabetic polyneuropathy; E78.5 Hyperlipidemia, unspecified; I69.312 Visuospatial deficit and spatial neglect following cerebral infarction; E11.65 Type 2 diabetes mellitus with hyperglycemia; M19.90 Unspecified osteoarthritis, unspecified site; Z98.1 Arthrodesis status; Z86.010 Personal history of colon polyps; I11.9 Hypertensive heart disease without heart failure; R33.9 Retention of urine, unspecified; H54.7 Unspecified visual loss; I05.0 Rheumatic mitral stenosis; Z80.0 Family history of malignant neoplasm of digestive organs; Z79.899 Other long term (current) drug therapy; Z85.820 Personal history of malignant melanoma of skin; Z91.81 History of falling; Z95.0 Presence of cardiac pacemaker
CPT/HCPCS: 36415; 71045; 80053; 82728; 83605; 83615; 83735; 84145; 84484; 85025; 85610; 85730; 86140; 87635; 93005; 94760; 99284

== ENCOUNTER 2021-06-12 11:32 | Emergency (ER) | payer MEDICARE, BC ==
[2021-06-12 11:45] VITALS: RESP 18; TEMP 97.6
[2021-06-12] MEDS ORDERED: ACETAMINOPHEN TAB 325 MG TAB PO STA (11:57)
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
--- NOTE | 2021-06-12 13:12 | XR ---
EXAMINATION TYPE: AP view pelvis and 2 views left hip DATE OF EXAM: 06/12/2021 Comparison: 06/10/2021 Clinical History: 80-year-old female fall Findings: Mild degenerative change at the left hip. Displaced fracture fragment at the lesser trochanter with a ssociated heterotopic ossification. Callus formation about the greater trochanter. Antegrade intramed ullary nail with screw fixation is demonstrated. No displaced fracture. Mild degenerative change righ t hip as well and degenerative change lumbar spine. Impression: Previous antegrade intramedullary nail and screw fixation across the patient's left IT fracture. Unch anged mildly displaced fracture fragment of the lesser trochanter. Mild bilateral hip OA. No new disp laced fracture seen.
[2021-06-12 15:41] VITALS: BP 136/76; PULSE 78
== END 2021-06-12 16:04 | disposition home or self-care (01) ==
LOC: EC 11:32
DX: M25.552 Pain in left hip (principal); E11.9 Type 2 diabetes mellitus without complications; K21.9 Gastro-esophageal reflux disease without esophagitis; E78.5 Hyperlipidemia, unspecified; Z88.5 Allergy status to narcotic agent; Z88.8 Allergy status to other drugs, medicaments and biological substances; Z79.899 Other long term (current) drug therapy; Z79.4 Long term (current) use of insulin
CPT/HCPCS: 73502; 99283

== ENCOUNTER → 2021-11-04 | Outpatient (CLI) | payer MEDICARE, BC ==
--- NOTE | 2021-11-04 12:55 | CT ---
EXAMINATION TYPE: CT thor lumbar spine wo con DATE OF EXAM: 11/04/2021 COMPARISON: None HISTORY: Pain Unenhanced CT of the thoracic and lumbar spine was performed. Bone and soft tissue window settings a re submitted as well as coronal and sagittal reconstructions. CTA thoracic spine: There is mild curvature convex to the right. There is moderate multilevel degener ative disc space narrowing and ventral spondylosis. T7-8 disc calcifications noted. Small posterior h hay disc noted at T3-4 mild effacement ventral thecal sac. No significant disc herniation. No central stenosis. No fracture or bony destructive process. No evidence for paraspinal mass. Lumbar spine: L1-L2: Normal disc space height. No disc herniation protrusion or central stenosis. No facet joint arthropathy. No evidence for foraminal encroachment. L2-L3: Normal disc space height. No disc herniation protrusion or central stenosis. No facet joint arthropathy. No evidence for foraminal encroachment. L3-L4: Vacuum disc with severe degenerative disc space narrowing. Posterior disc bulge with encapsula ting spur resulting in disc endplate complex and effacement ventral thecal sac. Bilateral lateral rec ess stenosis. No evidence for central stenosis. Right foraminal encroachment. L4-L5: Vacuum disc with severe degenerative disc space narrowing. Posterior disc bulge with encapsula ting spur resulting in disc endplate complex and effacement ventral thecal sac. Bilateral lateral rec ess stenosis. No evidence for central stenosis. Right foraminal encroachment. L5-S1: Vacuum disc. Posterior disc bulge. No herniation protrusion or lateral recess stenosis. No for aminal encroachment seen at this time. No paraspinal masses are identified. Lumbar segments are free if fracture. IMPRESSION: 1. Multilevel degenerative disc disease thoracic spine with hard disc noted at the T3-4 level and mil d effacement ventral thecal sac. 2. Degenerative disc disease with vacuum disc in hard disc at L3-4 and L4-5. Bilateral lateral recess stenosis suspected at each level. Correlate clinically.
== END | disposition home or self-care (01) ==
LOC: RADCTMAIN 11:17
PROVIDERS: ATTEND Psychiatry & Neurology Neurology
DX: R26.9 Unspecified abnormalities of gait and mobility (principal); M51.35 Other intervertebral disc degeneration, thoracolumbar region
CPT/HCPCS: 72128; 72131

== ENCOUNTER → 2022-06-09 | Outpatient (CLI) | payer MEDICARE, BC, OTHER ==
--- NOTE | 2022-06-09 12:41 | XR ---
EXAMINATION TYPE: XR abdomen 2V DATE OF EXAM: 06/09/2022 HISTORY: Pain. Technique: 3 views of the abdomen are submitted. Comparison: None. Findings: There is no convincing evidence of pneumoperitoneum. The Bowel gas pattern is nonspecific and nonobstructive. No sizable air-fluid levels are seen. No mass effects are noted. No renal calcifications are identified. IMPRESSION: 1. Nonspecific nonobstructive bowel gas pattern
--- NOTE | 2022-06-09 13:48 | FL ---
COMPARISON: NONE DATE OF EXAM: 06/09/2022 HISTORY: Dysphagia A number of thin and thick substances were ingested under the care of the department of speech pathol ogy. There is no evidence of aspiration or penetration. There is no evidence of obstruction. 48 se conds of fluoroscopy provided in no images submitted. IMPRESSION: 1. No evidence of aspiration or penetration.
== END | disposition home or self-care (01) ==
LOC: RADFLMAIN 10:53
PROVIDERS: ATTEND Family Medicine
DX: R13.12 Dysphagia, oropharyngeal phase (principal)
CPT/HCPCS: 74019; 74230